=== PATIENT | male | born 1945 | race Caucasian/White ===

== ENCOUNTER 2020-08-02 15:18 | Outpatient (REF) | payer MEDICARE, OTHER, SELFPAY ==
[2020-08-02 17:12] LABS: MANUAL DIFF FLAG NO
[2020-08-02 17:23] LABS: Basophils Absolute Auto 0.1 X10*3/uL (0.0-0.2); Basophils Percent Auto 0.6 % (0-2); Eosinophils Absolute Auto 0.2 X10*3/uL (0.0-0.4); Eosinophils Percent Auto 2.5 % (0-4); Hematocrit 47.5 % (42-52); Hemoglobin 15.2 g/dl (14.0-18.0); Imm Gran Abs Auto 0.03 X10*3/uL (0.00-0.03); Imm Gran Pct Auto 0.4 % (0.0-0.4); Lymphocytes Absolute Auto 1.6 X10*3/uL (1.2-4.9); Lymphocytes Percent Auto 19.2 % (20-40); Mean Corpuscular Hemoglobin 30.3 pg (27.0-33.0); Mean Corpuscular Volume 94.8 fL (80-98); Mean Platelet Volume 12.7 fL (9.4-12.4); Monocytes Absolute Auto 0.7 X10*3/uL (0.1-1.2); Monocytes Percent Auto 8.2 % (2-11); Neutrophils Absolute Auto 5.6 X10*3/uL (2.0-8.3); Neutrophils Percent Auto 69.1 % (45-73); Platelet Count 182 X10*3/uL (160-400); Red Blood Count 5.01 X10*6/uL (4.60-5.80); Red Cell Distribution Width 14.1 % (11.0-16.0); White Blood Count 8.1 X10*3/uL (4.8-10.8)
[2020-08-02 17:38] LABS: Anion Gap 12 (12-20); Blood Urea Nitrogen 30 mg/dL (9-16); Calcium 9.3 mg/dL (8.4-10.2); Carbon Dioxide 29 mmol/L (22-29); Chloride 105 mmol/L (96-108); Estimated Glomerular Filt Rate 51; Glucose Random 106 mg/dL (60-115); Potassium 4.4 mmol/l (3.3-5.1); Sodium 142 mmol/L (135-145)
== END 2020-08-02 15:19 | disposition home or self-care (01) ==
LOC: HO.HMGCLDS 15:18
PROVIDERS: PCP Internal Medicine; Visit Provider Internal Medicine
DX: Z01.818 Encounter for other preprocedural examination (principal); N28.9 Disorder of kidney and ureter, unspecified; F41.1 Generalized anxiety disorder; J44.9 Chronic obstructive pulmonary disease, unspecified
CPT/HCPCS: 36415; 80048; 85025

== ENCOUNTER → 2020-08-09 13:44 | Outpatient (BNVA) | payer MEDICARE, OTHER, SELFPAY | PROVIDERS: PCP Internal Medicine; Visit Provider Internal Medicine | DX: J44.9 Chronic obstructive pulmonary disease, unspecified (principal); Z99.81 Dependence on supplemental oxygen; Z79.51 Long term (current) use of inhaled steroids; Z87.891 Personal history of nicotine dependence | CPT/HCPCS: 99213 ==

== ENCOUNTER → 2020-12-14 13:37 | Outpatient (BNVA) | payer MEDICARE, SELFPAY | PROVIDERS: PCP Internal Medicine; Visit Provider Internal Medicine | DX: Z13.89 Encounter for screening for other disorder (principal) | CPT/HCPCS: Q3014 ==

== ENCOUNTER 2020-12-30 09:22 | Outpatient (REF) | payer MEDICARE, SELFPAY ==
[2020-12-30 11:55] LABS: Hematocrit 46.4 % (42-52); Hemoglobin 14.6 g/dl (14.0-18.0)
== END 2020-12-30 09:23 | disposition home or self-care (01) ==
LOC: HO.HMGCLDS 09:22
PROVIDERS: PCP Internal Medicine; Visit Provider Internal Medicine
DX: I10 Essential (primary) hypertension (principal); J44.9 Chronic obstructive pulmonary disease, unspecified; F41.1 Generalized anxiety disorder; N28.9 Disorder of kidney and ureter, unspecified
CPT/HCPCS: 36415; 85014; 85018

== ENCOUNTER → 2021-06-28 13:04 | Outpatient (BNVA) | payer MEDICARE, SELFPAY | PROVIDERS: PCP Internal Medicine; Visit Provider Internal Medicine | DX: J44.9 Chronic obstructive pulmonary disease, unspecified (principal); R09.02 Hypoxemia | CPT/HCPCS: 99212 ==

== ENCOUNTER → 2022-01-10 13:07 | Outpatient (BNVA) | payer MEDICARE, SELFPAY | PROVIDERS: PCP Internal Medicine; Visit Provider Internal Medicine | DX: R09.02 Hypoxemia (principal); J44.9 Chronic obstructive pulmonary disease, unspecified | CPT/HCPCS: 99212 ==

== ENCOUNTER 2022-05-09 09:31 | Outpatient (REF) | payer MEDICARE, SELFPAY ==
[2022-05-09 11:53] LABS: Alanine Aminotransferase 21 U/L (0-40); Albumin Level 4.1 g/dL (3.5-5.0); Alkaline Phosphatase 69 U/L (39-117); Anion Gap 11 (12-20); Aspartate Amino Transferase 17 U/L (5-37); Bilirubin Total 0.3 mg/dL (0.0-1.0); Blood Urea Nitrogen 18 mg/dL (9-16); Calcium 8.8 mg/dL (8.4-10.2); Carbon Dioxide 30 mmol/L (22-29); Chloride 103 mmol/L (96-108); Estimated Glomerular Filt Rate 53; Glucose Random 106 mg/dL (60-115); Potassium 4.6 mmol/L (3.3-5.1); Sodium 139 mmol/L (135-145)
== END 2022-05-09 09:32 | disposition home or self-care (01) ==
LOC: HO.HMGCLDS 09:31
PROVIDERS: PCP Internal Medicine; Visit Provider Internal Medicine
DX: F41.1 Generalized anxiety disorder (principal); J44.9 Chronic obstructive pulmonary disease, unspecified; I10 Essential (primary) hypertension
CPT/HCPCS: 36415; 80053

== ENCOUNTER 2022-06-21 14:23 | Outpatient (REF) | payer MEDICARE, SELFPAY ==
--- NOTE | ~2022-06-21 | XR_ITS ---
EXAMINATION: XR CHEST CLINICAL INFORMATION: COPD. Acute exacerbation. COMPARISON: Chest radiograph dated 10/19/2008. TECHNIQUE: 2 views of the chest were obtained. FINDINGS: Chronic-appearing increased interstitial markings. Focal, patchy opacities within the right lower lobe concerning for early pneumonia. No pleural effusion or pneumothorax. Stable cardiomediastinal silhouette. Healed right rib fracture. XR/XR chest 2V IMPRESSION: Patchy opacities within the right lower lobe, concerning for pneumonia.
== END 2022-06-21 14:24 | disposition home or self-care (01) ==
LOC: HO.XRAY 14:23
PROVIDERS: PCP Internal Medicine; Visit Provider Internal Medicine
DX: J44.1 Chronic obstructive pulmonary disease with (acute) exacerbation (principal)
CPT/HCPCS: 71046; 99212

== ENCOUNTER → 2022-08-08 13:35 | Outpatient (BNVA) | payer MEDICARE, SELFPAY | PROVIDERS: PCP Internal Medicine; Visit Provider Internal Medicine | DX: J44.9 Chronic obstructive pulmonary disease, unspecified (principal); R09.02 Hypoxemia | CPT/HCPCS: 99212 ==

== ENCOUNTER 2022-12-25 14:00 | Emergency (ER) | payer OTHER, SELFPAY ==
--- NOTE | ~2022-12-25 | XR_ITS ---
EXAMINATION: XR CHEST CLINICAL INFORMATION: Short of breath COMPARISON: 06/21/2022 TECHNIQUE: Frontal view of the chest was obtained. FINDINGS: The lungs are well expanded. Streaky bibasilar markings. No dense consolidation. No pleural effusion or pneumothorax. No edema. No pleural effusion or pneumothorax. The cardiomediastinal silhouette is unchanged. XR/XR chest 1V IMPRESSION: Streaky bibasilar markings favor atelectasis. No dense consolidation. Small airways process possible.
[2022-12-25 14:10] VITALS: BP 130/96; BP 178/100; PULSE 57; PULSE 66; RESP 16; TEMP 36.8; O2SAT 100; O2SAT 97; BMI 25.8
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
--- NOTE | 2022-12-25 17:15 | PC.NURSE ---
WAS GOING TO BE TRANSFERRED TO [facility], PT IS NOW BEING DC HOME, STATES UNDERSTANDING OF RISKS AND UNDERSTANDS TEACH BACK WITH TEACH BACK
[2022-12-25] MEDS: Bacitracin Oint 14 GM TUBE 1 APPL TOPICAL (17:47)
== END 2022-12-25 17:45 | disposition home or self-care (01) ==
PROVIDERS: Emergency Provider Emergency Medicine Emergency Medical Services; PCP Internal Medicine
DX: T20.34XA Burn of third degree of nose (septum), initial encounter (principal); T20.29XA Burn of second degree of multiple sites of head, face, and neck, initial encounter; X08.8XXA Exposure to other specified smoke, fire and flames, initial encounter; J44.9 Chronic obstructive pulmonary disease, unspecified; Z99.81 Dependence on supplemental oxygen; F17.210 Nicotine dependence, cigarettes, uncomplicated; Z79.899 Other long term (current) drug therapy
CPT/HCPCS: 71045; 99282; 99283

== ENCOUNTER 2023-01-03 09:24 | Outpatient (REF) | payer OTHER, SELFPAY ==
[2023-01-03 11:15] LABS: MANUAL DIFF FLAG NO
[2023-01-03 11:25] LABS: Basophils Absolute Auto 0.1 X10*3/uL (0.0-0.2); Basophils Percent Auto 0.6 % (0-2); Eosinophils Absolute Auto 0.2 X10*3/uL (0.0-0.4); Hematocrit 42.9 % (42.0-52.0); Hemoglobin 13.7 g/dl (14.0-18.0); Imm Gran Abs Auto 0.04 X10*3/uL (0.00-0.03); Imm Gran Pct Auto 0.4 % (0.0-0.4); Lymphocytes Absolute Auto 1.5 X10*3/uL (1.2-4.9); Lymphocytes Percent Auto 16.4 % (20-40); Mean Corpuscular HGB Conc 31.9 g/dl (31.0-36.0); Mean Corpuscular Volume 94.1 fL (80.0-98.0); Mean Platelet Volume 12.4 fL (9.4-12.4); Monocytes Absolute Auto 0.8 X10*3/uL (0.1-1.2); Neutrophils Absolute Auto 6.8 x10*3/uL (2.0-8.3); Neutrophils Percent Auto 72.6 % (45-73); Platelet Count 195 X10*3/uL (160-400); Red Blood Count 4.56 X10*6/uL (4.60-5.80); Red Cell Distribution Width 13.8 % (11.0-16.0); White Blood Count 9.4 X10*3/uL (4.8-10.8)
[2023-01-03 12:07] LABS: Alanine Aminotransferase 13 U/L (0-40); Albumin Level 4.1 g/dL (3.5-5.0); Alkaline Phosphatase 69 U/L (39-117); Anion Gap 15 (12-20); Aspartate Amino Transferase 18 U/L (5-37); Bilirubin Total 0.4 mg/dL (0.0-1.0); Blood Urea Nitrogen 40 mg/dL (9-16); Calcium 8.5 mg/dL (8.4-10.2); Carbon Dioxide 25 mmol/L (22-29); Chloride 109 mmol/L (96-108); Estimated Glomerular Filt Rate 20; Glucose Random 123 mg/dL (60-115); Potassium 4.6 mmol/L (3.3-5.1); Sodium 144 mmol/L (135-145); Total Protein 6.8 g/dL (6.5-8.0)
== END 2023-01-03 09:25 | disposition home or self-care (01) ==
LOC: HO.HMGCLDS 09:24
PROVIDERS: PCP Internal Medicine; Visit Provider Internal Medicine
DX: F41.1 Generalized anxiety disorder (principal); I10 Essential (primary) hypertension; J44.9 Chronic obstructive pulmonary disease, unspecified; N28.9 Disorder of kidney and ureter, unspecified; Z99.81 Dependence on supplemental oxygen
CPT/HCPCS: 36415; 80053; 85025

== ENCOUNTER → 2023-01-14 09:12 | Outpatient (BNVA) | payer MEDICARE, SELFPAY | PROVIDERS: PCP Internal Medicine; Visit Provider Internal Medicine | DX: J44.1 Chronic obstructive pulmonary disease with (acute) exacerbation (principal); R09.02 Hypoxemia; Z99.81 Dependence on supplemental oxygen; Z79.899 Other long term (current) drug therapy | CPT/HCPCS: 99212 ==

== ENCOUNTER 2023-07-03 13:48 | Outpatient (AMB) | payer MEDICARE, SELFPAY ==
[2023-07-03 13:53] VITALS: BP 142/82; PULSE 81; O2SAT 94
--- NOTE | 2023-07-03 13:53 | A.OFFPC_ITS ---
Vital Signs 07/03/23 13:53 Weight 158 lb 8 oz BP 142/82 H Blood Pressure Location Rt brachial Position Sitting Pulse 81 Pulse Source Pulse Oximeter Pulse Oximetry (%) 94 Oxygen Delivery Method Nasal Cannula Intake Visit Reasons: 6m follow up labs Allergies No Known Allergies [No Known Allergies*] Allergy (Verified 07/03/23 13:54) Medication List - Last Reconciled 07/03/23 by Tanisha Evangelista MD albuterol sulfate 90 mcg/actuation 2 puffs inhalation Q4-6H PRN 30 days amlodipine 5 mg PO DAILY bacitracin (Bacitraycin Plus) 1 appl topical Q8H inhalational spacing device As directed sertraline 100 mg PO DAILY tiotropium bromide 2.5 mcg/actuation (Spiriva Respimat) 2 puffs inhalation QAM Tobacco use date assessed: 07/03/23 Fall risk assessment: No Falls in past year Last assessed Fall Risk: 07/03/23 Dental Screening Dental Screen Date: 07/03/23 Did you have a dental visit in the last 12 months?: No Did you have a dental problem in the last 6 months where you did not have access to dental care?: No Was dental information given to patient?: Patient declined HPI 6m follow up labs HPI Details Patient is 77-year-old gentleman came in today for his regular follow- up appointment Patient is complaining of having diarrhea 2 or 3 times a day for the past 2 months. Had colonoscopy more than 7 years ago. I am booking him appointment with the gastroenterology for further evaluation He does not have any blood in the stools there is no abdominal pain fever chills or any other symptoms of nausea vomiting. Last time he had labs December of this year his creatinine was 3.1 we will be repeating that again He is here today with his nephew Naresh [phone] Case discussed with Danilo as well, I want Montrell to see a marketing services manager. Meanwhile he is to continue with amlodipine 5 mg And sertraline 100 mg that he is taking for anxiety and major depression. Patient is on oxygen due to severe COPD and is seeing Dr. Jean Follow-up 3 months [facility] Medical History COPD exacerbation Hypoxemia COPD (chronic obstructive pulmonary disease) Supplemental oxygen dependent Nephropathy Anxiety, generalized COPD (chronic obstructive pulmonary disease) Surgical History Bladder tumor History of colonoscopy History of cystoscopy History of surgery Avulsion of finger tip History of neck surgery Arm fracture, left History of knee surgery H/O colonoscopy Family History Father HTN (hypertension) Diabetes mellitus Mother Cancer Brother Melanoma Sister Breast cancer Son No problems noted. Daughter No problems noted. Social History Housing: House Alcohol intake: former Patient Tobacco Use Status: Former Tobacco user e-Cigarette/Vaping Use: Never Used service: No Cognitive needs: No Hearing needs: No Vision needs: Yes Questionnaire PHQ-9 Over the last 2 weeks, how often have you been bothered by any of the following problems? 1. Little interest or pleasure in doing things: not at all 2. Feeling down, depressed, or hopeless: not at all 3. Trouble falling or staying asleep, or sleeping too much: not at all 4. Feeling tired or having little energy: not at all 5. Poor appetite or overeating: not at all 6. Feeling bad about yourself - or that you are a failure or have let yourself or your family down: not at all 7. Trouble concentrating on things, such as reading the newspaper or watching television: not at all 8. Moving or speaking so slowly that other people could have noticed. Or the opposite - being so fidgety or restless that you have been moving around a lot more than usual: not at all 9. Thoughts that you would be better off or of hurting yourself in some way : not at all Total score: 0 Depression Screening Interpretation: Negative 98949 - PHQ-9 Billing: Yes Source: Developed by Drs. Lukas Westfall, Ana Holt, Octavio De Guzman and colleagues, with an educational raleigh from [employer]. Thrive Questionnaire Date Thrive assessed: 07/03/23 I am a: Patient What is your living situation today?: I have a steady place to live Within the past 12 months, did the food you bought not last and you didn't have the money to get more?: Sometimes True Within the past 12 months, did you worry whether your food would run out before you got money to buy more?: Sometimes True Do you have trouble paying for medicines?: No Do you have trouble getting transportation to medical appointments?: No Do you have trouble paying your heating and electricity bill?: Yes Do you have trouble taking care of your child, family member or friend?: No Do you have trouble with day-to-day activities such as bathing, preparing meals, shopping, managing finances, etc.?: No Are you currently unemployed and looking for a job?: No Are you interested in more education?: No AUDIT C Alcohol Use Questionnaire (AUDIT-C) 1. How often do you have a drink containing alcohol?: Never 3. How often do you have six or more drinks on one occasion?: Never Total Score: 0 Score Reviewed/Action Taken: Yes ILDA-7 AMB Questionnaire ILDA-7 Date ILDA - 7 assessed: 07/03/23 Feeling nervous, anxious, or on edge: 0 = Not at all Not being able to stop or control worryin = Not at all Worrying too much about different things: 0 = Not at all Trouble relaxin = Not at all Being so restless that it is hard to sit still: 0 = Not at all Becoming easily annoyed or irritable: 0 = Not at all Feeling afraid as if something awful might happen: 0 = Not at all Total ILDA-7 score (0-4 normal; 5-9 mild; 10-14 moderate; 15-21 severe): 0 Source: Developed by Drs. Lukas Westfall, Ana Holt, Octavio De Guzman and colleagues, with an educational raleigh from [employer]. ILDA-7 Assessment Billing ILDA-7 Assessment Tool: ILDA-7 Assessment 35778 Review of Systems Const Denies chills and Denies fever(s) ENT Denies epistaxis and Denies nasal discharge Card Denies chest pain Resp Denies chest congestion and Denies hemoptysis GI Denies nausea Skin/Breast Denies rash Neuro Reports no additional complaints Psych Reports no additional complaints Endo Reports no additional complaints Physical exam (Primary Care) Vital Signs: Last Vital Signs Pulse 81 07/03/23 13:53 BP 142/82 H 07/03/23 13:53 Pulse Ox 94 07/03/23 13:53 Oxygen Delivery Method Nasal Cannula 07/03/23 13:53 Tobacco/Smoking Status: Tobacco use Status Tobacco use date assessed 07/03/23 07/03/23 13:59 Patient Tobacco Use Status Former Tobacco user 07/03/23 13:59 e-Cigarette/Vaping Use Never Used 07/03/23 13:59 PHQ-9: PHQ-9 Score PHQ-9: Total score 0 07/03/23 14:33 Depression Screening Interpretation: Negative Thrive Assessment: Date of Thrive Assessment Date Thrive assessed 07/03/23 07/03/23 14:33 Const General: cooperative, comfortable and no acute distress Orientation/consciousness: patient oriented x3 HENMT Other: Oxygen cannula in the nose Head: Yes normocephalic Eyes General: appearance normal, both eyes and all related structures Neck Neck: Yes supple Resp Effort & Inspection: normal respiratory effort, no cough and no stridor Cardio Rhythm: regular rhythm Heart sounds: S1 normal heart sound present and S2 normal heart sound present GI Other: Abdomen soft nontender, bowel sounds positive Skin General skin exam: turgor normal Neuro General: patient oriented x3, tone normal and moves all extremities Extrem Right lower extremity: no edema Left lower extremity: no edema Assessment and Plan Assessment & Plan (1) Anxiety, generalized: Code(s): F41.1 - Generalized anxiety disorder (2) COPD (chronic obstructive pulmonary disease): Code(s): J44.9 - Chronic obstructive pulmonary disease, unspecified Qualifiers: COPD type: emphysema Emphysema type: panlobular Qualified Code(s): J43.1 - Panlobular emphysema (3) Nephropathy: Code(s): N28.9 - Disorder of kidney and ureter, unspecified (4) Hypertension, essential: Code(s): I10 - Essential (primary) hypertension (5) Chronic diarrhea: Code(s): K52.9 - Noninfective gastroenteritis and colitis, unspecified Plan Patient is 77-year-old gentleman came in today for his regular follow-up appointment Patient is complaining of having diarrhea 2 or 3 times a day for the past 2 months. Had colonoscopy more than 7 years ago. I am booking him appointment with the gastroenterology for further evaluation He does not have any blood in the stools there is no abdominal pain fever chills or any other symptoms of nausea vomiting. Last time he had labs December of this year his creatinine was 3.1 we will be repeating that again He is here today with his nephew Naresh [phone] Case discussed with Danilo as well, I want Montrell to see a marketing services manager. Meanwhile he is to continue with amlodipine 5 mg And sertraline 100 mg that he is taking for anxiety and major depression. Patient is on oxygen due to severe COPD and is seeing Dr. Jean Follow-up 3 months Orders: Orders Complete Blood Count Auto Diff Today F41.1 - Generalized anxiety disorder, I10 - Essential (primary) hypertension, J44.9 - Chronic obstructive pulmonary disease, unspecified, N28.9 - Disorder of kidney and ureter, unspecified Comprehensive Met. Panel Today F41.1 - Generalized anxiety disorder, I10 - Essential (primary) hypertension, J44.9 - Chronic obstructive pulmonary disease, unspecified, N28.9 - Disorder of kidney and ureter, unspecified Referrals Nephrology Referral N28.9 - Disorder of kidney and ureter, unspecified Gastroenterology Referral K52.9 - Noninfective gastroenteritis and colitis, unspecified Coding Level of Care Code Est Pt Level 4 (44268) Diagnoses Anxiety, generalized F41.1 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 Emphysema type: panlobular Nephropathy N28.9 Hypertension, essential I10 Chronic diarrhea K52.9 Additional Codes ILDA-7 Assessment Billing - ILDA-7 Assessment Tool: ILDA-7 Assessment 26477 ([id number])
== END 2023-07-03 14:20 | disposition home or self-care (01) ==
PROVIDERS: Visit Provider Internal Medicine
DX: F41.1 Generalized anxiety disorder (principal); J43.1 Panlobular emphysema; I10 Essential (primary) hypertension; N28.9 Disorder of kidney and ureter, unspecified; K52.9 Noninfective gastroenteritis and colitis, unspecified
CPT/HCPCS: 99214

== ENCOUNTER 2023-07-03 14:20 | Outpatient (REF) | payer MEDICARE, SELFPAY ==
[2023-07-03 16:06] LABS: MANUAL DIFF FLAG NO
[2023-07-03 16:32] LABS: Basophils Absolute Auto 0.1 X10*3/uL (0.0-0.2); Basophils Percent Auto 0.7 % (0-2); Eosinophils Absolute Auto 0.1 X10*3/uL (0.0-0.4); Eosinophils Percent Auto 1.8 % (0-4); Hematocrit 42.7 % (42.0-52.0); Hemoglobin 13.2 g/dl (14.0-18.0); Imm Gran Abs Auto 0.04 X10*3/uL (0.00-0.03); Imm Gran Pct Auto 0.6 % (0.0-0.4); Lymphocytes Percent Auto 15.3 % (20-40); Mean Corpuscular HGB Conc 30.9 g/dl (31.0-36.0); Mean Corpuscular Hemoglobin 29.7 pg (27.0-33.0); Mean Corpuscular Volume 96.2 fL (80.0-98.0); Mean Platelet Volume 12.4 fL (9.4-12.4); Monocytes Absolute Auto 0.5 X10*3/uL (0.1-1.2); Monocytes Percent Auto 6.9 % (2-11); Neutrophils Absolute Auto 5.1 x10*3/uL (2.0-8.3); Neutrophils Percent Auto 74.7 % (45-73); Platelet Count 153 X10*3/uL (160-400); Red Blood Count 4.44 X10*6/uL (4.60-5.80); Red Cell Distribution Width 13.4 % (11.0-16.0); White Blood Count 6.8 X10*3/uL (4.8-10.8)
[2023-07-03 16:34] LABS: Alanine Aminotransferase 16 U/L (0-40); Albumin Level 4.3 g/dL (3.5-5.0); Alkaline Phosphatase 76 U/L (39-117); Anion Gap 15 (12-20); Aspartate Amino Transferase 17 U/L (5-37); Bilirubin Total 0.4 mg/dL (0.0-1.0); Blood Urea Nitrogen 26 mg/dL (9-16); Calcium 9.3 mg/dL (8.4-10.2); Carbon Dioxide 27 mmol/L (22-29); Chloride 104 mmol/L (96-108); Estimated Glomerular Filt Rate 49; Glucose Random 108 mg/dL (60-115); Potassium 4.8 mmol/L (3.3-5.1); Sodium 141 mmol/L (135-145); Total Protein 7.7 g/dL (6.5-8.0)
== END 2023-07-03 14:21 | disposition home or self-care (01) ==
LOC: HO.HMGCLDS 14:20
PROVIDERS: PCP Internal Medicine; Visit Provider Internal Medicine
DX: F41.1 Generalized anxiety disorder (principal); J44.9 Chronic obstructive pulmonary disease, unspecified; N28.9 Disorder of kidney and ureter, unspecified; I10 Essential (primary) hypertension
CPT/HCPCS: 36415; 80053; 85025

== ENCOUNTER 2023-08-14 15:18 | Outpatient (AMB) | payer MEDICARE, SELFPAY ==
--- NOTE | 2023-08-14 15:19 | A.OFFVIS_ITS ---
Intake Vital Signs 08/14/23 15:23 Height 5 ft 8 in Weight 154 lb 5.177 oz BMI 23.5 Blood Pressure Location Lt brachial Position Sitting Intake Visit Reasons: Noninfective gastroenteritis and colitis Intake Note: Montrell presents in the office as a new patient for colitis. CC: Meter Reader Required: No Allergies No Known Allergies [No Known Allergies*] Allergy (Verified 08/15/23 13:56) HPI HPI Comments History of Present Illness Details This is a 77 y.o M with PMH of advanced COPD, hx of bladder ca s/p TURBT who presents to our office for worsening diarrhea. History was obtained from the pt as well as the niece accompanying him. Reports that for the past 3 months has been having watery diarrhea without any obv abd pain. Reports having at least 3-4 loose BMs every day, sometimes assoc with incontinence due to urgency. With this no abd pain or subjective loss of appetite but from chart review appears to have lost 10lbs in the past 6 months unintentionally. No blood in stool. No fam hx of CRC. Last colo 2011 (Dr Ríos): x2 tubular adenoma. Diverticulosis. In terms of COPD - has chronic hypoxic resp failure due to this. On supplemental O2. Sees Dr Jean and per last note appears has not been progressing. Former smoker. Does not recall having LDCT for lung cancer screening. [facility] Medical History COPD exacerbation Hypoxemia COPD (chronic obstructive pulmonary disease) Supplemental oxygen dependent Nephropathy Anxiety, generalized COPD (chronic obstructive pulmonary disease) Surgical History Bladder tumor History of colonoscopy History of cystoscopy History of surgery Avulsion of finger tip History of neck surgery Arm fracture, left History of knee surgery H/O colonoscopy Family History Father HTN (hypertension) Diabetes mellitus Mother Cancer Brother Melanoma Sister Breast cancer Son No problems noted. Daughter No problems noted. Social History Housing: House Alcohol intake: former Patient Tobacco Use Status: Former Tobacco user e-Cigarette/Vaping Use: Never Used service: No Cognitive needs: No Hearing needs: No Vision needs: Yes Review of Systems Const All systems reviewed & are unremarkable except as noted in HPI and below Physical Exam Vital Signs: BMI result Body Mass Index 23.5 Gen appear: Frail, hard of hearing HEENT: nonicteric, no cervical lymphadenopathy Chest: Audible exp wheezing CVS: Regular S1/S2 Abd: soft, nontender, nondistended, bowel sounds + Ext: no peripheral edema Neuro: A/Ox3, noted to move all extremities spontaneously Assessment & Plan Assessment & Plan (1) Unintentional weight loss: Code(s): R63.4 - Abnormal weight loss (2) Chronic diarrhea: Code(s): K52.9 - Noninfective gastroenteritis and colitis, unspecified (3) Personal history of colonic polyps: Code(s): Z86.010 - Personal history of colonic polyps Plan Reviewed with the pt that change in bowel habits at this age with unintentional weight loss certainly warrants expedited work up tigre to r/o underlying malignancy, other ddx include chronic infection, malabsorption, microscopic colitis, paraneoplastic etc. Plan: - Labs and imaging ordered - EGD/colo to be set up urgently AFTER clearance from pulm. - Split PEG prep instructions reviewed with the pt and his niece - He was also advised to discuss lung ca screening with his PCP Follow up after scopes Orders: Orders Complete Blood Count no Diff 08/15/23 K52.9 - Noninfective gastroenteritis and colitis, unspecified, R63.4 - Abnormal weight loss IRON PROFILE 08/15/23 K52.9 - Noninfective gastroenteritis and colitis, unspecified, R63.4 - Abnormal weight loss Hepatitis B Surface Antibody 08/15/23 K52.9 - Noninfective gastroenteritis and colitis, unspecified, R63.4 - Abnormal weight loss Hepatitis B Surface Antigen 08/15/23 K52.9 - Noninfective gastroenteritis and colitis, unspecified, R63.4 - Abnormal weight loss Hepatitis C Antibody 08/15/23 K52.9 - Noninfective gastroenteritis and colitis, unspecified, R63.4 - Abnormal weight loss Immunoglobulin A 08/15/23 K52.9 - Noninfective gastroenteritis and colitis, unspecified, R63.4 - Abnormal weight loss Calprotectin, Fecal 08/15/23 K52.9 - Noninfective gastroenteritis and colitis, unspecified, R63.4 - Abnormal weight loss Comprehensive Met. Panel 08/15/23 K52.9 - Noninfective gastroenteritis and colitis, unspecified, R63.4 - Abnormal weight loss Ferritin 08/15/23 K52.9 - Noninfective gastroenteritis and colitis, unspecified, R63.4 - Abnormal weight loss HIV Ab/Ag 08/15/23 K52.9 - Noninfective gastroenteritis and colitis, unspecified, R63.4 - Abnormal weight loss Hepatitis B Core Antibody 08/15/23 K52.9 - Noninfective gastroenteritis and colitis, unspecified, R63.4 - Abnormal weight loss Hemoglobin A1c 08/15/23 K52.9 - Noninfective gastroenteritis and colitis, unspecified, R63.4 - Abnormal weight loss TSH reflex Free T4 08/15/23 K52.9 - Noninfective gastroenteritis and colitis, unspecified, R63.4 - Abnormal weight loss Transglutaminase IgA 08/15/23 K52.9 - Noninfective gastroenteritis and colitis, unspecified, R63.4 - Abnormal weight loss CDiff Gene PCR 08/15/23 K52.9 - Noninfective gastroenteritis and colitis, unspecified, R63.4 - Abnormal weight loss CT abdomen pelvis w IV con 08/14/23 K52.9 - Noninfective gastroenteritis and colitis, unspecified, R63.4 - Abnormal weight loss Medications: New peg 3350-electrolytes 236-22.74-6.74 -5.86 gram (Golytely) as per split prep instructions, until fecal effluent is clear 240 mL PO Q10M 4,000 mL 0RF colonoscopy Coding Level of Care Code New Pt Level 4 (91826) Diagnoses Unintentional weight loss R63.4 Chronic diarrhea K52.9 Personal history of colonic polyps Z86.010
[2023-08-14 15:23] VITALS: BMI 23.5
== END 2023-08-14 16:08 | disposition home or self-care (01) ==
PROVIDERS: PCP Internal Medicine; Visit Provider Internal Medicine
DX: R63.4 Abnormal weight loss (principal); K52.9 Noninfective gastroenteritis and colitis, unspecified; Z86.010 Personal history of colon polyps
CPT/HCPCS: 99204

== ENCOUNTER → 2023-08-14 15:18 | Outpatient (BNVA) | payer MEDICARE, SELFPAY | PROVIDERS: PCP Internal Medicine; Visit Provider Internal Medicine | DX: K52.9 Noninfective gastroenteritis and colitis, unspecified (principal); R63.4 Abnormal weight loss; Z86.010 Personal history of colon polyps | CPT/HCPCS: 99202 ==

== ENCOUNTER 2023-08-15 13:11 | Outpatient (REF) | payer MEDICARE, SELFPAY ==
[2023-08-15 13:50] LABS: Hematocrit 40.4 % (42.0-52.0); Hemoglobin 12.7 g/dl (14.0-18.0); Mean Corpuscular HGB Conc 31.4 g/dl (31.0-36.0); Mean Corpuscular Hemoglobin 29.2 pg (27.0-33.0); Mean Corpuscular Volume 92.9 fL (80.0-98.0); Mean Platelet Volume 11.6 fL (9.4-12.4); Platelet Count 180 X10*3/uL (160-400); Red Blood Count 4.35 X10*6/uL (4.60-5.80); Red Cell Distribution Width 13.2 % (11.0-16.0); White Blood Count 7.6 X10*3/uL (4.8-10.8)
[2023-08-15 14:30] LABS: Estimated Average Glucose 108 mg/dL; Hemoglobin A1c % 5.4 % (<6.0)
[2023-08-15 14:36] LABS: Alanine Aminotransferase 18 U/L (0-40); Albumin Level 4.4 g/dL (3.5-5.0); Alkaline Phosphatase 76 U/L (39-117); Anion Gap 13 (12-20); Aspartate Amino Transferase 26 U/L (5-37); Bilirubin Total 0.3 mg/dL (0.0-1.0); Blood Urea Nitrogen 24 mg/dL (9-16); Calcium 9.4 mg/dL (8.4-10.2); Carbon Dioxide 30 mmol/L (22-29); Chloride 101 mmol/L (96-108); Estimated Glomerular Filt Rate 41; Glucose Random 100 mg/dL (60-115); Iron 52 mcg/dL (45-160); Percent Iron Saturation 19 % (15-50); Potassium 4.2 mmol/L (3.3-5.1); Sodium 140 mmol/L (135-145); Total Iron Binding Capacity 278 mcg/dL (228-428); Total Protein 7.9 g/dL (6.5-8.0); Unsaturated Iron Binding 226 ug/dL
[2023-08-15 14:54] LABS: Ferritin 162 ng/mL (20-250); TSH reflex Free T4 0.64 uIU/mL (0.32-4.0)
[2023-08-15 15:42] LABS: CDiff Gene PCR NEGATIVE (Negative)
[2023-08-16 17:34] LABS: Immunoglobulin A 279 mg/dL (70-320)
[2023-08-19 04:55] LABS: HBS Num1 0.02 mIU/mL (0-7.99); HBc Num1 0.05 S/CO (0.00-0.79); HBsAGNum1 0.37 S/CO (0.00-0.99); HIV AB/AG Nonreactive (Nonreactive); HIV Num 1 0.12 S/CO (0.00-0.99); Hepatitis B Core Antibody Nonreactive (Nonreactive); Hepatitis B Surface Antigen Negative (Negative); ~HepC Num1 0.11 S/CO (0.00-0.79); ~Hepatitis B Surface Antibody NONREACTIVE (Nonreactive); ~Hepatitis C Antibody Nonreactive (Nonreactive)
[2023-08-21 12:08] LABS: Transglutaminase IgA <1.0 U/mL
[2023-08-21 19:08] LABS: Calprotectin, Fecal 325 mcg/g
== END 2023-08-15 13:12 | disposition home or self-care (01) ==
LOC: HO.LAB 13:11
PROVIDERS: PCP Internal Medicine; Visit Provider Internal Medicine
DX: J44.9 Chronic obstructive pulmonary disease, unspecified (principal); R09.02 Hypoxemia; K52.9 Noninfective gastroenteritis and colitis, unspecified; R63.4 Abnormal weight loss; Z79.899 Other long term (current) drug therapy
CPT/HCPCS: 36415; 80053; 82728; 82784; 83036; 83540; 83993; 84443; 85027; 86364; 86704; 86706; 86803; 87340; 87389; 87493; 99212

== ENCOUNTER 2023-08-15 13:27 | Outpatient (AMB) | payer MEDICARE, SELFPAY ==
--- NOTE | 2023-08-15 13:30 | MHC.OFFVIS ---
Intake Vital Signs 08/15/23 13:33 Height 5 ft 8 in Weight 157 lb BMI 23.9 BP 140/62 H Blood Pressure Location Lt brachial Position Sitting Pulse 62 Pulse Source Pulse Oximeter Pulse Oximetry (%) 94 Oxygen Delivery Method Nasal Cannula Oxygen Flow Rate 2 Intake Visit Reasons: Colonoscopy Intake Note: pt is here for pre-op clearance for upper and lower GI series, to be scheduled within the next 3-4 weeks. 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 Allergies No Known Allergies [No Known Allergies*] Allergy (Verified 08/15/23 13:56) Medication List - Last Reconciled 08/15/23 by Chao Jean MD albuterol sulfate 90 mcg/actuation (Ventolin HFA) 2 puffs PO Q4-6H PRN amlodipine 5 mg PO DAILY bacitracin (Bacitraycin Plus) 1 appl topical Q8H cholecalciferol (vitamin D3) 125 mcg PO DAILY inhalational spacing device As directed peg 3350-electrolytes 236-22.74-6.74 -5.86 gram (Golytely) 240 mL PO Q10M sertraline 100 mg PO DAILY tiotropium bromide 2.5 mcg/actuation (Spiriva Respimat) 2 puffs inhalation QAM Do you need a note to return to daycare/school/sports/work: No HPI Colonoscopy HPI Details MR PALMER IS 77 YEA RS OLD GENTLEMAN, WITH PAST HISTORY OF SMOKING , BUT Q UIT A FEW YEARS AG O. HE [place] ADVANCED CHRONIC OBSTRUCTIVE PULMO NARY DISEASE, WHIC H IS NOW STAYING R ELATIVELY STABLE. HE HAS HAD NO ACUT E RESPIRATORY INFE CTIONS IN THE LAST 6 MONTHS OR SO. C ONTINUES TO USE SP IRIVA RESPIMAT 2.5 MCG 2 PUFFS DAILY , AND HAS TO USE T HE ALBUTEROL ONLY ONCE IN A WHILE. Melanie Hernandez MISSED HIS REGUL AR APPOINTMENT A F EW WEEKS AGO. TODA Y HE COMES IN FOR AN URGENT VISIT FO R PULMONARY CLEARA NCE HE WILL BE UNDERGOING COLONOS COPY AND UPPER END OSCOPY. HE HAS HIS USUAL SHORTNESS O F BREATH WHEN HE W ALKS AROUND, AND A LSO HAS MILD INTER MITTENT COUGH. BUT OVERALL HE HAS BE EN VERY STABLE. FRANCISCO CKILY HE HAS HAD N O CHEST INFECTION LATELY. HE STAYS O N OXYGEN 3 L/MINUT E 24 HOURS A DAY. HE HAS STATIONARY CONCENTRATOR AT H [facility], AND USES POC FOR OUTDOORS. [facility] Medical History COPD exacerbation Hypoxemia COPD (chronic obstructive pulmonary disease) Supplemental oxygen dependent Nephropathy Anxiety, generalized COPD (chronic obstructive pulmonary disease) Surgical History Bladder tumor History of colonoscopy History of cystoscopy History of surgery Avulsion of finger tip History of neck surgery Arm fracture, left History of knee surgery H/O colonoscopy Family History Father HTN (hypertension) Diabetes mellitus Mother Cancer Brother Melanoma Sister Breast cancer Son No problems noted. Daughter No problems noted. Social History Housing: House Alcohol intake: former Patient Tobacco Use Status: Former Tobacco user e-Cigarette/Vaping Use: Never Used service: No Cognitive needs: No Hearing needs: No Vision needs: Yes Review of Systems Const All systems reviewed & are unremarkable except as noted in HPI and below Denies chills and Denies fever(s) Eyes Reports no additional complaints ENT Denies epistaxis and Denies nasal discharge Card Denies chest pain Resp Denies chest congestion and Denies hemoptysis GI Denies nausea Musc Reports no additional complaints Skin/Breast Denies rash Neuro Reports no additional complaints Psych Reports no additional complaints Endo Reports no additional complaints Physical Exam Vital Signs: Last Vital Signs Pulse 62 08/15/23 13:33 BP 140/62 H 08/15/23 13:33 Pulse Ox 94 08/15/23 13:33 Oxygen Delivery Method Nasal Cannula 08/15/23 13:33 Oxygen Flow Rate 2 08/15/23 13:33 BMI result Body Mass Index 23.9 Const General: comfortable, no acute distress, alert and awake Orientation/consciousness: patient oriented x3 HEENT Head: Yes normal to inspection General nose exam: No nasal polyps present and No nasal discharge present Face and sinus: Yes sinuses nontender Mouth: oropharynx normal Throat: Yes posterior oropharynx normal Eyes General: appearance normal, both eyes and all related structures Neck Neck: Yes normal visual inspection, Yes no lymphadenopathy, Yes trachea midline and Yes no JVD Thyroid: Thyroid normal Chest Chest palpation & inspection: normal inspection of the chest, normal palpation of entire chest wall and no tenderness Resp Other: Percussion note hyper-resonant, breath sounds are VERY distant with prolonged expiratory phase. THERE ARE NO WHEEZES RHONCHI OR CREPITATIONS TODAY, Cardio Palpation: normal PMI Rate: regular rate Rhythm: regular rhythm Heart sounds: no gallops and no murmurs GI Palpation (GI): Soft to palpation, Tenderness to palpation present (GI), No hepatosplenomegaly present and Palpable mass present Auscultation: normal bowel sounds Back/Spine/Pelvis Thoracic/Lumbar Spine: thoracic and lumbar spine normal to inspection Skin General skin exam: no rashes or lesions noted Neuro General: patient oriented x3 and no focal motor deficits Cranial nerves: Yes CN's II-XII intact bilaterally Extrem General: Yes normal to inspection, Yes no clubbing, cyanosis or edema and Yes no calf tenderness Psych Appearance: grossly normal and well kempt Speech and movement: Normal speech and movement present Results Reviewed Results Reviewed: SPIROMETRY FVC FEV1 FEV1/ FVC FEF 25-75 07/03/2018 73% 30 % 41 16 % 08/15/2023 62 5 25 % 40 13 C/W VERY SEVERE OBSTRUCTIVE AIRWAY DISORDER, NUMBERS SOMEWHAT DECLINED SINCE 2018. Assessment & Plan Assessment & Plan (1) COPD (chronic obstructive pulmonary disease): Comment: HE HAS RATHER SEVERE CHRONIC OBSTRUCTIVE PULMONARY DISEASE, BUT IT SEEMS TO BE WELL CONTROLLED AND STABLE WITH HIS CURRENT REGIMEN. TX : SPIRIVA RESPIMAT 2 INHALATIONS DAILY VENTOLIN 2 PUFFS Q 4-6 HRS PRN * HE HAS DIFFICULTY IN USING VENTOLIN INHALER, HE DOES HAVE A SPACER DEVICE FOR USE OF ALBUTEROL INHALER. HIS NIECE HELPS HIM TO TAKE HIS MEDS PROPERLY. HE DOES NOT NEED A NEBULIZER, Code(s): J44.9 - Chronic obstructive pulmonary disease, unspecified (2) Hypoxemia: Comment: PATIENT HAS STATIONARY CONCENTRATOR AT HOME ,AND USES O2 2 L/MT FOR OUTDOORS, HE HE HAS POC. AND USES O2 3 L/MINUTE. Code(s): R09.02 - Hypoxemia Plan: PULMONARY CLEARANCE NOTE. THIS GENTLEMAN WITH ADVANCED CHRONIC OBSTRUCTIVE PULMONARY DISEASE/HYPOXEMIC RESPIRATORY FAILURE, IS A VERY HIGH RISK FOR ANY MAJOR SURGERY. HOWEVER CLINICALLY HIS CHRONIC OBSTRUCTIVE PULMONARY DISEASE IS QUITE STABLE AND CONTROLLED AT THIS TIME. I THINK HE WILL BE OKAY FOR ENDOSCOPIC PROCEDURE , , PLANNED , UNDER CONSCIOUS SEDATION . IF HE HAS ANY RESPIRATORY ISSUE OR CHEST CONGESTION HE CAN BE TREATED WITH DUONEB UPDRAFT Q 4-6 HOURS P.R.N.. HE SHOULD CONTINUE ON O2 SUPPLEMENTATION AND MAINTAIN O2 SAT ABOVE 90%. Coding Level of Care Code Est Pt Level 4 (20595) Diagnoses COPD (chronic obstructive pulmonary disease) J44.9 Hypoxemia R09.02
[2023-08-15 13:33] VITALS: BP 140/62; PULSE 62; O2SAT 94; BMI 23.9
== END 2023-08-15 14:06 | disposition home or self-care (01) ==
PROVIDERS: PCP Internal Medicine; Visit Provider Internal Medicine
DX: J44.9 Chronic obstructive pulmonary disease, unspecified (principal); R09.02 Hypoxemia
CPT/HCPCS: 99214

== ENCOUNTER 2023-12-10 10:57 | Day surgery (SDC) | payer MEDICARE, SELFPAY ==
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
[2023-12-10] VITALS (8 sets, daily range): BP systolic 140–174; BP diastolic 79–124; PULSE 61–82; RESP 12–18; TEMP 36.8–37.3; O2SAT 95–99; BMI 23.9
[2023-12-10] MEDS: Lactated Ringers 1,000 ML 100 ML IVCONT (11:51)
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
--- NOTE | 2023-12-10 14:03 | P.OP_ITS ---
Operative Note Operative Note Date of Service: 12/10/23 Narrative: Procedure: Upper endoscopy and colonoscopy Indication: Diarrhea, unintenional weight loss Endoscopist: Tahira Diallo MD Anesthesia Provider: Dr Glory Sanchez Anesthesia type: MAC Instrument: Olympus GIF-H190 [id number]-[id number] ?? EGD Procedure:?? The procedure, indications, preparation and potential complications were reviewed with the patient, who indicated understanding and gave written informed consent to proceed. A physical exam was performed. The endoscope was introduced through the mouth, and advanced to the antrum. The mucosa was carefully examined on slow withdrawal of the endoscope. The patient tolerated the procedure well. There were no immediate complications.? ? EGD Findings:? * Esophagus:? Normal mucosa noted in the entire esophagus. The Z line was at 40 cm and irregular up to 38 cm. Cold forceps biopsies were taken to rule out Melendez's esophagus. Depending on the results, this will also be sent for Tissue Cypher if Melendez's confirmed. There was a small hiatal hernia with the diaphragmatic pinch at 42 cm. * Stomach:? Mild erythema and scant heme was noted in the cardia and body of the stomach. Random cold forceps biopsies were taken to rule out H pylori. Retro flexion in the cardia showed Hill grade 4 hiatal hernia. * Erythema and ulcers were noted in the duodenal bulb. There were all clean based. Largest ulcer was 8 mm. The duodenal sweep and 2nd portion of the duodenal were normal in appearance to the extent examined. Cold forceps biopsies were taken for histology. Colonoscopy Procedure: The patient was then turned for the colonoscopy. A digital rectal exam was performed which was abnormal for enlarged and nodular prostate on palpation as well as external hemorrhoids. A distal attachment cap was affixed to the tip of the scope and the colonoscope was then inserted through the anus and advanced through the colon to the cecum at 85 cm and terminal ileum Appendiceal orifice and ileocecal valve were identified. Mucosa was carefully examined under high definition white light as the instrument was slowly withdrawn in a retrograde panoramic fashion. Retroflexion was performed in rectum. The procedure was not difficult. There were no immediate obvious complications. The quality of the prep was BBPS: 2+3+3 = adequate Withdrawal time 45 minutes. Limitations: No limitations. Colonoscopy Findings: Mucosa: Normal to cecum and terminal ileum. Cold forceps biopsies were taken from the right and left side of the colon to rule out microscopic colitis. Protruding lesions: * A large laterally spreading 3 cm polyp was seen in the transverse colon extending from 72 to 75 cm with a small central depression (Kasia Class II a+c). An EMR was performed by 1st lifting the polyp with eleview. The central depression did not lift as well as the rest of the polyp. 3 cc of epi was injected in and around the polyp. Piecemeal polypectomy was then performed using 13 mm stiff hot snare. At the end of the procedure the polyp appeared to be completely removed with endoscopically normal appearing margins. The polyp were retrieved in rescue net and submitted for histology. The polypectomy defect was approximated with a Resolution 360 Ultra clip and closed. There was no immediate bleeding. The polyp site was marked with Endomark placed 5 cm PROXIMAL to the polyp. * A sessile polyp of size 6 mm was noted in the ascending colon. Cold snare polypectomy was performed. The polyp was completely removed and retrieved. * A sessile polyp of size 4 mm was noted in transverse colon. Cold snare po lypectomy was performed. The polyp was completely removed and retrieved. * Medium internal hemorrhoids without stigmata of recent bleeding. Excavated lesions: * Moderate diverticulosis of the whole colon L>R. Additional intervention: The patient was also given 2g IV Cefazolin in post-op. Impressions:? * Irregular Z line suspicious for BE (biopsy, tissue cypher) * Hiatal hernia * Gastritis (biopsy) * Duodenitis (biopsy) * Duodenal ulcers * Normal colon and terminal ileum mucosa (biopsy) * 3 cm large polyp with central depression (piecemeal EMR, Endoclip, Endomark) * 2 other small polyps removed * Diverticulosis * Hemorrhoids Recommendations: - Await path results - Depending on the results, will need surveillance colo in 3-6 months vs surgical referral - Start PPI therapy - Strong counseling for smoking cessation
[2023-12-10] MEDS: ceFAZolin Sodium/Dextrose,Iso 2 GM/50 ML PIGGYBACK IV (15:01)
--- NOTE | 2023-12-10 15:27 | HO.POSTANES ---
Post Anesthesia Evaluation Post Anesthesia Evaluation Date of Service: 12/10/23 Vital Signs: Vital Signs Temp Pulse Resp BP Pulse Ox O2 Del Method O2 Flow Rate 12/10/23 15:00 99.2 F 61 16 165/85 H 95 Nasal Cannula 2 12/10/23 14:45 64 16 174/82 H 96 Nasal Cannula 2 12/10/23 14:30 68 16 154/124 H 96 Nasal Cannula 2 12/10/23 14:15 98.2 F 80 12 148/95 H 99 Simple Mask 6 12/10/23 11:41 98.8 F 82 18 140/79 H 96 Nasal Cannula 2 Anesthesia: Monitored Mental Status: Awake Pain Control: Satisfactory Nausea/Vomiting: None Hydration: Adequate Anesthesia-Related Issues: No Anes. Related Issues
== END 2023-12-10 16:04 | disposition home or self-care (01) ==
PROVIDERS: PCP Internal Medicine; Visit Provider Internal Medicine
PROC: (CPT 45385; principal; 2023-12-10 12:00)
DX: K52.9 Noninfective gastroenteritis and colitis, unspecified (principal); Z86.010 Personal history of colon polyps; R15.2 Fecal urgency; R63.4 Abnormal weight loss; Z68.23 Body mass index [BMI] 23.0-23.9, adult; D12.4 Benign neoplasm of descending colon; K63.5 Polyp of colon; K57.30 Diverticulosis of large intestine without perforation or abscess without bleeding; K64.8 Other hemorrhoids; K64.4 Residual hemorrhoidal skin tags; K29.50 Unspecified chronic gastritis without bleeding; B96.81 Helicobacter pylori [H. pylori] as the cause of diseases classified elsewhere; K26.9 Duodenal ulcer, unspecified as acute or chronic, without hemorrhage or perforation; K29.80 Duodenitis without bleeding; K44.9 Diaphragmatic hernia without obstruction or gangrene; N28.9 Disorder of kidney and ureter, unspecified; N40.0 Benign prostatic hyperplasia without lower urinary tract symptoms; J44.1 Chronic obstructive pulmonary disease with (acute) exacerbation; Z99.81 Dependence on supplemental oxygen; R09.02 Hypoxemia; F41.0 Panic disorder [episodic paroxysmal anxiety]; Z85.51 Personal history of malignant neoplasm of bladder; Z87.891 Personal history of nicotine dependence
CPT/HCPCS: 45385; 45380; 45381; 43239; 88305; 88313; 88342; J0171; J0690; J1596; J2704

== ENCOUNTER → 2023-12-10 10:57 | Outpatient (BNV) | payer MEDICARE, SELFPAY | PROVIDERS: PCP Internal Medicine; Visit Provider Internal Medicine | DX: R19.7 Diarrhea, unspecified (principal); R63.4 Abnormal weight loss; K26.9 Duodenal ulcer, unspecified as acute or chronic, without hemorrhage or perforation; K29.70 Gastritis, unspecified, without bleeding; K29.80 Duodenitis without bleeding; K63.5 Polyp of colon; K64.8 Other hemorrhoids; K57.90 Diverticulosis of intestine, part unspecified, without perforation or abscess without bleeding | CPT/HCPCS: 43239; 45380; 45381; 45385 ==

== ENCOUNTER 2023-12-25 09:05 | Outpatient (AMB) | payer MEDICARE, SELFPAY ==
--- NOTE | 2023-12-25 09:20 | A.OFFVIS_ITS ---
Intake Vital Signs 12/25/23 09:24 Height 5 ft 8 in Weight 154 lb 5.177 oz BMI 23.5 BP 189/84 H Blood Pressure Location Lt brachial Position Sitting Pulse 60 Pulse Oximetry (%) 92 Intake Visit Reasons: f/u double Intake Note: Montrell presents in the office as a follow up ED and [place]. CC: [facility] - he has some dribbling and it takes a while for him to actually go. Allergies No Known Allergies [No Known Allergies*] Allergy (Verified 12/25/23 09:20) HPI HPI Comments History of Present Illness Details This is a 77 y.o M with PMH of advanced COPD, hx of bladder ca s/p TURBT who presents to our office for worsening diarrhea. 08/14/23: History was obtained from the pt as well as the niece accompanying him. Reports that for the past 3 months has been having watery diarrhea without any obv abd pain. Reports having at least 3-4 loose BMs every day, sometimes assoc with incontinence due to urgency. With this no abd pain or subjective loss of appetite but from chart review appears to have lost 10lbs in the past 6 months unintentionally. No blood in stool. No fam hx of CRC. Last colo 2011 (Dr Ríos): x2 tubular adenoma. Diverticulosis. In terms of COPD - has chronic hypoxic resp failure due to this. On supplemental O2. Sees Dr Jean and per last note appears has not been progressing. Former smoker. Does not recall having LDCT for lung cancer screening. 12/10/23: EGD/colo Impressions:? * Irregular Z line suspicious for BE (biopsy, tissue cypher) * Hiatal hernia * Gastritis (biopsy) * Duodenitis (biopsy) * Duodenal ulcers * Normal colon and terminal ileum mucosa (biopsy) * 3 cm large polyp with central depression (piecemeal EMR, Endoclip, Endomark) * 2 other small polyps removed * Diverticulosis * Hemorrhoids Path: Addendum #1 Report addended to add diagnoses for parts G and H; no other changes. G. Colon, left, biopsy: Colonic mucosa with small lymphoid aggregate and no specific change. H. Colon, transverse, polyp: Tubular adenoma; negative for high-grade dysplasia and carcinoma. Electronically Signed By: Joann Mckeon 12/16/23 [id number] Diagnosis A. Duodenum, biopsy: Duodenum, biopsy: Duodenal mucosa with focal mild villous blunting and features of peptic/non-specific duodenitis. B. Stomach, random, biopsy: Chronic Helicobacter gastritis with mild activity; negative for intestinal metaplasia and dysplasia. C. Gastroesophageal junction, biopsy: Squamous mucosa with hyperplasia, and columnar mucosa with mild chronic inflammation and focal intestinal metaplasia; negative for dysplasia (see comment). D. Colon, right, biopsy: Colonic mucosa with no specific change. E. Colon, ascending, polyp: Polypoid colonic mucosa with focal serrated glands, can not exclude a sessile serrated lesion in any residual polyp; no adenomatous dysplasia seen. F. Colon, at 72 cm, polyp: Tubular adenoma; negative for high-grade dysplasia and carcinoma. 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 Clinical and endoscopic correlation is advised. 12/25/23: Here with sister Daniella and daughter Lima available over the phone. Reviewed EGD and colo report. 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 Will need repeat colo in 6 months i.e May. Pt reports improvement in diarrhea as of 2-3 weeks ago. Rpeorts 1-2 formed BM per day, no furhter incontinence. Also reports LUTS but sister mentions has canceled his urology appointments. Due to duodenal ulcers, reviewed indication for H pylori treatment. FOR[facility]LY [facility], [facility] Medical History (Updated 12/25/23 @ 12:45 by Tahira Diallo MD) HTN (hypertension) COPD exacerbation Hypoxemia COPD (chronic obstructive pulmonary disease) Supplemental oxygen dependent Nephropathy Anxiety, generalized COPD (chronic obstructive pulmonary disease) Surgical History (Updated 12/25/23 @ 09:25 by TRAMAINE Rollins) History of esophagogastroduodenoscopy (EGD) Bladder tumor History of colonoscopy History of cystoscopy History of surgery Avulsion of finger tip History of neck surgery Arm fracture, left History of knee surgery H/O colonoscopy Family History Father HTN (hypertension) Diabetes mellitus Mother Cancer Brother Melanoma Sister Breast cancer Son No problems noted. Daughter No problems noted. Social History Housing: House Alcohol intake: former Patient Tobacco Use Status: Former Tobacco user Quit Date: 6 yrs ago e-Cigarette/Vaping Use: Never Used service: No Cognitive needs: No Hearing needs: No Vision needs: Yes Review of Systems Const All systems reviewed & are unremarkable except as noted in HPI and below Physical Exam Vital Signs: Last Vital Signs Pulse 60 12/25/23 09:24 BP 189/84 H 12/25/23 09:24 Pulse Ox 92 12/25/23 09:24 BMI result Body Mass Index 23.5 Gen appear: Frail, unkempt, hard of hearing HEENT: nonicteric, no cervical lymphadenopathy Chest: Audible exp wheezing CVS: Regular S1/S2 Abd: soft, nontender, nondistended, bowel sounds + Ext: no peripheral edema Assessment & Plan Assessment & Plan (1) Duodenal ulcer: Code(s): K26.9 - Duodenal ulcer, unspecified as acute or chronic, without hemorrhage or perforation (2) H. pylori infection: Code(s): A04.8 - Other specified bacterial intestinal infections (3) Personal history of colonic polyps: Code(s): Z86.010 - Personal history of colonic polyps Plan 1. PUD, H PYlori + Treatment reviewed. Strongly counseled for compliance to avoid resistance to treatment. Plan: - Pylera x 2 weeks followed by VICTORINO 2-3 weeks AFTER completion of tx. (generic Rxed) - Counseled on potential side effects - Follow up in office in 6 weeks to review results 2. Large 3 cm TA: Removed piecemeal. Fortunately no HGD or carcinoma noted. - Follow up colo due in May 2024 3. Cognitive impairment Pt with difficulty perceiving and assimilating instructions - noted at last visit as well. Sister also brings up concerns re his resistance to maintain basic hygiene. - Encouraged fam to meet with PCP for cognitive assessment Follow up in 6 weeks Medications: New metronidazole 250 mg PO QID 14 days 56 tabs 0RF bismuth subsalicylate 2 tabs PO QID 14 days 112 tabs 0RF tetracycline 500 mg PO QID 14 days 56 caps 0RF Patient Instructions: Please take the following medications for H pylori for 14 days: 1. Flagyl 1 tab 4 times a day (may cause stomach upset, do not take alcohol while on this) 2. Bismuth 2 tabs 4 times a day (may turn stools black) 3. Tetracycline 500 4 times a day (may cause stomach upset and sun sensitivity) 4. Omeprazole 40mg 2 times a day After 2 weeks STOP all these meds and then do the breath test as scheduled. Coding Level of Care Code Est Pt Level 4 (92312) Diagnoses Duodenal ulcer K26.9 H. pylori infection A04.8 Personal history of colonic polyps Z86.010
[2023-12-25 09:24] VITALS: BP 189/84; PULSE 60; O2SAT 92; BMI 23.5
== END 2023-12-25 10:10 | disposition home or self-care (01) ==
PROVIDERS: PCP Internal Medicine; Visit Provider Internal Medicine
DX: K26.9 Duodenal ulcer, unspecified as acute or chronic, without hemorrhage or perforation (principal); A04.8 Other specified bacterial intestinal infections; Z86.010 Personal history of colon polyps
CPT/HCPCS: 99214

== ENCOUNTER → 2023-12-25 09:05 | Outpatient (BNVA) | payer MEDICARE, MEDICAID, SELFPAY | PROVIDERS: PCP Internal Medicine; Visit Provider Internal Medicine | DX: K26.9 Duodenal ulcer, unspecified as acute or chronic, without hemorrhage or perforation (principal); A04.8 Other specified bacterial intestinal infections; Z86.010 Personal history of colon polyps | CPT/HCPCS: 99212 ==

== ENCOUNTER 2024-01-15 13:56 | Outpatient (AMB) | payer MEDICARE, SELFPAY ==
[2024-01-15 13:59] VITALS: BP 136/88; PULSE 71; O2SAT 94; BMI 23.1
--- NOTE | 2024-01-15 13:59 | A.OFFPC_ITS ---
Vital Signs 01/15/24 13:59 Height 5 ft 8 in Weight 152 lb 4 oz BMI 23.1 BP 136/88 Blood Pressure Location Lt brachial Position Sitting Pulse 71 Pulse Source Pulse Oximeter Pulse Oximetry (%) 94 Oxygen Delivery Method Nasal Cannula Intake Visit Reasons: 6 month fu Allergies No Known Allergies [No Known Allergies*] Allergy (Verified 01/15/24 14:00) Medication List - Last Reconciled 01/15/24 by Tanisha Evangelista MD albuterol sulfate 90 mcg/actuation (Ventolin HFA) 2 puffs PO Q4-6H PRN amlodipine 5 mg PO DAILY bacitracin (Bacitraycin Plus) 1 appl topical Q8H bismuth subsalicylate 2 tabs PO QID 14 days cholecalciferol (vitamin D3) 125 mcg PO DAILY ergocalciferol (vitamin D2) 1,250 mcg PO QWEEK inhalational spacing device As directed metronidazole 250 mg PO QID 14 days omeprazole 40 mg PO BID 8 weeks peg 3350-electrolytes 236-22.74-6.74 -5.86 gram (Golytely) 240 mL PO Q10M sertraline 100 mg PO DAILY tetracycline 500 mg PO QID 14 days tiotropium bromide 2.5 mcg/actuation (Spiriva Respimat) 2 puffs PO QAM Tobacco use date assessed: 01/15/24 Fall risk assessment: No Falls in past year Last assessed Fall Risk: 01/15/24 Dental Screening Dental Screen Date: 01/15/24 Did you have a dental visit in the last 12 months?: No Did you have a dental problem in the last 6 months where you did not have access to dental care?: No Was dental information given to patient?: No HPI 6 month fu HPI Details Patient is 78-year-old gentleman came in today for his regular follow- up appointment Last time seen was June of last year, patient missed his regular appointment after that Currently he is being taken care by his nephew, previously it was his sister He has not seen project management specialist or Nephrology in a while He has appointment coming up with gastroenterology I have sent message to Pulmonary office to reach out to patient to book follow- up appointment Patient has severe COPD and he is oxygen dependent Patient is also hard of hearing Patient is complaining of urinary incontinence and difficulty urinating I have sent Flomax for the patient PSA ordered with labs which are due. His blood pressure is stable he is to continue with amlodipine 5 mg sertraline 100 mg that he is taking for anxiety and major depression. We will book telemedicine visit in 3 week to go over labs and to see if he has benefitted from Flomax [facility] Medical History HTN (hypertension) COPD exacerbation Hypoxemia COPD (chronic obstructive pulmonary disease) Supplemental oxygen dependent Nephropathy Anxiety, generalized COPD (chronic obstructive pulmonary disease) Surgical History History of esophagogastroduodenoscopy (EGD) Bladder tumor History of colonoscopy History of cystoscopy History of surgery Avulsion of finger tip History of neck surgery Arm fracture, left History of knee surgery H/O colonoscopy Family History Father HTN (hypertension) Diabetes mellitus Mother Cancer Brother Melanoma Sister Breast cancer Son No problems noted. Daughter No problems noted. Social History Housing: House Alcohol intake: former Patient Tobacco Use Status: Former Tobacco user Quit Date: 6 yrs ago e-Cigarette/Vaping Use: Never Used service: No Cognitive needs: No Hearing needs: No Vision needs: Yes Questionnaire PHQ-9 Over the last 2 weeks, how often have you been bothered by any of the following problems? 1. Little interest or pleasure in doing things: not at all 2. Feeling down, depressed, or hopeless: not at all 3. Trouble falling or staying asleep, or sleeping too much: not at all 4. Feeling tired or having little energy: not at all 5. Poor appetite or overeating: not at all 6. Feeling bad about yourself - or that you are a failure or have let yourself or your family down: not at all 7. Trouble concentrating on things, such as reading the newspaper or watching television: not at all 8. Moving or speaking so slowly that other people could have noticed. Or the opposite - being so fidgety or restless that you have been moving around a lot more than usual: not at all 9. Thoughts that you would be better off or of hurting yourself in some way: not at all Total score: 0 Depression Screening Interpretation: Negative Depression Screening Done: Yes 01215 - PHQ-9 Billing: Yes Source: Developed by Drs. Lukas Westfall, Ana Holt, Octavio De Guzman and colleagues, with an educational raleigh from [employer]. Thrive Questionnaire Date Thrive assessed: 01/15/24 I am a: Patient What is your living situation today?: I have a steady place to live Within the past 12 months, did the food you bought not last and you didn't have the money to get more?: Sometimes True Within the past 12 months, did you worry whether your food would run out before you got money to buy more?: Sometimes True Do you have trouble paying for medicines?: No Do you have trouble getting transportation to medical appointments?: No Do you have trouble paying your heating and electricity bill?: Yes Do you have trouble taking care of your child, family member or friend?: No Do you have trouble with day-to-day activities such as bathing, preparing meals, shopping, managing finances, etc.?: No Are you currently unemployed and looking for a job?: No Are you interested in more education?: No Please select the resources that you would like help with: None Currently or been in a relationship where the following occur: no concerns reported THRIVE Score: 3 AUDIT C Alcohol Use Questionnaire (AUDIT-C) 1. How often do you have a drink containing alcohol?: Never 3. How often do you have six or more drinks on one occasion?: Never Total Score: 0 Score Reviewed/Action Taken: Yes ILDA-7 AMB Questionnaire ILDA-7 Date ILDA - 7 assessed: 01/15/24 Feeling nervous, anxious, or on edge: 0 = Not at all Not being able to stop or control worryin = Not at all Worrying too much about different things: 0 = Not at all Trouble relaxin = Not at all Being so restless that it is hard to sit still: 0 = Not at all Becoming easily annoyed or irritable: 0 = Not at all Feeling afraid as if something awful might happen: 0 = Not at all Total ILDA-7 score (0-4 normal; 5-9 mild; 10-14 moderate; 15-21 severe): 0 Source: Developed by Drs. Lukas Westfall, Ana Holt, Octavio De Guzman and colleagues, with an educational raleigh from [employer]. ILDA-7 Assessment Billing ILDA-7 Assessment Tool: ILDA-7 Assessment 47154 Review of Systems Const Denies chills and Denies fever(s) ENT Denies epistaxis and Denies nasal discharge Card Denies chest pain Resp Denies chest congestion and Denies hemoptysis GI Denies diarrhea and Denies nausea Skin/Breast Denies rash Neuro Reports no additional complaints Psych Reports no additional complaints Endo Reports no additional complaints Physical exam (Primary Care) Vital Signs: Last Vital Signs Pulse 71 01/15/24 13:59 BP 136/88 01/15/24 13:59 Pulse Ox 94 01/15/24 13:59 Oxygen Delivery Method Nasal Cannula 01/15/24 13:59 BMI result Body Mass Index 23.1 Tobacco/Smoking Status: Tobacco use Status Tobacco use date assessed 01/15/24 01/15/24 14:03 Patient Tobacco Use Status Former Tobacco user 01/15/24 14:03 e-Cigarette/Vaping Use Never Used 01/15/24 14:03 PHQ-9: PHQ-9 Score PHQ-9: Total score 0 01/15/24 15:58 Depression Screening Interpretation: Negative Thrive Assessment: Date of Thrive Assessment Date Thrive assessed 01/15/24 01/15/24 15:58 Currently or been in a relationship where the following occur: no concerns reported Const General: cooperative, comfortable and no acute distress Orientation/consciousness: patient oriented x3 HENMT Head: Yes normocephalic Eyes General: appearance normal, both eyes and all related structures Neck Neck: Yes supple Resp Effort & Inspection: normal respiratory effort, no cough and no stridor Cardio Rhythm: regular rhythm Heart sounds: S1 normal heart sound present and S2 normal heart sound present Skin General skin exam: turgor normal Neuro General: patient oriented x3, tone normal and moves all extremities Extrem Right lower extremity: no edema Left lower extremity: no edema Assessment and Plan Assessment & Plan (1) Hypertension, essential: Code(s): I10 - Essential (primary) hypertension (2) Anxiety, generalized: Code(s): F41.1 - Generalized anxiety disorder (3) COPD (chronic obstructive pulmonary disease): Code(s): J44.9 - Chronic obstructive pulmonary disease, unspecified Qualifiers: COPD type: emphysema Emphysema type: panlobular Qualified Code(s): J43.1 - Panlobular emphysema (4) Nephropathy: Code(s): N28.9 - Disorder of kidney and ureter, unspecified (5) Supplemental oxygen dependent: Code(s): Z99.81 - Dependence on supplemental oxygen Plan Patient is 78-year-old gentleman came in today for his regular follow-up appointment Last time seen was June of last year, patient missed his regular appointment after that Currently he is being taken care by his nephew, previously it was his sister He has not seen project management specialist or Nephrology in a while He has appointment coming up with gastroenterology I have sent message to Pulmonary office to reach out to patient to book follow- up appointment Patient has severe COPD and he is oxygen dependent Patient is also hard of hearing Patient is complaining of urinary incontinence and difficulty urinating I have sent Flomax for the patient PSA ordered with labs which are due. His blood pressure is stable he is to continue with amlodipine 5 mg sertraline 100 mg that he is taking for anxiety and major depression. We will book telemedicine visit in 3 week to go over labs and to see if he has benefitted from Flomax Orders: Orders Complete Blood Count Auto Diff Today F41.1 - Generalized anxiety disorder, I10 - Essential (primary) hypertension, J44.9 - Chronic obstructive pulmonary disease, unspecified, N28.9 - Disorder of kidney and ureter, unspecified Comprehensive Met. Panel Today F41.1 - Generalized anxiety disorder, I10 - Essential (primary) hypertension, J44.9 - Chronic obstructive pulmonary disease, unspecified, N28.9 - Disorder of kidney and ureter, unspecified Prostate Specific Antigen Today F41.1 - Generalized anxiety disorder, I10 - Essential (primary) hypertension, J44.9 - Chronic obstructive pulmonary disease, unspecified, N28.9 - Disorder of kidney and ureter, unspecified UA CC w/rflx Micro + Cult Today F41.1 - Generalized anxiety disorder, I10 - Essential (primary) hypertension, J44.9 - Chronic obstructive pulmonary disease, unspecified, N28.9 - Disorder of kidney and ureter, unspecified Medications: New tamsulosin (Flomax) 0.4 mg PO BEDTIME 30 caps 0RF Coding Level of Care Code Est Pt Level 4 (40786) Diagnoses Hypertension, essential I10 Anxiety, generalized F41.1 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 Emphysema type: panlobular Nephropathy N28.9 Supplemental oxygen dependent Z99.81 Additional Codes ILDA-7 Assessment Billing - ILDA-7 Assessment Tool: ILDA-7 Assessment 14294 ([id number])
== END 2024-01-15 17:12 | disposition home or self-care (01) ==
LOC: HO.HMGC 13:56
PROVIDERS: PCP Internal Medicine; Visit Provider Internal Medicine
DX: I10 Essential (primary) hypertension (principal); J43.1 Panlobular emphysema; F41.1 Generalized anxiety disorder; N28.9 Disorder of kidney and ureter, unspecified; Z99.81 Dependence on supplemental oxygen
CPT/HCPCS: 99214

== ENCOUNTER 2024-01-15 14:23 | Outpatient (REF) | payer MEDICARE, SELFPAY ==
[2024-01-15 16:18] LABS: Basophils Absolute Auto 0.1 X10*3/uL (0.0-0.2); Basophils Percent Auto 0.7 % (0-2); Eosinophils Absolute Auto 0.2 X10*3/uL (0.0-0.4); Eosinophils Percent Auto 2.2 % (0-4); Hematocrit 43.6 % (42.0-52.0); Hemoglobin 13.9 g/dl (14.0-18.0); Imm Gran Abs Auto 0.01 X10*3/uL (0.00-0.03); Imm Gran Pct Auto 0.1 % (0.0-0.4); Lymphocytes Absolute Auto 1.3 X10*3/uL (1.2-4.9); Lymphocytes Percent Auto 19.4 % (20-40); MANUAL DIFF FLAG SCAN; Mean Corpuscular HGB Conc 31.9 g/dl (31.0-36.0); Mean Corpuscular Hemoglobin 29.8 pg (27.0-33.0); Mean Corpuscular Volume 93.4 fL (80.0-98.0); Mean Platelet Volume 13.1 fL (9.4-12.4); Monocytes Absolute Auto 0.5 X10*3/uL (0.1-1.2); Monocytes Percent Auto 6.9 % (2-11); Neutrophils Absolute Auto 4.7 x10*3/uL (2.0-8.3); Neutrophils Percent Auto 70.7 % (45-73); PLT CLUMP 1; Red Blood Count 4.67 X10*6/uL (4.60-5.80); Red Cell Distribution Width 14.4 % (11.0-16.0); SCAN SMEAR FLAG 1
[2024-01-15 16:28] LABS: Appearance Urine Clear; Color Urine Yellow; Glucose Urine UA Negative (Negative); Leukocyte Esterase Urine Small (1+) (Negative); Nitrite Urine Negative (Negative); PH 6.5 (5.0-9.0); Specific Gravity - Urine 1.025 (1.005-1.025); UMIC TRIGGER UACC YES; Urine Blood Negative (Negative); Urine Ketones Negative (Negative); Urine Protein 100 (2+) mg/dL (Neg-Trace)
[2024-01-15 16:43] LABS: Bacteria Urine None Seen (None Seen); Hyaline Casts Urine 0-2 /LPF (0-2); RBC Urine 0-2 /HPF (0-2); Squamous Epithelial Cell Urine 0-2 /HPF (0-2); UACC Culture Trigger YES; WBC Urine 21-50 /HPF (0-5)
[2024-01-15 16:46] LABS: Alanine Aminotransferase 27 U/L (0-40); Albumin Level 3.7 g/dL (3.5-5.0); Alkaline Phosphatase 80 U/L (39-117); Anion Gap 12 (12-20); Aspartate Amino Transferase 32 U/L (5-37); Bilirubin Total 0.5 mg/dL (0.0-1.0); Blood Urea Nitrogen 35 mg/dL (9-16); Calcium 9.1 mg/dL (8.4-10.2); Carbon Dioxide 32 mmol/L (22-29); Chloride 101 mmol/L (96-108); Estimated Glomerular Filt Rate 39; Glucose Random 100 mg/dL (60-115); Potassium 4.9 mmol/L (3.3-5.1); Sodium 140 mmol/L (135-145); Total Protein 7.2 g/dL (6.5-8.0)
[2024-01-15 17:00] LABS: Platelet Count 100 X10*3/uL (160-400); SLIDE REVIEW VERIFIED; White Blood Count 6.7 X10*3/uL (4.8-10.8)
[2024-01-15 17:04] LABS: Prostate Specific Antigen 0.75 ng/mL (<0.05-4.0)
== END 2024-01-15 14:24 | disposition home or self-care (01) ==
LOC: HO.HMGCLDS 14:23
PROVIDERS: PCP Internal Medicine; Visit Provider Internal Medicine
DX: Z12.5 Encounter for screening for malignant neoplasm of prostate (principal); I10 Essential (primary) hypertension; F41.1 Generalized anxiety disorder; J44.9 Chronic obstructive pulmonary disease, unspecified; N28.9 Disorder of kidney and ureter, unspecified
CPT/HCPCS: 36415; 80053; 81001; 84153; 85025; 87086; 87088; 87186

== ENCOUNTER 2024-01-20 15:48 | Outpatient (AMB) | payer MEDICARE, SELFPAY ==
[2024-01-20 16:07] VITALS: BP 142/64; PULSE 79; O2SAT 91; BMI 23.1
--- NOTE | 2024-01-20 16:07 | MHC.OFFVIS ---
Intake Vital Signs 01/20/24 16:07 Height 5 ft 8 in Weight 152 lb 1.903 oz BMI 23.1 BP 142/64 H Blood Pressure Location Lt brachial Position Sitting Pulse 79 Pulse Source Pulse Oximeter Pulse Oximetry (%) 91 L Oxygen Delivery Method Nasal Cannula Oxygen Flow Rate 3 Intake Visit Reasons: copd Intake Note: pt is here for follow up and states he is feeling good, no issues. Doll Repairer Required: No Allergies No Known Allergies [No Known Allergies*] Allergy (Verified 01/20/24 16:29) Medication List - Last Reconciled 01/20/24 by Chao Jean MD albuterol sulfate 90 mcg/actuation (Ventolin HFA) 2 puffs PO Q4-6H PRN amlodipine 5 mg PO DAILY bacitracin (Bacitraycin Plus) 1 appl topical Q8H bismuth subsalicylate 2 tabs PO QID 14 days cholecalciferol (vitamin D3) 125 mcg PO DAILY ciprofloxacin HCl 250 mg PO Q12H 5 days ergocalciferol (vitamin D2) 1,250 mcg PO QWEEK inhalational spacing device As directed omeprazole 40 mg PO BID 8 weeks peg 3350-electrolytes 236-22.74-6.74 -5.86 gram (Golytely) 240 mL PO Q10M sertraline 100 mg PO DAILY tamsulosin (Flomax) 0.4 mg PO BEDTIME tiotropium bromide 2.5 mcg/actuation (Spiriva Respimat) 2 puffs PO QAM Do you need a note to return to daycare/school/sports/work: No HPI copd HPI Details JOO COMES AFTER 4 MONTHS FOR FOLLOW-UP. HE CLAIMS THAT HE HAS BEEN DOING VERY WELL WITHOUT ANY ACUTE EXACERBATIONS. HE USES THE SPIRIVA RESPIMAT 2 INHALATIONS EVERY MORNING DOES NOT NEED TO USE ALBUTEROL HFA, MORE THAN ONCE OR TWICE A DAY. HE IS ON MINI POC UNIT AND MAINTAINS HIS OXYGENATION WELL. HE IS ALSO EATING WELL, FOOD BEING COOKED BY HIS IMMIGRATION CONSULTANT ON A DAILY BASIS. FOR[facility]LY [facility], [facility]ER [facility] Medical History HTN (hypertension) COPD exacerbation Hypoxemia COPD (chronic obstructive pulmonary disease) Supplemental oxygen dependent Nephropathy Anxiety, generalized COPD (chronic obstructive pulmonary disease) Surgical History History of esophagogastroduodenoscopy (EGD) Bladder tumor History of colonoscopy History of cystoscopy History of surgery Avulsion of finger tip History of neck surgery Arm fracture, left History of knee surgery H/O colonoscopy Family History Father HTN (hypertension) Diabetes mellitus Mother Cancer Brother Melanoma Sister Breast cancer Son No problems noted. Daughter No problems noted. Social History Housing: House Alcohol intake: former Patient Tobacco Use Status: Former Tobacco user Quit Date: 6 yrs ago e-Cigarette/Vaping Use: Never Used service: No Cognitive needs: No Hearing needs: No Vision needs: Yes Review of Systems Const All systems reviewed & are unremarkable except as noted in HPI and below Denies chills and Denies fever(s) Eyes Reports no additional complaints ENT Denies epistaxis and Denies nasal discharge Card Denies chest pain Resp Denies chest congestion and Denies hemoptysis GI Denies nausea Musc Reports no additional complaints Skin/Breast Denies rash Neuro Reports no additional complaints Psych Reports no additional complaints Endo Reports no additional complaints Physical Exam Vital Signs: Last Vital Signs Pulse 79 01/20/24 16:07 BP 142/64 H 01/20/24 16:07 Pulse Ox 91 L 01/20/24 16:07 Oxygen Delivery Method Nasal Cannula 01/20/24 16:07 Oxygen Flow Rate 3 01/20/24 16:07 BMI result Body Mass Index 23.1 Const General: comfortable, no acute distress, alert and awake Orientation/consciousness: patient oriented x3 HEENT Head: Yes normal to inspection General nose exam: No nasal polyps present and No nasal discharge present Face and sinus: Yes sinuses nontender Mouth: oropharynx normal Throat: Yes posterior oropharynx normal Eyes General: appearance normal, both eyes and all related structures Neck Neck: Yes normal visual inspection, Yes no lymphadenopathy, Yes trachea midline and Yes no JVD Thyroid: Thyroid normal Chest Chest palpation & inspection: normal inspection of the chest, normal palpation of entire chest wall and no tenderness Resp Other: Percussion note hyper-resonant, breath sounds are VERY distant with prolonged expiratory phase. THERE ARE NO WHEEZES RHONCHI OR CREPITATIONS TODAY, Cardio Palpation: normal PMI Rate: regular rate Rhythm: regular rhythm Heart sounds: no gallops and no murmurs GI Palpation (GI): Soft to palpation, Tenderness to palpation present (GI), No hepatosplenomegaly present and Palpable mass present Auscultation: normal bowel sounds Back/Spine/Pelvis Thoracic/Lumbar Spine: thoracic and lumbar spine normal to inspection Skin General skin exam: no rashes or lesions noted Neuro General: patient oriented x3 and no focal motor deficits Cranial nerves: Yes CN's II-XII intact bilaterally Extrem General: Yes normal to inspection, Yes no clubbing, cyanosis or edema and Yes no calf tenderness Psych Appearance: grossly normal and well kempt Speech and movement: Normal speech and movement present Assessment & Plan Assessment & Plan (1) COPD (chronic obstructive pulmonary disease): Comment: HE HAS RATHER SEVERE CHRONIC OBSTRUCTIVE PULMONARY DISEASE, BUT IT SEEMS TO BE WELL CONTROLLED AND STABLE WITH HIS CURRENT REGIMEN. * HE HAS DIFFICULTY IN USING VENTOLIN INHALER, HE DOES HAVE A SPACER DEVICE FOR USE OF ALBUTEROL INHALER. HIS NIECE HELPS HIM TO TAKE HIS MEDS PROPERLY. HE DOES NOT NEED A NEBULIZER, Code(s): J44.9 - Chronic obstructive pulmonary disease, unspecified Plan: TX : SPIRIVA RESPIMAT 2 INHALATIONS DAILY VENTOLIN 2 PUFFS Q 4-6 HRS PRN USE VENTOLIN WITH THE HELP OF SPACER UNIT (2) Hypoxemia: Comment: PATIENT HAS STATIONARY CONCENTRATOR AT HOME ,AND USES O2 2 L/MT FOR OUTDOORS, HE HE HAS POC. AND USES O2 3 L/MINUTE. Code(s): R09.02 - Hypoxemia Plan: CONTINUE TO USE OXYGEN NOTED ABOVE Coding Level of Care Code Est Pt Level 3 (83818) Diagnoses COPD (chronic obstructive pulmonary disease) J44.9 Hypoxemia R09.02
== END 2024-01-20 16:28 | disposition home or self-care (01) ==
PROVIDERS: PCP Internal Medicine; Visit Provider Internal Medicine
DX: J44.9 Chronic obstructive pulmonary disease, unspecified (principal); R09.02 Hypoxemia
CPT/HCPCS: 99213

== ENCOUNTER → 2024-01-20 15:48 | Outpatient (BNVA) | payer MEDICARE, SELFPAY | PROVIDERS: PCP Internal Medicine; Visit Provider Internal Medicine | DX: J44.9 Chronic obstructive pulmonary disease, unspecified (principal); R09.02 Hypoxemia | CPT/HCPCS: 99212 ==

== ENCOUNTER 2024-02-11 13:32 | Outpatient (AMB) | payer MEDICARE, SELFPAY ==
--- NOTE | 2024-02-11 13:49 | AM.OFFVISNUR ---
Intake Intake Visit Reasons: H.pylori Breath Test Allergies No Known Allergies [No Known Allergies*] Allergy (Verified 01/20/24 16:29) Nursing Note Patient presents for collection of H Pylori breath test. Patient has been fasting for 1 hour (nothing to eat, drink, no chewing gum or smoking) has not taken any antacid medication for at least 2 weeks and has no allergies to artificial sweeteners.?? Coding Level of Care Code Established Pt Est Pt Level 1 (70670) Patient Type Established Medical Decision Making Straight Forward Diagnoses H. pylori infection A04.8 Assessment & Plan Assessment & Plan (1) H. pylori infection: Code(s): A04.8 - Other specified bacterial intestinal infections Category: Medical Plan Patient presents for collection of H Pylori breath test. Patient has been fasting for 1 hour (nothing to eat, drink, no chewing gum or smoking) has not taken any antacid medication for at least 2 weeks and has no allergies to artificial sweeteners.???This test checks for an overgrowth of bacteria in your stomach. We all have bacteria but some may have more than others. It is treatable. if the test comes back negative there is nothing else to do. If the test result is positive we will treat you with 2 antibiotics and a medication to decrease the acid in your stomach (PPI) for 2 weeks. Two weeks after you have completed the treatment we will retest you to make sure the overgrowth has resolved. Orders: Orders H Pylori Breath Test Today Patient Instructions: Process for specimen collection and reason for testing was explained to the patient. Specimen collection. Patient instructed to take a deep breath and then exhale into the blue bag, filling it up as much as possible. Patient instructed to drink a mixture of water and the artificial sweetener with a straw. A 15 minute wait period was observed. Patient instructed to take a deep breath and then exhale into the pink bag, filling it up as much as possible
== END 2024-02-11 13:50 | disposition home or self-care (01) ==
PROVIDERS: PCP Internal Medicine; Visit Provider Internal Medicine
DX: A04.8 Other specified bacterial intestinal infections (principal)

== ENCOUNTER 2024-02-11 13:32 | Outpatient (REF) | payer MEDICARE, SELFPAY ==
[2024-02-14 14:47] LABS: H Pylori Breath Test Negative (Negative)
== END 2024-02-11 13:33 | disposition home or self-care (01) ==
LOC: HO.LNP 13:32
PROVIDERS: PCP Internal Medicine; Visit Provider Internal Medicine
DX: A04.8 Other specified bacterial intestinal infections (principal)
CPT/HCPCS: 83013; 99211

== ENCOUNTER 2024-02-14 13:45 | Outpatient (AMB) | payer MEDICARE, MEDICAID, SELFPAY ==
--- NOTE | 2024-02-14 13:54 | A.OFFVIS_ITS ---
Vital Signs 02/14/24 13:56 Height 5 ft 8 in Weight 154 lb 5.177 oz BMI 23.5 BP 147/78 H Blood Pressure Location Lt brachial Position Sitting Pulse 72 Pulse Oximetry (%) 91 L Oxygen Delivery Method Nasal Cannula Intake Visit Reasons: 6 week follow up PT N/S last appt Intake Note: Montrell presents in the office as a 6 week follow up. CC: States there are all the same symptoms - nothing has changed since before. Allergies No Known Allergies [No Known Allergies*] Allergy (Verified 02/14/24 13:57) HPI Comments Details: This is a 77 y.o M with PMH of advanced COPD, hx of bladder ca s/p TURBT who presents to our office for worsening diarrhea. 08/14/23: History was obtained from the pt as well as the niece accompanying him. Reports that for the past 3 months has been having watery diarrhea without any obv abd pain. Reports having at least 3-4 loose BMs every day, sometimes assoc with incontinence due to urgency. With this no abd pain or subjective loss of appetite but from chart review appears to have lost 10lbs in the past 6 months unintentionally. No blood in stool. No fam hx of CRC. Last colo 2011 (Dr Ríos): x2 tubular adenoma. Diverticulosis. In terms of COPD - has chronic hypoxic resp failure due to this. On supplemental O2. Sees Dr Jean and per last note appears has not been progressing. Former smoker. Does not recall having LDCT for lung cancer screening. 12/10/23: EGD/colo Impressions:? * Irregular Z line suspicious for BE (biopsy, tissue cypher) * Hiatal hernia * Gastritis (biopsy) * Duodenitis (biopsy) * Duodenal ulcers * Normal colon and terminal ileum mucosa (biopsy) * 3 cm large polyp with central depression (piecemeal EMR, Endoclip, Endomark) * 2 other small polyps removed * Diverticulosis * Hemorrhoids Path: Addendum #1 Report addended to add diagnoses for parts G and H; no other changes. G. Colon, left, biopsy: Colonic mucosa with small lymphoid aggregate and no specific change. H. Colon, transverse, polyp: Tubular adenoma; negative for high-grade dysplasia and carcinoma. Electronically Signed By: Joann Mckeon 12/16/23 [id number] Diagnosis A. Duodenum, biopsy: Duodenum, biopsy: Duodenal mucosa with focal mild villous blunting and features of peptic/non-specific duodenitis. B. Stomach, random, biopsy: Chronic Helicobacter gastritis with mild activity; negative for intestinal metaplasia and dysplasia. C. Gastroesophageal junction, biopsy: Squamous mucosa with hyperplasia, and columnar mucosa with mild chronic inflammation and focal intestinal metaplasia; negative for dysplasia (see comment). D. Colon, right, biopsy: Colonic mucosa with no specific change. E. Colon, ascending, polyp: Polypoid colonic mucosa with focal serrated glands, can not exclude a sessile serrated lesion in any residual polyp; no adenomatous dysplasia seen. F. Colon, at 72 cm, polyp: Tubular adenoma; negative for high-grade dysplasia and carcinoma. 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 Clinical and endoscopic correlation is advised. 12/25/23: Here with sister Daniella and daughter Lima available over the phone. Reviewed EGD and colo report. 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 Will need repeat colo in 6 months i.e May. Pt reports improvement in diarrhea as of 2-3 weeks ago. Rpeorts 1-2 formed BM per day, no furhter incontinence. Also reports LUTS but sister mentions has canceled his urology appointments. Due to duodenal ulcers, reviewed indication for H pylori treatment. 02/14/24: Pt accompanied by sister Daniella. COmpleted quad therapy as prescribed. Breath test completed 02/10 - results pending. Otherwise feeling well. [facility] booked for 06/09 for surveillance of peacemeal polypectomy. [facility] Medical History HTN (hypertension) COPD exacerbation Hypoxemia COPD (chronic obstructive pulmonary disease) Supplemental oxygen dependent Nephropathy Anxiety, generalized COPD (chronic obstructive pulmonary disease) Surgical History History of esophagogastroduodenoscopy (EGD) Bladder tumor History of colonoscopy History of cystoscopy History of surgery Avulsion of finger tip History of neck surgery Arm fracture, left History of knee surgery H/O colonoscopy Family History Father HTN (hypertension) Diabetes mellitus Mother Cancer Brother Melanoma Sister Breast cancer Son No problems noted. Daughter No problems noted. Social History Housing: House Alcohol intake: former Patient Tobacco Use Status: Former Tobacco user Quit Date: 6 yrs ago e-Cigarette/Vaping Use: Never Used service: No Cognitive needs: No Hearing needs: No Vision needs: Yes Review of Systems Const All systems reviewed & are unremarkable except as noted in HPI and below Physical Exam Vital Signs: Last Vital Signs Pulse 72 02/14/24 13:56 BP 147/78 H 02/14/24 13:56 Pulse Ox 91 L 02/14/24 13:56 Oxygen Delivery Method Nasal Cannula 02/14/24 13:56 BMI result Body Mass Index 23.5 Gen appear: Frail, unkempt, hard of hearing HEENT: nonicteric, no cervical lymphadenopathy Chest: Audible exp wheezing CVS: Regular S1/S2 Abd: soft, nontender, nondistended, bowel sounds + Ext: no peripheral edema Assessment & Plan Assessment & Plan (1) Duodenal ulcer: Code(s): K26.9 - Duodenal ulcer, unspecified as acute or chronic, without hemorrhage or perforation Category: Medical (2) H. pylori infection: Code(s): A04.8 - Other specified bacterial intestinal infections Category: Medical (3) Personal history of colonic polyps: Code(s): Z86.010 - Personal history of colonic polyps Category: Medical Plan 1. PUD, H PYlori + Treatment completed. Plan: - VICTORINO results pending - If still positive will review second line tx 2. Large 3 cm TA: Removed piecemeal. Fortunately no HGD or carcinoma noted. - Follow up colo candelario in May 2024 UPDATE - H Pylori NEGATIVE. Follow up after colo Coding Level of Care Code Est Pt Level 3 (78335) Diagnoses Duodenal ulcer K26.9 H. pylori infection A04.8 Personal history of colonic polyps Z86.010
[2024-02-14 13:56] VITALS: BP 147/78; PULSE 72; O2SAT 91; BMI 23.5
== END 2024-02-14 14:21 | disposition home or self-care (01) ==
PROVIDERS: PCP Internal Medicine; Visit Provider Internal Medicine
DX: K26.9 Duodenal ulcer, unspecified as acute or chronic, without hemorrhage or perforation (principal); A04.8 Other specified bacterial intestinal infections; Z86.010 Personal history of colon polyps
CPT/HCPCS: 99213

== ENCOUNTER → 2024-02-14 13:45 | Outpatient (BNVA) | payer MEDICARE, SELFPAY | PROVIDERS: PCP Internal Medicine; Visit Provider Internal Medicine | DX: K26.9 Duodenal ulcer, unspecified as acute or chronic, without hemorrhage or perforation (principal); A04.8 Other specified bacterial intestinal infections; Z86.010 Personal history of colon polyps | CPT/HCPCS: 99212 ==

== ENCOUNTER 2024-02-20 07:04 | Outpatient (AMB) | payer MEDICARE, MEDICAID, SELFPAY ==
--- NOTE | 2024-02-20 08:34 | A.OFFPC_ITS ---
Intake Visit Reasons: Follow up [phone] Allergies No Known Allergies [No Known Allergies*] Allergy (Verified 02/20/24 08:35) Medication List - Last Reconciled 02/20/24 by Tanisha Evangelista MD albuterol sulfate 90 mcg/actuation (Ventolin HFA) 2 puffs PO Q4-6H PRN amlodipine 5 mg PO DAILY bacitracin (Bacitraycin Plus) 1 appl topical Q8H bismuth subsalicylate 2 tabs PO QID 14 days cholecalciferol (vitamin D3) 125 mcg PO DAILY ergocalciferol (vitamin D2) 1,250 mcg PO QWEEK inhalational spacing device As directed omeprazole 40 mg PO BID 8 weeks peg 3350-electrolytes 236-22.74-6.74 -5.86 gram (Golytely) 240 mL PO Q10M sertraline 100 mg PO DAILY tamsulosin (Flomax) 0.4 mg PO BEDTIME tiotropium bromide 2.5 mcg/actuation (Spiriva Respimat) 2 puffs PO QAM Tobacco use date assessed: 02/20/24 Fall risk assessment: No Falls in past year Last assessed Fall Risk: 02/20/24 Dental Screening Dental Screen Date: 02/20/24 Did you have a dental visit in the last 12 months?: No Did you have a dental problem in the last 6 months where you did not have access to dental care?: No Was dental information given to patient?: Patient has dentist HPI Follow up [phone] HPI Details This 78-year-old gentleman this is telemedicine visit to [facility] to follow-up on prostatic hypertrophy I started him on Flomax 3 weeks ago, patient is doing much better, able to empty his bladder Notify patient that he is to continue medication, I have sent a refill Labs done reviewed, his creatinine is 1.7, he still has not booked appointment with director of strategic sales Once again patient was advised to call and book follow-up appointment, his creatinine does fluctuate up and down it was as high as 3 in the past. Patient have a follow-up appointment in April. [facility], [facility] Medical History HTN (hypertension) COPD exacerbation Hypoxemia COPD (chronic obstructive pulmonary disease) Supplemental oxygen dependent Nephropathy Anxiety, generalized COPD (chronic obstructive pulmonary disease) Surgical History History of esophagogastroduodenoscopy (EGD) Bladder tumor History of colonoscopy History of cystoscopy History of surgery Avulsion of finger tip History of neck surgery Arm fracture, left History of knee surgery H/O colonoscopy Family History Father HTN (hypertension) Diabetes mellitus Mother Cancer Brother Melanoma Sister Breast cancer Son No problems noted. Daughter No problems noted. Social History Housing: House Alcohol intake: former Patient Tobacco Use Status: Former Tobacco user Quit Date: 6 yrs ago e-Cigarette/Vaping Use: Never Used service: No Cognitive needs: No Hearing needs: No Vision needs: Yes Questionnaire Thrive Questionnaire Date Thrive assessed: 01/15/24 AUDIT C Alcohol Use Questionnaire (AUDIT-C) 1. How often do you have a drink containing alcohol?: Never 3. How often do you have six or more drinks on one occasion?: Never Total Score: 0 Score Reviewed/Action Taken: Yes ILDA-7 AMB Questionnaire ILDA-7 Date ILDA - 7 assessed: 01/15/24 Source: Developed by Drs. Lukas Westfall, Ana Holt, Octavio De Guzman and colleagues, with an educational r[place] from [employer]. Review of Systems Const Denies chills and Denies fever(s) ENT Denies epistaxis and Denies nasal discharge Card Denies chest pain Resp Denies chest congestion, Denies cough and Denies hemoptysis GI Denies diarrhea and Denies nausea Skin/Breast Denies rash Neuro Reports no additional complaints Psych Reports no additional complaints Endo Reports no additional complaints Physical exam (Primary Care) Tobacco/Smoking Status: Tobacco use Status Tobacco use date assessed 02/20/24 02/20/24 08:36 Patient Tobacco Use Status Former Tobacco user 02/20/24 08:36 e-Cigarette/Vaping Use Never Used 02/20/24 08:36 Thrive Assessment: Date of Thrive Assessment Date Thrive assessed 01/15/24 02/20/24 08:36 Telehealth Telehealth Telehealth Platform: [facility] Location of provider rendering services: practice address Location of patient: address on file Patient Identification confirmed using: Name, : Yes Telehealth method: voice only Patient verbally consented to treatment: Yes Patient verbally consented to billing insurance company: Yes Patient informed of any privacy concerns related to visit: Yes Minutes spent on Phone/Video with Pt.: 14 Assessment and Plan Assessment & Plan (1) BPH associated with nocturia: Code(s): N40.1 - Benign prostatic hyperplasia with lower urinary tract symptoms; R35.1 - Nocturia (2) Nephropathy: Code(s): N28.9 - Disorder of kidney and ureter, unspecified Plan This 78-year-old gentleman this is telemedicine visit to [facility] to follow-up on prostatic hypertrophy I started him on Flomax 3 weeks ago, patient is doing much better, able to empty his bladder Notify patient that he is to continue medication, I have sent a refill Labs done reviewed, his creatinine is 1.7, he still has not booked appointment with director of strategic sales Once again patient was advised to call and book follow-up appointment, his creatinine does fluctuate up and down it was as high as 3 in the past. Patient have a follow-up appointment in April. Medications: Refilled tamsulosin (Flomax) 0.4 mg PO BEDTIME 90 caps 0RF Coding Level of Care Code Tele Est Pt Level 3 (07890) Diagnoses BPH associated with nocturia N40.1; R35.1 Nephropathy N28.9
== END 2024-02-20 11:49 | disposition home or self-care (01) ==
LOC: HO.HMGC 07:04
PROVIDERS: PCP Internal Medicine; Visit Provider Internal Medicine
DX: N40.1 Benign prostatic hyperplasia with lower urinary tract symptoms (principal); R35.1 Nocturia; N28.9 Disorder of kidney and ureter, unspecified
CPT/HCPCS: 99442

== ENCOUNTER 2024-05-13 13:56 | Outpatient (AMB) | payer MEDICARE, MEDICAID, SELFPAY ==
[2024-05-13 13:58] VITALS: BP 132/84; PULSE 74; O2SAT 96; BMI 23.0
--- NOTE | 2024-05-13 13:58 | A.OFFPC_ITS ---
Vital Signs 05/13/24 13:58 Height 5 ft 8 in Weight 151 lb 6 oz BMI 23.0 BP 132/84 Blood Pressure Location Rt brachial Position Sitting Pulse 74 Pulse Source Pulse Oximeter Pulse Oximetry (%) 96 Oxygen Delivery Method Room Air Intake Visit Reasons: HDF/fall Allergies No Known Allergies [No Known Allergies*] Allergy (Verified 05/13/24 14:09) Medication List - Last Reconciled 05/13/24 by Tanisha Evangelista MD albuterol sulfate 90 mcg/actuation (Ventolin HFA) 2 puffs PO Q4-6H PRN amlodipine 5 mg PO DAILY bacitracin (Bacitraycin Plus) 1 appl topical Q8H bismuth subsalicylate 2 tabs PO QID 14 days cholecalciferol (vitamin D3) 125 mcg PO DAILY ergocalciferol (vitamin D2) 1,250 mcg PO QWEEK gabapentin (Neurontin) 100 mg PO BID inhalational spacing device As directed omeprazole 40 mg PO BID 8 weeks oxycodone 5 mg PO Q8H PRN peg 3350-electrolytes 236-22.74-6.74 -5.86 gram (Golytely) 240 mL PO Q10M sertraline 100 mg PO DAILY tamsulosin (Flomax) 0.4 mg PO BEDTIME tiotropium bromide 2.5 mcg/actuation (Spiriva Respimat) 2 puffs PO QAM Tobacco use date assessed: 05/13/24 Fall risk assessment: 2 + Falls in past year Last assessed Fall Risk: 05/13/24 Dental Screening Dental Screen Date: 05/13/24 Did you have a dental visit in the last 12 months?: No Did you have a dental problem in the last 6 months where you did not have access to dental care?: No Was dental information given to patient?: No HPI HDF/fall HPI Details Patient is 78-year-old male with a history of COPD on home oxygen presented to emergency room on 08 of May and was discharged on 09 of May. Prior to arrival patient was recently in hospital after trauma. And was undergoing therapy at home. His speech therapist and physical therapist noted increasing shortness a breath so patient was brought in. They also noted that patient is coughing up purulent sputum. Speech therapist also noted that patient is having increasing dysphagia to a point where he is not able to swallow putting even. Patient had CTA of his chest which was negative His oxygen was 92% on 3 L of oxygen which is his baseline After evaluation patient was discharged home with a diagnosis of COPD exacerbation With treatment see felt better in emergency room Labs did not show any acute findings Patient is to follow up with Dr. Dunne his child life specialist He has appointment with Neurosurgery on May 15 Director Of Video Analytics that patient was in hospital after fall and encountering head and neck trauma at home on April 17 during that fall patient had 6 cm laceration posterior left occipital He was also provided with neck collar, he was transferred to Trauma team, I do not have notes from them. Patient was discharged on 22 of April after this fall. Patient is on amlodipine 5 mg vitamin-D gabapentin 100 b.i.d. omeprazole 40 b.i.d. laxatives Sertraline 100 mg, Flomax 0.4 mg, Spiriva He is back to his baseline having speech and physical therapy at home He has appointment with Dr. Jean on May 17 He is scheduled for colonoscopy on 09 of June, I have instructed his significant other to get clearance for that through pulmonary, because of his severe COPD Oxygen saturation is 96% As far as his swallowing is concerned he was able to eat scrambled leg in dose this morning without any issues [facility] Medical History HTN (hypertension) COPD exacerbation Hypoxemia COPD (chronic obstructive pulmonary disease) Supplemental oxygen dependent Nephropathy Anxiety, generalized COPD (chronic obstructive pulmonary disease) Surgical History History of esophagogastroduodenoscopy (EGD) Bladder tumor History of colonoscopy History of cystoscopy History of surgery Avulsion of finger tip History of neck surgery Arm fracture, left History of knee surgery H/O colonoscopy Family History Father HTN (hypertension) Diabetes mellitus Mother Cancer Brother Melanoma Sister Breast cancer Son No problems noted. Daughter No problems noted. Social History Housing: House Alcohol intake: former Patient Tobacco Use Status: Former Tobacco user e-Cigarette/Vaping Use: Never Used service: No Cognitive needs: No Hearing needs: No Vision needs: Yes Questionnaire Thrive Questionnaire Date Thrive assessed: 05/13/24 I am a: Patient What is your living situation today?: I have a steady place to live Within the past 12 months, did the food you bought not last and you didn't have the money to get more?: Never true Within the past 12 months, did you worry whether your food would run out before you got money to buy more?: Never true Do you have trouble paying for medicines?: No Do you have trouble getting transportation to medical appointments?: No Do you have trouble paying your heating and electricity bill?: No Do you have trouble taking care of your child, family member or friend?: No Do you have trouble with day-to-day activities such as bathing, preparing meals, shopping, managing finances, etc.?: Yes Are you currently unemployed and looking for a job?: No Are you interested in more education?: No Please select the resources that you would like help with: Housing/Snf Currently or been in a relationship where the following occur: No concerns reported THRIVE Score: 0 AUDIT C Alcohol Use Questionnaire (AUDIT-C) 1. How often do you have a drink containing alcohol?: Monthly or less 2. How many drinks containing alcohol do you have on a typical day when you are drinking?: 1 or 2 3. How often do you have six or more drinks on one occasion?: Never Total Score: 1 Score Reviewed/Action Taken: Yes ILDA-7 AMB Questionnaire IDLA-7 Date ILDA - 7 assessed: 05/13/24 Feeling nervous, anxious, or on edge: 1 = Several days Not being able to stop or control worryin = Not at all Worrying too much about different things: 0 = Not at all Trouble relaxin = Not at all Being so restless that it is hard to sit still: 0 = Not at all Becoming easily annoyed or irritable: 0 = Not at all Feeling afraid as if something awful might happen: 0 = Not at all Total ILDA-7 score (0-4 normal; 5-9 mild; 10-14 moderate; 15-21 severe): 1 Source: Developed by Drs. Lukas Westfall, Ana Holt, Octavio De Guzman and colleagues, with an educational [place] from [employer]. ILDA-7 Assessment Billing ILDA-7 Assessment Tool: ILDA-7 Assessment 02017 Review of Systems Const Denies chills and Denies fever(s) ENT Denies epistaxis and Denies nasal discharge Card Denies chest pain Resp Denies hemoptysis GI Denies diarrhea and Denies nausea Skin/Breast Denies rash Neuro Reports no additional complaints Psych Reports no additional complaints Endo Reports no additional complaints Physical exam (Primary Care) Vital Signs: Last Vital Signs Pulse 74 05/13/24 13:58 BP 132/84 05/13/24 13:58 Pulse Ox 96 05/13/24 13:58 Oxygen Delivery Method Room Air 05/13/24 13:58 BMI result Body Mass Index 23.0 Tobacco/Smoking Status: Tobacco use Status Tobacco use date assessed 05/13/24 05/13/24 14:09 Patient Tobacco Use Status Former Tobacco user 05/13/24 14:00 e-Cigarette/Vaping Use Never Used 05/13/24 14:00 Thrive Assessment: Date of Thrive Assessment Date Thrive assessed 05/13/24 05/13/24 14:09 Currently or been in a relationship where the following occur: No concerns reported Const Other: Elderly gentleman sitting in wheelchair with hard neck collar on and oxygen can in his nose, in no acute distress General: cooperative, comfortable and no acute distress Orientation/consciousness: patient oriented x3 HENMT Head: Yes normocephalic Eyes General: appearance normal, both eyes and all related structures Neck Neck: Yes supple Resp Effort & Inspection: normal respiratory effort, no cough and no stridor Cardio Rhythm: regular rhythm Heart sounds: S1 normal heart sound present and S2 normal heart sound present Skin General skin exam: turgor normal Neuro General: patient oriented x3, tone normal and moves all extremities Extrem Right lower extremity: no edema Left lower extremity: no edema Assessment and Plan Assessment & Plan (1) Hospital discharge follow-up: Code(s): Z09 - Encounter for follow-up examination after completed treatment for conditions other than malignant neoplasm (2) Neck injury: Code(s): S19.9XXA - Unspecified injury of neck, initial encounter Qualifiers: Encounter type: initial encounter Qualified Code(s): S19.9XXA - Unspecified injury of neck, initial encounter (3) Status post fall: Code(s): Z91.81 - History of falling (4) Overflow incontinence of urine: Code(s): N39.490 - Overflow incontinence (5) Difficulty swallowing: Code(s): R13.10 - Dysphagia, unspecified Qualifiers: Dysphagia type: unspecified Qualified Code(s): R13.10 - Dysphagia, unspecified (6) Hypertension, essential: Code(s): I10 - Essential (primary) hypertension (7) COPD (chronic obstructive pulmonary disease): Code(s): J44.9 - Chronic obstructive pulmonary disease, unspecified Qualifiers: COPD type: emphysema Emphysema type: panlobular Qualified Code(s): J43.1 - Panlobular emphysema (8) Nephropathy: Code(s): N28.9 - Disorder of kidney and ureter, unspecified (9) Supplemental oxygen dependent: Code(s): Z99.81 - Dependence on supplemental oxygen (10) BPH associated with nocturia: Code(s): N40.1 - Benign prostatic hyperplasia with lower urinary tract symptoms; R35.1 - Nocturia Plan Patient is 78-year-old male with a history of COPD on home oxygen presented to emergency room on 08 of May and was discharged on 09 of May. Prior to arrival patient was recently in hospital after trauma. And was undergoing therapy at home. His speech therapist and physical therapist noted increasing shortness a breath so patient was brought in. They also noted that patient is coughing up purulent sputum. Speech therapist also noted that patient is having increasing dysphagia to a point where he is not able to swallow putting even. Patient had CTA of his chest which was negative His oxygen was 92% on 3 L of oxygen which is his baseline After evaluation patient was discharged home with a diagnosis of COPD exacerbation With treatment see felt better in emergency room Labs did not show any acute findings Patient is to follow up with Dr. Dunne his child life specialist He has appointment with Neurosurgery on May 15 Director Of [employer] that patient was in hospital after fall and encountering head and neck trauma at home on April 17 during that fall patient had 6 cm laceration posterior left occipital He was also provided with neck collar, he was transferred to Trauma team, I do not have notes from them. Patient was discharged on 22 of April after this fall. Patient is on amlodipine 5 mg vitamin-D gabapentin 100 b.i.d. omeprazole 40 b.i.d. laxatives Sertraline 100 mg, Flomax 0.4 mg, Spiriva He is back to his baseline having speech and physical therapy at home He has appointment with Dr. Jean on May 17 He is scheduled for colonoscopy on 09 of June, I have instructed his significant other to get clearance for that through pulmonary, because of his severe COPD Oxygen saturation is 96% As far as his swallowing is concerned he was able to eat scrambled leg in dose this morning without any issues Patient has BPH and is having overflow urine incontinence at night wetting himself We will start process to get him diapers at night 45 minutes spent in care of this patient Coding Level of Care Code Est Pt Level 5 (91702) Diagnoses Hospital discharge follow-up Z09 Injury of neck, initial encounter S19.9XXA Encounter type: initial encounter Status post fall Z91.81 Overflow incontinence of urine N39.490 Dysphagia, unspecified type R13.10 Dysphagia type: unspecified Hypertension, essential I10 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
== END 2024-05-13 14:34 | disposition home or self-care (01) ==
PROVIDERS: PCP Internal Medicine; Visit Provider Internal Medicine
DX: Z09 Encounter for follow-up examination after completed treatment for conditions other than malignant neoplasm (principal); J43.1 Panlobular emphysema; S19.9XXA Unspecified injury of neck, initial encounter; Z91.81 History of falling; N39.490 Overflow incontinence; R13.10 Dysphagia, unspecified; I10 Essential (primary) hypertension; N28.9 Disorder of kidney and ureter, unspecified; Z99.81 Dependence on supplemental oxygen; N40.1 Benign prostatic hyperplasia with lower urinary tract symptoms; R35.1 Nocturia
CPT/HCPCS: 99215

== ENCOUNTER 2024-05-18 15:52 | Outpatient (AMB) | payer MEDICARE, SELFPAY ==
--- NOTE | 2024-05-18 15:55 | A.OFFVIS_ITS ---
Vital Signs 05/18/24 15:56 Height 5 ft 8 in Weight 149 lb 0.9 oz BMI 22.7 BP 120/74 Blood Pressure Location Lt brachial Position Sitting Pulse 60 Pulse Source Pulse Oximeter Pulse Oximetry (%) 95 Oxygen Delivery Method Nasal Cannula Oxygen Flow Rate 3 Intake Visit Reasons: COPD Intake Note: pt is here for follow up and states he was in ER for breathing issues, and had a nebulizer that helped. He states Chlorinator Operator Required: No Allergies No Known Allergies [No Known Allergies*] Allergy (Verified 05/18/24 16:07) Medication List - Last Reconciled 05/18/24 by Chao Jean MD albuterol sulfate 90 mcg/actuation (Ventolin HFA) 2 puffs PO Q4-6H PRN amlodipine 5 mg PO DAILY bacitracin (Bacitraycin Plus) 1 appl topical Q8H bismuth subsalicylate 2 tabs PO QID 14 days cholecalciferol (vitamin D3) 125 mcg PO DAILY ergocalciferol (vitamin D2) 1,250 mcg PO QWEEK gabapentin (Neurontin) 100 mg PO BID inhalational spacing device As directed omeprazole 40 mg PO BID 8 weeks oxycodone 5 mg PO Q8H PRN peg 3350-electrolytes 236-22.74-6.74 -5.86 gram (Golytely) 240 mL PO Q10M sertraline 100 mg PO DAILY tamsulosin (Flomax) 0.4 mg PO BEDTIME tiotropium bromide 2.5 mcg/actuation (Spiriva Respimat) 2 puffs PO QAM Do you need a note to return to daycare/school/sports/work: No HPI HPI COPD: Details: JOO IS 78 YEARS OLD GENTLEMAN, WITH CHRONIC OBSTRUCTIVE PULMONARY DISEASE, M ODERATELY SEVERE. HE IS BEING FOLLOWED UP BY GASTROENTEROLOGY FOR COLON POLYPS. AND WAS BEING SCHEDULED FOR COLONOSCOPY . HOWEVER ON APRIL 22 , HE HAD FALLEN DOWN AT HOME AND SUFFERED FROM MULTIPLE T RAUMATIC INJURIES, INCLUDING FRACTURE OF C5, CHRONIC T2-T12 L1 AND FOR FRACTURES, AND LEFT 10TH RIB FRACTURE. HE WAS INITIALLY ADMITTED AT [facility] AND THEN REFERRED TO REHAB FACILITY, WHERE HE SPENT ABOUT 1 WEEK DISCHARGE HOME AND WAS HAVING HOME PHYSICAL THERAPY WELL SPEECH THERAPY. WHEN HE WAS BEING FOLLOWED AT HOME BY SPEECH THERAPY HE HAD SOME DIFFICULTY IN SWALLOWING, WHICH LATER ON RESOLVED . ON MAY 09 HE WAS SENT TO THE EMERGENCY ROOM BECAUSE HE HAD SHORTNESS OF BREATH AND SOME CHEST DISCOMFORT. AGAIN SEEN AT [facility] EMERGENCY ROOM, CTA OF THE CHEST WAS NEGATIVE FOR PULMONARY EMBOLISM, BUT SHOWED THE FOLLOWING: PULMONARY EMPHYSEMA LEFT 10TH RIB FRACTURE. 1.2 CM NODULAR FOCUS WITHIN THE RIGHT MIDDLE LOBE. PATIENT IS COMPLAINING OF INCREASED SHORTNESS OF BREATH. HE HAS DIFFICULTY IN USING THE ALBUTEROL INHALER. HE FEELS BETTER AFTER USING A NEBULIZER ( HE USED IN THE EMERGENCY ROOM) HE IS ABLE TO USE SPIRIVA RESPIMAT, BEFORE. HIS LOCOMOTION IS MARKEDLY IMPAIRED AT THIS TIME. HE IS USING OXYGEN 2 L/MINUTE CONTINUOUSLY. HIS POC, WHICH HE WAS USING FOR OUTDOORS IS NOT WORKING WELL AT THIS TIME. [facility] Medical History (Updated 05/18/24 @ 17:08 by Chao Jean MD) Pulmonary nodule 1 cm or greater in diameter HTN (hypertension) COPD exacerbation Hypoxemia COPD (chronic obstructive pulmonary disease) Supplemental oxygen dependent Nephropathy Anxiety, generalized COPD (chronic obstructive pulmonary disease) Surgical History History of esophagogastroduodenoscopy (EGD) Bladder tumor History of colonoscopy History of cystoscopy History of surgery Avulsion of finger tip History of neck surgery Arm fracture, left History of knee surgery H/O colonoscopy Family History Father HTN (hypertension) Diabetes mellitus Mother Cancer Brother Melanoma Sister Breast cancer Son No problems noted. Daughter No problems noted. Social History Housing: House Alcohol intake: former Patient Tobacco Use Status: Former Tobacco user e-Cigarette/Vaping Use: Never Used service: No Cognitive needs: No Hearing needs: No Vision needs: Yes Review of Systems Const All systems reviewed & are unremarkable except as noted in HPI and below Denies chills and Denies fever(s) Eyes Reports no additional complaints ENT Denies epistaxis and Denies nasal discharge Card Denies chest pain Resp Denies chest congestion and Denies hemoptysis GI Denies nausea Musc Reports no additional complaints Skin/Breast Denies rash Neuro Reports no additional complaints Psych Reports no additional complaints Endo Reports no additional complaints Physical Exam Vital Signs: Last Vital Signs Pulse 60 05/18/24 15:56 BP 120/74 05/18/24 15:56 Pulse Ox 95 05/18/24 15:56 Oxygen Delivery Method Nasal Cannula 05/18/24 15:56 Oxygen Flow Rate 3 05/18/24 15:56 BMI result Body Mass Index 22.7 Const General: comfortable, no acute distress, alert and awake Orientation/consciousness: patient oriented x3 HEENT Head: Yes normal to inspection General nose exam: No nasal polyps present and No nasal discharge present Face and sinus: Yes sinuses nontender Mouth: oropharynx normal Throat: Yes posterior oropharynx normal Eyes General: appearance normal, both eyes and all related structures Neck Neck: Yes normal visual inspection, Yes no lymphadenopathy, Yes trachea midline and Yes no JVD Thyroid: Thyroid normal Chest Chest palpation & inspection: normal inspection of the chest, normal palpation of entire chest wall and no tenderness Resp Other: Percussion note hyper-resonant, breath sounds are VERY distant with prolonged expiratory phase. THERE ARE NO WHEEZES RHONCHI OR CREPITATIONS TODAY, Cardio Palpation: normal PMI Rate: regular rate Rhythm: regular rhythm Heart sounds: no gallops and no murmurs GI Palpation (GI): Soft to palpation, Tenderness to palpation present (GI), No hepatosplenomegaly present and Palpable mass present Auscultation: normal bowel sounds Back/Spine/Pelvis Thoracic/Lumbar Spine: thoracic and lumbar spine normal to inspection Skin General skin exam: no rashes or lesions noted Neuro General: patient oriented x3 and no focal motor deficits Cranial nerves: Yes CN's II-XII intact bilaterally Extrem General: Yes normal to inspection, Yes no clubbing, cyanosis or edema and Yes no calf tenderness Psych Appearance: grossly normal and well kempt Speech and movement: Normal speech and movement present Results Reviewed Results Reviewed: NOTES FROM THE EMERGENCY ROOM OF [facility], WELL RESULTS OF CTA OF THE CHEST ON 05/09 ARE REVIEWED, AND DISCUSSED WITH FAMILY . Assessment & Plan Assessment & Plan (1) COPD (chronic obstructive pulmonary disease): Comment: HE HAS RATHER SEVERE CHRONIC OBSTRUCTIVE PULMONARY DISEASE, IT SEEMS TO BE FAIRLY STABLE AT THIS TIME. ACCORDING TO FAMILY HAS DIFFICULTY IN USING THE INHALER, HE MAY BENEFIT FROM USING ALBUTEROL VIA NEBULIZER. Code(s): J44.9 - Chronic obstructive pulmonary disease, unspecified Category: Medical Plan: CONTINUE SPIRIVA RESPIMAT 2.5 2 INHALATIONS DAILY NEBULIZER. FOR HOME USE IS PRESCRIBED ALBUTEROL SOLUTION , TO USE IN THE NEBULIZER Q. 6 HOURS P.R.N. (2) Hypoxemia: Comment: PATIENT HAS STATIONARY CONCENTRATOR AT HOME ,AND USES O2 2 L/MT FOR OUTDOORS, HE HE HAS POC. AND USES O2 3 L/MINUTE. ACCORDING TO HIS SON, THE POC IS NOT WORKING WELL, BATTERY IS NOT HOLDING CHARGE FOR MORE THAN 1 HOUR AT A TIME. Code(s): R09.02 - Hypoxemia Category: Medical Plan: I HAVE ASKED THE SON TO HAVE 0 2 COMPANY CHECK HIS POC. IF IT IS NOT FUNCTIONING PROPERLY THEN WE WILL NEED TO ORDER ANOTHER POC UNIT (3) Pulmonary nodule 1 cm or greater in diameter: Comment: PER CTA OF THE CHEST AT [facility], HE WAS FOUND TO HAVE A PULMONARY NODULE, 1.2 CM IN SIZE IN THE RIGHT MIDDLE LOBE. THIS IS WORRISOME. Code(s): R91.1 - Solitary pulmonary nodule Category: Medical Plan: I HAVE DISCUSSED THIS WITH THE FAMILY. WE SHOULD DO FURTHER WORKUP TO DETERMINE THE ETIOLOGY OF THIS NODULE. THUS AT THIS TIME HOLD COLONOSCOPY. PET SCAN IS ORDERED. IF THE PULMONARY NODULE IS PROVEN BENIGN, AND HE GAINS MORE STRENGTH, THEN WE CAN CLEAR HIM FOR COLONOSCOPY I WILL RECHECK HIM IN 4 WEEKS. Orders: Orders PET CT fusion skull to thigh Today R91.1 - Solitary pulmonary nodule Medications: New albuterol sulfate 1.25 mg (3 mL) inhalation Q4-6H PRN 90 mL 3RF shortness of breath or wheezing 4 weeks Coding Level of Care Code Est Pt Level 4 (02584) Diagnoses COPD (chronic obstructive pulmonary disease) J44.9 Hypoxemia R09.02 Pulmonary nodule 1 cm or greater in diameter R91.1
[2024-05-18 15:56] VITALS: BP 120/74; PULSE 60; O2SAT 95; BMI 22.7
== END 2024-05-18 16:32 | disposition home or self-care (01) ==
PROVIDERS: PCP Internal Medicine; Visit Provider Internal Medicine
DX: J44.9 Chronic obstructive pulmonary disease, unspecified (principal); R09.02 Hypoxemia; R91.1 Solitary pulmonary nodule
CPT/HCPCS: 99214

== ENCOUNTER → 2024-05-18 15:52 | Outpatient (BNVA) | payer MEDICARE, SELFPAY | PROVIDERS: PCP Internal Medicine; Visit Provider Internal Medicine | DX: J44.9 Chronic obstructive pulmonary disease, unspecified (principal); R91.1 Solitary pulmonary nodule; R09.02 Hypoxemia; Z87.891 Personal history of nicotine dependence | CPT/HCPCS: 99212 ==

== ENCOUNTER 2024-06-16 10:59 | Outpatient (AMB) | payer MEDICARE, SELFPAY ==
[2024-06-16 11:09] VITALS: BP 112/74; PULSE 62; O2SAT 94; BMI 23.0
--- NOTE | 2024-06-16 11:09 | A.OFFVIS_ITS ---
Vital Signs 06/16/24 11:09 Height 5 ft 8 in Weight 151 lb 0.266 oz BMI 23.0 BP 112/74 Blood Pressure Location Lt brachial Position Sitting Pulse 62 Pulse Source Pulse Oximeter Pulse Oximetry (%) 94 Oxygen Delivery Method Nasal Cannula Oxygen Flow Rate 3 Intake Visit Reasons: COPD Intake Note: pt is here for follow up and is not feeling well, here for pet scan results. 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: No Allergies No Known Allergies [No Known Allergies*] Allergy (Verified 06/16/24 11:30) Medication List - Last Reconciled 06/16/24 by Chao Jean MD albuterol sulfate 90 mcg/actuation (Ventolin HFA) 2 puffs PO Q4-6H PRN albuterol sulfate 1.25 mg (3 mL) inhalation Q4-6H PRN 4 weeks amlodipine 5 mg PO DAILY bacitracin (Bacitraycin Plus) 1 appl topical Q8H bismuth subsalicylate 2 tabs PO QID 14 days cholecalciferol (vitamin D3) 125 mcg PO DAILY ergocalciferol (vitamin D2) 1,250 mcg PO QWEEK gabapentin (Neurontin) 100 mg PO BID inhalational spacing device As directed omeprazole 40 mg PO BID 8 weeks oxycodone 5 mg PO Q8H PRN peg 3350-electrolytes 236-22.74-6.74 -5.86 gram (Golytely) 240 mL PO Q10M sertraline 100 mg PO DAILY tamsulosin (Flomax) 0.4 mg PO BEDTIME tiotropium bromide 2.5 mcg/actuation (Spiriva Respimat) 2 puffs PO QAM Do you need a note to return to daycare/school/sports/work: No HPI HPI COPD: Details: THIS 78 YEARS OLD GENTLEMAN WITH ADVANCED CHRONIC OBSTRUCTIVE PULMONARY DISEASE, OXYGEN-DEPENDENT, WITH IMPAIRED LOCOMOTION AND MOSTLY IN WHEELCHAIR. IS HERE FOR FOLLOW-UP AFTER 4 WEEKS, AFTER HAVING A PET-CT SCAN AT [facility]. HE CLAIMS THAT HIS BREATHING HAS REMAINED VERY STABLE. HE USES SPIRIVA RESPIMAT 2 INHALATIONS ONCE A DAY IN THE MORNING, AND HAS BEEN USING ALBUTEROL IN THE NEBULIZER ONCE OR TWICE A DAY NEEDED. HE STAYS ON OXYGEN 2 L/MINUTE AT REST AND 3 L/MINUTE WHEN HE GOES OUTDOORS. IS POC IS WORKING OKAY. HE DENIES ANY ACUTE INFECTION. CONSIDERS HIMSELF AT HIS USUAL BASELINE. PET -CT FINDINGS ARE EQUIVOCAL . SHOWING ONLY MILD METABOLIC ACTIVITY IN THE RIGHT MIDDLE LOBE SUGGESTIVE OF ROUNDED ATELECTASIS AND PLATE LIKE ATELECTASIS WITHIN THE LINGULA WITH A MILD DEGREE OF METABOLIC ACTIVITY . A REPEAT CT SCAN IN 3 MONTHS INTERVAL IS RECOMMENDED [facility] Medical History Pulmonary nodule 1 cm or greater in diameter HTN (hypertension) COPD exacerbation Hypoxemia COPD (chronic obstructive pulmonary disease) Supplemental oxygen dependent Nephropathy Anxiety, generalized COPD (chronic obstructive pulmonary disease) Surgical History History of esophagogastroduodenoscopy (EGD) Bladder tumor History of colonoscopy History of cystoscopy History of surgery Avulsion of finger tip History of neck surgery Arm fracture, left History of knee surgery H/O colonoscopy Family History Father HTN (hypertension) Diabetes mellitus Mother Cancer Brother Melanoma Sister Breast cancer Son No problems noted. Daughter No problems noted. Social History Housing: House Alcohol intake: former Patient Tobacco Use Status: Former Tobacco user e-Cigarette/Vaping Use: Never Used service: No Cognitive needs: No Hearing needs: No Vision needs: Yes Review of Systems Const All systems reviewed & are unremarkable except as noted in HPI and below Denies chills and Denies fever(s) Eyes Reports no additional complaints ENT Denies epistaxis and Denies nasal discharge Card Denies chest pain Resp Denies chest congestion and Denies hemoptysis GI Denies nausea Musc Reports no additional complaints Skin/Breast Denies rash Neuro Reports no additional complaints Psych Reports no additional complaints Endo Reports no additional complaints Physical Exam Vital Signs: Last Vital Signs Pulse 62 06/16/24 11:09 BP 112/74 06/16/24 11:09 Pulse Ox 94 06/16/24 11:09 Oxygen Delivery Method Nasal Cannula 06/16/24 11:09 Oxygen Flow Rate 3 06/16/24 11:09 BMI result Body Mass Index 23.0 Const General: comfortable, no acute distress, alert and awake Orientation/consciousness: patient oriented x3 HEENT Head: Yes normal to inspection General nose exam: No nasal polyps present and No nasal discharge present Face and sinus: Yes sinuses nontender Mouth: oropharynx normal Throat: Yes posterior oropharynx normal Eyes General: appearance normal, both eyes and all related structures Neck Neck: Yes normal visual inspection, Yes no lymphadenopathy, Yes trachea midline and Yes no JVD Thyroid: Thyroid normal Chest Chest palpation & inspection: normal inspection of the chest, normal palpation of entire chest wall and no tenderness Resp Other: Percussion note hyper-resonant, breath sounds are VERY distant with prolonged expiratory phase. THERE ARE NO WHEEZES RHONCHI OR CREPITATIONS TODAY, Cardio Palpation: normal PMI Rate: regular rate Rhythm: regular rhythm Heart sounds: no gallops and no murmurs GI Palpation (GI): Soft to palpation, Tenderness to palpation present (GI), No hepatosplenomegaly present and Palpable mass present Auscultation: normal bowel sounds Back/Spine/Pelvis Thoracic/Lumbar Spine: thoracic and lumbar spine normal to inspection Skin General skin exam: no rashes or lesions noted Neuro General: patient oriented x3 and no focal motor deficits Cranial nerves: Yes CN's II-XII intact bilaterally Extrem General: Yes normal to inspection, Yes no clubbing, cyanosis or edema and Yes no calf tenderness Psych Appearance: grossly normal and well kempt Speech and movement: Normal speech and movement present Results Reviewed Results Reviewed: PET CT SCAN FINDINGS DESCRIBED ABOVE IN HPI. MILD METABOLIC ACTIVITY IN THE RIGHT MIDDLE LOBE AND LINGULA, PROBABLY SUGGESTING ROUNDED ATELECTASIS. Assessment & Plan Assessment & Plan (1) COPD (chronic obstructive pulmonary disease): Comment: HE HAS RATHER SEVERE CHRONIC OBSTRUCTIVE PULMONARY DISEASE, IT SEEMS TO BE FAIRLY STABLE AT THIS TIME. HE IS HAPPY WITH USING THE ALBUTEROL IN THE NEBULIZER FOR P.R.N. USE Code(s): J44.9 - Chronic obstructive pulmonary disease, unspecified Category: Medical Plan: SPIRIVA RESPIMAT 2.5 2 INHALATIONS DAILY ALBUTEROL SOLUTION IN THE NEBULIZER Q 6 HOURS P.R.N. ( MAY USE UP TO TWICE A DAY ) (2) Hypoxemia: Comment: THIS GENTLEMAN HAS HYPOXEMIA FOR MANY YEARS DUE TO HIS ADVANCED COPD. HE IS DOING WELL WITH OXYGEN SUPPLEMENTATION. Code(s): R09.02 - Hypoxemia Category: Medical Plan: O2 2 L/MINUTE AT HOME. AND O2 3 L/MINUTE WHEN OUTDOORS WITH POC. (3) Pulmonary nodule 1 cm or greater in diameter: Comment: PER CTA OF THE CHEST AT [facility], HE WAS FOUND TO HAVE A PULMONARY NODULE, 1.2 CM IN SIZE IN THE RIGHT MIDDLE LOBE. THIS IS WORRISOME. THUS A PET SCAN HAS BEEN DONE. RESULTS NOTED ABOVE. ONLY MILD METABOLIC ACTIVITY NOTED, THIS POSSIBILITY OF ROUNDED ATELECTASIS. Code(s): R91.1 - Solitary pulmonary nodule Category: Medical Plan: PER RECOMMENDATION BY RADIOLOGY, WILL DO A CT SCAN OF THE CHEST AT 3 MONTHS INTERVAL ( IN NOV. ) Plan *PULMONARY CLEARANCE : THIS GENTLEMAN NEEDS TO UNDERGO COLONOSCOPY A COLONIC POLYP. HE IS A POOR SURGICAL RISK BUT THE PROCEDURE BEING UNDER CONSCIOUS SEDATION, AND HE HIS CURRENT RESPIRATORY STATUS BEING FAIRLY STABLE, I SEE NO CONTRAI NDICATION. Coding Level of Care Code Est Pt Level 3 (41171) Diagnoses COPD (chronic obstructive pulmonary disease) J44.9 Hypoxemia R09.02 Pulmonary nodule 1 cm or greater in diameter R91.1
== END 2024-06-16 11:30 | disposition home or self-care (01) ==
PROVIDERS: PCP Internal Medicine; Visit Provider Internal Medicine
DX: J44.9 Chronic obstructive pulmonary disease, unspecified (principal); R09.02 Hypoxemia; R91.1 Solitary pulmonary nodule
CPT/HCPCS: 99213

== ENCOUNTER → 2024-06-16 10:59 | Outpatient (BNVA) | payer MEDICARE, SELFPAY | PROVIDERS: PCP Internal Medicine; Visit Provider Internal Medicine | DX: J44.9 Chronic obstructive pulmonary disease, unspecified (principal); R09.02 Hypoxemia; R91.1 Solitary pulmonary nodule | CPT/HCPCS: 99212 ==

== ENCOUNTER 2024-08-11 09:33 | Outpatient (REF) | payer MEDICARE, SELFPAY ==
[2024-08-11 13:23] LABS: MANUAL DIFF FLAG NO
[2024-08-11 13:43] LABS: Basophils Percent Auto 0.5 % (0-2); Eosinophils Absolute Auto 0.4 X10*3/uL (0.0-0.4); Eosinophils Percent Auto 4.7 % (0-4); Hemoglobin 11.6 g/dl (14.0-18.0); Imm Gran Abs Auto 0.03 X10*3/uL (0.00-0.03); Imm Gran Pct Auto 0.4 % (0.0-0.4); Lymphocytes Absolute Auto 0.9 X10*3/uL (1.2-4.9); Lymphocytes Percent Auto 12.1 % (20-40); Mean Corpuscular HGB Conc 30.5 g/dl (31.0-36.0); Mean Corpuscular Hemoglobin 30.3 pg (27.0-33.0); Mean Corpuscular Volume 99.2 fL (80.0-98.0); Mean Platelet Volume 12.5 fL (9.4-12.4); Monocytes Absolute Auto 0.6 X10*3/uL (0.1-1.2); Monocytes Percent Auto 7.4 % (2-11); Neutrophils Absolute Auto 5.8 x10*3/uL (2.0-8.3); Neutrophils Percent Auto 74.9 % (45-73); Platelet Count 138 X10*3/uL (160-400); Red Blood Count 3.83 X10*6/uL (4.60-5.80); Red Cell Distribution Width 13.6 % (11.0-16.0); White Blood Count 7.7 X10*3/uL (4.8-10.8)
[2024-08-11 14:05] LABS: Alanine Aminotransferase 16 U/L (0-40); Alkaline Phosphatase 72 U/L (39-117); Anion Gap 12 (12-20); Aspartate Amino Transferase 24 U/L (5-37); Bilirubin Total 0.4 mg/dL (0.0-1.0); Blood Urea Nitrogen 17 mg/dL (9-16); Calcium 9.1 mg/dL (8.4-10.2); Carbon Dioxide 30 mmol/L (22-29); Chloride 105 mmol/L (96-108); Cholesterol 198 mg/dL (<200); Estimated Glomerular Filt Rate 55; Glucose Fasting 98 mg/dL (60-99); HDL Cholesterol 67 mg/dL (>40); LDL Cholesterol Calculated 118 mg/dL (<100); Potassium 4.3 mmol/L (3.3-5.1); Sodium 143 mmol/L (135-145); Total Protein 7.1 g/dL (6.5-8.0); Triglycerides 68 mg/dL (<150)
[2024-08-11 14:22] LABS: Vitamin B12 307 pg/mL (200-900)
[2024-08-16 14:59] LABS: Vitamin D 25-OH, D2 23 ng/mL; Vitamin D 25-OH, D3 14 ng/mL; Vitamin D 25-OH, Total 37 ng/mL (30-100)
== END 2024-08-11 09:34 | disposition home or self-care (01) ==
LOC: HO.HMGCLDS 09:33
PROVIDERS: PCP Internal Medicine; Visit Provider Internal Medicine
DX: N28.9 Disorder of kidney and ureter, unspecified (principal); F41.1 Generalized anxiety disorder; J43.1 Panlobular emphysema; I10 Essential (primary) hypertension; N40.1 Benign prostatic hyperplasia with lower urinary tract symptoms; R35.1 Nocturia; R41.3 Other amnesia
CPT/HCPCS: 36415; 80053; 80061; 82306; 82607; 84443; 85025; 99212

== ENCOUNTER 2024-08-11 09:33 | Outpatient (AMB) | payer MEDICARE, SELFPAY ==
[2024-08-11 09:35] VITALS: BP 118/64; PULSE 57; O2SAT 96; BMI 24.3
--- NOTE | 2024-08-11 09:35 | A.OFFPC_ITS ---
Vital Signs 08/11/24 09:35 Height 5 ft 8 in Weight 160 lb BMI 24.3 BP 118/64 Blood Pressure Location Rt brachial Position Sitting Pulse 57 Pulse Source Pulse Oximeter Pulse Oximetry (%) 96 Oxygen Delivery Method Room Air Intake Visit Reasons: Followup Allergies No Known Allergies [No Known Allergies*] Allergy (Verified 08/11/24 09:35) Medication List - Last Reconciled 08/11/24 by Tanisha Evangelista MD albuterol sulfate 1.25 mg (3 mL) inhalation Q4-6H PRN 4 weeks albuterol sulfate 90 mcg/actuation (Ventolin HFA) 2 puffs PO Q4-6H PRN amlodipine 5 mg PO DAILY bacitracin (Bacitraycin Plus) 1 appl topical Q8H bisacodyl (Dulcolax (bisacodyl)) 20 mg (4 x 5 mg) PO ONCE 1 day bismuth subsalicylate 2 tabs PO QID 14 days cholecalciferol (vitamin D3) 125 mcg PO DAILY ergocalciferol (vitamin D2) 1,250 mcg PO QWEEK inhalational spacing device As directed omeprazole 40 mg PO BID 8 weeks oxycodone 5 mg PO Q8H PRN peg 3350-electrolytes 236-22.74-6.74 -5.86 gram (Golytely) 240 mL PO Q10M peg 3350-electrolytes 236-22.74-6.74 -5.86 gram 240 mL PO Q10M sertraline 100 mg PO DAILY tamsulosin (Flomax) 0.4 mg PO BEDTIME tiotropium bromide 2.5 mcg/actuation (Spiriva Respimat) 2 puffs PO QAM Tobacco use date assessed: 08/11/24 Fall risk assessment: 2 + Falls in past year Last assessed Fall Risk: 08/11/24 Dental Screening Dental Screen Date: 08/11/24 Did you have a dental visit in the last 12 months?: No Did you have a dental problem in the last 6 months where you did not have access to dental care?: No Was dental information given to patient?: No HPI Followup HPI Details Patient is 78-year-old gentleman, oxygen dependent COPD seeing Dr. Jean taking inhalers through him With a history of hypertension on amlodipine 5 mg, vitamin-D supplement, gabapentin 100 b.i.d. for chronic pain, omeprazole 40 b.i.d. and laxatives through Gastroenterology. History of anxiety disorder taking Sertraline 100 mg, BPH treated with Flomax 0.4 mg Last set of lab was January Patient have nephropathy last creatinine was 1.72 , I do not see any notes through Nephrology, it seems as if patient had visit done in June His creatinine seems to have improved to 1.4 then, patient was told that his kidney functions are 45% Blood pressure is stable Oxygen saturation 96% on 2 L of oxygen Patient is at risk for fall, using ambulatory aid Anxiety stable Medication list reviewed New set of lab order placed to be done today Patient is here with her daughter in-law Alicia And a niece who is a nurse They have noticed some changes in patient's memory and would like evaluation done [facility] Medical History Pulmonary nodule 1 cm or greater in diameter HTN (hypertension) COPD exacerbation Hypoxemia COPD (chronic obstructive pulmonary disease) Supplemental oxygen dependent Nephropathy Anxiety, generalized COPD (chronic obstructive pulmonary disease) Surgical History History of esophagogastroduodenoscopy (EGD) Bladder tumor History of colonoscopy History of cystoscopy History of surgery Avulsion of finger tip History of neck surgery Arm fracture, left History of knee surgery H/O colonoscopy Family History Father HTN (hypertension) Diabetes mellitus Mother Cancer Brother Melanoma Sister Breast cancer Son No problems noted. Daughter No problems noted. Social History Housing: House Alcohol intake: former Patient Tobacco Use Status: Former Tobacco user e-Cigarette/Vaping Use: Never Used service: No Cognitive needs: No Hearing needs: No Vision needs: Yes Questionnaire Thrive Questionnaire Date Thrive assessed: 05/13/24 I am a: Patient What is your living situation today?: I have a steady place to live Within the past 12 months, did the food you bought not last and you didn't have the money to get more?: Never true Within the past 12 months, did you worry whether your food would run out before you got money to buy more?: Never true Do you have trouble paying for medicines?: No Do you have trouble getting transportation to medical appointments?: No Do you have trouble paying your heating and electricity bill?: No Do you have trouble taking care of your child, family member or friend?: No Do you have trouble with day-to-day activities such as bathing, preparing meals, shopping, managing finances, etc.?: Yes Are you currently unemployed and looking for a job?: No Are you interested in more education?: No Please select the resources that you would like help with: None Currently or been in a relationship where the following occur: No concerns reported THRIVE Score: 0 AUDIT C Alcohol Use Questionnaire (AUDIT-C) 1. How often do you have a drink containing alcohol?: Monthly or less 2. How many drinks containing alcohol do you have on a typical day when you are drinking?: 1 or 2 3. How often do you have six or more drinks on one occasion?: Never Total Score: 1 Score Reviewed/Action Taken: Yes ILDA-7 AMB Questionnaire ILDA-7 Date ILDA - 7 assessed: 05/13/24 Source: Developed by Drs. Lukas Westfall, Ana Holt, Octavio De Guzman and colleagues, with an educational [place] from [employer]. Review of Systems Const Denies chills and Denies fever(s) ENT Denies epistaxis and Denies nasal discharge Card Denies chest pain Resp Denies chest congestion, Denies cough and Denies hemoptysis GI Denies diarrhea and Denies nausea Skin/Breast Denies rash Neuro Reports no additional complaints Psych Reports no additional complaints Endo Reports no additional complaints Physical exam (Primary Care) Vital Signs: Last Vital Signs Pulse 57 08/11/24 09:35 BP 118/64 08/11/24 09:35 Pulse Ox 96 08/11/24 09:35 Oxygen Delivery Method Room Air 08/11/24 09:35 BMI result Body Mass Index 24.3 Tobacco/Smoking Status: Tobacco use Status Tobacco use date assessed 08/11/24 08/11/24 09:43 Patient Tobacco Use Status Former Tobacco user 08/11/24 09:43 e-Cigarette/Vaping Use Never Used 08/11/24 09:43 Thrive Assessment: Date of Thrive Assessment Date Thrive assessed 05/13/24 08/11/24 09:43 Currently or been in a relationship where the following occur: No concerns reported Const General: cooperative, comfortable and no acute distress HENMT Head: Yes normocephalic Eyes General: appearance normal, both eyes and all related structures Neck Neck: Yes supple Resp Effort & Inspection: normal respiratory effort, no cough and no stridor Cardio Rhythm: regular rhythm Heart sounds: S1 normal heart sound present and S2 normal heart sound present Skin General skin exam: turgor normal Neuro General: tone normal and moves all extremities Extrem Right lower extremity: no edema Left lower extremity: no edema Coding Level of Care Code Est Pt Level 4 (18521) Complex EM visit Add On G2211 Diagnoses Hypertension, essential I10 Nephropathy N28.9 Anxiety, generalized F41.1 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 Emphysema type: panlobular BPH associated with nocturia N40.1; R35.1 Memory changes R41.3 Assessment & Plan Assessment & Plan (1) Hypertension, essential: Code(s): I10 - Essential (primary) hypertension Category: Medical (2) Nephropathy: Code(s): N28.9 - Disorder of kidney and ureter, unspecified Category: Medical (3) Anxiety, generalized: Code(s): F41.1 - Generalized anxiety disorder Category: Medical (4) COPD (chronic obstructive pulmonary disease): Code(s): J44.9 - Chronic obstructive pulmonary disease, unspecified Category: Medical Qualifiers: COPD type: emphysema Emphysema type: panlobular Qualified Code(s): J43.1 - Panlobular emphysema (5) BPH associated with nocturia: Code(s): N40.1 - Benign prostatic hyperplasia with lower urinary tract symptoms; R35.1 - Nocturia Category: Medical (6) Memory changes: Code(s): R41.3 - Other amnesia Category: Medical Plan Patient is 78-year-old gentleman, oxygen dependent COPD seeing Dr. Jean taking inhalers through him With a history of hypertension on amlodipine 5 mg, vitamin-D supplement, gabapentin 100 b.i.d. for chronic pain, omeprazole 40 b.i.d. and laxatives through Gastroenterology. History of anxiety disorder taking Sertraline 100 mg, BPH treated with Flomax 0.4 mg through Urology Tongue And Quarter Stitcher tells me that patient has drinking alcohol again in moderation We talked about it, I would recommend that he should not drink at all Patient has a history of excessive alcohol intake for many years previously He has started smoking weed as well Last set of lab was January Patient have nephropathy last creatinine was 1.72 , I do not see any notes through Nephrology, it seems as if patient had visit done in June His creatinine seems to have improved to 1.4 then, patient was told that his kidney functions are 45% Blood pressure is stable Oxygen saturation 96% on 2 L of oxygen Patient is at risk for fall, using ambulatory aid Anxiety stable Medication list reviewed New set of lab order placed to be done today Patient is here with her daughter in-law Alicia And a niece who is a nurse They have noticed some changes in patient's memory and would like evaluation done Orders: Orders Complete Blood Count Auto Diff Today F41.1 - Generalized anxiety disorder, I10 - Essential (primary) hypertension, J43.1 - Panlobular emphysema, N28.9 - Disorder of kidney and ureter, unspecified Comprehensive [place]. Panel Fast Today F41.1 - Generalized anxiety disorder, I10 - Essential (primary) hypertension, J43.1 - Panlobular emphysema, N28.9 - Disorder of kidney and ureter, unspecified, N40.1 - Benign prostatic hyperplasia with lower urinary tract symptoms, R35.1 - Nocturia TSH reflex Free T4 Today F41.1 - Generalized anxiety disorder, I10 - Essential (primary) hypertension, J43.1 - Panlobular emphysema, N28.9 - Disorder of kidney and ureter, unspecified, N40.1 - Benign prostatic hyperplasia with lower urinary tract symptoms, R35.1 - Nocturia Lipid Panel Today F41.1 - Generalized anxiety disorder, I10 - Essential (primary) hypertension, J43.1 - Panlobular emphysema, N28.9 - Disorder of kidney and ureter, unspecified, N40.1 - Benign prostatic hyperplasia with lower urinary tract symptoms, R35.1 - Nocturia Vitamin D 25-OH (D2 and D3) Today F41.1 - Generalized anxiety disorder, I10 - Essential (primary) hypertension, J43.1 - Panlobular emphysema, N28.9 - Disorder of kidney and ureter, unspecified, N40.1 - Benign prostatic hyperplasia with lower urinary tract symptoms, R35.1 - Nocturia Vitamin B12 Today F41.1 - Generalized anxiety disorder, I10 - Essential (primary) hypertension, J43.1 - Panlobular emphysema, N28.9 - Disorder of kidney and ureter, unspecified, N40.1 - Benign prostatic hyperplasia with lower urinary tract symptoms, R35.1 - Nocturia Referrals Neurology Referral R41.3 - Other amnesia Medications: Discontinued peg 3350-electrolytes 236-22.74-6.74 -5.86 gram (Golytely) as per split prep instructions, until fecal effluent is clear Discontinued Reason: Duplicate 240 mL PO Q10M 4,000 mL 0RF colonoscopy
== END 2024-08-11 10:10 | disposition home or self-care (01) ==
LOC: HO.HMCC 09:33
PROVIDERS: PCP Internal Medicine; Visit Provider Internal Medicine
DX: I10 Essential (primary) hypertension (principal); N28.9 Disorder of kidney and ureter, unspecified; F41.1 Generalized anxiety disorder; J43.1 Panlobular emphysema; N40.1 Benign prostatic hyperplasia with lower urinary tract symptoms; R35.1 Nocturia; R41.3 Other amnesia

== ENCOUNTER 2024-08-17 10:54 | Outpatient (AMB) | payer MEDICARE, SELFPAY ==
[2024-08-17 11:19] VITALS: BP 128/74; PULSE 57; O2SAT 97; BMI 24.0
--- NOTE | 2024-08-17 11:19 | MHC.OFFVIS ---
Vital Signs 08/17/24 11:19 Height 5 ft 8 in Weight 157 lb 10.088 oz BMI 24.0 BP 128/74 Blood Pressure Location Lt brachial Position Sitting Pulse 57 Pulse Source Pulse Oximeter Pulse Oximetry (%) 97 Oxygen Delivery Method Nasal Cannula Oxygen Flow Rate 2 Intake Visit Reasons: COPD Intake Note: pt is here for follow up and staes he is feeling pretty good, needs script for poc sent to [facility]. 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: No Allergies No Known Allergies [No Known Allergies*] Allergy (Verified 08/17/24 11:34) Medication List - Last Reconciled 08/17/24 by Chao Jean MD albuterol sulfate 1.25 mg (3 mL) inhalation Q4-6H PRN 4 weeks albuterol sulfate 90 mcg/actuation (Ventolin HFA) 2 puffs PO Q4-6H PRN amlodipine 5 mg PO DAILY bacitracin (Bacitraycin Plus) 1 appl topical Q8H bisacodyl (Dulcolax (bisacodyl)) 20 mg (4 x 5 mg) PO ONCE 1 day bismuth subsalicylate 2 tabs PO QID 14 days cholecalciferol (vitamin D3) 125 mcg PO DAILY ergocalciferol (vitamin D2) 1,250 mcg PO QWEEK inhalational spacing device As directed omeprazole 40 mg PO BID 8 weeks peg 3350-electrolytes 236-22.74-6.74 -5.86 gram 240 mL PO Q10M sertraline 100 mg PO DAILY tamsulosin (Flomax) 0.4 mg PO BEDTIME tiotropium bromide 2.5 mcg/actuation (Spiriva Respimat) 2 puffs PO QAM Do you need a note to return to daycare/school/sports/work: No HPI HPI COPD: Details: THIS 78 YEARS OLD GENTLEMAN IS HERE FOR HIS ROUTINE FOLLOW-UP FOR COPD. HE STAYING FAIRLY STABLE LONG HE USES HIS SPIRIVA RESPIMAT 2 INHALATIONS DAILY IN THE MORNING, AND ALBUTEROL IN THE NEBULIZER A FEW TIMES DURING THE DAY. LUCKILY HE HAS HAD NO RECENT RESPIRATORY INFECTION . HIS PRIVATELY BOUGHT POC IS NOT WORKING , AND HE NEEDS TO HAVE A PRESCRIPTION FOR POC. CONTINUES TO HAVE INTERMITTENT COUGH. HAS SOME SHORTNESS OF BREATH AND WHEEZING OFF AND ON. HE IS NOT WALKING MUCH, PER OUTDOORS HE IS USING WHEELCHAIR. SO HE IS NOT GETTING INCREASED SHORTNESS OF BREATH. [facility] Medical History Pulmonary nodule 1 cm or greater in diameter HTN (hypertension) COPD exacerbation Hypoxemia COPD (chronic obstructive pulmonary disease) Supplemental oxygen dependent Nephropathy Anxiety, generalized COPD (chronic obstructive pulmonary disease) Surgical History History of esophagogastroduodenoscopy (EGD) Bladder tumor History of colonoscopy History of cystoscopy History of surgery Avulsion of finger tip History of neck surgery Arm fracture, left History of knee surgery H/O colonoscopy Family History Father HTN (hypertension) Diabetes mellitus Mother Cancer Brother Melanoma Sister Breast cancer Son No problems noted. Daughter No problems noted. Social History Housing: House Alcohol intake: former Patient Tobacco Use Status: Former Tobacco user e-Cigarette/Vaping Use: Never Used service: No Cognitive needs: No Hearing needs: No Vision needs: Yes Review of Systems Const All systems reviewed & are unremarkable except as noted in HPI and below Denies chills and Denies fever(s) Eyes Reports no additional complaints ENT Denies epistaxis and Denies nasal discharge Card Denies chest pain Resp Denies chest congestion and Denies hemoptysis GI Denies nausea Musc Reports no additional complaints Skin/Breast Denies rash Neuro Reports no additional complaints Psych Reports no additional complaints Endo Reports no additional complaints Physical Exam Vital Signs: Last Vital Signs Pulse 57 08/17/24 11:19 BP 128/74 08/17/24 11:19 Pulse Ox 97 08/17/24 11:19 Oxygen Delivery Method Nasal Cannula 08/17/24 11:19 Oxygen Flow Rate 2 08/17/24 11:19 BMI result Body Mass Index 24.0 Const General: comfortable, no acute distress, alert and awake Orientation/consciousness: patient oriented x3 HEENT Head: Yes normal to inspection General nose exam: No nasal polyps present and No nasal discharge present Face and sinus: Yes sinuses nontender Mouth: oropharynx normal Throat: Yes posterior oropharynx normal Eyes General: appearance normal, both eyes and all related structures Neck Neck: Yes normal visual inspection, Yes no lymphadenopathy, Yes trachea midline and Yes no JVD Thyroid: Thyroid normal Chest Chest palpation & inspection: normal inspection of the chest, normal palpation of entire chest wall and no tenderness Resp Other: Percussion note hyper-resonant, breath sounds are VERY distant with prolonged expiratory phase. THERE ARE NO WHEEZES RHONCHI OR CREPITATIONS TODAY, Cardio Palpation: normal PMI Rate: regular rate Rhythm: regular rhythm Heart sounds: no gallops and no murmurs GI Palpation (GI): Soft to palpation, Tenderness to palpation present (GI), No hepatosplenomegaly present and Palpable mass present Auscultation: normal bowel sounds Back/Spine/Pelvis Thoracic/Lumbar Spine: thoracic and lumbar spine normal to inspection Skin General skin exam: no rashes or lesions noted Neuro General: patient oriented x3 and no focal motor deficits Cranial nerves: Yes CN's II-XII intact bilaterally Extrem General: Yes normal to inspection, Yes no clubbing, cyanosis or edema and Yes no calf tenderness Psych Appearance: grossly normal and well kempt Speech and movement: Normal speech and movement present Results Reviewed Results Reviewed: 6 MINUTES WALK TEST. HE DOES DESATURATE QUICKLY ON WALKING. HE NEEDS O2 SUPPLEMENTATION KEEP O2 SAT IN NORMAL RANGE. HE USED POC AND WAS ABLE TO KEEP O2 SAT ABOVE 90% WITH 2 L/MINUTE. Assessment & Plan Assessment & Plan (1) COPD (chronic obstructive pulmonary disease): Comment: HE HAS RATHER SEVERE CHRONIC OBSTRUCTIVE PULMONARY DISEASE, IT SEEMS TO BE FAIRLY STABLE AT THIS TIME. HE IS HAPPY WITH USING THE ALBUTEROL IN THE NEBULIZER FOR P.R.N. USE Code(s): J44.9 - Chronic obstructive pulmonary disease, unspecified Category: Medical Plan: SPIRIVA RESPIMAT 2.5 MCG 2 INHALATIONS DAILY ALBUTEROL INHALATION SOLUTION 1.25 MG PER 3 MALE Q 6 HOURS P.R.N. ( USES ABOUT TWICE A DAY ) VENTOLIN HFA 2 PUFFS Q 6 HOURS P.R.N. WHEN OUTDOORS (2) Hypoxemia: Comment: THIS GENTLEMAN HAS HYPOXEMIA FOR MANY YEARS DUE TO HIS ADVANCED COPD. HE IS DOING WELL WITH OXYGEN SUPPLEMENTATION. HAD A 6 MINUTES WALK TEST, HE DID OKAY WITH 2 L/MINUTE, USING O2 CONSERVING MODE. Code(s): R09.02 - Hypoxemia Category: Medical Plan: O2 2 L/MINUTE , USE STATIONARY CONCENTRATOR WHEN AT HOME. USE POC AT 2 L/MINUTE WHEN OUTDOORS (3) Pulmonary nodule 1 cm or greater in diameter: Comment: PER CTA OF THE CHEST AT [facility], HE WAS FOUND TO HAVE A PULMONARY NODULE, 1.2 CM IN SIZE IN THE RIGHT MIDDLE LOBE. THIS IS WORRISOME. Code(s): R91.1 - Solitary pulmonary nodule Category: Medical Plan: REPEAT CT SCAN OF THE CHEST NOW Orders: Orders CT chest wo IV con Today J44.9 - Chronic obstructive pulmonary disease, unspecified, R91.1 - Solitary pulmonary nodule Coding Level of Care Code Est Pt Level 3 (12630) Diagnoses COPD (chronic obstructive pulmonary disease) J44.9 Hypoxemia R09.02 Pulmonary nodule 1 cm or greater in diameter R91.1
[2024-08-17 13:53] VITALS: PULSE 62; O2SAT 97
== END 2024-08-17 11:59 | disposition home or self-care (01) ==
LOC: HO.HPS 10:55
PROVIDERS: PCP Internal Medicine; Visit Provider Internal Medicine
DX: J44.9 Chronic obstructive pulmonary disease, unspecified (principal); R09.02 Hypoxemia; R91.1 Solitary pulmonary nodule
CPT/HCPCS: 94618; 99213

== ENCOUNTER → 2024-08-17 10:54 | Outpatient (BNVA) | payer MEDICARE, SELFPAY | PROVIDERS: PCP Internal Medicine; Visit Provider Internal Medicine | DX: J44.9 Chronic obstructive pulmonary disease, unspecified (principal); R09.02 Hypoxemia; R91.1 Solitary pulmonary nodule | CPT/HCPCS: 94618; 99212 ==

== ENCOUNTER 2024-09-30 15:00 | Outpatient (REF) | payer MEDICARE, SELFPAY | END 2024-09-30 15:01 | disposition home or self-care (01) | LOC: HO.CT 15:00 | PROVIDERS: PCP Internal Medicine; Visit Provider Internal Medicine | DX: R91.1 Solitary pulmonary nodule (principal); J44.9 Chronic obstructive pulmonary disease, unspecified | CPT/HCPCS: 71250 ==

== ENCOUNTER → 2024-09-30 15:05 | Outpatient (BNV) | payer MEDICARE, SELFPAY | PROVIDERS: PCP Internal Medicine; Visit Provider Radiology Diagnostic Radiology | DX: R91.1 Solitary pulmonary nodule (principal); N28.1 Cyst of kidney, acquired | CPT/HCPCS: 71250 ==

== ENCOUNTER 2024-10-06 07:04 | Day surgery (SDC) | payer MEDICARE, SELFPAY ==
[2024-10-02 11:49] VITALS: BMI 23.4
[2024-10-06 07:20] VITALS: BMI 23.9
[2024-10-06 07:34] VITALS: BP 134/88; PULSE 78; RESP 18; TEMP 36.7; O2SAT 98
[2024-10-06] MEDS: Lactated Ringers 1,000 ML 100 ML IVCONT (07:41)
--- NOTE | 2024-10-06 07:55 | MHC.SHP ---
Pre-Procedural Eval Section A - 24 Hr Update-Section A only Date of Service: 10/06/24 Section B - Complete if H&P > 30 days Chief Complaint: Personal history of colonic polyps Details of Present Illness: History of esophagogastroduodenoscopy (EGD) Bladder tumor History of colonoscopy History of cystoscopy History of surgery Avulsion of finger tip History of neck surgery Arm fracture, left History of knee surgery H/O colonoscopy Allergies: Allergies Allergy/AdvReac Type Severity Reaction Status Date / Time No Known Allergies Allergy Verified 08/17/24 11:34 [No Known Allergies*] Review of Systems Review of Systems Comment: Ten point ROS negative Exam Exam Comment: Gen appear: No acute distress HEENT: no icterus Chest: No overt resp distress Abd: soft, nontender, nondistended Psych: Stable affect, answering questions appropriately Neuro: A/Ox3 noted to move all extremities spontaneously Ext: no peripheral edema Plan Diagnosis/Plan: Unchanged I have reviewed the history and physical and performed a pertinent physical examination on my patient. No changes have occurred unless specified. Time Spent With Patient Time: Total time managing care of this patient today ____ minutes.
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
--- NOTE | 2024-10-06 09:19 | P.OPN-COLO_ITS ---
Colonoscopy Operative Note Operative Note Date of Service: 10/06/24 Narrative: Procedure: Colonoscopy Indication: Personal hx of polyps Endoscopist: Tahira Diallo MD Anesthesia Provider: Alex Almanzar MD Anesthesia type: MAC Instrument: Olympus [id number]-H190L Consent: Indication, risks vs benefits, and alternatives were discussed with the patient who gave written informed consent to proceed. EKG, pulse, pulse oximetry and blood pressure were monitored throughout the procedure. Please see anesthesia flowsheet. Colonoscopy Procedure: The patient was then turned for the colonoscopy. A digital rectal exam was performed which was abnormal for enlarged and nodular prostate on palpation as well as external hemorrhoids. A distal attachment cap was affixed to the tip of the scope and the colonoscope was then inserted through the anus and advanced through the colon to the cecum at 85 cm and terminal ileum Appendiceal orifice and ileocecal valve were identified. Mucosa was carefully examined under high definition white light as the instrument was slowly withdrawn in a retrograde panoramic fashion. Retroflexion was performed in rectum. The procedure was not difficult. There were no immediate obvious complications. The quality of the prep was BBPS: 3+2+2 = adequate Withdrawal time 21 minutes. Limitations: No limitations. Colonoscopy Findings: Mucosa: Normal to cecum and terminal ileum. Previous tattooed site was noted at 70 cm, no residual polyp noted around this tattoo. Protruding lesions: * 1 semi pedunculated polyp of size 2 cm was noted in cecum. Hot snare polypectomy was performed. The polyp was completely removed and retrieved. * 1 sessile polyp of size 2 mm was noted in ascending colon. Cold snare polypectomy was performed. The polyp was completely removed and retrieved. * 3 sessile polyps of size 2-4 mm were noted in the transverse colon. Cold snare polypectomy was performed. The polyp was completely removed and retrieved. * Medium internal hemorrhoids without stigmata of recent bleeding. Excavated lesions: * Moderate diverticulosis of the whole colon L>R. Impressions:? * Normal colon and terminal ileum mucosa * Total of 5 polyps removed * Diverticulosis * Hemorrhoids Recommendations: - Await path results - Repeat colonoscopy in 3 years if patient in good health
[2024-10-06 09:26] VITALS: BP 125/68; PULSE 71; RESP 16; TEMP 37.2; O2SAT 98
[2024-10-06 09:40] VITALS: BP 142/77; PULSE 72; RESP 16; O2SAT 98
== END 2024-10-06 10:32 | disposition home or self-care (01) ==
PROVIDERS: PCP Internal Medicine; Visit Provider Internal Medicine
PROC: 0DJD8ZZ Inspection of Lower Intestinal Tract, Via Natural or Artificial Opening Endoscopic (ICD-10-PCS; CPT 45378; principal; 2024-10-06 09:20)
DX: Z12.11 Encounter for screening for malignant neoplasm of colon (principal); D12.0 Benign neoplasm of cecum; D12.2 Benign neoplasm of ascending colon; D12.3 Benign neoplasm of transverse colon; K57.30 Diverticulosis of large intestine without perforation or abscess without bleeding; K64.8 Other hemorrhoids; K64.4 Residual hemorrhoidal skin tags; Z86.0101 Personal history of adenomatous and serrated colon polyps; I10 Essential (primary) hypertension; J44.9 Chronic obstructive pulmonary disease, unspecified; Z99.81 Dependence on supplemental oxygen; F41.1 Generalized anxiety disorder; Z87.891 Personal history of nicotine dependence; Z79.899 Other long term (current) drug therapy
CPT/HCPCS: 45385; 88305; J2003; J2704

== ENCOUNTER → 2024-10-06 07:04 | Outpatient (BNV) | payer MEDICARE, SELFPAY | PROVIDERS: PCP Internal Medicine; Visit Provider Internal Medicine | DX: Z12.11 Encounter for screening for malignant neoplasm of colon (principal); Z86.0100 Personal history of colon polyps, unspecified; D12.3 Benign neoplasm of transverse colon; D12.0 Benign neoplasm of cecum | CPT/HCPCS: 45385 ==

== ENCOUNTER 2024-10-21 15:38 | Outpatient (AMB) | payer MEDICARE, SELFPAY ==
--- NOTE | 2024-10-21 15:38 | A.OFFVIS_ITS ---
Intake Visit Reasons: [place] results Intake Note: Montrell presents as a telehealth today to go over results to his Colonoscopy. CC: states that he is not having any concerns at this time. Lead Operator Required: No Allergies No Known Allergies [No Known Allergies*] Allergy (Verified 10/21/24 15:38) HPI Comments Details: This is a 77 y.o M with PMH of advanced COPD, hx of bladder ca s/p TURBT who presents to our office for worsening diarrhea. 08/14/23: History was obtained from the pt as well as the niece accompanying him. Reports that for the past 3 months has been having watery diarrhea without any obv abd pain. Reports having at least 3-4 loose BMs every day, sometimes assoc with incontinence due to urgency. With this no abd pain or subjective loss of appetite but from chart review appears to have lost 10lbs in the past 6 months unintentionally. No blood in stool. No fam hx of CRC. Last colo 2011 (Dr Ríos): x2 tubular adenoma. Diverticulosis. In terms of COPD - has chronic hypoxic resp failure due to this. On supplemental O2. Sees Dr Jean and per last note appears has not been progressing. Former smoker. Does not recall having LDCT for lung cancer screening. 12/10/23: EGD/colo Impressions:? * Irregular Z line suspicious for BE (biopsy, tissue cypher) * Hiatal hernia * Gastritis (biopsy) * Duodenitis (biopsy) * Duodenal ulcers * Normal colon and terminal ileum mucosa (biopsy) * 3 cm large polyp with central depression (piecemeal EMR, Endoclip, Endomark) * 2 other small polyps removed * Diverticulosis * Hemorrhoids Path: Addendum #1 Report addended to add diagnoses for parts G and H; no other changes. G. Colon, left, biopsy: Colonic mucosa with small lymphoid aggregate and no specific change. H. Colon, transverse, polyp: Tubular adenoma; negative for high-grade dysplasia and carcinoma. Electronically Signed By: Joann Mckeon 12/16/23 [id number] Diagnosis A. Duodenum, biopsy: Duodenum, biopsy: Duodenal mucosa with focal mild villous blunting and features of peptic/non-specific duodenitis. B. Stomach, random, biopsy: Chronic Helicobacter gastritis with mild activity; negative for intestinal metaplasia and dysplasia. C. Gastroesophageal junction, biopsy: Squamous mucosa with hyperplasia, and columnar mucosa with mild chronic inflammation and focal intestinal metaplasia; negative for dysplasia (see comment). D. Colon, right, biopsy: Colonic mucosa with no specific change. E. Colon, ascending, polyp: Polypoid colonic mucosa with focal serrated glands, can not exclude a sessile serrated lesion in any residual polyp; no adenomatous dysplasia seen. F. Colon, at 72 cm, polyp: Tubular adenoma; negative for high-grade dysplasia and carcinoma. 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 Clinical and endoscopic correlation is advised. 12/25/23: Here with sister Daniella and daughter Lima available over the phone. Reviewed EGD and colo report. 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 Will need repeat colo in 6 months i.e May. Pt reports improvement in diarrhea as of 2-3 weeks ago. Reports 1-2 formed BM per day, no further incontinence. Also reports LUTS but sister mentions has canceled his urology appointments. Due to duodenal ulcers, reviewed indication for H pylori treatment. 02/14/24: Pt accompanied by sister Daniella. COmpleted quad therapy as prescribed. Breath test completed 02/10 - results pending. Otherwise feeling well. [place] booked for 06/09 for surveillance of peacemeal polypectomy. 10/06/24: * Normal colon and terminal ileum mucosa * Total of 5 polyps removed * Diverticulosis * Hemorrhoids A. Colon, transverse, polyps: Tubular adenomas, 3 pieces; negative for high- grade dysplasia and carcinoma. B. Colon, cecal polyp: Tubular adenoma, likely excised; negative for high-grade dysplasia and carcinoma. C. Colon, ascending, polyp: Tubular adenoma; negative for high-grade dysplasia and carcinoma Results reviewed with the patient. Has 5 more adenomas. Technically, the recommendation will be for repeat colonoscopy in 3 years, however given his age and advanced COPD, this is high-risk with very little benefit He was also reminded to reach out to his first-degree relatives and advised him to start colon cancer screening early at 40 years old, given hx of advanced adenoma on colo 2023. [facility] Medical History Pulmonary nodule 1 cm or greater in diameter HTN (hypertension) COPD exacerbation Hypoxemia COPD (chronic obstructive pulmonary disease) Supplemental oxygen dependent Nephropathy Anxiety, generalized COPD (chronic obstructive pulmonary disease) Surgical History History of esophagogastroduodenoscopy (EGD) Bladder tumor History of colonoscopy History of cystoscopy History of surgery Avulsion of finger tip History of neck surgery Arm fracture, left History of knee surgery H/O colonoscopy Family History Father HTN (hypertension) Diabetes mellitus Mother Cancer Brother Melanoma Sister Breast cancer Son No problems noted. Daughter No problems noted. Social History Housing: House Alcohol intake: former Patient Tobacco Use Status: Former Tobacco user e-Cigarette/Vaping Use: Never Used service: No Cognitive needs: No Hearing needs: No Vision needs: Yes Review of Systems Const All systems reviewed & are unremarkable except as noted in HPI and below Physical Exam Vital Signs: Phone visit Telehealth Telehealth Telehealth Platform: Telephone Location of provider rendering services: practice address Location of patient: address on file Patient Identification confirmed using: Name, : Yes Telehealth method: voice only Patient verbally consented to treatment: Yes Patient verbally consented to billing insurance company: Yes Patient informed of any privacy concerns related to visit: Yes Minutes spent on Phone/Video with Pt.: 13 Assessment & Plan Assessment & Plan (1) Personal history of colonic polyps: Code(s): Z86.010 - Personal history of colon polyps Category: Medical (2) COPD (chronic obstructive pulmonary disease): Comment: Code(s): J44.9 - Chronic obstructive pulmonary disease, unspecified Category: Medical (3) Supplemental oxygen dependent: Code(s): Z99.81 - Dependence on supplemental oxygen Category: Medical (4) H. pylori infection: Code(s): A04.8 - Other specified bacterial intestinal infections Category: Medical (5) Duodenal ulcer: Code(s): K26.9 - Duodenal ulcer, unspecified as acute or chronic, without hemorrhage or perforation Category: Medical Plan 1. History of polyps Results reviewed with the patient. Has 5 more adenomas. Technically, the recommendation will be for repeat colonoscopy in 3 years. However given his age and advanced COPD, this is being deferred at this time. He was also reminded to reach out to his first-degree relatives and advised them to start colon cancer screening early at 40 years old, given his personal hx of advanced adenoma on colo 2023. 2. History of duodenal ulcer, H pylori infection Adequately treated, test of cure negative 02/11/2024. P.r.n. follow-up Coding Level of Care Code Tele Est Pt Level 4 (60675) Diagnoses Personal history of colonic polyps Z86.010 COPD (chronic obstructive pulmonary disease) J44.9 Supplemental oxygen dependent Z99.81 H. pylori infection A04.8 Duodenal ulcer K26.9
== END 2024-10-21 16:38 | disposition home or self-care (01) ==
LOC: HO.HGI 15:38
PROVIDERS: PCP Internal Medicine; Visit Provider Internal Medicine
DX: Z86.0100 Personal history of colon polyps, unspecified (principal); J44.9 Chronic obstructive pulmonary disease, unspecified; Z99.81 Dependence on supplemental oxygen; A04.8 Other specified bacterial intestinal infections; K26.9 Duodenal ulcer, unspecified as acute or chronic, without hemorrhage or perforation
CPT/HCPCS: 98016

== ENCOUNTER 2024-11-16 11:09 | Outpatient (AMB) | payer MEDICARE, SELFPAY ==
--- NOTE | 2024-11-16 11:32 | MHC.OFFVIS ---
Vital Signs 11/16/24 11:33 Height 5 ft 8 in Weight 162 lb 0.636 oz BMI 24.6 BP 110/80 Blood Pressure Location Lt brachial Position Sitting Pulse 68 Pulse Source Pulse Oximeter Pulse Oximetry (%) 95 Oxygen Delivery Method Nasal Cannula Oxygen Flow Rate 3 Intake Visit Reasons: COPD Enterprise Resource Planning Consultant Required: No Allergies No Known Allergies [No Known Allergies*] Allergy (Verified 11/16/24 11:54) Medication List - Last Reconciled 11/16/24 by Chao Jean MD albuterol sulfate 1.25 mg (3 mL) inhalation Q4-6H PRN albuterol sulfate 90 mcg/actuation (Ventolin HFA) 2 puffs PO Q4-6H PRN amlodipine 5 mg PO DAILY bismuth subsalicylate 2 tabs PO QID 14 days cholecalciferol (vitamin D3) 125 mcg PO DAILY ergocalciferol (vitamin D2) 1,250 mcg PO QWEEK inhalational spacing device As directed omeprazole 40 mg PO BID 8 weeks sertraline 100 mg PO DAILY tamsulosin (Flomax) 0.4 mg PO BEDTIME tiotropium bromide 2.5 mcg/actuation (Spiriva Respimat) 2 puffs PO QAM Do you need a note to return to daycare/school/sports/work: No HPI HPI COPD: Details: JOO IS 79 YEARS OLD GENTLEMAN, BROUGHT IN IN THE WHEELCHAIR BECAUSE OF IMPAIRED LOCOMOTION. HE IS A CASE OF SEVERE OBSTRUCTIVE AIRWAY DISORDER AND HYPOXEMIC RESPIRATORY FAILURE. HE IS ON O2 3 L/MINUTE CONTINUOUSLY. HE IS USING SPIRIVA RESPIMAT 2 INHALATIONS DAILY AND USES ALBUTEROL SOLUTION 1.25 MG IN THE NEBULIZER Q 6 HOURS P.R.N.. RESPIRATORY [place] HAS REMAINED VERY STABLE. HE DOES NOT DO MUCH WALKING HE HAS NO SHORTNESS OF BREATH ON EXERTION. COUGH IS MINIMAL AND NONPRODUCTIVE. HE IS EATING WELL AND HAS ACTUALLY PUT ON ABOUT 5 LB OF WEIGHT SINCE LAST VISIT. [facility] Medical History Pulmonary nodule 1 cm or greater in diameter HTN (hypertension) COPD exacerbation Hypoxemia Supplemental oxygen dependent Nephropathy Anxiety, generalized COPD (chronic obstructive pulmonary disease) Surgical History History of esophagogastroduodenoscopy (EGD) Bladder tumor History of colonoscopy History of cystoscopy History of surgery Avulsion of finger tip History of neck surgery Arm fracture, left History of knee surgery H/O colonoscopy Family History Father HTN (hypertension) Diabetes mellitus Mother Cancer Brother Melanoma Sister Breast cancer Son No problems noted. Daughter No problems noted. Social History Housing: House Alcohol intake: former Patient Tobacco Use Status: Former Tobacco user e-Cigarette/Vaping Use: Never Used service: No Cognitive needs: No Hearing needs: No Vision needs: Yes Review of Systems Const All systems reviewed & are unremarkable except as noted in HPI and below Denies chills and Denies fever(s) Eyes Reports no additional complaints ENT Denies epistaxis and Denies nasal discharge Card Denies chest pain Resp Denies chest congestion and Denies hemoptysis GI Denies nausea Musc Reports no additional complaints Skin/Breast Denies rash Neuro Reports no additional complaints Psych Reports no additional complaints Endo Reports no additional complaints Physical Exam Vital Signs: Last Vital Signs Pulse 68 11/16/24 11:33 BP 110/80 11/16/24 11:33 Pulse Ox 95 11/16/24 11:33 Oxygen Delivery Method Nasal Cannula 11/16/24 11:33 Oxygen Flow Rate 3 11/16/24 11:33 BMI result Body Mass Index 24.6 Const General: comfortable, no acute distress, alert and awake Orientation/consciousness: patient oriented x3 HEENT Head: Yes normal to inspection General nose exam: No nasal polyps present and No nasal discharge present Face and sinus: Yes sinuses nontender Mouth: oropharynx normal Throat: Yes posterior oropharynx normal Eyes General: appearance normal, both eyes and all related structures Neck Neck: Yes normal visual inspection, Yes no lymphadenopathy, Yes trachea midline and Yes no JVD Thyroid: Thyroid normal Chest Chest palpation & inspection: normal inspection of the chest, normal palpation of entire chest wall and no tenderness Resp Other: Percussion note hyper-resonant, breath sounds are VERY distant with prolonged expiratory phase. THERE ARE NO WHEEZES RHONCHI OR CREPITATIONS TODAY, Cardio Palpation: normal PMI Rate: regular rate Rhythm: regular rhythm Heart sounds: no gallops and no murmurs GI Palpation (GI): Soft to palpation, Tenderness to palpation present (GI), No hepatosplenomegaly present and Palpable mass present Auscultation: normal bowel sounds Back/Spine/Pelvis Thoracic/Lumbar Spine: thoracic and lumbar spine normal to inspection Skin General skin exam: no rashes or lesions noted Neuro General: patient oriented x3 and no focal motor deficits Cranial nerves: Yes CN's II-XII intact bilaterally Extrem General: Yes normal to inspection, Yes no clubbing, cyanosis or edema and Yes no calf tenderness Psych Appearance: grossly normal and well kempt Speech and movement: Normal speech and movement present Results Reviewed Results Reviewed: CTA of the chest IMPRESSION: Multiple pulmonary nodules, the most conspicuous 1.4 cm in the right middle lung lobe. Differential considerations include inflammatory versus infectious versus neoplasm.. Subacute to old compression fracture deformities in the axial skeleton. Concerning calcified parasitic lesions, spleen. Exophytic cystic lesion upper pole right kidney. Fleischner guidelines were followed. Assessment & Plan Assessment & Plan (1) Hypoxemia: Comment: THIS GENTLEMAN HAS HYPOXEMIA FOR MANY YEARS DUE TO HIS ADVANCED COPD. HE IS DOING WELL WITH OXYGEN SUPPLEMENTATION. HE HAS STATIONARY CONCENTRATOR AT HOME AND ALSO HAS LIGHTWEIGHT POC. Code(s): R09.02 - Hypoxemia Category: Medical Plan: ADVISED TO KEEP ON USING O2 2 L/MINUTE WHEN SLEEPING OR AT REST AND AT 3 L/MINUTE WITH THE PORTABLE UNIT (2) COPD (chronic obstructive pulmonary disease): Comment: PATIENT DOES HAVE MODERATELY ADVANCED COPD, WHICH REMAINS CONTROLLED AND STABLE. Code(s): J44.9 - Chronic obstructive pulmonary disease, unspecified Category: Medical Plan: SPIRIVA RESPIMAT 2.5 MCG 2 INHALATIONS DAILY ALBUTEROL SOLUTION 1.25 MG (3ML ) IN THE NEBULIZER Q 6 HOURS P.R.N., HE IS USING UP TO 3 TIMES A DAY. VENTOLIN HFA 2 PUFFS Q 6 HOURS P.R.N. WHEN OUTDOORS (3) Pulmonary nodule 1 cm or greater in diameter: Comment: PER CTA [facility] THE CHEST AT [facility], HE WAS FOUND TO HAVE A PULMONARY NODULE, 1.2 CM IN SIZE IN THE RIGHT MIDDLE LOBE. REPEAT CTA OF THE CHEST IN SEPTEMBER 2024, AND 1 NODULE 1.4 CM IN SIZE IN RIGHT MIDDLE LOBE, WAS AGAIN PRESENT. Code(s): R91.1 - Solitary pulmonary nodule Category: Medical Plan: PATIENT WOULD NEED CONTINUED FOLLOW-UP, FOR THIS PULMONARY NODULE. I WILL SCHEDULED CT SCAN TOWARDS THE END OF THIS YEAR AGAIN. Coding Level of Care Code Est Pt Level 3 (41386) Diagnoses Hypoxemia R09.02 COPD (chronic obstructive pulmonary disease) J44.9 Pulmonary nodule 1 cm or greater in diameter R91.1
[2024-11-16 11:33] VITALS: BP 110/80; PULSE 68; O2SAT 95; BMI 24.6
--- OUTSIDE RECORDS SUMMARY | 2024-11-16 12:22 | XMS_ITS | Clinical Summary ---
Author Organization [facility] Address [address] [address] Phone Care Team Providers Care Rim Fire Priming Tool Setter Name Role Phone Tanisha Evangelista MD Primary Care Provider [phone] Allergies No known active allergies Medications albuterol HFA (ProAir HFA) 108 (90 Base) MCG/ACT inhaler 2 puffs by Other route 4 (four) times a day Active sertraline (Zoloft) 100 MG tablet Take 1 tablet by mouth 1 (one) time each day Active amLODIPine (NORVASC) 5 MG tablet Take 5 mg by mouth 1 (one) time each day 1 Active Spiriva Respimat 2.5 MCG/ACT aerosol solution USE TWO INHALATIONS EVERY MORNING. 1 Active Vitamin D, Ergocalciferol, 28488 units capsuleIndicati ons:Iron deficiency anemia, not otherwise specified,Hyper tension,Anemia in chronic kidney disease Take 1 capsule by mouth 1 (one) time per week 4 capsule 2 4 Active gabapentin (NEURONTIN) 100 MG capsule TAKE ONE CAPSULE BY MOUTH EVERY MORNING AND TAKE TWO CAPSULE EVERY NIGHT 4 Active omeprazole (PriLOSEC) [address] capsule TAKE ONE CAPSULE BY MOUTH EVERY DAY BEFORE BREAKFAST 4 Active thiamine (VITAMIN B-1) 100 MG tablet Take 100 mg by mouth 1 (one) time each day 4 Active Active Problems Problem Noted Date Diagnosed Date Chronic kidney disease stage 2 04/06/2021 Hypertensive renal disease 04/06/2021 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 Family History Medical History Relation Comments Cancer Mother Cancer Sibling Relation Status Comments Father Mother Sibling Social History Tobacco Use Types Packs/Day Years Used Date Smoking Tobacco: Every Day Smokeless Tobacco: Never Tobacco Cessation:Ready to Q uit: Not Asked; Counseling Given: Not Answered Alcohol Use Standard Drinks/Week Comments Yes 0 (1 standard drink = 0.6 oz pure alcohol) Alcoholic Drinks/day: Occasional social drink Sex and Gender Information Value Date Recorded Sex Assigned at Not on file Legal Sex Male 5:07 PM EST Gender Identity Not on file Sexual Orientation Not on file Last Filed Vital Signs Vital Sign Reading Time Taken Comments Blood Pressure 110/62 07/13/2024 3:22 PM EDT Pulse 56 07/13/2024 3:22 PM EDT Temperature - - Respiratory Rate - - Oxygen Saturation 92% 04/07/2021 12:33 PM EDT 2.5 L Inhaled Oxygen Concentration - - Weight 79.2 kg (174 lb 9.6 oz) 04/07/2021 12:33 PM EDT Height 172.7 cm (5' 8 ) 09/26/2020 12:00 PM EST Body Mass Index 26.55 09/26/2020 12:00 PM EST Plan of Treatment Upcoming Encounters Date Type Department Care Team (Late st Contact Info) Description 01/11/2025 1:45 PM EDT Office Visit [facility] [address] [address] Carter [place] MD [address] [phone] Health Maintenance Due Date Last Done Comments Pneumococcal Vaccine: 65+ Ye ars (1 of 2 - PCV) 1951 Influenza Vaccine (#1) 2024 Hepatitis B Vaccine Aged Out No longe r eligible based on patient's age to complete this topic Insurance AETNA MEDICARE AETNA MEDICARE MEDICAID [place] Care Teams Rim Fire Priming Tool Setter Relationship Specialty Start Date End Date Tanisha Evangelista MD [address] [place] [address] PCP - General 10/24/20
--- OUTSIDE RECORDS SUMMARY | 2024-11-16 12:22 | XMS_ITS | Encounter Summary ---
Author Organization [facility] Address [address] [facility] [address] [place] [address] Phone Care Team Providers Care Buckler And Lacer Name Role Phone Tanisha Evangelista MD Primary Care Provider [phone] Reason for Visit * Reason Comments Med Refill Encounter Details Date Type Department Care Team (Late st Contact Info) Description 04/21/2022 [facility] [address] [place] [address] Carter [place] MD [address] [phone] Social History Tobacco Use Types Packs/Day Years Used Date Smoking Tobacco: Every Day Smokeless Tobacco: Never Alcohol Use Standard Drinks/Week Comments Yes 0 (1 standard drink = 0.6 oz pure alcohol) Alcoholic Drinks/day: Occasional social drink Sex and Gender Information Value Date Recorded Sex Assigned at Not on file Legal Sex Male 5:07 PM EST Gender Identity Not on file Sexual Orientation Not on file documented as of this encounter Plan of Treatment Upcoming Encounters Date Type Department Care Team (Late st Contact Info) Description 01/11/2025 1:45 PM EDT Office Visit [facility] [address] [phone] Carter [place] MD [facility] [address] documented as of this encounter Visit Diagnoses Not on filedocumented in this encounter Care Teams Buckler And Lacer Relationship Specialty Start Date End Date Tanisha Evangelista MD [address] [place] [address] PCP - General 10/24/20 documented as of this encounter
--- OUTSIDE RECORDS SUMMARY | 2024-11-16 12:22 | XMS_ITS | Encounter Summary ---
Author Organization [facility] Address [address] [facility] [address] [place] [address] Phone Care Team Providers Care Media Theorist And Author Of Name Role Phone Tanisha Evangelista MD Primary Care Provider [phone] Reason for Visit * Reason Comments Med Refill Encounter Details Date Type Department Care Team (Late st Contact Info) Description 11/14/2022 Refill [facility] [address] [place] [phone] Eliu Estrella MD [address] [phone] Social History Tobacco Use Types [...] Visit [facility] [address] [phone] Carter [place] MD [address] [phone] documented as of this encounter Visit Diagnoses Not on filedocumented in this encounter Care Teams Media Theorist And Author Of Relationship Specialty Start Date End Date Tanisha Evangelista MD [address] [place] [address] PCP - General 10/24/20 documented as of this encounter
== END 2024-11-16 11:58 | disposition home or self-care (01) ==
PROVIDERS: PCP Internal Medicine; Visit Provider Internal Medicine
DX: R09.02 Hypoxemia (principal); J44.9 Chronic obstructive pulmonary disease, unspecified; R91.1 Solitary pulmonary nodule
CPT/HCPCS: 99213

== ENCOUNTER → 2024-11-16 11:09 | Outpatient (BNVA) | payer MEDICARE, SELFPAY | PROVIDERS: PCP Internal Medicine; Visit Provider Internal Medicine | DX: R09.02 Hypoxemia (principal); R91.1 Solitary pulmonary nodule; J44.9 Chronic obstructive pulmonary disease, unspecified | CPT/HCPCS: 99212 ==

== ENCOUNTER 2024-12-09 08:39 | Outpatient (REF) | payer MEDICARE, SELFPAY ==
--- OUTSIDE RECORDS SUMMARY | 2024-12-09 09:48 | XMS_ITS | Clinical Summary ---
Author Organization [facility] Address [address] [address] Phone Care Team Providers Care Human Resources Supervisor Name Role Phone Tanisha Evangelista MD Primary Care Provider [phone] Allergies No known active allergies Medications albuterol [...] EVERY MORNING. 1 Active Vitamin D, Ergocalciferol, 81399 units capsuleIndicati ons:Iron deficiency anemia, not otherwise [...] Visit [facility].. [address] [address] Carter Colorado MD [address] [phone] Health Maintenance Due Date Last Done Comments Pneumococcal Vaccine: 65+ Ye ars (1 of 2 - PCV) 1951 Influenza Vaccine (#1) 2024 Hepatitis B Vaccine Aged Out No longe r eligible based on patient's age to complete this topic Insurance AETNA MEDICARE AETNA MEDICARE MEDICAID [place] Care Teams Human Resources Supervisor Relationship Specialty Start Date End Date Tanisha Evangelista MD [address] [place] [address] PCP - General 10/24/20
--- OUTSIDE RECORDS SUMMARY | 2024-12-09 09:48 | XMS_ITS | Encounter Summary ---
Author Organization [facility] [place] Address [address] [facility] [address] [place] [address] Phone Care Team Providers Care Quill Fixer Name Role Phone Tanisha Evangelista MD Primary Care Provider [phone] Reason for Visit * Reason Comments Med Refill Encounter Details Date Type Department Care Team (Late st Contact Info) Description 11/14/2022 Refill [facility] [address] [place] [phone] Eliu Estrella MD [address] [address] Social History Tobacco Use Types [...] Visit [facility] [address] [address] Carter Colorado MD [address] [address] documented as of this encounter Visit Diagnoses Not on filedocumented in this encounter Care Teams Quill Fixer Relationship Specialty Start Date End Date Tanisha Evangelista MD [address] [place] [address] PCP - General 10/24/20 documented as of this encounter
--- OUTSIDE RECORDS SUMMARY | 2024-12-09 09:48 | XMS_ITS | Encounter Summary ---
Author Organization [facility] [place] Address [address] [facility] [address] [place] [address] Phone Care Team Providers Care Diesel Maintenance Electrician Name Role Phone Tanisha Evangelista MD Primary Care Provider [phone] Reason for Visit * Reason Comments Med Refill Encounter Details Date Type Department Care Team (Late st Contact Info) Description 04/21/2022 Refill [facility] [address] [place] [address] Carter Colorado MD [address] [address] Social History Tobacco Use Types [...] Visit [facility] [address] [address] Carter Colorado MD [facility] [address] documented as of this encounter Visit Diagnoses Not on filedocumented in this encounter Care Teams Diesel Maintenance Electrician Relationship Specialty Start Date End Date Tanisha Evangelista MD [address] [place] [address] PCP - General 10/24/20 documented as of this encounter
[2024-12-09 09:51] LABS: MANUAL DIFF FLAG NO
[2024-12-09 09:54] LABS: Basophils Absolute Auto 0.1 X10*3/uL (0.0-0.2); Basophils Percent Auto 1.2 % (0-2); Eosinophils Absolute Auto 0.5 X10*3/uL (0.0-0.4); Hematocrit 41.9 % (42.0-52.0); Hemoglobin 13.3 g/dl (14.0-18.0); Imm Gran Abs Auto 0.02 X10*3/uL (0.00-0.03); Imm Gran Pct Auto 0.3 % (0.0-0.4); Lymphocytes Absolute Auto 1.3 X10*3/uL (1.2-4.9); Lymphocytes Percent Auto 18.8 % (20-40); Mean Corpuscular HGB Conc 31.7 g/dl (31.0-36.0); Mean Corpuscular Volume 94.6 fL (80.0-98.0); Mean Platelet Volume 11.8 fL (9.4-12.4); Monocytes Absolute Auto 0.5 X10*3/uL (0.1-1.2); Monocytes Percent Auto 7.1 % (2-11); Neutrophils Absolute Auto 4.5 x10*3/uL (2.0-8.3); Neutrophils Percent Auto 65.6 % (45-73); Platelet Count 174 X10*3/uL (160-400); Red Blood Count 4.43 X10*6/uL (4.60-5.80); Red Cell Distribution Width 13.3 % (11.0-16.0); White Blood Count 6.9 X10*3/uL (4.8-10.8)
[2024-12-09 10:30] LABS: Anion Gap 11 (12-20); Blood Urea Nitrogen 22 mg/dL (9-16); Calcium 9.1 mg/dL (8.4-10.2); Carbon Dioxide 28 mmol/L (22-29); Chloride 106 mmol/L (96-108); Estimated Glomerular Filt Rate 49; Glucose Random 104 mg/dL (60-115); Potassium 4.5 mmol/L (3.3-5.1); Sodium 140 mmol/L (135-145)
== END 2024-12-09 08:40 | disposition home or self-care (01) ==
LOC: HO.HMGCLDS 08:39
PROVIDERS: PCP Internal Medicine; Visit Provider Internal Medicine
DX: J43.1 Panlobular emphysema (principal); L28.2 Other prurigo; I10 Essential (primary) hypertension; R09.02 Hypoxemia; F41.1 Generalized anxiety disorder; R91.1 Solitary pulmonary nodule; N40.1 Benign prostatic hyperplasia with lower urinary tract symptoms; R35.1 Nocturia; R41.3 Other amnesia; N28.9 Disorder of kidney and ureter, unspecified; Z79.899 Other long term (current) drug therapy
CPT/HCPCS: 36415; 80048; 83735; 85025; 96127; 99212

== ENCOUNTER 2024-12-09 08:39 | Outpatient (AMB) | payer MEDICARE, SELFPAY ==
[2024-12-09 08:43] VITALS: BP 112/78; PULSE 64; RESP 16; O2SAT 96; BMI 24.4
--- NOTE | 2024-12-09 08:43 | A.OFFPC_ITS ---
Vital Signs 12/09/24 08:43 Height 5 ft 8 in Weight 160 lb 4 oz BMI 24.4 BP 112/78 Blood Pressure Location Rt brachial Position Sitting Respiration 16 Pulse 64 Pulse Source Pulse Oximeter Pulse Oximetry (%) 96 Oxygen Delivery Method Nasal Cannula Intake Visit Reasons: 4m followup Allergies No Known Allergies [No Known Allergies*] Allergy (Verified 12/09/24 08:48) Medication List - Last Reconciled 12/09/24 by Tanisha Evangelista MD albuterol sulfate 1.25 mg (3 mL) inhalation Q4-6H PRN albuterol sulfate 90 mcg/actuation (Ventolin HFA) 2 puffs PO Q4-6H PRN amlodipine 5 mg PO DAILY bismuth subsalicylate 2 tabs PO QID 14 days cholecalciferol (vitamin D3) 125 mcg PO DAILY inhalational spacing device As directed omeprazole 40 mg PO BID 8 weeks sertraline 100 mg PO DAILY tamsulosin (Flomax) 0.4 mg PO BEDTIME tiotropium bromide 2.5 mcg/actuation (Spiriva Respimat) 2 puffs PO QAM Tobacco use date assessed: 12/09/24 Fall risk assessment: No Falls in past year Last assessed Fall Risk: 12/09/24 Dental Screening Dental Screen Date: 12/09/24 Did you have a dental visit in the last 12 months?: Yes Did you have a dental problem in the last 6 months where you did not have access to dental care?: No Was dental information given to patient?: Patient has dentist HPI 4m followup HPI Details History - The patient is a 79-year-old male pres enting with ongoing itchiness and leg cramps. - Persistent generalized itching, affect ing mostly the back, legs, and arms, has been ongoing for one month. The patient consistently scratches these areas but hasn't identified a triggering factor. - Observed rash raises the possibility o f scabies. But rash is not typical, I will be booking him appointment with the Dermatology - Leg cramps have been a recurring issue for the patient, especially during nighttime. These are possibly related to dehydration, attributed to excessive coffee consumption and insufficient water intake. - patient has a history of osteoarthrit is and degenerative disc disease. Arthritis is especially prominent in small joints of hands - anxiety stable patient is taking sertr emmanuelle - blood pressure is stable continue amlo dipine 5 mg no dizziness or lightheadedness - GERD stable with omeprazole - no urinary complaints patient is takin g medication for BPH - history of oxygen-dependent COPD manag ed by loan documentation specialist [facility] Problem List - Osteoarthritis - Degenerative Disc Disease - pruritic rash - anxiety - GERD - oxygen-dependent COPD - hypertension - risk for fall Patient Instructions - Increase water intake significantly to alleviate potential dehydration. - Undergo the electrolytes blood test as ordered. - Attend the dermatology appointment whe n scheduled for evaluation of itchiness and rashes. - Monitor blood pressure at home regular ly with the assistance of a blood pressure cuff. Review of Systems - General: No fever no chills - Neurological: No headaches no dizziness - Ear nose throat: No sore throat no hearing difficulty no ear pain - Cardiovascular: No syncope, no chest pain, no palpitations - Gastrointestinal: No nausea vomiting or diarrhea - Endocrine: No polyuria polydipsia no heat intolerance - Genitourinary: No dysuria , no blood in urine Physical Exam General: No acute distress HEENT: No acute findings Neck: Supple Respiratory system: Able to talk in full sentences, no audible wheeze cardiovascular: S1-S2 regular in rate and rhythm Gastrointestinal: No pain Extremities: No new findings, but patient reports cramps in legs some disfigurement of fingers noted due to longstanding osteoarthritis KINDERGARTNER: Alert awake oriented x3 motor sensory intact Skin: Itchy all over, with possible scabies on legs, referred to research instrumentation technician for further evaluation [facility] Medical History Pulmonary nodule 1 cm or greater in diameter HTN (hypertension) COPD exacerbation Hypoxemia Supplemental oxygen dependent Nephropathy Anxiety, generalized COPD (chronic obstructive pulmonary disease) Surgical History History of esophagogastroduodenoscopy (EGD) Bladder tumor History of colonoscopy History of cystoscopy History of surgery Avulsion of finger tip History of neck surgery Arm fracture, left History of knee surgery H/O colonoscopy Family History Father HTN (hypertension) Diabetes mellitus Mother Cancer Brother Melanoma Sister Breast cancer Son No problems noted. Daughter No problems noted. Social History Housing: House Alcohol intake: former Patient Tobacco Use Status: Former Tobacco user e-Cigarette/Vaping Use: Never Used service: No Cognitive needs: No Hearing needs: No Vision needs: Yes Questionnaire PHQ-9 Over the last 2 weeks, how often have you been bothered by any of the following problems? 1. Little interest or pleasure in doing things: not at all 2. Feeling down, depressed, or hopeless: not at all 3. Trouble falling or staying asleep, or sleeping too much: not at all 4. Feeling tired or having little energy: not at all 5. Poor appetite or overeating: not at all 6. Feeling bad about yourself - or that you are a failure or have let yourself or your family down: not at all 7. Trouble concentrating on things, such as reading the newspaper or watching television: not at all 8. Moving or speaking so slowly that other people could have noticed. Or the opposite - being so fidgety or restless that you have been moving around a lot more than usual: not at all 9. Thoughts that you would be better off or of hurting yourself in some way: not at all Total score: 0 Depression Screening Interpretation: Negative Depression Screening Done: Yes 14729 - PHQ-9 Billing: Yes Source: Developed by Drs. Lukas Westfall, Ana Holt, Octavio De Guzman and colleagues, with an educational raleigh from [employer]. Thrive Questionnaire Date Thrive assessed: 05/13/24 I am a: Patient What is your living situation today?: I have a steady place to live Within the past 12 months, did the food you bought not last and you didn't have the money to get more?: Never true Within the past 12 months, did you worry whether your food would run out before you got money to buy more?: Never true Do you have trouble paying for medicines?: No Do you have trouble getting transportation to medical appointments?: No Do you have trouble paying your heating and electricity bill?: No Do you have trouble taking care of your child, family member or friend?: No Do you have trouble with day-to-day activities such as bathing, preparing meals, shopping, managing finances, etc.?: Yes Are you currently unemployed and looking for a job?: I choose not to answer this question Are you interested in more education?: No Please select the resources that you would like help with: None Currently or been in a relationship where the following occur: No concerns reported THRIVE Score: 0 AUDIT C Alcohol Use Questionnaire (AUDIT-C) 1. How often do you have a drink containing alcohol?: Never Total Score: 0 ILDA-7 AMB Questionnaire ILDA-7 Date ILDA - 7 assessed: 05/13/24 Feeling nervous, anxious, or on edge: 0 = Not at all Not being able to stop or control worryin = Not at all Worrying too much about different things: 0 = Not at all Trouble relaxin = Not at all Being so restless that it is hard to sit still: 0 = Not at all Becoming easily annoyed or irritable: 0 = Not at all Feeling afraid as if something awful might happen: 0 = Not at all Total ILDA-7 score (0-4 normal; 5-9 mild; 10-14 moderate; 15-21 severe): 0 Source: Developed by Drs. Lukas Westfall, Ana Holt, Octavio De Guzman and colleagues, with an educational raleigh from [employer]. Physical exam (Primary Care) Vital Signs: Last Vital Signs Pulse 64 12/09/24 08:43 Resp 16 12/09/24 08:43 BP 112/78 12/09/24 08:43 Pulse Ox 96 12/09/24 08:43 Oxygen Delivery Method Nasal Cannula 12/09/24 08:43 BMI result Body Mass Index 24.4 Tobacco/Smoking Status: Tobacco use Status Tobacco use date assessed 12/09/24 12/09/24 08:49 Patient Tobacco Use Status Former Tobacco user 12/09/24 08:49 e-Cigarette/Vaping Use Never Used 12/09/24 08:49 PHQ-9: PHQ-9 Score PHQ-9: Total score 0 12/09/24 08:55 Depression Screening Interpretation: Negative Thrive Assessment: Date of Thrive Assessment Date Thrive assessed 05/13/24 12/09/24 08:49 Currently or been in a relationship where the following occur: No concerns reported Coding Level of Care Code Est Pt Level 4 (99593) Complex EM visit Add On G2211 Diagnoses Pruritic rash L28.2 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 Emphysema type: panlobular Hypertension, essential I10 Hypoxemia R09.02 Anxiety, generalized F41.1 Pulmonary nodule 1 cm or greater in diameter R91.1 BPH associated with nocturia N40.1; R35.1 Memory changes R41.3 Additional Codes PHQ-9 - 55125 - PHQ-9 Billing: Yes ([id number]) Assessment & Plan Assessment & Plan (1) Pruritic rash: Code(s): L28.2 - Other prurigo Category: Medical (2) COPD (chronic obstructive pulmonary disease): Code(s): J44.9 - Chronic obstructive pulmonary disease, unspecified Category: Medical Qualifiers: COPD type: emphysema Emphysema type: panlobular Qualified Code(s): J43 .1 - Panlobular emphysema (3) Hypertension, essential: Code(s): I10 - Essential (primary) hypertension Category: Medical (4) Hypoxemia: Comment: THIS GENTLEMAN HAS HYPOXEMIA FOR MANY YEARS DUE TO HIS ADVANCED COPD. HE IS DOING WELL WITH OXYGEN SUPPLEMENTATION. HE HAS STATIONARY CONCENTRATOR AT HOME AND ALSO HAS LIGHTWEIGHT POC. Code(s): R09.02 - Hypoxemia Category: Medical Plan: ADVISED TO KEEP ON USING O2 2 L/MINUTE WHEN SLEEPING OR AT REST AND AT 3 L/MINUTE WITH THE PORTABLE UNIT (5) Anxiety, generalized: Code(s): F41.1 - Generalized anxiety disorder Category: Medical (6) Pulmonary nodule 1 cm or greater in diameter: Comment: PER CTA [facility] THE CHEST AT [facility], HE WAS FOUND TO HAVE A PULMONARY NODULE, 1.2 CM IN SIZE IN THE RIGHT MIDDLE LOBE. REPEAT CTA OF THE CHEST IN SEPTEMBER 2024, AND 1 NODULE 1.4 CM IN SIZE IN RIGHT MIDDLE LOBE, WAS AGAIN PRESENT. Code(s): R91.1 - Solitary pulmonary nodule Category: Medical Plan: PATIENT WOULD NEED CONTINUED FOLLOW-UP, FOR THIS PULMONARY NODULE. I WILL SCHEDULED CT SCAN TOWARDS THE END OF THIS YEAR AGAIN. (7) BPH associated with nocturia: Code(s): N40.1 - Benign prostatic hyperplasia with lower urinary tract symptoms; R35.1 - Nocturia Category: Medical (8) Memory changes: Code(s): R41.3 - Other amnesia Category: Medical Plan History - The patient is a 79-year-old male presenting with ongoing itchiness and leg cramps. - Persistent generalized itching, affecting mostly the back, legs, and arms, has been ongoing for one month. The patient consistently scratches these areas but hasn't identified a triggering factor. - Observed rash raises the possibility of scabies. But rash is not typical, I will be booking him appointment with the Dermatology - Leg cramps have been a recurring issue for the patient, especially during nighttime. These are possibly related to dehydration, attributed to excessive coffee consumption and insufficient water intake. - patient has a history of osteoarthritis and degenerative disc disease. Arthritis is especially prominent in small joints of hands - anxiety stable patient is taking sertraline - blood pressure is stable continue amlodipine 5 mg no dizziness or lighthea dedness - GERD stable with omeprazole - no urinary complaints patient is taking medication for BPH - history of oxygen-dependent COPD managed by loan documentation specialist [facility] Problem List - Osteoarthritis - Degenerative Disc Disease - pruritic rash - anxiety - GERD - oxygen-dependent COPD - hypertension - risk for fall Patient Instructions - Increase water intake significantly to alleviate potential dehydration. - Undergo the electrolytes blood test as ordered. - Attend the dermatology appointment when scheduled for evaluation of itchiness and rashes. - Monitor blood pressure at home regularly with the assistance of a blood pressure cuff. Orders: Orders Magnesium Today F41.1 - Generalized anxiety disorder, J43.1 - Panlobular emphysema, N28.9 - Disorder of kidney and ureter, unspecified Basic Metabolic Panel Today F41.1 - Generalized anxiety disorder, J43.1 - Panlobular emphysema, N28.9 - Disorder of kidney and ureter, unspecified Complete Blood Count Auto Diff Today F41.1 - Generalized anxiety disorder, J43.1 - Panlobular emphysema, N28.9 - Disorder of kidney and ureter, unspecified Referrals Dermatology Referral L28.2 - Other prurigo
--- OUTSIDE RECORDS SUMMARY | 2024-12-09 09:17 | XMS_ITS | Clinical Summary ---
Author Organization [facility] Address [address] [address] Phone Care Team Providers Care Help Desk Representative Name Role Phone Tanisha Evangelista MD Primary Care Provider [phone] Allergies No known active allergies Medications albuterol [...] EVERY MORNING. 1 Active Vitamin D, Ergocalciferol, 13119 units capsuleIndicati ons:Iron deficiency anemia, not otherwise [...] Visit [facility] [address] [address] Carter Colorado MD [address] [phone] Health Maintenance Due Date Last Done Comments Pneumococcal Vaccine: 65+ Ye ars (1 of 2 - PCV) 1951 Influenza Vaccine (#1) 2024 Hepatitis B Vaccine Aged Out No longe r eligible based on patient's age to complete this topic Insurance AETNA MEDICARE AETNA MEDICARE MEDICAID [place] Care Teams Help Desk Representative Relationship Specialty Start Date End Date Tanisha Evangelista MD [address] [place] [address] PCP - General 10/24/20
--- OUTSIDE RECORDS SUMMARY | 2024-12-09 09:17 | XMS_ITS | Encounter Summary ---
Author Organization [facility] Address [address] [facility] [address] [place] [address] Phone Care Team Providers Care New Grad Rn Name Role Phone Tanisha Evangelista MD Primary Care Provider [phone] Reason for Visit * Reason Comments Med Refill Encounter Details Date Type Department Care Team (Late st Contact Info) Description 11/14/2022 Refill [facility] [address] [place] [phone] Eliu Estrella MD [address] [address] Social History Tobacco Use Types [...] Visit [facility] [address] [address] Carter Colorado MD [address] [address] documented as of this encounter Visit Diagnoses Not on filedocumented in this encounter Care Teams New Grad Rn Relationship Specialty Start Date End Date Tanisha Evangelista MD [address] [place] [address] PCP - General 10/24/20 documented as of this encounter
--- OUTSIDE RECORDS SUMMARY | 2024-12-09 09:17 | XMS_ITS | Encounter Summary ---
Author Organization [facility] Address [address] [facility] [address] [place] [address] Phone Care Team Providers Care Golf Club Repairer Name Role Phone Tanisha Evangelista MD Primary Care Provider [phone] Reason for Visit * Reason Comments Med Refill Encounter Details Date Type Department Care Team (Late st Contact Info) Description 04/21/2022 Refill [facility] [address] [place] [address] Carter Colorado MD [address] [address] Social History Tobacco Use Types [...] Visit [facility] [address] [address] Carter Colorado MD [facility] [address] documented as of this encounter Visit Diagnoses Not on filedocumented in this encounter Care Teams Golf Club Repairer Relationship Specialty Start Date End Date Tanisha Evangelista MD [address] [place] [address] PCP - General 10/24/20 documented as of this encounter
== END 2024-12-09 08:57 | disposition home or self-care (01) ==
PROVIDERS: PCP Internal Medicine; Visit Provider Internal Medicine
DX: L28.2 Other prurigo (principal); J43.1 Panlobular emphysema; I10 Essential (primary) hypertension; R09.02 Hypoxemia; F41.1 Generalized anxiety disorder; R91.1 Solitary pulmonary nodule; N40.1 Benign prostatic hyperplasia with lower urinary tract symptoms; R35.1 Nocturia; R41.3 Other amnesia

== ENCOUNTER 2025-03-18 15:28 | Outpatient (AMB) | payer MEDICARE, SELFPAY ==
--- NOTE | 2025-03-18 15:34 | A.OFFVIS_ITS ---
Vital Signs 03/18/25 15:35 Height 5 ft 8 in BP 120/78 Blood Pressure Location Lt brachial Position Sitting Pulse 71 Pulse Source Pulse Oximeter Pulse Oximetry (%) 93 Oxygen Delivery Method Room Air Intake Visit Reasons: COPD Intake Note: pt is here for follow up and states he does have some coughing with some phelgm, what can help, he does use the nebulizer to help with this. Hotel Service Manager Required: No Allergies No Known Allergies [No Known Allergies*] Allergy (Verified 03/18/25 15:41) Medication List - Last Reconciled 03/18/25 by Chao Jean MD albuterol sulfate 90 mcg/actuation (Ventolin HFA) 2 puffs PO Q4-6H PRN albuterol sulfate 1.25 mg (3 mL) continuous nebulization Q4-6H PRN amlodipine 5 mg PO DAILY bismuth subsalicylate 2 tabs PO QID 14 days cholecalciferol (vitamin D3) 125 mcg PO QWEEK inhalational spacing device As directed omeprazole 40 mg PO BID 8 weeks sertraline 100 mg PO DAILY tamsulosin (Flomax) 0.4 mg PO BEDTIME tiotropium bromide 2.5 mcg/actuation (Spiriva Respimat) 2 puffs PO QAM Do you need a note to return to daycare/school/sports/work: No HPI HPI COPD: Details: This 79 years old gentleman with advanced chronic obstructive pulmonary disease and hypoxemic respiratory failure, comes today for his routine follow-up. Overall he is doing well except that he does thick mucus that he can not expectorates sometimes . He does use albuterol sleep patient in the nebulizer which does not help much for bringing up the mucus. Has no wheezes but remained short of breath most of the time. He remains mostly in the wheelchair His O2 sat falls below 90 quite frequently but if he concentrates on breathing through his nose then it is easy to maintain above 90%. [facility] Medical History Pulmonary nodule 1 cm or greater in diameter HTN (hypertension) COPD exacerbation Hypoxemia Supplemental oxygen dependent Nephropathy Anxiety, generalized COPD (chronic obstructive pulmonary disease) Surgical History History of esophagogastroduodenoscopy (EGD) Bladder tumor History of colonoscopy History of cystoscopy History of surgery Avulsion of finger tip History of neck surgery Arm fracture, left History of knee surgery H/O colonoscopy Family History Father HTN (hypertension) Diabetes mellitus Mother Cancer Brother Melanoma Sister Breast cancer Son No problems noted. Daughter No problems noted. Social History Housing: House Alcohol intake: former Patient Tobacco Use Status: Former Tobacco user e-Cigarette/Vaping Use: Never Used service: No Cognitive needs: No Hearing needs: No Vision needs: Yes Review of Systems Const All systems reviewed & are unremarkable except as noted in HPI and below Denies chills and Denies fever(s) Eyes Reports no additional complaints ENT Denies epistaxis and Denies nasal discharge Card Denies chest pain Resp Denies chest congestion and Denies hemoptysis GI Denies nausea Musc Reports no additional complaints Skin/Breast Denies rash Neuro Reports no additional complaints Psych Reports no additional complaints Endo Reports no additional complaints Physical Exam Vital Signs: Last Vital Signs Pulse 71 03/18/25 15:35 BP 120/78 03/18/25 15:35 Pulse Ox 93 03/18/25 15:35 Oxygen Delivery Method Room Air 03/18/25 15:35 Const General: comfortable, no acute distress, alert and awake Orientation/consciousness: patient oriented x3 HEENT Head: Yes normal to inspection General nose exam: No nasal polyps present and No nasal discharge present Face and sinus: Yes sinuses nontender Mouth: oropharynx normal Throat: Yes posterior oropharynx normal Eyes General: appearance normal, both eyes and all related structures Neck Neck: Yes normal visual inspection, Yes no lymphadenopathy, Yes trachea midline and Yes no JVD Thyroid: Thyroid normal Chest Chest palpation & inspection: normal inspection of the chest, normal palpation of entire chest wall and no tenderness Resp Other: Percussion note hyper-resonant, breath sounds are VERY distant with prolonged expiratory phase. THERE ARE NO WHEEZES RHONCHI OR CREPITATIONS TODAY, Cardio Palpation: normal PMI Rate: regular rate Rhythm: regular rhythm Heart sounds: no gallops and no murmurs GI Palpation (GI): Soft to palpation, Tenderness to palpation present (GI), No hepatosplenomegaly present and Palpable mass present Auscultation: normal bowel sounds Back/Spine/Pelvis Thoracic/Lumbar Spine: thoracic and lumbar spine normal to inspection Skin General skin exam: no rashes or lesions noted Neuro General: patient oriented x3 and no focal motor deficits Cranial nerves: Yes CN's II-XII intact bilaterally Extrem General: Yes normal to inspection, Yes no clubbing, cyanosis or edema and Yes no calf tenderness Psych Appearance: grossly normal and well kempt Speech and movement: Normal speech and movement present Assessment & Plan Assessment & Plan (1) COPD (chronic obstructive pulmonary disease): Comment: PATIENT DOES HAVE MODERATELY ADVANCED COPD, WHICH REMAINS CONTROLLED AND STABLE. Code(s): J44.9 - Chronic obstructive pulmonary disease, unspecified Category: Medical Plan: Continue to use Spiriva Respimat 2.5 mg 2 puffs daily Albuterol solution 1.25 in the nebulizer Q 4-6 hours p.r.n.. Ventolin HFA 2 puffs Q 4-6 hours p.r.n. use with spacer. For thick tenacious phlegm, may use Mucinex 600 mg b.i.d. Also drink plenty of fluids. Do not drink too much cough he . Maximum should be 2 cups a day (2) Hypoxemia: Comment: THIS GENTLEMAN HAS HYPOXEMIA FOR MANY YEARS DUE TO HIS ADVANCED COPD. HE IS DOING WELL WITH OXYGEN SUPPLEMENTATION. HE HAS STATIONARY CONCENTRATOR AT HOME AND ALSO HAS LIGHTWEIGHT POC. Code(s): R09.02 - Hypoxemia Category: Medical Plan: Use O2 2 L/minute when using the stationary concentrator at home When going outdoors use the POC and may increase the rate to 3 or 4 L/minute. Instructed that he should concentrate on breathing through his nose, because when he keeps his mouth open then he does not get adequate amount of O2 (3) Pulmonary nodule 1 cm or greater in diameter: Comment: PER CTA OF THE CHEST AT [facility], HE WAS FOUND TO HAVE A PULMONARY NODULE, 1.2 CM IN SIZE IN THE RIGHT MIDDLE LOBE. REPEAT CTA OF THE CHEST IN SEPTEMBER 2024, AND 1 NODULE 1.4 CM IN SIZE IN RIGHT MIDDLE LOBE, WAS AGAIN PRESENT. Code(s): R91.1 - Solitary pulmonary nodule Category: Medical Plan: Patient would need to have lung screening once a year Coding Level of Care Code Est Pt Level 3 (30766) Diagnoses COPD (chronic obstructive pulmonary disease) J44.9 Hypoxemia R09.02 Pulmonary nodule 1 cm or greater in diameter R91.1
[2025-03-18 15:35] VITALS: BP 120/78; PULSE 71; O2SAT 93
--- OUTSIDE RECORDS SUMMARY | 2025-03-18 17:58 | XMS_ITS | Clinical Summary ---
Author Organization [facility] Address [address] [phone] Phone Care Team Providers Care Public Housing Interviewer Name Role Phone Tanisha Evangelista MD Primary Care Provider [phone] Allergies No known active allergies Medications albuterol [...] EVERY MORNING. 1 Active Vitamin D, Ergocalciferol, 66012 units capsuleIndicati ons:Iron deficiency anemia, not otherwise [...] 04/06/2021 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 Encounters Date Type Department Care Team Description 01/11/2025 3:15 PM EDT Office Visit [facility] [address] [place] [phone] Carter Colorado MD Stage 3 chronic kidney disease, not otherwise specified (HCC) (Primary Dx); Hypertension; Other proteinuria from Last 3 Months Family History Medical History Relation Comments Cancer [...] Sign Reading Time Taken Comments Blood Pressure 128/70 01/11/2025 3:02 PM EDT Pulse 73 01/11/2025 3:02 PM EDT Temperature - - Respiratory Rate - - Oxygen Saturation 92% 04/07/2021 12:33 PM EDT 2.5 L Inhaled Oxygen Concentration - - Weight 73 kg (161 lb) 01/11/2025 3:02 PM EDT Height 172.7 cm (5' 8 ) 09/26/2020 12:00 PM EST Body Mass Index 24.48 09/26/2020 12:00 PM EST Plan of Treatment Upcoming Encounters Date Type Department Care Team (Late st Contact Info) Description 07/05/2025 9:30 AM EDT Office Visit [facility] [address] [phone] Carter Colorado MD [address] [phone] Health Maintenance Due Date Last Done Comments Pneumococcal Vaccine: 50+ Ye ars (1 of 2 - PCV) 1964 Influenza Vaccine (Season Ended) 2025 Hepatitis B Vaccine Aged Out No longe r eligible based on patient's age to complete this topic Insurance [facility] Medicare [facility] Medicare Medicaid [place] Care Teams Public Housing Interviewer Relationship Specialty Start Date End Date Tanisha Evangelista MD [address] [place] [address] PCP - General 10/24/20
== END 2025-03-18 15:53 | disposition home or self-care (01) ==
LOC: HO.HPS 15:29
PROVIDERS: PCP Internal Medicine; Visit Provider Internal Medicine
DX: J44.9 Chronic obstructive pulmonary disease, unspecified (principal); R09.02 Hypoxemia; R91.1 Solitary pulmonary nodule
CPT/HCPCS: 99213

== ENCOUNTER → 2025-03-18 15:28 | Outpatient (BNVA) | payer MEDICARE, SELFPAY | PROVIDERS: PCP Internal Medicine; Visit Provider Internal Medicine | DX: J44.9 Chronic obstructive pulmonary disease, unspecified (principal); R09.02 Hypoxemia; R91.1 Solitary pulmonary nodule | CPT/HCPCS: 99212 ==

== ENCOUNTER 2025-04-09 14:30 | Outpatient (AMB) | payer MEDICARE, SELFPAY ==
[2025-04-09 14:32] VITALS: BP 128/76; PULSE 64; TEMP 36.6; O2SAT 96; BMI 24.8
--- NOTE | 2025-04-09 14:32 | A.OFFPC_ITS ---
Vital Signs 04/09/25 14:32 Height 5 ft 8 in Weight 163 lb BMI 24.8 BP 128/76 Blood Pressure Location Rt brachial Position Sitting Pulse 64 Pulse Source Pulse Oximeter Temp 97.8 F Temp Source Temporal Artery Scan Pulse Oximetry (%) 96 Oxygen Delivery Method Nasal Cannula Oxygen Flow Rate 4 Intake Visit Reasons: 4m f/u Accompanied by: Son Allergies No Known Allergies (No Known Allergies*) Allergy (Verified 04/09/25 14:32) Medication List - Last Reconciled 04/09/25 by Tanisha Evangelista MD albuterol sulfate 90 mcg/actuation (Ventolin HFA) 2 puffs PO Q4-6H PRN albuterol sulfate 1.25 mg (3 mL) inhalation Q4-6H PRN amlodipine 5 mg PO DAILY bismuth subsalicylate 2 tabs PO QID 14 days cholecalciferol (vitamin D3) 125 mcg PO QWEEK inhalational spacing device As directed omeprazole 40 mg PO BID 8 weeks sertraline 100 mg PO DAILY tamsulosin (Flomax) 0.4 mg PO BEDTIME tiotropium bromide 2.5 mcg/actuation (Spiriva Respimat) 2 puffs PO QAM Tobacco use date assessed: 04/09/25 Fall risk assessment: 1 Fall in past year Last assessed Fall Risk: 04/09/25 Dental Screening Dental Screen Date: 04/09/25 Did you have a dental visit in the last 12 months?: No Did you have a dental problem in the last 6 months where you did not have access to dental care?: No Was dental information given to patient?: Patient declined HPI 4m f/u HPI Details History - The patient is a 79-year-old male pres enting with a follow-up for chronic conditions. This is ongoing care, came in with his son - Chronic Kidney Disease: The patient's GFR has fluctuated between 39 to 55, with the most recent value being 49. Electrolytes remain within normal limits. - Benign Prostatic Hyperplasia: The lani ent experiences nocturia due to incomplete bladder emptying. He is on medication for this condition. - Hypertension: The patient is currently taking amlodipine 5 mg for blood pres sure management. - Chronic Obstructive Pulmonary Disease: The patient is oxygen-dependent due to severe COPD, attributed to a history of smoking. He is under the care of a financial reporting specialist. - Generalized Anxiety Disorder: The lani ent is on sertraline for anxiety management. - Pruritic Rash: The patient has a chron ic rash, which has improved with increased showering and the use of a specific soap and moisturizer. He was referred to dermatology but has not yet attended the appointment. Problem List - Chronic Kidney Disease - Benign Prostatic Hyperplasia - Hypertension - Chronic Obstructive Pulmonary Disease - Generalized Anxiety Disorder - Pruritic Rash Patient Instructions - Continue taking all prescribed medicat ions as directed. - Return for a follow-up visit in [facility]. - Undergo a blood test in three months. Review of Systems - General: No fever no chills - Neurological: No headaches no dizziness - Ear nose throat: No sore throat no hearing difficulty no ear pain - Cardiovascular: No syncope, no chest pain, no palpitations - Gastrointestinal: No nausea vomiting or diarrhea Physical Exam General: No acute distress on oxygen HEENT: No acute findings Neck: Supple Respiratory system: Able to talk in full sentences, no audible wheez Cardiovascular: S1-S2 regular in rate and rhythm Gastrointestinal: No pain Extremities: No new findings HOTEL ASSISTANT MANAGER: Alert awake oriented x3 motor sensory intact Skin: Chronic pruritic rash [facility] Medical History Pulmonary nodule 1 cm or greater in diameter HTN (hypertension) COPD exacerbation Hypoxemia Supplemental oxygen dependent Nephropathy Anxiety, generalized COPD (chronic obstructive pulmonary disease) Surgical History History of esophagogastroduodenoscopy (EGD) Bladder tumor History of colonoscopy History of cystoscopy History of surgery Avulsion of finger tip History of neck surgery Arm fracture, left History of knee surgery H/O colonoscopy Family History Father HTN (hypertension) Diabetes mellitus Mother Cancer Brother Melanoma Sister Breast cancer Son No problems noted. Daughter No problems noted. Social History Housing: House Alcohol intake: former Patient Tobacco Use Status: Former Tobacco user e-Cigarette/Vaping Use: Never Used service: No Cognitive needs: No Hearing needs: No Vision needs: Yes Questionnaire PHQ-9 Over the last 2 weeks, how often have you been bothered by any of the following problems? 1. Little interest or pleasure in doing things: not at all 2. Feeling down, depressed, or hopeless: not at all 3. Trouble falling or staying asleep, or sleeping too much: not at all 4. Feeling tired or having little energy: not at all 5. Poor appetite or overeating: not at all 6. Feeling bad about yourself - or that you are a failure or have let yourself or your family down: not at all 7. Trouble concentrating on things, such as reading the newspaper or watching television: not at all 8. Moving or speaking so slowly that other people could have noticed. Or the opposite - being so fidgety or restless that you have been moving around a lot more than usual: not at all 9. Thoughts that you would be better off or of hurting yourself in some way: not at all Total score: 0 Depression Screening Interpretation: Negative Depression Screening Done: Yes 03408 - PHQ-9 Billing: Yes Source: Developed by Drs. Lukas Westfall, Ana Holt, Octavio De Guzman and colleagues, with an educational [place] from [employer]. Thrive Questionnaire Date Thrive assessed: 12/09/24 I am a: Patient What is your living situation today?: I have a steady place to live Within the past 12 months, did the food you bought not last and you didn't have the money to get more?: Never true Within the past 12 months, did you worry whether your food would run out before you got money to buy more?: Never true Do you have trouble paying for medicines?: No Do you have trouble getting transportation to medical appointments?: No Do you have trouble paying your heating and electricity bill?: No Do you have trouble taking care of your child, family member or friend?: No Do you have trouble with day-to-day activities such as bathing, preparing meals, shopping, managing finances, etc.?: Yes Are you currently unemployed and looking for a job?: I choose not to answer this question Are you interested in more education?: No Please select the resources that you would like help with: None Currently or been in a relationship where the following occur: No concerns reported THRIVE Score: 0 AUDIT C Alcohol Use Questionnaire (AUDIT-C) 1. How often do you have a drink containing alcohol?: Never 3. How often do you have six or more drinks on one occasion?: Never Total Score: 0 ILDA-7 AMB Questionnaire ILDA-7 Date ILDA - 7 assessed: 12/09/24 Feeling nervous, anxious, or on edge: 0 = Not at all Not being able to stop or control worryin = Not at all Worrying too much about different things: 0 = Not at all Trouble relaxin = Not at all Being so restless that it is hard to sit still: 0 = Not at all Becoming easily annoyed or irritable: 0 = Not at all Feeling afraid as if something awful might happen: 0 = Not at all Total ILDA-7 score (0-4 normal; 5-9 mild; 10-14 moderate; 15-21 severe): 0 Source: Developed by Drs. Lukas Westfall, Ana Holt, Octavio De Guzman and colleagues, with an educational r[place] from [employer]. Physical exam (Primary Care) Vital Signs: Last Vital Signs Temp 97.8 F 04/09/25 14:32 Pulse 64 04/09/25 14:32 BP 128/76 04/09/25 14:32 Pulse Ox 96 04/09/25 14:32 Oxygen Delivery Method Nasal Cannula 04/09/25 14:32 Oxygen Flow Rate 4 04/09/25 14:32 BMI result Body Mass Index 24.8 Tobacco/Smoking Status: Tobacco use Status Tobacco use date assessed 04/09/25 04/09/25 14:34 Patient Tobacco Use Status Former Tobacco user 04/09/25 14:34 e-Cigarette/Vaping Use Never Used 04/09/25 14:34 PHQ-9: PHQ-9 Score PHQ-9: Total score 0 04/09/25 14:34 Depression Screening Interpretation: Negative Thrive Assessment: Date of Thrive Assessment Date Thrive assessed 12/09/24 04/09/25 14:34 Currently or been in a relationship where the following occur: No concerns reported Coding Level of Care Code Est Pt Level 4 (28570) Complex EM visit Add On G2211 Diagnoses Hypertension, essential I10 Anxiety, generalized F41.1 Nephropathy N28.9 BPH associated with nocturia N40.1; R35.1 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 Emphysema type: panlobular Supplemental oxygen dependent Z99.81 Additional Codes PHQ-9 - 25949 - PHQ-9 Billing: Yes ([id number]) Assessment & Plan Assessment & Plan (1) Hypertension, essential: Code(s): I10 - Essential (primary) hypertension Category: Medical (2) Anxiety, generalized: Code(s): F41.1 - Generalized anxiety disorder Category: Medical (3) Nephropathy: Code(s): N28.9 - Disorder of kidney and ureter, unspecified Category: Medical (4) BPH associated with nocturia: Code(s): N40.1 - Benign prostatic hyperplasia with lower urinary tract symptoms; R35.1 - Nocturia Category: Medical (5) COPD (chronic obstructive pulmonary disease): Code(s): J44.9 - Chronic obstructive pulmonary disease, unspecified Category: Medical Qualifiers: COPD type: emphysema Emphysema type: panlobular Qualified Code(s): J43.1 - Panlobular emphysema (6) Supplemental oxygen dependent: Code(s): Z99.81 - Dependence on supplemental oxygen Category: Medical Plan History - The patient is a 79-year-old male presenting with a follow-up for chronic conditions. This is ongoing care, came in with his son - Chronic Kidney Disease: The patient's GFR has fluctuated between 39 to 55, with the most recent value being 49. Electrolytes remain within normal limits. - Benign Prostatic Hyperplasia: The patient experiences nocturia due to incomplete bladder emptying. He is on medication for this condition. - Hypertension: The patient is currently taking amlodipine 5 mg for blood pressure management. - Chronic Obstructive Pulmonary Disease: The patient is oxygen-dependent due to severe COPD, attributed to a history of smoking. He is under the care of a financial reporting specialist. - Generalized Anxiety Disorder: The patient is on sertraline for anxiety management. - Pruritic Rash: The patient has a chronic rash, which has improved with increased showering and the use of a specific soap and moisturizer. He was referred to dermatology but has not yet attended the appointment. Problem List - Chronic Kidney Disease - Benign Prostatic Hyperplasia - Hypertension - Chronic Obstructive Pulmonary Disease - Generalized Anxiety Disorder - Pruritic Rash Patient Instructions - Continue taking all prescribed medications as directed. - Return for a follow-up visit in four months. - Undergo a blood test in three months. Orders: Orders Complete Blood Count Auto Diff 3 Months F41.1 - Generalized anxiety disorder, I10 - Essential (primary) hypertension, J43.1 - Panlobular emphysema, N28.9 - Disorder of kidney and ureter, unspecified, N40.1 - Benign prostatic hyperplasia with lower urinary tract symptoms, R35.1 - Nocturia, Z99.81 - Dependence on supplemental oxygen Comprehensive Met. Panel 3 Months F41.1 - Generalized anxiety disorder, I10 - Essential (primary) hypertension, J43.1 - Panlobular emphysema, N28.9 - Disorder of kidney and ureter, unspecified, N40.1 - Benign prostatic hyperplasia with lower urinary tract symptoms, R35.1 - Nocturia, Z99.81 - Dependence on supplemental oxygen
--- OUTSIDE RECORDS SUMMARY | 2025-04-09 14:52 | XMS_ITS | Clinical Summary ---
Author Organization [facility] Address [address] [phone] Phone Care Team Providers Care Environmental Maintenance Worker Name Role Phone Tanisha Evangelista MD Primary Care Provider [phone] Allergies No known active allergies Medications albuterol [...] EVERY MORNING. 1 Active Vitamin D, Ergocalciferol, 27370 units capsuleIndicati ons:Iron deficiency anemia, not otherwise [...] Office Visit [facility] [address] [place] [phone] Carter Colorado MD Stage 3 chronic kidney [...] Office Visit [facility] [address] [phone] Carter Colorado MD [address] [phone] Health Maintenance Due Date Last Done Comments Pneumococcal Vaccine: 50+ Ye ars (1 of 2 - PCV) 1964 Influenza Vaccine (Season Ended) 2025 Hepatitis B Vaccine Aged Out No longe r eligible based on patient's age to complete this topic Insurance [facility] Medicare [facility] Medicare Medicaid [place] Care Teams Environmental Maintenance Worker Relationship Specialty Start Date End Date Tanisha Evangelista MD [address] [place] [address] PCP - General 10/24/20
== END 2025-04-09 14:58 | disposition home or self-care (01) ==
LOC: HO.HMCC 14:31
PROVIDERS: PCP Internal Medicine; Visit Provider Internal Medicine
DX: I10 Essential (primary) hypertension (principal); J43.1 Panlobular emphysema; F41.1 Generalized anxiety disorder; N28.9 Disorder of kidney and ureter, unspecified; N40.1 Benign prostatic hyperplasia with lower urinary tract symptoms; R35.1 Nocturia; Z99.81 Dependence on supplemental oxygen

== ENCOUNTER → 2025-04-09 14:30 | Outpatient (BNVA) | payer MEDICARE, SELFPAY | PROVIDERS: PCP Internal Medicine; Visit Provider Internal Medicine | DX: J43.1 Panlobular emphysema (principal); F41.1 Generalized anxiety disorder; N28.9 Disorder of kidney and ureter, unspecified; N40.0 Benign prostatic hyperplasia without lower urinary tract symptoms; I10 Essential (primary) hypertension; N40.1 Benign prostatic hyperplasia with lower urinary tract symptoms; R35.1 Nocturia; Z99.81 Dependence on supplemental oxygen | CPT/HCPCS: 96127; 99212 ==

== ENCOUNTER 2025-07-25 19:01 | Inpatient (IN) | payer MEDICARE, SELFPAY ==
[2025-07-25] VITALS (7 sets, daily range): BP systolic 117–173; BP diastolic 58–116; PULSE 84–108; RESP 16–22; TEMP 36.7–37.1; O2SAT 88–97; BMI 29.8
--- NOTE | 2025-07-25 | ECG_ITS ---
Test Reason : ELEVATED TROP Blood Pressure : */* mmHG Vent. Rate : 80 BPM Atrial Rate : 80 BPM P-R Int : 182 ms QRS Dur : 86 ms QT Int : 384 ms P-R-T Axes : 66 18 29 degrees QTcB Int : 442 ms Sinus rhythm with marked sinus arrhythmia Anteroseptal infarct (cited on or before 03-Oct-2011) Abnormal ECG When compared with ECG of 25-Jul-2025 19:15, Premature atrial complexes are no longer Present Referred By: Kathe Ngo Electronically Signed By: Erwin Salgado
--- NOTE | ~2025-07-25 | NM_ITS ---
CLINICAL HISTORY: rule out PE, pt cannot have CTA Nuclear medicine perfusion examination Comparison: CR - XR CHEST 1V - 07/25/25 19:[address]/SR - CT CHEST WITHOUT IV CONTRAST - 09/30/24 15:11 EST CR/SR - XR CHEST 2 VIEWS - 12/25/22 15:07 EDT Findings: 4.0 mCi of technetium 99m labeled MAA was administered intravenously with images obtained in anterior, posterior, right lateral, left lateral, MISHRA, ARABIC, RPO and LPO views. AP radiographs of the chest were provided from 07/25/25. Two or more large mismatched segmental perfusion defects were not identified. There are nonsegmental perfusion defects present. Impression: Pulmonary embolism absent (normal or very low probability) per the profusion only modified PIOPED II criteria. This document has been electronically signed by: Sienna Sotomayor MD on 07/26/2025 14:13:26
--- NOTE | ~2025-07-25 | XR_ITS ---
CLINICAL HISTORY: SOB 1 view chest x-ray Comparison: CT/SR - CT CHEST WITHOUT IV CONTRAST - 09/30/24 15:11 EST CR/SR - XR CHEST 2 VIEWS - 12/25/22 15:07 EDT Findings: Re-identified mild bibasilar reticular opacities. Heart size is normal. No acute fracture. IMPRESSION: 1. Mild bibasilar pulmonary scarring. 2. No acute cardiopulmonary findings. This document has been electronically signed by: Devin Philippe MD on 07/25/2025 20:10:50
--- NOTE | 2025-07-25 19:03 | ECG_ITS ---
Test Reason : SOB Blood Pressure : */* mmHG Vent. Rate : 92 BPM Atrial Rate : 92 BPM P-R Int : 176 ms QRS Dur : 76 ms QT Int : 356 ms P-R-T Axes : 72 40 35 degrees QTcB Int : 440 ms Sinus rhythm with Premature atrial complexes Anteroseptal infarct , age undetermined Inferior Q waves present Abnormal ECG When compared with ECG of 27-Aug-2012 15:16, Cannot rule out inferior infarct Referred By: Claudia Salgado Electronically Signed By: Erwin Salgado
[2025-07-25 19:34] LABS: Hematocrit 42.1 % (42.0-52.0); Hemoglobin 12.9 g/dl (14.0-18.0); Imm Gran Abs Auto 0.06 X10*3/uL (0.00-0.03); Imm Gran Pct Auto 0.5 % (0.0-0.4); Lymphocytes Absolute Auto 1.7 X10*3/uL (1.2-4.9); MANUAL DIFF FLAG NO; Mean Corpuscular HGB Conc 30.6 g/dl (31.0-36.0); Mean Corpuscular Hemoglobin 29.9 pg (27.0-33.0); Mean Corpuscular Volume 97.5 fL (80.0-98.0); NRBC Abs Auto 0.000 X10*3/uL (0.0-0.012); NRBC Pct Auto 0.0 /100WBC (0.0-0.2); Platelet Count 161 X10*3/uL (160-400); Red Blood Count 4.32 X10*6/uL (4.60-5.80); White Blood Count 12.4 X10*3/uL (4.8-10.8)
[2025-07-25 19:38] LABS: VBG HCO3 29 mmol/L (22-26); VBG O2 % Saturation 82.0 %
--- OUTSIDE RECORDS SUMMARY | 2025-07-25 19:41 | XMS_ITS | Clinical Summary ---
Author Organization [facility] Address [address] [place] [phone] Phone Care Team Providers Care Loss Prevention Officer Name Role Phone Unavailable Primary Care Provider Unavailabl e Social History Tobacco Use Types Packs/Day Years Used Date Smoking Tobacco: Never Assessed Sex and Gender Information Value Date Recorded Sex Assigned at Not on file Legal Sex Male 4:43 PM EDT Gender Identity Not on file Sexual Orientation Not on file Plan of Treatment Not on file Medical Devices Not on file [facility] [employer] P[employer] MEDICARE REPLACEMENT [employer] PPO MEDICARE REPLACEMENT [employer] PPO MEDICARE REPLACEMENT [employer] PPO MEDICARE REPLACEMENT Additional Source Comments The information contained in this document represents components of the legal health record. It is not the complete legal health record.[facility]
--- OUTSIDE RECORDS SUMMARY | 2025-07-25 19:41 | XMS_ITS | Encounter Summary ---
Author Organization [facility] Address [address] [facility] [address] [place] [address] Phone Care Team Providers Care Sorting And Folding Supervisor Name Role Phone Tanisha Evangelista MD Primary Care Provider Reason for Visit * Reason Comments Med Refill Encounter Details Date Type Department Care Team (Late st Contact Info) Description 04/21/2022 Refill [facility] [address] [place] [phone] Carter Colorado MD [address] [address] Social History Tobacco Use Types [...] Care Team (Late st Contact Info) Description 08/23/2025 3:45 PM EST Office Visit [facility] [address] [address] Carter Colorado MD [facility] [address] documented as of this encounter Visit Diagnoses Not on filedocumented in this encounter Care Teams Sorting And Folding Supervisor Relationship Specialty Start Date End Date Tanisha Evangelista MD [address] [place] [address] PCP - General 10/24/20 documented as of this encounter
--- OUTSIDE RECORDS SUMMARY | 2025-07-25 19:41 | XMS_ITS | Clinical Summary ---
Author Organization [facility] Address [address] [address] Phone Care Team Providers Care Principal Solutions Architect Name Role Phone Tanisha Evangelista MD Primary Care Provider [phone] Allergies No known active allergies Medications albuterol [...] EVERY MORNING. 1 Active Vitamin D, Ergocalciferol, 09449 units capsuleIndicati ons:Iron deficiency anemia, not otherwise [...] Visit [facility] [address] [address] Carter Colorado MD [address] [address] Health Maintenance Due Date Last Done Comments Pneumococcal Vaccine: 50+ Ye ars (1 of 2 - PCV) 1964 Influenza Vaccine (#1) 2025 Hepatitis B Vaccine Aged Out No longe r eligible based on patient's age to complete this topic Insurance Aetna Medicare Aetna Medicare Medicaid [place] Care Teams Principal Solutions Architect Relationship Specialty Start Date End Date Tanisha Evangelista MD [address] [place] [address] PCP - General 10/24/20
--- OUTSIDE RECORDS SUMMARY | 2025-07-25 19:41 | XMS_ITS | Encounter Summary ---
Author Organization [facility] Address 100 [facility] [address] [place] [address] Phone Care Team Providers Care Production Solderer Name Role Phone Tanisha Evangelista MD Primary Care Provider [phone] Reason for Visit * Reason Comments Med Refill Encounter Details Date Type Department Care Team (Late st Contact Info) Description 11/14/2022 Refill [facility] 100 [facility] [address] [place] [phone] Eliu Estrella MD [facility] [address] Social History Tobacco Use Types [...] Visit [facility] [address] [address] Carter Colorado MD [facility] [address] [address] documented as of this encounter Visit Diagnoses Not on filedocumented in this encounter Care Teams Production Solderer Relationship Specialty Start Date End Date Tanisha Evangelista MD [address] [place] [address] PCP - General 10/24/20 documented as of this encounter
--- OUTSIDE RECORDS SUMMARY | 2025-07-25 19:41 | XMS_ITS | Patient Health Record ---
[facility] Address [address] [place] [address] Care Team Providers Care Jigger Artisan Name Role Phone Jean Carlos CHAIREZ, Asma Primary Care Provider Jimy Kohli Unavailable [phone] Reason For Referral No Information Problems Problem Type SNOMED Code ICD Code Onset Dates Problem Status W/U Status Risk Notes Problem Hallux valgus (846302841) Hallux Valgus (735.0) Active confirmed Plan Of Treatment Pending Test Test Name Order Date , -08/06/2011 Insurance Providers Payer Name Payer Address Payer Phone Subscriber Number Group Number Insured Name Patient Relationship to Insured Coverage Start Date Coverage End Date Medicare National Govt Sv[employer] [address] [facility] [place] [address] [id number] Montrell Vera Self - patient is the insured 9 Medical (General) History Medical History History ICD Code nerve disease chicken pox measles Surgical History Surgery Date(Month/Year) neck surgery(removed calcium build-up) 2 010
[2025-07-25 19:43] LABS: Venous Blood Gas Refer to POC result
[2025-07-25 19:44] LABS: INTERNATIONAL NORM RATIO 1.0 (0.9-1.1); Prothrombin Time 11.0 SEC (10.9-12.4)
[2025-07-25 19:59] LABS: Alanine Aminotransferase 24 U/L (0-40); Albumin Level 4.4 g/dL (3.5-5.0); Alkaline Phosphatase 74 U/L (39-117); Anion Gap 17 (12-20); Aspartate Amino Transferase 31 U/L (5-37); Blood Urea Nitrogen 31 mg/dL (9-16); Calcium 9.1 mg/dL (8.4-10.2); Carbon Dioxide 26 mmol/L (22-29); Chloride 103 mmol/L (96-108); Creatinine Clr Calc Pharmacy 31.8; Estimated Glomerular Filt Rate 38; Potassium 5.4 mmol/L (3.3-5.1); Sodium 141 mmol/L (135-145); Total Protein 7.4 g/dL (6.5-8.0)
[2025-07-25 20:02] LABS: NT Pro B Type Natriuretic Pept 164.6 pg/mL (<300); Troponin-I High Sensitivity 28.8 ng/L (<3.5-35.0)
[2025-07-25 20:03] LABS: COVID-19 Test Negative (Negative); IDNOW Serial# 16C4AD1C
[2025-07-25 20:04] LABS: IDNOW Serial# 152EDE1D; Influenza B2 Negative (Negative)
[2025-07-25] MEDS: Albuterol Sulfate 5 MG, Albuterol/Iprat 2.5/0.5MG 3 ML 3 ML INHALE ×2 (20:19→21:17)
[2025-07-25] MEDS: Magnesium Sulfate/H2O 2 GM/50 ML PIGGYBACK IV (20:44)
--- NOTE | 2025-07-25 21:22 | ED_ITS ---
HPI - General Adult General Chief complaint: Dyspnea Stated complaint: copd exacerbation Time Seen by Provider: 07/25/25 20:15 Source: patient Limitations: no limitations History of Present Illness ED Provider: Kathe Ngo PA-C HPI narrative: 79-year-old male with a history of COPD on 4 L nasal cannula at baseline, hypertension, GERD, BPH, anxiety who presents with shortness of breath x 1 day. Patient states he has had cough and cold symptoms for 2-3 days, today he became profoundly short of breath. He received a DuoNeb and 125 mg of Solu-Medrol pre arrival via EMS. Patient denies sick contacts with viral symptoms, no documented fevers at home. He denies chest pain. Related Data Home Medications ?Medication ?Instructions ?Recorded ?Confirmed cholecalciferol (vitamin D3) 125 125 mcg PO QWEEK 03/0704/09/25 mcg (5,000 unit) capsule Previous Rx's ?Medication ?Instructions ?Recorded inhalational spacing device #1 ea 01/14/23 omeprazole 40 mg capsule,delayed 40 mg PO BID 8 weeks #112 caps 12/10/23 release bismuth subsalicylate 262 mg 2 tab PO QID 14 days #112 tabs 12/25/23 chewable tablet tamsulosin 0.4 mg capsule (Flomax) 0.4 mg PO BEDTIME # 90 caps 02/20/24 tiotropium bromide 2.5 2 puff PO QAM #4 grams 02/22 mcg/actuation mist for inhalation (Spiriva Respimat) amlodipine 5 mg tablet 5 mg PO DAILY #90 tabs 07/07 sertraline 100 mg tablet 100 mg PO DAILY #90 tabs albuterol sulfate 1.25 mg/3 mL 1.25 mg (3 mL) inhalati on Q4-6H 07/19/25 solution for nebulization PRN for wheezing #75 mL albuterol sulfate 90 mcg/actuation 2 puff PO Q4-6H PRN for wheezing 07/19/25 aerosol inhaler (Ventolin HFA) #18 grams Allergies Allergy/AdvReac Type Severity Reaction Status Date / Time No Known Allergies (No Known Allergy Verified 07/25/25 19:12 Allergies*) Review of Systems 2 Review of Systems: Yes all other systems are reviewed and are negative Constitutional: Constitutional: Denies fatigue and Denies fever(s) Cardiovascular: Cardiovascular: Denies chest pain and Reports dyspnea Respiratory: Respiratory: Denies chest congestion, Reports cough, Reports dyspnea and Reports wheezing Endocrine: Endocrine: Denies fatigue Allergic/Immunologic: Allergic/Immunologic: Reports wheezing PMFSH Past Medical History Attestation statement: The following information was validated with the patient. Medical History (Updated 07/26/25 @ 07:18 by LINSEY Vasquez) Bladder polyps Pulmonary nodule 1 cm or greater in diameter HTN (hypertension) COPD exacerbation Hypoxemia Supplemental oxygen dependent Nephropathy Anxiety, generalized COPD (chronic obstructive pulmonary disease) Surgical History History of esophagogastroduodenoscopy (EGD) Bladder tumor History of colonoscopy History of cystoscopy History of surgery Avulsion of finger tip History of neck surgery Arm fracture, left History of knee surgery H/O colonoscopy Family History Family History Father HTN (hypertension) Diabetes mellitus Mother Cancer Brother Melanoma Sister Breast cancer Son No problems noted. Daughter No problems noted. Social History Social History Household Members: Friend(s) Housing: House Do you presently have visiting nurse or other home services: No Alcohol intake: former Patient Tobacco Use Status: Former Tobacco user Smoked in Last 30 Days: No e-Cigarette/Vaping Use: Former Use Second Hand Smoke Exposure: No Use of substances other than those prescribed or required for medical reasons: No Have you been hit, kicked, punched, or otherwise hurt by someone within the past year? If so, by whom?: No Do you feel safe in your current relationship?: No Current Relationship Is there a partner from a previous relationship who is making you feel unsafe now?: No Are you made to feel afraid or neglected: No Advance Directives: No Advance Directives Information Provided: Yes Do you have a plan to hurt others: No Plan Recently lost weight without trying: No Eating poorly because of decreased appetite: No Nutrition Risks: No Nutritional Risk Poor oral hygiene: No service: No Cognitive needs: No Hearing needs: No Vision needs: Yes Physical Exam ED Vital Signs: Vital Signs - 24 hr 07/25/25 19:08 07/25/25 19:14 07/25/25 20:18 Temperature 98.7 F 98.7 F Pulse Rate 97 97 90 Respiratory Rate 22 H 22 H 16 Blood Pressure 131/97 H 131/97 H Pulse Oximetry 96 96 Oxygen Delivery Method Nasal Cannula Nasal Cannula Oxygen Flow Rate 07/25/25 20:51 07/25/25 21:19 07/25/25 22:52 Temperature 98.8 F Pulse Rate 88 87 Respiratory Rate 20 18 Blood Pressure 117/79 Pulse Oximetry 96 88 L Oxygen Delivery Method Nasal Cannula Oxygen Flow Rate 4 07/25/25 23:21 Temperature 98.1 F Pulse Rate 84 Respiratory Rate 20 Blood Pressure 124/58 L Pulse Oximetry 97 Oxygen Delivery Method Nasal Cannula Oxygen Flow Rate 4 BMI result Body Mass Index 29.8 Const Other: Alert Orientation/consciousness: patient oriented x3 Resp Other: Tachypneic, diminished with inspiration, rhonchorous with the exploration Cardio Other: Normal peripheral perfusion Skin Other: Warm dry no rash Neuro General: patient oriented x3, gait normal, no focal motor deficits and CN's II- XI intact bilaterally Psych Other: Cooperative Course Reevaluation(s) Reevaluation #1: With the ambulation, the patient dropped his oxygen saturation to 88 while on the 4 L nasal cannula, at baseline he is typically 94% on 4 L Reevaluation #2: Reached out to Dr. Cabrera, obtained a 2nd EKG,... He feels a bump in troponin is likely secondary to COPD exacerbation,.... He feels could be secondary NSTEMI versus takotsubo cardiomyopathy, he recommends an echo in the morning, repeat troponins every 6-8 hours until they down trend, we should be giving aspirin and statins ..... we will relayed to the inpatient team Time: 00:03 Consultations Consultation #1: per Dr. Cabrera ... Does not feel this is consistent with a ACS given the circumstances that he has active COPD exacerbation with no pain, however give aspirin, statin, ECHO in AM, trend troponin q6-8 hours...he is thinking maybe NSTEMI vs takotsubo cardiomyopathy Time: 00:01 Medications Administered Generic Name Dose Route Start Last Admin Trade Name Freq PRN Reason Stop Dose Admin Albuterol/Ipratropium 3 ml 07/26/25 00:29 07/26/25 06:02 Albuterol/Iprat 2.5/0.5mg 3 Ml Ampul.Neb INHALE 3 ml Q4H PRN Administration Shortness of Breath/Wheezing Heparin Sodium/Sodium Chloride 25,000 unit in 250 mls @ 0 mls/hr 07/26/25 00:45 07/26/25 02:03 Heparin Sodium,Porcine/1/2ns IVCONT 14 units/kg/hr .Q0M ASHLEY 10.68 mls/hr Protocol Administration Per Protocol Discontinued Medications Generic Name Dose Route Start Last Admin Trade Name Freq PRN Reason Stop Dose Admin Aspirin 324 mg 07/26/25 00:24 07/26/25 00:31 Aspirin 81 Mg Tab.Chew PO 07/26/25 00:25 324 mg ONCE ONE Administration Atorvastatin Calcium 80 mg 07/26/25 00:24 07/26/25 00:30 Atorvastatin Calcium 80 Mg Tablet PO 07/26/25 00:25 80 mg ONCE ONE Administration Ceftriaxone Sodium 2 gm 07/25/25 20:20 07/25/25 20:45 Ceftriaxone Sodium 2 Gm Vial IVPUSH 07/25/25 20:21 2 gm ONCE ONE Administration Albuterol Sulfate 5 mg/ 0 mg 07/25/25 20:10 07/25/25 20:19 Albuterol/Ipratropium 3 ml INHALE 07/25/25 20:11 7.5 each ONCE ONE Administration Albuterol Sulfate 5 mg/ 0 mg 07/25/25 21:14 07/25/25 21:17 Albuterol/Ipratropium 3 ml INHALE 07/25/25 21:15 7.5 each ONCE ONE Administration Heparin Sodium (Porcine) 4,000 unit 07/26/25 00:35 07/26/25 00:59 Heparin Sodium,Porcine 5,000 Unit/Ml Vial IVPUSH 07/26/25 00:36 Not Given ONCE ONE Heparin Sodium (Porcine) 6,100 unit 07/26/25 00:41 07/26/25 01:59 Heparin Sodium,Porcine 5,000 Unit/Ml Vial 80 unit/kg (6100 unit) 07/26/25 00:42 6,100 unit IVPUSH Administration ONCE ONE Magnesium Sulfate 2 gm in 50 mls @ 150 mls/hr 07/25/25 20:20 07/25/25 21:05 Magnesium Sulfate/H2o IV 07/25/25 20:39 Infused ONCE ONE Infusion Azithromycin 500 mg/ Sodium 250 mls @ 125 mls/hr 07/25/25 20:20 07/25/25 23:20 Chloride IV 07/25/25 22:19 Infused ONCE ONE Infusion Sodium Chloride 1,000 mls @ 999 mls/hr 07/25/25 21:45 07/26/25 00:33 Ns IV 07/25/25 22:45 Infused .Q1H1M ASHLEY Infusion Medical Decision Making Medical Decision Making [facility] Narrative: 79-year-old male with a history of COPD on 4 L nasal cannula at baseline, hypertension, GERD, BPH, anxiety who presents with shortness of breath x 1 day. Patient states he has had cough and cold symptoms for 2-3 days, today he became profoundly short of breath. He received a DuoNeb and 125 mg of Solu-Medrol pre arrival via EMS. Patient denies sick contacts with viral symptoms, no documented fevers at home. He denies chest pain. Problem: COPD, age History: Per patient I have considered the following differential diagnoses: Exacerbation of obstructive airway disease, pneumonia, bronchitis, viral syndrome, PE , ACS, new heart failure Plan: Patient here with the an exacerbation of his obstructive airway disease, unclear trigger, still could be viral, in addition to screening labs, a viral panel was obtained and a chest x-ray. The patient is receiving duo nebs, I am adding on magnesium 2 g, he already received Solu-Medrol pre arrival as I stated. Adding on blood cultures, lactic, covering for bronchitis, giving ceftriaxone and azithromycin. Chest x-ray pending. Thought about ACS, the patient does deny chest pain, troponin EKG added. Thought about new heart failure, he is not overtly hypertensive, he does not appear volume overloaded on exam, unclear if he has a history of heart failure, adding on a NT-BNP. I have independently reviewed the following tests: Labs: Leukocytosis with left shift, not anemic, no electrolyte abnormality, creatinine 1.75, initial potassium 5.4 I suspect it we will be normalized since he has received multiple doses of albuterol, we will repeat chemistry, lactic 1.7 viral panel negative, 1st troponin 28.8, BNP 164.6, delta troponin 255.8 EKG #1: Sinus rhythm with PACs, rate of 92, anteroseptal infarct age indeterminate, no active ischemic changes, QTC 440 EKG 2.: Sinus rhythm with sinus arrhythmia, rate of 80, again noted anteroseptal infarct that is age indeterminate, new flattening of ST segment in V2, QTC 442 Chest x-ray:MPRESSION: 1. Mild bibasilar pulmonary scarring. 2. No acute cardiopulmonary findings. Differential Diagnosis Differential Diagnoses: The differential diagnosis associated with the presentation includes See medical decision-making Admission/Observation Consideration of admission/observation: Escalation of care including admission/observation considered Admit Consult Healthcare Provider Management of the patient was discussed with: Hospitalist and Sap Basis Architect Cardiology Lab Data MDM Lab Attestation statement: I reviewed the patient's lab results. 07/25/25 19:26 07/25/25 22:03 Labs: Lab Results 07/25/25 07/25/25 07/25/25 Range/Units 19:26 19:34 20:41 WBC 12.4 H (4.8-10.8) X10*3/uL RBC 4.32 L (4.60-5.80) X10*6/uL Hgb 12.9 L (14.0-18.0) g/dl Hct 42.1 (42.0-52.0) % MCV 97.5 (80.0-98.0) fL MCH 29.9 (27.0-33.0) pg MCHC 30.6 L (31.0-36.0) g/dl RDW 13.2 (11.0-16.0) % Plt Count 161 (160-400) X10*3/uL MPV 11.6 (9.4-12.4) fL Immature Gran % (Auto) 0.5 H (0.0-0.4) % Neut % (Auto) 76.7 H (45-73) % Lymph % (Auto) 13.7 L (20-40) % [place] % (Auto) 5.7 (2-11) % Eos % (Auto) 2.9 (0-4) % Baso % (Auto) 0.5 (0-2) % Lymph # (Auto) 1.7 (1.2-4.9) X10*3/uL [place] # (Auto) 0.7 (0.1-1.2) X10*3/uL Eos # (Auto) 0.4 (0.0-0.4) X10*3/uL Baso # (Auto) 0.1 (0.0-0.2) X10*3/uL Abs Immat Gran (auto) 0.06 H (0.00-0.03) X10*3/uL Absolute Neuts (auto) 9.5 H (2.0-8.3) x10*3/uL Absolute Nucleated RBC 0.000 (0.0-0.012) X10*3/uL Nucleated RBC % (auto) 0.0 (0.0-0.2) /100WBC PT 11.0 (10.9-12.4) SEC INR 1.0 (0.9-1.1) D-Dimer High Sensitivty 2438 NG/ML VBG pH 7.30 L (7.32-7.43) VBG pCO2 58 mmHg VBG pO2 56 mmHg VBG HCO3 29 H (22-26) mmol/L VBG O2 Saturation 82.0 % VBG Base Excess 1.7 mmol/L Sodium 141 (135-145) mmol/L Potassium 5.4 H (3.3-5.1) mmol/L Chloride 103 (96-108) mmol/L Carbon Dioxide 26 (22-29) mmol/L Anion Gap 17 (12-20) BUN 31 H (9-16) mg/dL Creatinine 1.75 H (0.5-1.4) mg/dL Estim Creat Clear Calc 31.8 Estimated GFR 38 Random Glucose 129 H (60-115) mg/dL Lactic Acid 1.7 (0.5-2.0) mmol/L Calcium 9.1 (8.4-10.2) mg/dL Total Bilirubin 0.3 (0.0-1.0) mg/dL AST 31 (5-37) U/L ALT 24 (0-40) U/L Alkaline Phosphatase 74 (39-117) U/L Troponin I High Sens 28.8 (<3.5-35.0) ng/L NT-Pro-B Natriuret Pep 164.6 (<300) pg/mL Total Protein 7.4 (6.5-8.0) g/dL Albumin 4.4 (3.5-5.0) g/dL Urine Color Urine Appearance Urine pH (5.0-9.0) Ur Specific [place] (1.005-1.025) Urine Protein (Neg-Trace) mg/dL Urine Glucose (UA) (Negative) mg/dL Urine Ketones (Negative) mg/dL Urine Blood (Negative) Urine Nitrite (Negative) Ur Leukocyte Esterase (Negative) Urine RBC (0-2) /HPF Urine WBC (0-5) /HPF Ur Squamous Epith Cells (0-2) /HPF Urine Bacteria (None Seen) Hyaline Casts (0-2) /LPF Urine Osmolality (373-1093) mosm/kg Urine Creatinine mg/dL COVID-19 (ALEXIS) Negative (Negative) COVID-19 Clin Com See Note Influenza Type A (LUIS MANUEL) Negative (Negative) Influenza Type B (LUIS MANUEL) Negative (Negative) Influenza A & B Note See Note 07/25/25 07/25/25 Range/Units 22:03 22:55 WBC (4.8-10.8) X10*3/uL RBC (4.60-5.80) X10*6/uL Hgb (14.0-18.0) g/dl Hct (42.0-52.0) % MCV (80.0-98.0) fL MCH (27.0-33.0) pg MCHC (31.0-36.0) g/dl RDW (11.0-16.0) % Plt Count (160-400) X10*3/uL MPV (9.4-12.4) fL Immature Gran % (Auto) (0.0-0.4) % Neut % (Auto) (45-73) % Lymph % (Auto) (20-40) % [place] % (Auto) (2-11) % Eos % (Auto) (0-4) % Baso % (Auto) (0-2) % Lymph # (Auto) (1.2-4.9) X10*3/uL [place] # (Auto) (0.1-1.2) X10*3/uL Eos # (Auto) (0.0-0.4) X10*3/uL Baso # (Auto) (0.0-0.2) X10*3/uL Abs Immat Gran (auto) (0.00-0.03) X10*3/uL Absolute Neuts (auto) (2.0-8.3) x10*3/uL Absolute Nucleated RBC (0.0-0.012) X10*3/uL Nucleated RBC % (auto) (0.0-0.2) /100WBC PT (10.9-12.4) SEC INR (0.9-1.1) D-Dimer High Sensitivty NG/ML VBG pH (7.32-7.43) VBG pCO2 mmHg VBG pO2 mmHg VBG HCO3 (22-26) mmol/L VBG O2 Saturation % VBG Base Excess mmol/L Sodium 140 (135-145) mmol/L Potassium 5.0 (3.3-5.1) mmol/L Chloride 102 (96-108) mmol/L Carbon Dioxide 26 (22-29) mmol/L Anion Gap 17 (12-20) BUN 32 H (9-16) mg/dL Creatinine 1.74 H (0.5-1.4) mg/dL Estim Creat Clear Calc 31.9 Estimated GFR 38 Random Glucose 181 H (60-115) mg/dL Lactic Acid (0.5-2.0) mmol/L Calcium 8.8 (8.4-10.2) mg/dL Total Bilirubin 0.1 (0.0-1.0) mg/dL AST 26 (5-37) U/L ALT 18 (0-40) U/L Alkaline Phosphatase 69 (39-117) U/L Troponin I High Sens 255.8 H* D (<3.5-35.0) ng/L NT-Pro-B Natriuret Pep (<300) pg/mL Total Protein 6.9 (6.5-8.0) g/dL Albumin 4.2 (3.5-5.0) g/dL Urine Color Yellow Urine Appearance Clear Urine pH 5.5 (5.0-9.0) Ur Specific [place] 1.020 (1.005-1.025) Urine Protein >=1000 (4+) H (Neg-Trace) mg/dL Urine Glucose (UA) Negative (Negative) mg/dL Urine Ketones Negative (Negative) mg/dL Urine Blood Small (1+) H (Negative) Urine Nitrite Positive H (Negative) Ur Leukocyte Esterase Negative (Negative) Urine RBC 0-2 (0-2) /HPF Urine WBC 0-5 (0-5) /HPF Ur Squamous Epith Cells 0-2 (0-2) /HPF Urine Bacteria 4+ (None Seen) Hyaline Casts 3-5 (0-2) /LPF Urine Osmolality 608 (373-1093) mosm/kg Urine Creatinine 114.07 mg/dL COVID-19 (ALEXIS) (Negative) COVID-19 Clin Com Influenza Type A (LUIS MANUEL) (Negative) Influenza Type B (LUIS MANUEL) (Negative) Influenza A & B Note Independent Interpretation I performed an independent interpretation of an: EKG Radiology Impression Discussion of test interpretation with radiology: I have reviewed the radiologist's reading. Critical Care Time Critical Care Time Critical Care Time: Yes Total Critical Care Time: 45 Attestation: I Kathe Ngo PA-C have personally performed 45 minutes of critical care time not including lines and procedures; exacerbation of obstructive pulmonary disease, need for IV antibiotics, hypoxia, need for hospital admission, development of potential NSTEMI, cardiology consult, hospital admission Discharge Plan Discharge Clinical Impression: Hypoxia, Bronchitis, Elevated troponin Patient Disposition: Admitted As Inpatient Interventions: Admission Worksheet (ED) Last Done: 07/26/25 02:18 Discharge Date/Time: 07/26/25 04:41
[2025-07-25 22:23] LABS: Alanine Aminotransferase 18 U/L (0-40); Albumin Level 4.2 g/dL (3.5-5.0); Alkaline Phosphatase 69 U/L (39-117); Anion Gap 17 (12-20); Aspartate Amino Transferase 26 U/L (5-37); Blood Urea Nitrogen 32 mg/dL (9-16); Calcium 8.8 mg/dL (8.4-10.2); Carbon Dioxide 26 mmol/L (22-29); Chloride 102 mmol/L (96-108); Creatinine Clr Calc Pharmacy 31.9; Estimated Glomerular Filt Rate 38; Potassium 5.0 mmol/L (3.3-5.1); Sodium 140 mmol/L (135-145); Total Protein 6.9 g/dL (6.5-8.0)
[2025-07-25 22:57] LABS: D Dimer High Sensitivity 2438 NG/ML
--- NOTE | 2025-07-25 22:58 | PC.NURSE ---
late entry: pt biba, COPD exacerbation, L a baseline was brought in on 6L, sp02 97%. 02 brought down to baseline of 4L, pt maintaining at 94%. sp02 drops to 88% while ambulating with 4L baseline 02. EMS IV line patent and intact, asymptomatic. Respiratory therapy at bedside. Pt medicated per DEC
[2025-07-25 23:02] LABS: Appearance Urine Clear; Glucose Urine UA Negative (Negative); PH 5.5 (5.0-9.0); Specific Gravity - Urine 1.020 (1.005-1.025); UMIC TRIGGER UACC YES
[2025-07-25 23:12] LABS: UACC Culture Trigger YES
--- NOTE | 2025-07-25 23:15 | PC.NURSE ---
Micky pt son called asking for a return phone call at [phone]. This RN called Micky and updated him on mediations administered, pt current status, and possible admission. pt sp02 is dropping while ambulating with his baseline 2 of 4L, 94% while sitting and 88-90% while ambulating. Micky states he will c/b in the morning to come visit.
[2025-07-25 23:44] LABS: Troponin-I High Sensitivity 255.8 ng/L (<3.5-35.0)
[2025-07-26] VITALS (7 sets, daily range): BP systolic 132–152; BP diastolic 69–88; PULSE 61–78; RESP 12–20; TEMP 36.7–37.1; O2SAT 94–98; BMI 30.2; BMI 30.3
--- NOTE | 2025-07-26 | ECG_ITS ---
Test Reason : Elevated troponins Blood Pressure : */* mmHG Vent. Rate : 62 BPM Atrial Rate : 62 BPM P-R Int : 190 ms QRS Dur : 80 ms QT Int : 396 ms P-R-T Axes : 74 26 -47 degrees QTcB Int : 401 ms Normal sinus rhythm Low voltage QRS Septal infarct (cited on or before 03-Oct-2011) Abnormal ECG When compared with ECG of 25-Jul-2025 23:51, Nonspecific T wave abnormality, worse in Lateral leads Referred By: Erwin Salgado Electronically Signed By: Erwin Salgado
--- NOTE | 2025-07-26 00:32 | P.HPHOSP_ITS ---
History of Present Illness Date of Service: 07/26/25 Attending physician on admission: Ian Costa Chief Complaint: dyspnea Patient is a 79-year-old male with past medical history COPD on home O2 2474-5 L nasal cannula, pulmonary nodules, hypertension, BPH, polyps of the bladder with removal, alcohol use disorder in remission, previous marijuana use, generalized anxiety was brought in by ambulance for worsening shortness of breath and started approximately 19:00 on 09/2025. Patient was having a sensation of chest pain/chest pressure. Patient denied any sweating, dizziness or lightheadedness. Patient did not have a productive cough. Patient has not been around anybody that is been ill and has not recently traveled. Patient's oxygen needs were increased to 6 L and patient received Solu-Medrol with 1 duo nebs from EMS. Patient denies any previous heart history and patient has stopped smoking 7 years ago. Workup in the ED included chest x-ray which indicated mild bibasilar pulmonary scarring and reticular opacities. No evidence of pulmonary edema or pleural effusion. D-dimer was elevated and patient was not a candidate for CTA due to current renal function. UA positive for nitrites indicating possible UTI. Troponins went from 28.8-255.8. BNP normal at 164. Patient currently chest pain-free. Request for admission to rule out PE, start patient on heparin for possible NSTEMI versus takotsubo per sword swallower contacted by ED provider. Patient is started on heparin infusion in the ED, currently on higher dosing to until PE can be ruled out. Patient denies any history of abnormal blood clots or hypercoagulable state. Review of Systems 2 Review of Systems: Patient comfortable, resting with nasal cannula on. Patient denies any chest pain or shortness of breath at rest patient is not having any abdominal pain, nausea or vomiting. Patient denies any reflux or GERD. Patient is not having any diarrhea or constipation issues. Patient denies any lower extremity edema or recent falls. Yes all other systems are reviewed and are negative [facility] Medical History (Updated 07/26/25 @ 01:12 by Suzi Mcpherson, RIC-) Bladder polyps Pulmonary nodule 1 cm or greater in diameter HTN (hypertension) COPD exacerbation Hypoxemia Supplemental oxygen dependent Nephropathy Anxiety, generalized COPD (chronic obstructive pulmonary disease) Cognitive capacity: Alert and orientated x3 Functional capacity: uses cane/walker (Patient currently lives with roommate and no longer drives) Family History Father HTN (hypertension) Diabetes mellitus Mother Cancer Brother Melanoma Sister Breast cancer Son No problems noted. Daughter No problems noted. Surgical History History of esophagogastroduodenoscopy (EGD) Bladder tumor History of colonoscopy History of cystoscopy History of surgery Avulsion of finger tip History of neck surgery Arm fracture, left History of knee surgery H/O colonoscopy Social History Housing: House Alcohol intake: former Patient Tobacco Use Status: Former Tobacco user Smoked in Last 30 Days: No e-Cigarette/Vaping Use: Never Used Use of substances other than those prescribed or required for medical reasons: No Advance Directives: No Advance Directives Information Provided: Yes service: No Cognitive needs: No Hearing needs: No Vision needs: Yes Ebola Risk: Travel/Contact With Anyone From Affected Area/s: No Has Patient Experienced Ebola Symptoms: No Meds Allergies Allergy/AdvReac Type Severity Reaction Status Date / Time No Known Allergies (No Known Allergy Verified 07/25/25 19:12 Allergies*) Active Medications: Current Medications Acetaminophen (Acetaminophen 325 Mg Tablet) 650 mg PO Q6H PRN PRN Reason: Pain, Mild 1-3,fever,headache Albuterol/Ipratropium (Albuterol/Iprat 2.5/0.5mg 3 Ml Ampul.Neb) 3 ml INHALE Q4H PRN PRN Reason: Shortness of Breath/Wheezing Calcium Carbonate (Calcium Carbonate 750 Mg Tab.Chew) 750 mg PO Q4H PRN PRN Reason: Heartburn Magnesium Hydroxide (Milk Of Magnesia 30 Ml Oral.Susp) 30 ml PO DAILY PRN PRN Reason: Constipation Melatonin (Melatonin 3 Mg Tablet) 6 mg PO BEDTIME PRN PRN Reason: Insomnia Ondansetron HCl (Ondansetron Hcl 4 Mg/2 Ml Vial) 4 mg IVPUSH Q8H PRN PRN Reason: Nausea and Vomiting Polyethylene Glycol (Polyethylene Glycol 3350 17 Gm Powd.Pack) 17 gm PO DAILY PRN PRN Reason: Constipation Senna (Sennosides 8.6 Mg Tablet) 17.2 mg PO BEDTIME ASHLEY Sodium Chloride (0.9 % Sodium Chloride Flush 3 Ml Syringe) 3 ml IVFLUSH QSHIFT ASHLEY Home Medications ?Medication ?Instructions ?Recorded ?Confirmed ?Last Taken ?Type cholecalciferol (vitamin D3) 125 125 mcg PO QWEEK 03/0704/09/25 Unknown History mcg (5,000 unit) capsule Physical Exam 2 Vital Signs and Narrative: Vital Signs: Last Vital Signs Temp 98.1 F 07/25/25 23:21 Pulse 84 07/25/25 23:21 Resp 20 07/25/25 23:21 BP 124/58 L 07/25/25 23:21 Pulse Ox 97 07/25/25 23:21 O2 Del Method Nasal Cannula 07/25/25 23:21 O2 Flow Rate 4 07/25/25 23:21 Oxygen Flow Rate 4 07/25/25 19:08 BMI result Body Mass Index 29.8 Alert and orientated X3, able to give good history. Neuro: CN II-X11 intact, no deficits, visual acuity intact EYES: PERRLA, EOM intact, sclerae nonicteric ENT: Hard of hearing, no issues with swallowing, uvula midline, lips moist, nares patent no epistaxis Cardiac: S1 S2 RRR, no murmur, no JVD, no edema in Lower ext Pulmonary: lungs diminished bilaterally Abdominal: BS active in all 4 quadrants, no guarding, tenderness, rebounding, noted distention but no tympany or firmness MSK: strength 4/5 upper and lower extremities : no CVA tenderness no bladder distension Extremities: no edema in lower extremities, PT and DP pulses palpable +2 Psych: mood stable, judgement and insight good Skin: No new rashes or lesions Results Labs 07/25/25 19:26 07/25/25 22:03 Labs: Laboratory Results - last 24 hr 07/25/25 07/25/25 07/25/25 19:26 19:34 20:41 MCV 97.5 MCH 29.9 MCHC 30.6 L RDW 13.2 Plt Count 161 MPV 11.6 Immature Gran % (Auto) 0.5 H Neut % (Auto) 76.7 H Lymph % (Auto) 13.[address] [place] % (Auto) 5.7 Eos % (Auto) 2.9 Baso % (Auto) 0.5 Lymph # (Auto) 1.7 [place] # (Auto) 0.7 Eos # (Auto) 0.4 Baso # (Auto) 0.1 Abs Immat Gran (auto) 0.06 H Absolute Neuts (auto) 9.5 H Absolute Nucleated RBC 0.000 Nucleated RBC % (auto) 0.0 PT 11.0 INR 1.0 D-Dimer High Sensitivty 2438 VBG pH 7.30 L VBG pCO2 58 VBG pO2 56 VBG HCO3 29 H VBG O2 Saturation 82.0 VBG Base Excess 1.7 Anion Gap 17 Estim Creat Clear Calc 31.8 Estimated GFR 38 Random Glucose 129 H Lactic Acid 1.7 Calcium 9.1 Total Bilirubin 0.3 AST 31 ALT 24 Alkaline Phosphatase 74 Troponin I High Sens 28.8 NT-Pro-B Natriuret Pep 164.6 Total Protein 7.4 Albumin 4.4 Urine Color Urine Appearance Urine pH Ur Specific [place] Urine Protein Urine Glucose (UA) Urine Ketones Urine Blood Urine Nitrite Ur Leukocyte Esterase Urine RBC Urine WBC Ur Squamous Epith Cells Urine Bacteria Hyaline Casts COVID-19 (ALEXIS) Negative COVID-19 Clin Com See Note Influenza Type A (LUIS MANUEL) Negative Influenza Type B (LUIS MANUEL) Negative Influenza A & B Note See Note 07/25/25 07/25/25 22:03 22:55 MCV MCH MCHC RDW Plt Count MPV Immature Gran % (Auto) Neut % (Auto) Lymph % (Auto) [place] % (Auto) Eos % (Auto) Baso % (Auto) Lymph # (Auto) [place] # (Auto) Eos # (Auto) Baso # (Auto) Abs Immat Gran (auto) Absolute Neuts (auto) Absolute Nucleated RBC Nucleated RBC % (auto) PT INR D-Dimer High Sensitivty VBG pH VBG pCO2 VBG pO2 VBG HCO3 VBG O2 Saturation VBG Base Excess Anion Gap 17 Estim Creat Clear Calc 31.9 Estimated GFR 38 Random Glucose 181 H Lactic Acid Calcium 8.8 Total Bilirubin 0.1 AST 26 ALT 18 Alkaline Phosphatase 69 Troponin I High Sens 255.8 H* D NT-Pro-B Natriuret Pep Total Protein 6.9 Albumin 4.2 Urine Color Yellow Urine Appearance Clear Urine pH 5.5 Ur Specific [place] 1.020 Urine Protein >=1000 (4+) H Urine Glucose (UA) Negative Urine Ketones Negative Urine Blood Small (1+) H Urine Nitrite Positive H Ur Leukocyte Esterase Negative Urine RBC 0-2 Urine WBC 0-5 Ur Squamous Epith Cells 0-2 Urine Bacteria 4+ Hyaline Casts 3-5 COVID-19 (ALEXIS) COVID-19 Clin Com Influenza Type A (LUIS MANUEL) Influenza Type B (LUIS MANUEL) Influenza A & B Note ABG Attestation: I personally reviewed and interpreted this ABG as follows: (VBG pH 7.3 58, 56, 29, 82) ECG Attestation: I personally reviewed and interpreted this ECG as follows: (Sinus rhythm with some PACs, no ischemic changes) Prior ECG tracings: available for review Imaging Radiologist's Impressions: Chest x-ray IMPRESSION: 1. Mild bibasilar pulmonary scarring. 2. No acute cardiopulmonary findings. Assessment and Plan (1) Elevated troponin: Status: Acute (2) COPD exacerbation: Status: Acute (3) Elevated d-dimer: Status: Acute Plan Patient is a 79-year-old male with past medical history COPD on home O2 2474-5 L nasal cannula, pulmonary nodules, hypertension, BPH, polyps of the bladder with removal, alcohol use disorder in remission, previous marijuana use, generalized anxiety was brought in by ambulance for worsening shortness of breath and started approximately 19:00 on 09/2025. Patient was having a sensation of chest pain/chest pressure which has resolved. D-dimer elevated, patient not eligible for CTA due to renal function. Request for admission for elevated troponins and D-dimer. Goal is to rule out PE and assess for NSTEMI versus takotsubo cardiomyopathy. Patient was not tachycardic, tachypneic or hypotensive on admission. Lactic acid. 1.7 WBCs 12.4, no bandemia. Acute hypoxic respiratory failure with COPD exacerbation, elevated D-dimer - rule out PE Continue oxygen via nasal cannula, wean to normal range 4-5 L when possible Duo nebs p.r.n. Budesonide scheduled V/Q scan scheduled for the a.m. - patient on eligible for CTA due to renal function Heparin infusion standard initiated Supportive care with antitussives, incentive spirometer Ceftriaxone azithromycin initiated in the ED empirically, we will continue noting leukocytosis Elevated Troponins Rule out NSTEMI versus takotsubo? Cardiology consulted Heparin infusion started at standard rate noting possibility of PE Echo ordered for the a.m. BNP WNL Trend troponin Telemetry UTI UA positive for nitrites, small amount of heme Ceftriaxone started in the ED Follow urine culture if indicated ALTHEA/CKD (undx) Creatinine clearance 31.9 with a GFR of 38, this is off patient's baseline Nephrology consulted Urine studies requested Avoid hypotension Avoid nephrotoxic medications BPH Continue tamsulosin GERD Continue omeprazole HTN Continue amlodipine once med rec completed and blood pressure has remained stable overnight DVT prophylaxis: Heparin infusion Med rec completed Full code status Quality Stroke Does the patient have a stroke diagnosis?: No Reason for No Anti-thrombotic by Day Two: N/A - Med Ordered VTE Prior VTE?: No VTE Risk Level:: Medical - moderate - high VTE Device Contraindication: N/A - Device Ordered VTE Drug Contraindication: N/A - Med Ordered
--- NOTE | 2025-07-26 00:32 | PC.NURSE ---
pt medicated per MAR, tolerated well.
--- NOTE | 2025-07-26 00:59 | PC.NURSE ---
Provider Suzi MCDANIEL d/c heparin 4,000, confirm dose to be given is 6100.
[2025-07-26 01:03] LABS: PTT Heparin Drip 27.6 SEC (53-77.9)
[2025-07-26] MEDS: Heparin Sodium,Porcine/1/2NS 25,000 UNIT/250 ML IV.SOLN 10.68 UNIT IVCONT (02:03)
[2025-07-26] MEDS: Albuterol/Iprat 2.5/0.5MG 3 ML AMPUL.NEB INHALE ×2 (06:02→15:57)
--- NOTE | 2025-07-26 07:00 | CA_ITS ---
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 There is mildly increased left ventricular wall thickness. The visually estimated ejection fraction is between 55-60%. - E/E prime ratio is between 8 and 15 consistent with indeterminate filling pressures. - The basal inferior, apical septum, and mid anteroseptal segments are akinetic. - Normal right ventricular cavity size and systolic function. - Normal right atrial pressure. - There is no evidence of pericardial effusion. Findings Procedure Information Contrast agent, definity, is being given per protocol without apparent complications. Left Ventricle Normal left ventricular size and systolic function. There is mildly increased left ventricular wall thickness. The visually estimated ejection fraction is between 55-60%. There is evidence of regional wall motion abnormalities. Abnormal diastolic function is noted. Spectral Doppler is indicative of an impaired relaxation filling pattern. E/E prime ratio is between 8 and 15 consistent with indeterminate filling pressures. Wall Motion Rest Echo Findings The basal inferior, apical septum, and mid anteroseptal segments are akinetic. Right Ventricle Normal right ventricular cavity size and systolic function. Atria The left atrium is normal in size. The right atrium is normal in size. Aortic Valve There is a normal trileaflet aortic valve. There is mild calcification of the aortic valve. There is no aortic valve stenosis. There is no aortic valve regurgitation. Mitral Valve The mitral valve appears normal. There is no mitral valve regurgitation. There is no mitral valve stenosis. Pulmonic Valve The pulmonic valve is likely normal. Tricuspid Valve Normal tricuspid valve structure and function. Tricuspid regurgitation envelope is inadequate for calculation of right ventricular systolic pressure. Normal right atrial pressure. Great Vessels All visible segments of the aorta are normal in size. Venous The inferior vena cava is normal in size and collapses greater than 50% with inspiration. Pericardium/Pleural There is no evidence of pericardial effusion. Prior Study Comparison No prior study available for comparison. Measurements 2D Linear Measurements IVSd: 1.16 0.6-0.9/0.6-1.0 cm LVIDd: 4.48 3.9-5.3/4.2-5.9 cm LVIDd Index: 2.48 2.4-3.2/2.2-3.1 cm/m2 LVIDs: 2.88 2.0-3.6 cm LVPWd: 1.15 0.7-1.1 cm LA Diam: 3.20 2.7-3.8/3.0-4.0 cm LAIDs Index: 1.77 1.5-2.3 cm/m2 LV Mass: 232.06 67-162/88-224 g LV Mass Index: 128.21 43-95/49-115 g/m2 LVOT Diam: 2.10 3.0+(-)1.3 cm 2D Systolic Function EF 4C: 67.30 >55% EF 2C: 69.40 >55% EF BiP: 69.00 >55% Mitral Valve MV Pk E: 0.59 MV PK A: 1.08 MV Decel Time: 325.00 E/A: 0.50 E'Lateral: 5.62 E'Medial: 5.08 E/E' Med: 11.70 E/E' Lat: 10.50 PHT: 95.00 MVA PHT: 2.32 Decel Craven: 1.82 Aortic Valve AoV Pk Jam: 1.27 AoV Mn Jam: 0.88 AoV VTI: 0.27 AoV Pk Grad: 6.00 Aov Mn Grad: 4.00 ELIZABETH Cont.VTI: 2.63 LVOT LVOT Pk Jam: 1.02 LVOT Mn Jam: 0.65 LVOT VTI: 0.21 LVOT Pk Grad: 4.00 LVOT Mn Grad: 2.00 LVOT Diam: 2.10 LVOT Area: 3.46 Diastolic Function MV Pk E: 0.59 MV Pk A: 1.08 E/A: 0.50 E'Medial: 5.08 E/E' Med: 11.70 E' Laterial: 5.62 E/E' Lat: 10.50 Right Ventricle TAPSE (mm): 20.20 TVS' Jam: 15.00 Tricuspid Valve RA Press: 3.00 Great Vessels Aorta Sinus of Valsalva: 3.70 2.0-3.5 cm Ao Asc: 3.70 2.1-3.4 cm Pulmonary Valve PV Pk Jam: 0.87 Peak PV Grad: 3.00 Updated in Other Vendor System with Status of Final Erwin Salgado MD electronically signed on 07/26/2025 1:10:00 PM with status of Final
--- NOTE | 2025-07-26 07:17 | HO.PM.IMPN ---
Subjective Subjective Date of Service: 07/26/25 Interval History: Patient chest pain-free , his only concern is ?I want coffee? Please see the code status note-patient does not wish to be on artificial ventilation or have CPR hence code status changed to DNR DNI Patient is on heparin drip for NSTEMI - supratherapeutic PT - will follow ptotocol TTE done, awatiing result No procedure likely per staff - hence will advance diet and if Cath is planned, will place him on NPO Review of Systems Review of Systems: Yes all other systems are reviewed and are negative Physical Exam Exam: Exam: General: AOx3, somnolent, morbidly obese, currently on 3 L O2 nasal cannula saturating 92% Resp: Wheezing noted bilaterally, mild accessory muscle use noted CVS: S1, S2, RRR GI: +BS, NT, no distention Skin: Warm, dry Neuro: Cranial nerves II-XII grossly intact bilaterally. Motor grossly intact bilaterally Extremities: No edema Psych: Poor insight Vital Signs: Vital Signs: Last Vital Signs Temp 98.1 F 07/26/25 03:05 Pulse 78 07/26/25 06:03 Resp 12 07/26/25 06:03 BP 132/69 07/26/25 03:05 Pulse Ox 94 07/26/25 03:05 O2 Del Method Nasal Cannula 07/26/25 03:05 O2 Flow Rate 4 07/26/25 03:05 Oxygen Flow Rate 4 07/25/25 19:08 BMI result Body Mass Index 30.3 Objective Data Active Medications Acetaminophen (Acetaminophen 325 Mg Tablet) 650 mg PO Q6H PRN PRN Reason: Pain, Mild 1-3,fever,headache Albuterol/Ipratropium (Albuterol/Iprat 2.5/0.5mg 3 Ml Ampul.Neb) 3 ml INHALE Q4H PRN PRN Reason: Shortness of Breath/Wheezing Last Admin: 07/26/25 06:02 Dose: 3 ml Documented By: KENNY Budesonide (Budesonide 0.5 Mg/2 Ml Ampul.Neb) 0.5 mg INHALE RBID ASHLEY Calcium Carbonate (Calcium Carbonate 750 Mg Tab.Chew) 750 mg PO Q4H PRN PRN Reason: Heartburn Ceftriaxone Sodium (Ceftriaxone Sodium 1 Gm Vial) 1 gm IVPUSH Q24H ASHLEY Guaifenesin (Guaifenesin 200 Mg/10 Ml 10 Ml Liquid) 10 ml PO Q4H PRN PRN Reason: Cough Heparin Sodium (Porcine) (Heparin Sodium,Porcine 5,000 Unit/Ml Vial) 3,100 unit 40 unit/kg (3100 unit) IVPUSH PROTOCOL BOLUS PRN; Protocol PRN Reason: 40 unit/kg - Heparin Protocol Heparin Sodium (Porcine) (Heparin Sodium,Porcine 5,000 Unit/Ml Vial) 6,100 unit 80 unit/kg (6100 unit) IVPUSH PROTOCOL BOLUS PRN; Protocol PRN Reason: 80 unit/kg - Heparin Protocol Heparin Sodium/Sodium Chloride (Heparin Sodium,Porcine/1/2ns) 25,000 unit in 250 mls @ 0 mls/hr IVCONT .Q0M [facility]; Protocol Last Admin: 07/26/25 02:03 Dose: 14 units/kg/hr, 10.68 mls/hr Documented By: JAMES Co-signed By: CINTHYA Azithromycin 500 mg/ Sodium (Chloride) 250 mls @ 125 mls/hr IV Q24H [facility] Magnesium Hydroxide (Milk Of Magnesia 30 Ml Oral.Susp) 30 ml PO DAILY PRN PRN Reason: Constipation Melatonin (Melatonin 3 Mg Tablet) 6 mg PO BEDTIME PRN PRN Reason: Insomnia Ondansetron HCl (Ondansetron Hcl 4 Mg/2 Ml Vial) 4 mg IVPUSH Q8H PRN PRN Reason: Nausea and Vomiting Polyethylene Glycol (Polyethylene Glycol 3350 17 Gm Powd.Pack) 17 gm PO DAILY PRN PRN Reason: Constipation Senna (Sennosides 8.6 Mg Tablet) 17.2 mg PO BEDTIME [facility] Sodium Chloride (0.9 % Sodium Chloride Flush 3 Ml Syringe) 3 ml IVFLUSH QSHIFT [facility] Labs 07/26/25 07:35 07/26/25 07:35 Labs: Laboratory Results - last 24 hr 07/25/25 07/25/25 07/25/25 19:26 19:34 20:41 MCV 97.5 MCH 29.9 MCHC 30.6 L RDW 13.2 Plt Count 161 MPV 11.6 Immature Gran % (Auto) 0.5 H Neut % (Auto) 76.7 H Lymph % (Auto) 13.7 L [place] % (Auto) 5.7 Eos % (Auto) 2.9 Baso % (Auto) 0.5 Lymph # (Auto) 1.7 [place] # (Auto) 0.7 Eos # (Auto) 0.4 Baso # (Auto) 0.1 Abs Immat Gran (auto) 0.06 H Absolute Neuts (auto) 9.5 H Absolute Nucleated RBC 0.000 Nucleated RBC % (auto) 0.0 PT 11.0 INR 1.0 aPTT Heparin Protocol D-Dimer High Sensitivty 2438 VBG pH 7.30 L VBG pCO2 58 VBG pO2 56 VBG HCO3 29 H VBG O2 Saturation 82.0 VBG Base Excess 1.7 Anion Gap 17 Estim Creat Clear Calc 31.8 Estimated GFR 38 Random Glucose 129 H Lactic Acid 1.7 Calcium 9.1 Total Bilirubin 0.3 AST 31 ALT 24 Alkaline Phosphatase 74 Troponin I High Sens 28.8 NT-Pro-B Natriuret Pep 164.6 Total Protein 7.4 Albumin 4.4 Urine Color Urine Appearance Urine pH Ur Specific [place] Urine Protein Urine Glucose (UA) Urine Ketones Urine Blood Urine Nitrite Ur Leukocyte Esterase Urine RBC Urine WBC Ur Squamous Epith Cells Urine Bacteria Hyaline Casts Urine Osmolality Urine Creatinine COVID-19 (ALEXIS) Negative COVID-19 Clin Com See Note Influenza Type A (LUIS MANUEL) Negative Influenza Type B (LUIS MANUEL) Negative Influenza A & B Note See Note 07/25/25 07/25/25 07/26/25 22:03 22:55 00:49 MCV MCH MCHC RDW Plt Count MPV Immature Gran % (Auto) Neut % (Auto) Lymph % (Auto) [place] % (Auto) Eos % (Auto) Baso % (Auto) Lymph # (Auto) [place] # (Auto) Eos # (Auto) Baso # (Auto) Abs Immat Gran (auto) Absolute Neuts (auto) Absolute Nucleated RBC Nucleated RBC % (auto) PT INR aPTT Heparin Protocol 27.6 L D-Dimer High Sensitivty VBG pH VBG pCO2 VBG pO2 VBG HCO3 VBG O2 Saturation VBG Base Excess Anion Gap 17 Estim Creat Clear Calc 31.9 Estimated GFR 38 Random Glucose 181 H Lactic Acid Calcium 8.8 Total Bilirubin 0.1 AST 26 ALT 18 Alkaline Phosphatase 69 Troponin I High Sens 255.8 H* D NT-Pro-B Natriuret Pep Total Protein 6.9 Albumin 4.2 Urine Color Yellow Urine Appearance Clear Urine pH 5.5 Ur Specific [place] 1.020 Urine Protein >=1000 (4+) H Urine Glucose (UA) Negative Urine Ketones Negative Urine Blood Small (1+) H Urine Nitrite Positive H Ur Leukocyte Esterase Negative Urine RBC 0-2 Urine WBC 0-5 Ur Squamous Epith Cells 0-2 Urine Bacteria 4+ Hyaline Casts 3-5 Urine Osmolality 608 Urine Creatinine 114.07 COVID-19 (ALEXIS) COVID-19 Clin Com Influenza Type A (LUIS MANUEL) Influenza Type B (LUIS MANUEL) Influenza A & B Note Assessment and Plan (1) NSTEMI (non-ST elevated myocardial infarction): Status: Acute Plan 79-year-old male with past medical history COPD on home O2 2474-5 L nasal cannula, pulmonary nodules, hypertension, BPH, polyps of the bladder with removal, alcohol use disorder in remission, previous marijuana use, generalized anxiety was BIBA FOR SOB/RACHEL and was found to have COPD exacerbation, NSTEMI, high likelihood of PE and was started on heparin drip. NSTEMI-patient currently CP free Type 2 troponinemia we will only trend if having any ongoing chest pain TTE done awaiting read We will advance diet as per staff no procedure plan today NPO if catheterization being planned by Cardiology No need to trend troponin given that the patient is on therapeutic heparin drip -continued heparin drip Tele monitoring Electrolytes repleted to goal daily Acute on chronic hypoxic hypercapnic AE COPD on home O2-2 L at rest, 3-4 with minimal ambulation as of March 2025 Baseline moderate to advanced COPD-a patient of Dr. Jean Possible PE Baseline solitary pulmonary nodule-outpatient management-repeat imaging in September outpatient Continue IV steroids ABX-less likely infectious this is likely an advancement of his COPD baseline, however given how sick the patient is IV antibiotics are currently warranted COPD management with p.r.n. and scheduled nebs Mucinex Pulmonary hygiene CTA contraindicated given his CKD, we will continue heparin drip for now CKD appears baseline Code status DNR DNI per patient's wishes We will need PTOT Rehab placement Pulmonary rehab would be ideal for him Patient continues to need ongoing hospitalization given life-threatening NSTEMI, COPD exacerbation requiring multiple ongoing therapies This note is constructed using voice recognition software. While every effort has been made to ensure accuracy, political reporter errors may have been included. Quality Stroke Does the patient have a stroke diagnosis?: No Reason for No Anti-thrombotic by Day Two: N/A - Med Ordered VTE Prior VTE?: No VTE Risk Level:: Medical - moderate - high VTE Device Contraindication: N/A - Device Ordered VTE Drug Contraindication: N/A - Med Ordered
[2025-07-26 07:56] LABS: Hematocrit 40.2 % (42.0-52.0); Hemoglobin 12.4 g/dl (14.0-18.0); Imm Gran Abs Auto 0.07 X10*3/uL (0.00-0.03); Imm Gran Pct Auto 0.7 % (0.0-0.4); Lymphocytes Absolute Auto 0.6 X10*3/uL (1.2-4.9); MANUAL DIFF FLAG SCAN; Mean Corpuscular HGB Conc 30.8 g/dl (31.0-36.0); Mean Corpuscular Hemoglobin 29.7 pg (27.0-33.0); Mean Corpuscular Volume 96.4 fL (80.0-98.0); NRBC Abs Auto 0.000 X10*3/uL (0.0-0.012); NRBC Pct Auto 0.0 /100WBC (0.0-0.2); Platelet Count 153 X10*3/uL (160-400); Red Blood Count 4.17 X10*6/uL (4.60-5.80); SCAN SMEAR FLAG 1; White Blood Count 9.9 X10*3/uL (4.8-10.8)
[2025-07-26 08:04] LABS: Osmolality, Serum 305 mosm/kg (281-305)
[2025-07-26 08:12] LABS: Alanine Aminotransferase 25 U/L (0-40); Albumin Level 4.4 g/dL (3.5-5.0); Alkaline Phosphatase 73 U/L (39-117); Anion Gap 12 (12-20); Aspartate Amino Transferase 35 U/L (5-37); Blood Urea Nitrogen 32 mg/dL (9-16); Calcium 8.7 mg/dL (8.4-10.2); Carbon Dioxide 26 mmol/L (22-29); Chloride 106 mmol/L (96-108); Creatinine Clr Calc Pharmacy 34.8; Estimated Glomerular Filt Rate 42; Potassium 5.3 mmol/L (3.3-5.1); Sodium 139 mmol/L (135-145); Total Protein 7.3 g/dL (6.5-8.0)
[2025-07-26 08:17] LABS: EOS Counted 0 CELLS; EOS QC POS YES; EOS Stain Quality OK YES; WBC, Counted 100 CELLS
[2025-07-26 08:27] LABS: Troponin-I High Sensitivity 452.6 ng/L (<3.5-35.0)
--- NOTE | 2025-07-26 08:27 | PHA.MEDREC ---
Pharmacy Consult ? Medication Reconciliation Pharmacy has completed the medication reconciliation. Patient did not know his medications. Told to call [facility], facility is closed today however claims were utilized.
[2025-07-26 09:01] LABS: PTT Heparin Drip 192.4 SEC (53-77.9)
--- NOTE | 2025-07-26 10:02 | P.F2F_ITS ---
Service Date Service Date: 07/26/25 Reasons for Services Homebound: Leaving the home is medically contraindicated at this time without the asist of a device and/or another person due th the listed conditions above and below. Certification: Based on the above findings, I certify that this patient is confined to the home and needs intermittent senior care care, physical therapy and/or speech therapy, or continues to need occupational therapy. The patient is under my care, and I have initiated the establishment of the plan of care. The patient will be followed by a physician who will periodically review the plan of care. Time Spent With Patient Time: Total time managing care of this patient today ____ minutes.
[2025-07-26 10:13] LABS: PTT Heparin Drip 92.6 SEC (53-77.9)
--- NOTE | 2025-07-26 12:18 | P.ACPN_ITS ---
Advanced Care Planning Note Advanced Care Planning Note Discussed with: patient Time spent (in minutes): 35 Narrative: 79-year-old male with past medical history COPD on home O2 2474-5 L nasal cannula, pulmonary nodules, hypertension, BPH, polyps of the bladder with removal, alcohol use disorder in remission, previous marijuana use, generalized anxiety was BIBA FOR SOB/RACHEL and was found to have COPD exacerbation, NSTEMI, high likelihood of PE and was started on heparin drip. I met the patient for the 1st time on 07/26/2025-patient expressed that given his comorbidities, as I usually ask every single patient, he had multiple questions regarding CPR and intubation. When explained about chest compressions and intubation and artificial ventilation, he stated he would like to be DNR DNI and does not want any artificial tubes. I encouraged the patient to speak with his daughter as well who is the healthcare proxy. Per his wishes I have changed the code status to DNR DNI. Patient was A&O x3 at the time of this examination. This note is constructed using voice recognition software. While every effort has been made to ensure accuracy, account development associate errors may have been included. Problems Discussed (1) Elevated troponin: (2) COPD exacerbation: (3) Elevated d-dimer:
--- NOTE | 2025-07-26 12:58 | P.CONCA_ITS ---
History of Present Illness History of Present Illness Date of Service: 07/26/25 Chief complaint: Elevated Troponins Narrative: [age] year gentleman with advanced COPD presenting with shortness of breath and elevated troponin levels. He has background history of chronic kidney disease. He has COPD and is oxygen dependent at baseline. He is presenting with worsening shortness of breath and some fluttering feeling in the chest. His high sensitivity troponin levels were normal initially but increased to 452. NT proBNP 164. At rest he has no symptoms currently. Echocardiography is showing mid to distal septal wall motion abnormality along with basal inferior wall motion abnormality. EKGs showing anteroseptal infarct which appears to be old and some inferior Q-waves which are new. Denying any chest discomfort. Did not have any history of [place] reportedly. [facility] Past Medical History Medical History (Updated 07/26/25 @ 14:25 by Erwin Salgado MD) Bladder polyps Pulmonary nodule 1 cm or greater in diameter HTN (hypertension) COPD exacerbation Hypoxemia Supplemental oxygen dependent Nephropathy Anxiety, generalized COPD (chronic obstructive pulmonary disease) Family History Family History Father HTN (hypertension) Diabetes mellitus Mother Cancer Brother Melanoma Sister Breast cancer Son No problems noted. Daughter No problems noted. Surgical History Surgical History History of esophagogastroduodenoscopy (EGD) Bladder tumor History of colonoscopy History of cystoscopy History of surgery Avulsion of finger tip History of neck surgery Arm fracture, left History of knee surgery H/O colonoscopy Social History Social History Household Members: Friend(s) Housing: House Do you presently have visiting nurse or other home services: No Alcohol intake: former Patient Tobacco Use Status: Former Tobacco user Smoked in Last 30 Days: No e-Cigarette/Vaping Use: Former Use Second Hand Smoke Exposure: No Use of substances other than those prescribed or required for medical reasons: No Currently Displaying Signs/Symptoms of Drug Intoxication Withdrawal: No Have you been hit, kicked, punched, or otherwise hurt by someone within the past year? If so, by whom?: No Do you feel safe in your current relationship?: No Current Relationship Is there a partner from a previous relationship who is making you feel unsafe now?: No Are you made to feel afraid or neglected: No Advance Directives: No Advance Directives Information Provided: Yes Do you have a plan to hurt others: No Plan Recently lost weight without trying: No Eating poorly because of decreased appetite: No Nutrition Risks: No Nutritional Risk Poor oral hygiene: No service: No Cognitive needs: No Hearing needs: No Vision needs: Yes Travel History Ebola Risk: Travel/Contact With Anyone From Affected Area/s: No Has Patient Experienced Ebola Symptoms: No Meds Allergies Allergy/AdvReac Type Severity Reaction Status Date / Time No Known Allergies (No Known Allergy Verified 07/25/25 19:12 Allergies*) Active Medications: Current Medications Acetaminophen (Acetaminophen 325 Mg Tablet) 650 mg PO Q6H PRN PRN Reason: Pain, Mild 1-3,fever,headache Albuterol/Ipratropium (Albuterol/Iprat 2.5/0.5mg 3 Ml Ampul.Neb) 3 ml INHALE Q4H PRN PRN Reason: Shortness of Breath/Wheezing Last Admin: 07/26/25 06:02 Dose: 3 ml Budesonide (Budesonide 0.5 Mg/2 Ml Ampul.Neb) 0.5 mg INHALE RBID ASHLEY Last Admin: 07/26/25 07:36 Dose: 0.5 mg Calcium Carbonate (Calcium Carbonate 750 Mg Tab.Chew) 750 mg PO Q4H PRN PRN Reason: Heartburn Ceftriaxone Sodium (Ceftriaxone Sodium 1 Gm Vial) 1 gm IVPUSH Q24H ASHLEY Guaifenesin (Guaifenesin 200 Mg/10 Ml 10 Ml Liquid) 10 ml PO Q4H PRN PRN Reason: Cough Heparin Sodium (Porcine) (Heparin Sodium,Porcine 5,000 Unit/Ml Vial) 3,100 unit 40 unit/kg (3100 unit) IVPUSH PROTOCOL BOLUS PRN; Protocol PRN Reason: 40 unit/kg - Heparin Protocol Heparin Sodium (Porcine) (Heparin Sodium,Porcine 5,000 Unit/Ml Vial) 6,100 unit 80 unit/kg (6100 unit) IVPUSH PROTOCOL BOLUS PRN; Protocol PRN Reason: 80 unit/kg - Heparin Protocol Heparin Sodium/Sodium Chloride (Heparin Sodium,Porcine/1/2ns) 25,000 unit in 250 mls @ 0 mls/hr IVCONT .Q0M ASHLEY; Protocol Last Titration: 07/26/25 10:20 Dose: 10 units/kg/hr, 7.63 mls/hr Azithromycin 500 mg/ Sodium (Chloride) 250 mls @ 125 mls/hr IV Q24H [facility] Magnesium Hydroxide (Milk Of Magnesia 30 Ml Oral.Susp) 30 ml PO DAILY PRN PRN Reason: Constipation Melatonin (Melatonin 3 Mg Tablet) 6 mg PO BEDTIME PRN PRN Reason: Insomnia Ondansetron HCl (Ondansetron Hcl 4 Mg/2 Ml Vial) 4 mg IVPUSH Q8H PRN PRN Reason: Nausea and Vomiting Polyethylene Glycol (Polyethylene Glycol 3350 17 Gm Powd.Pack) 17 gm PO DAILY PRN PRN Reason: Constipation Senna (Sennosides 8.6 Mg Tablet) 17.2 mg PO BEDTIME ASHLEY Sodium Chloride (0.9 % Sodium Chloride Flush 3 Ml Syringe) 3 ml IVFLUSH QSHIFT ASHLEY Last Admin: 07/26/25 07:42 Dose: Not Given Physical Exam 2 Vital Signs: Vital Signs: Last Vital Signs Temp 98.7 F 07/26/25 11:37 Pulse 61 07/26/25 11:37 Resp 20 07/26/25 11:37 BP 152/82 H 07/26/25 11:37 Pulse Ox 98 07/26/25 11:37 O2 Del Method Nasal Cannula 07/26/25 11:37 O2 Flow Rate 4 07/26/25 11:37 Oxygen Flow Rate 4 07/25/25 19:08 BMI result Body Mass Index 30.3 GENERAL APPEARANCE: in no acute distress, pleasant. NECK: no carotid bruit, no jugular venous distention. SKIN: no suspicious lesions, warm and dry. HEART: no murmurs, regular rate and rhythm. LUNGS: Mild expiratory wheezes. ABDOMEN: soft, nontender. EXTREMITIES: no edema. PERIPHERAL PULSES: equal. NEUROLOGIC: No gross deficits, AAO X 3 Objective Labs and Meds 07/26/25 07:35 07/26/25 07:35 Lab results: Laboratory Results - last 24 hr 07/25/25 07/25/25 07/25/25 19:26 19:34 20:41 WBC 12.4 H RBC 4.32 L Hgb 12.9 L Hct 42.1 MCV 97.5 MCH 29.9 MCHC 30.6 L RDW 13.2 Plt Count 161 MPV 11.6 Immature Gran % (Auto) 0.5 H Neut % (Auto) 76.7 H Lymph % (Auto) 13.7 L [place] % (Auto) 5.7 Eos % (Auto) 2.9 Baso % (Auto) 0.5 Lymph # (Auto) 1.7 [place]s # (Auto) 0.7 Eos # (Auto) 0.4 Baso # (Auto) 0.1 Abs Immat Gran (auto) 0.06 H Absolute Neuts (auto) 9.5 H Absolute Nucleated RBC 0.000 Nucleated RBC % (auto) 0.0 Smear Tech's Comments PT 11.0 INR 1.0 aPTT Heparin Protocol D-Dimer High Sensitivty 2438 VBG pH 7.30 L VBG pCO2 58 VBG pO2 56 VBG HCO3 29 H VBG O2 Saturation 82.0 VBG Base Excess 1.7 Sodium 141 Potassium 5.4 H Chloride 103 Carbon Dioxide 26 Anion Gap 17 BUN 31 H Creatinine 1.75 H Estim Creat Clear Calc 31.8 Estimated GFR 38 Random Glucose 129 H Osmolality Lactic Acid 1.7 Calcium 9.1 Total Bilirubin 0.3 AST 31 ALT 24 Alkaline Phosphatase 74 Troponin I High Sens 28.8 NT-Pro-B Natriuret Pep 164.6 Total Protein 7.4 Albumin 4.4 Urine Color Urine Appearance Urine pH Ur Specific [place] Urine Protein Urine Glucose (UA) Urine Ketones Urine Blood Urine Nitrite Ur Leukocyte Esterase Urine RBC Urine WBC Ur Squamous Epith Cells Urine Bacteria Hyaline Casts Urine Eosinophils % Urine Osmolality Urine Creatinine COVID-19 (ALEXIS) Negative COVID-19 Clin Com See Note Influenza Type A (LUIS MANUEL) Negative Influenza Type B (LUIS MANUEL) Negative Influenza A & B Note See Note 07/25/25 07/25/25 07/26/25 22:03 22:55 00:49 WBC RBC Hgb Hct MCV MCH MCHC RDW Plt Count MPV Immature Gran % (Auto) Neut % (Auto) Lymph % (Auto) [place] % (Auto) Eos % (Auto) Baso % (Auto) Lymph # (Auto) [place] # (Auto) Eos # (Auto) Baso # (Auto) Abs Immat Gran (auto) Absolute Neuts (auto) Absolute Nucleated RBC Nucleated RBC % (auto) Smear Tech's Comments PT INR aPTT Heparin Protocol 27.6 L D-Dimer High Sensitivty VBG pH VBG pCO2 VBG pO2 VBG HCO3 VBG O2 Saturation VBG Base Excess Sodium 140 Potassium 5.0 Chloride 102 Carbon Dioxide 26 Anion Gap 17 BUN 32 H Creatinine 1.74 H Estim Creat Clear Calc 31.9 Estimated GFR 38 Random Glucose 181 H Osmolality Lactic Acid Calcium 8.8 Total Bilirubin 0.1 AST 26 ALT 18 Alkaline Phosphatase 69 Troponin I High Sens 255.8 H* D NT-Pro-B Natriuret Pep Total Protein 6.9 Albumin 4.2 Urine Color Yellow Urine Appearance Clear Urine pH 5.5 Ur Specific [place] 1.020 Urine Protein >=1000 (4+) H Urine Glucose (UA) Negative Urine Ketones Negative Urine Blood Small (1+) H Urine Nitrite Positive H Ur Leukocyte Esterase Negative Urine RBC 0-2 Urine WBC 0-5 Ur Squamous Epith Cells 0-2 Urine Bacteria 4+ Hyaline Casts 3-5 Urine Eosinophils % 0.0 Urine Osmolality 608 Urine Creatinine 114.07 COVID-19 (ALEXIS) COVID-19 Clin Com Influenza Type A (LUIS MANUEL) Influenza Type B (LUIS MANUEL) Influenza A & B Note 07/26/25 07/26/25 07/26/25 07:35 08:18 09:54 WBC 9.9 RBC 4.17 L Hgb 12.4 L Hct 40.2 L MCV 96.4 MCH 29.7 MCHC 30.8 L RDW 13.4 Plt Count 153 L MPV 12.1 Immature Gran % (Auto) 0.7 H Neut % (Auto) 91.7 H Lymph % (Auto) 5.8 L [place] % (Auto) 1.7 L Eos % (Auto) 0.0 Baso % (Auto) 0.1 Lymph # (Auto) 0.6 L [place] # (Auto) 0.2 Eos # (Auto) 0.0 Baso # (Auto) 0.0 Abs Immat Gran (auto) 0.07 H Absolute Neuts (auto) 9.1 H Absolute Nucleated RBC 0.000 Nucleated RBC % (auto) 0.0 Smear Tech's Comments VERIFIED PT INR aPTT Heparin Protocol 192.4 H* D 92.6 H D D-Dimer High Sensitivty VBG pH VBG pCO2 VBG pO2 VBG HCO3 VBG O2 Saturation VBG Base Excess Sodium 139 Potassium 5.3 H Chloride 106 Carbon Dioxide 26 Anion Gap 12 BUN 32 H Creatinine 1.61 H Estim Creat Clear Calc 34.8 Estimated GFR 42 Random Glucose 158 H Osmolality 305 Lactic Acid Calcium 8.7 Total Bilirubin 0.3 AST 35 ALT 25 Alkaline Phosphatase 73 Troponin I High Sens 452.6 H* D NT-Pro-B Natriuret Pep Total Protein 7.3 Albumin 4.4 Urine Color Urine Appearance Urine pH Ur Specific [place] Urine Protein Urine Glucose (UA) Urine Ketones Urine Blood Urine Nitrite Ur Leukocyte Esterase Urine RBC Urine WBC Ur Squamous Epith Cells Urine Bacteria Hyaline Casts Urine Eosinophils % Urine Osmolality Urine Creatinine COVID-19 (ALEXIS) COVID-19 Clin Com Influenza Type A (LUIS MANUEL) Influenza Type B (LUIS MANUEL) Influenza A & B Note Assessment and Plan (1) Hypertension, essential: Status: Acute (2) NSTEMI (non-ST elevated myocardial infarction): Status: Acute Plan Pleasant 79-year-old gentleman presenting with acute on chronic dyspnea on background of COPD on supplemental oxygen. He has history of chronic kidney disease. He ruled in for NSTEMI. EKGs showing septal infarct with inferior Q-waves. He has wall motion abnormalities on echocardiography including septal akinesis and basal inferior wall motion abnormality. He was a heavy smoker and likelihood of finding underlying coronary disease is high. I have discussed with him in detail and we will arrange transfer for him to go to [facility] [place] for diagnostic angiography. In the meantime he should continue heparin drip. Continue baby aspirin. Continue amlodipine 5 mg and add atorvastatin 40 mg daily. Thank you for allowing me to participate in the care of your patient. Please feel free to contact me if you have any questions. Procedures Date of Service Date of Service: 07/26/25
[2025-07-26 17:04] LABS: PTT Heparin Drip 51.9 SEC (53-77.9)
--- NOTE | 2025-07-26 17:21 | PC.NURSE ---
pt had a bed in [facility]. Nurse to nurse report completed and updated regarding heparin gtt, including recent PTT 51.9 and heparin bolus 3100 units given, rate increased to 12units/kg/hr, and next ptt drawn should be at 2315. Message left for ADRIANNA Corbett at [facility]. Warm handover completed w EMS. pt is discharged
--- NOTE | 2025-07-26 17:47 | PM.DS ---
DS: Providers Provider Date of Service: 07/26/25 Date of admission: 07/26/25 00:29 Date of discharge: 07/26/25 Primary care physician: Tanisha Evangelista MD Consults: 07/26/25 00:39 Consult to Cardiology Routine Consulting Provider: [facility] Reason for consultation: elevated troponins Has provider been notified: Yes 07/26/25 01:20 Consult to Nephrology Routine Consulting Provider: [facility] Reason for consultation: ALTHEA, suspect undiagnosed CKD Has provider been notified: No DS: Diagnosis Discharge Diagnosis (1) Hypertension, essential: Status: Acute (2) NSTEMI (non-ST elevated myocardial infarction): Status: Acute DS: Summary Hospital Course Hospital Course: NSTEMI 79-year-old male with past medical history COPD on home O2 2474-5 L nasal cannula, pulmonary nodules, hypertension, BPH, polyps of the bladder with removal, alcohol use disorder in remission, previous marijuana use, generalized anxiety was BIBA for SOB/RACHEL and was found to have COPD exacerbation, NSTEMI, high likelihood of PE and was started on heparin drip. Cardiology was consulted. Per Cardiology note : He ruled in for NSTEMI. EKGs showing septal infarct with inferior Q-waves. He has wall motion abnormalities on echocardiography including septal akinesis and basal inferior wall motion abnormality. He was a heavy smoker and likelihood of finding underlying coronary disease is high. I have discussed with him in detail and we will arrange transfer for him to go to [facility] for diagnostic angiography. In the meantime he should continue heparin drip. Continue baby aspirin. Continue amlodipine 5 mg and add atorvastatin 40 mg daily. Patient is being transferred to [facility] for further cardiological management given limited resources at the hospital. Acute on chronic hypoxic hypercapnic AE COPD on home O2-2 L at rest, 3-4 with minimal ambulation as of March 2025 Baseline moderate to advanced COPD-a patient of Dr. Jean Possible PE Baseline solitary pulmonary nodule-outpatient management-repeat imaging in September outpatient Continue IV steroids ABX-less likely infectious this is likely an advancement of his COPD baseline, however given how sick the patient is IV broad-spectrum antibiotics are currently warranted COPD management with p.r.n. and scheduled nebs Mucinex Pulmonary hygiene CTA contraindicated given his CKD, we will continue heparin drip for now CKD appears baseline Code status DNR DNI per patient's wishes Patient is being transferred to [facility] for further medical management This note is constructed using voice recognition software. While every effort has been made to ensure accuracy, patient registration clerk errors may have been included. Time spent discussing smoking cessation with patient: more than 10 minutes Status at Discharge Functional status at discharge: uses cane/walker Overall status at discharge: patient is not back to baseline Time Attestation Discharge Coordination Time (in mins): 55 mins Quality: Safe Use of Opioids Does Pt have an Active Cancer Diagnosis on the Problem List?: No Quality: Stroke Does the patient have a stroke diagnosis?: No Physical Exam Vital Signs: Vital Signs: Last Vital Signs Temp 98.5 F 07/26/25 16:00 Pulse 78 07/26/25 16:00 Resp 20 07/26/25 16:00 BP 139/71 07/26/25 16:00 Pulse Ox 95 07/26/25 16:00 O2 Del Method Nasal Cannula 07/26/25 16:00 O2 Flow Rate 4 07/26/25 16:00 Oxygen Flow Rate 4 07/25/25 19:08 BMI result Body Mass Index 30.3 DS: Data Data Completed and Pending Labs on day of discharge: Laboratory Results - last 24 hr 07/25/25 07/25/25 07/25/25 19:26 19:34 20:41 WBC 12.4 H RBC 4.32 L Hgb 12.9 L Hct 42.1 MCV 97.5 MCH 29.9 MCHC 30.6 L RDW 13.2 Plt Count 161 MPV 11.6 Immature Gran % (Auto) 0.5 H Neut % (Auto) 76.7 H Lymph % (Auto) 13.7 L [place] % (Auto) 5.7 Eos % (Auto) 2.9 Baso % (Auto) 0.5 Lymph # (Auto) 1.7 [place] # (Auto) 0.7 Eos # (Auto) 0.4 Baso # (Auto) 0.1 Abs Immat Gran (auto) 0.06 H Absolute Neuts (auto) 9.5 H Absolute Nucleated RBC 0.000 Nucleated RBC % (auto) 0.0 Smear Tech's Comments PT 11.0 INR 1.0 aPTT Heparin Protocol D-Dimer High Sensitivty 2438 VBG pH 7.30 L VBG pCO2 58 VBG pO2 56 VBG HCO3 29 H VBG O2 Saturation 82.0 VBG Base Excess 1.7 Sodium 141 Potassium 5.4 H Chloride 103 Carbon Dioxide 26 Anion Gap 17 BUN 31 H Creatinine 1.75 H Estim Creat Clear Calc 31.8 Estimated GFR 38 Random Glucose 129 H Osmolality Lactic Acid 1.7 Calcium 9.1 Total Bilirubin 0.3 AST 31 ALT 24 Alkaline Phosphatase 74 Troponin I High Sens 28.8 NT-Pro-B Natriuret Pep 164.6 Total Protein 7.4 Albumin 4.4 Urine Color Urine Appearance Urine pH Ur Specific [place] Urine Protein Urine Glucose (UA) Urine Ketones Urine Blood Urine Nitrite Ur Leukocyte Esterase Urine RBC Urine WBC Ur Squamous Epith Cells Urine Bacteria Hyaline Casts Urine Eosinophils % Urine Osmolality Urine Creatinine COVID-19 (ALEXIS) Negative COVID-19 Clin Com See Note Influenza Type A (LUIS MANUEL) Negative Influenza Type B (LUIS MANUEL) Negative Influenza A & B Note See Note 07/25/25 07/25/25 07/26/25 22:03 22:55 00:49 WBC RBC Hgb Hct MCV MCH MCHC RDW Plt Count MPV Immature Gran % (Auto) Neut % (Auto) Lymph % (Auto) [place] % (Auto) Eos % (Auto) Baso % (Auto) Lymph # (Auto) [place] # (Auto) Eos # (Auto) Baso # (Auto) Abs Immat Gran (auto) Absolute Neuts (auto) Absolute Nucleated RBC Nucleated RBC % (auto) Smear Tech's Comments PT INR aPTT Heparin Protocol 27.6 L D-Dimer High Sensitivty VBG pH VBG pCO2 VBG pO2 VBG HCO3 VBG O2 Saturation VBG Base Excess Sodium 140 Potassium 5.0 Chloride 102 Carbon Dioxide 26 Anion Gap 17 BUN 32 H Creatinine 1.74 H Estim Creat Clear Calc 31.9 Estimated GFR 38 Random Glucose 181 H Osmolality Lactic Acid Calcium 8.8 Total Bilirubin 0.1 AST 26 ALT 18 Alkaline Phosphatase 69 Troponin I High Sens 255.8 H* D NT-Pro-B Natriuret Pep Total Protein 6.9 Albumin 4.2 Urine Color Yellow Urine Appearance Clear Urine pH 5.5 Ur Specific [place] 1.020 Urine Protein >=1000 (4+) H Urine Glucose (UA) Negative Urine Ketones Negative Urine Blood Small (1+) H Urine Nitrite Positive H Ur Leukocyte Esterase Negative Urine RBC 0-2 Urine WBC 0-5 Ur Squamous Epith Cells 0-2 Urine Bacteria 4+ Hyaline Casts 3-5 Urine Eosinophils % 0.0 Urine Osmolality 608 Urine Creatinine 114.07 COVID-19 (ALEXIS) COVID-19 Clin Com Influenza Type A (LUIS MANUEL) Influenza Type B (LUIS MANUEL) Influenza A & B Note 07/26/25 07/26/25 07/26/25 07:35 08:18 09:54 WBC 9.9 RBC 4.17 L Hgb 12.4 L Hct 40.2 L MCV 96.4 MCH 29.7 MCHC 30.8 L RDW 13.4 Plt Count 153 L MPV 12.1 Immature Gran % (Auto) 0.7 H Neut % (Auto) 91.7 H Lymph % (Auto) 5.8 L [place] % (Auto) 1.7 L Eos % (Auto) 0.0 Baso % (Auto) 0.1 Lymph # (Auto) 0.6 L [place] # (Auto) 0.2 Eos # (Auto) 0.0 Baso # (Auto) 0.0 Abs Immat Gran (auto) 0.07 H Absolute Neuts (auto) 9.1 H Absolute Nucleated RBC 0.000 Nucleated RBC % (auto) 0.0 Smear Tech's Comments VERIFIED PT INR aPTT Heparin Protocol 192.4 H* D 92.6 H D D-Dimer High Sensitivty VBG pH VBG pCO2 VBG pO2 VBG HCO3 VBG O2 Saturation VBG Base Excess Sodium 139 Potassium 5.3 H Chloride 106 Carbon Dioxide 26 Anion Gap 12 BUN 32 H Creatinine 1.61 H Estim Creat Clear Calc 34.8 Estimated GFR 42 Random Glucose 158 H Osmolality 305 Lactic Acid Calcium 8.7 Total Bilirubin 0.3 AST 35 ALT 25 Alkaline Phosphatase 73 Troponin I High Sens 452.6 H* D NT-Pro-B Natriuret Pep Total Protein 7.3 Albumin 4.4 Urine Color Urine Appearance Urine pH Ur Specific [place] Urine Protein Urine Glucose (UA) Urine Ketones Urine Blood Urine Nitrite Ur Leukocyte Esterase Urine RBC Urine WBC Ur Squamous Epith Cells Urine Bacteria Hyaline Casts Urine Eosinophils % Urine Osmolality Urine Creatinine COVID-19 (ALEXIS) COVID-19 Clin Com Influenza Type A (LUIS MANUEL) Influenza Type B (LUIS MANUEL) Influenza A & B Note 07/26/25 16:35 WBC RBC Hgb Hct MCV MCH MCHC RDW Plt Count MPV Immature Gran % (Auto) Neut % (Auto) Lymph % (Auto) [place] % (Auto) Eos % (Auto) Baso % (Auto) Lymph # (Auto) [place] # (Auto) Eos # (Auto) Baso # (Auto) Abs Immat Gran (auto) Absolute Neuts (auto) Absolute Nucleated RBC Nucleated RBC % (auto) Smear Tech's Comments PT INR aPTT Heparin Protocol 51.9 L D D-Dimer High Sensitivty VBG pH VBG pCO2 VBG pO2 VBG HCO3 VBG O2 Saturation VBG Base Excess Sodium Potassium Chloride Carbon Dioxide Anion Gap BUN Creatinine Estim Creat Clear Calc Estimated GFR Random Glucose Osmolality Lactic Acid Calcium Total Bilirubin AST ALT Alkaline Phosphatase Troponin I High Sens NT-Pro-B Natriuret Pep Total Protein Albumin Urine Color Urine Appearance Urine pH Ur Specific [place] Urine Protein Urine Glucose (UA) Urine Ketones Urine Blood Urine Nitrite Ur Leukocyte Esterase Urine RBC Urine WBC Ur Squamous Epith Cells Urine Bacteria Hyaline Casts Urine Eosinophils % Urine Osmolality Urine Creatinine COVID-19 (ALEXIS) COVID-19 Clin Com Influenza Type A (LUIS MANUEL) Influenza Type B (LUIS MANUEL) Influenza A & B Note Discharge Plan Discharge Anticipated Discharge Date/Time: 07/26/25 18:01 Patient Disposition: Xfer Acute Care Hospital Discharge Diagnosis: NSTEMI requiring further medical management hence transferred to [facility], COPD exacerbation Referrals: Tanisha Evangelista MD [Primary Care Provider, Internal Medicine] - 1 Week Discharge Medications: New ceftriaxone 1 gram Recon Soln 1 g IV Q24H Qty: 1 0RF Rx Instructions: Patient is being transferred to [facility] azithromycin 500 mg Recon Soln 500 mg IV Q24H Qty: 10 3RF heparin(porcine) in 0.45% NaCl 25,000 unit/250 mL Parenteral Solution 25,000 unit continuous IV infusion .Q0M 1 Days Qty: 30 0RF budesonide [Pulmicort] 0.5 mg/2 mL Suspension For Nebulization 0.5 mg inhalation RBID 30 Days Qty: 60 0RF heparin (porcine) 5,000 unit/mL Solution 6,100 unit IVPUSH PROTOCOL BOLUS PRN (Reason: 80 Unit/Kg - Heparin Protocol) 1 Days Qty: 30 0RF heparin (porcine) 5,000 unit/mL Solution 3,100 unit IVPUSH PROTOCOL BOLUS PRN (Reason: 40 Unit/Kg - Heparin Protocol) 1 Days Qty: 30 0RF guaifenesin 100 mg/5 mL Liquid 50 mg PO Q4H PRN (Reason: Cough) 30 Days Qty: 1000 0RF Continued Spiriva Respimat 2.5 mcg/actuation mist 2 puff PO QAM Qty: 4 3RF amlodipine 5 mg tablet 5 mg PO DAILY Qty: 90 0RF sertraline 100 mg tablet 100 mg PO DAILY Qty: 90 0RF albuterol sulfate [Ventolin HFA] 90 mcg/actuation HFA aerosol inhaler 2 puff PO Q4-6H PRN (Reason: for wheezing) Qty: 18 3RF albuterol sulfate 1.25 mg/3 mL solution for nebulization 1.25 mg inhalation Q4-6H PRN (Reason: for wheezing) Qty: 75 3RF (DME) inhalational spacing device Spacer See Rx Instructions .Route Qty: 1 2RF Rx Instructions: As directed Discharge Orders: Discharge Order (Routine); Ordered 07/26/25 Ordered By: Keila Mar Diet: Low salt diet Activity on Discharge: As tolerated Stand Alone Forms: Patient Portal Discharge page Print Language: Azeri Care Plan Goals: Cardiac catheterization possible Continue heparin protocol for NSTEMI Continue ceftriaxone and azithromycin for IV antibiotics Continue steroids for COPD exacerbation Patient elected to be DNR DNI during this hospitalization I have tried to reach to the family listed in the chart-1st number was the daughter but it went to the patient's phone Second number went to [facility] Health Concerns: See above Plan of Treatment: See above Assessment: See above
== END 2025-07-26 17:45 | disposition short-term general hospital (02) | DRG 280 ==
LOC: HO.ED 21:05 → HO.EDOVER 07-26 00:43 → HO.IMC 07-26 01:55
PROVIDERS: Physician Assistant Medical; Admitting Provider Nurse Practitioner Family; Emergency Provider Emergency Medicine; PCP Internal Medicine; Visit Provider Student in an Organized Health Care Education/Training Program
DX: I21.4 Non-ST elevation (NSTEMI) myocardial infarction (principal); I26.99 Other pulmonary embolism without acute cor pulmonale; J96.22 Acute and chronic respiratory failure with hypercapnia; J96.21 Acute and chronic respiratory failure with hypoxia; J44.1 Chronic obstructive pulmonary disease with (acute) exacerbation; N39.0 Urinary tract infection, site not specified; I12.9 Hypertensive chronic kidney disease with stage 1 through stage 4 chronic kidney disease, or unspecified chronic kidney disease; Z66 Do not resuscitate; I25.10 Atherosclerotic heart disease of native coronary artery without angina pectoris; N18.9 Chronic kidney disease, unspecified; R91.1 Solitary pulmonary nodule; N40.0 Benign prostatic hyperplasia without lower urinary tract symptoms; K21.9 Gastro-esophageal reflux disease without esophagitis; Z99.81 Dependence on supplemental oxygen; Z20.822 Contact with and (suspected) exposure to COVID-19; Z87.891 Personal history of nicotine dependence; Z79.899 Other long term (current) drug therapy
CPT/HCPCS: 36415; 71045; 78580; 80053; 81001; 81003; 82570; 82803; 83605; 83880; 83930; 83935; 84484; 85025; 85379; 85610; 85730; 85999; 87040; 87086; 87088; 87186; 87502; 87635; 93005; 93306; 94640; 99285; A9540; J0456; J0696; J1644; J3475; Q9957

== ENCOUNTER → 2025-07-25 19:03 | Outpatient (BNV) | payer MEDICARE, SELFPAY | PROVIDERS: PCP Internal Medicine; Visit Provider Radiology Diagnostic Radiology | DX: R06.02 Shortness of breath (principal) | CPT/HCPCS: 71045 ==

== ENCOUNTER → 2025-07-25 19:03 | Outpatient (BNV) | payer MEDICARE, SELFPAY | PROVIDERS: Admitting Provider Nurse Practitioner Family; Emergency Provider Emergency Medicine; PCP Internal Medicine; Visit Provider Internal Medicine Cardiovascular Disease | DX: I49.1 Atrial premature depolarization (principal); I49.9 Cardiac arrhythmia, unspecified; I25.2 Old myocardial infarction | CPT/HCPCS: 93010 ==

== ENCOUNTER 2025-07-26 00:29 | Outpatient (BNV) | payer MEDICARE, SELFPAY | END 2025-07-26 12:53 | PROVIDERS: Admitting Provider Nurse Practitioner Family; Emergency Provider Emergency Medicine; PCP Internal Medicine; Visit Provider Radiology Diagnostic Radiology | DX: R06.00 Dyspnea, unspecified (principal); R09.02 Hypoxemia | CPT/HCPCS: 78580 ==

== ENCOUNTER 2025-07-26 00:29 | Outpatient (BNV) | payer MEDICARE, SELFPAY | END 2025-07-26 07:00 | PROVIDERS: Admitting Provider Nurse Practitioner Family; Emergency Provider Emergency Medicine; PCP Internal Medicine; Visit Provider Internal Medicine Cardiovascular Disease | DX: I25.2 Old myocardial infarction (principal) | CPT/HCPCS: 93010 ==

== ENCOUNTER → 2025-07-26 00:29 | Outpatient (BNV) | payer MEDICARE, SELFPAY | PROVIDERS: Admitting Provider Nurse Practitioner Family; Emergency Provider Emergency Medicine; PCP Internal Medicine; Visit Provider Internal Medicine Cardiovascular Disease | DX: I10 Essential (primary) hypertension (principal); I21.4 Non-ST elevation (NSTEMI) myocardial infarction | CPT/HCPCS: 99223 ==

== ENCOUNTER → 2025-07-26 00:29 | Outpatient (BNV) | payer MEDICARE, SELFPAY | PROVIDERS: Admitting Provider Nurse Practitioner Family; Emergency Provider Emergency Medicine; PCP Internal Medicine; Visit Provider Student in an Organized Health Care Education/Training Program | DX: R79.89 Other specified abnormal findings of blood chemistry (principal); J44.1 Chronic obstructive pulmonary disease with (acute) exacerbation | CPT/HCPCS: 99223 ==

== ENCOUNTER 2025-09-03 15:16 | Outpatient (AMB) | payer MEDICARE, SELFPAY ==
--- NOTE | 2025-09-03 15:20 | A.OFFPC_ITS ---
Vital Signs 09/03/25 15:21 Height 5 ft 3 in Weight 164 lb BMI 29.0 BP 132/84 Blood Pressure Location Lt brachial Position Sitting Pulse 94 Pulse Source Pulse Oximeter Pulse Oximetry (%) 91 L Oxygen Delivery Method Nasal Cannula Intake Visit Reasons: HDF Allergies No Known Allergies (No Known Allergies*) Allergy (Verified 09/03/25 15:23) Medication List - Last Reconciled 09/03/25 by Tanisha Evangelista MD acetaminophen 325 mg PO Q6H PRN albuterol sulfate 90 mcg/actuation (Ventolin HFA) 2 puffs PO Q4-6H PRN albuterol sulfate 1.25 mg (3 mL) inhalation Q4-6H PRN amlodipine 5 mg PO DAILY apixaban (Eliquis) mg PO aspirin 81 mg PO DAILY atorvastatin 40 mg PO BEDTIME budesonide (Pulmicort) 0.5 mg (2 mL) inhalation RBID 30 days calcium carbonate 500 mg PO DAILY inhalational spacing device As directed magnesium hydroxide (Dulcolax (magnesium hydroxide)) 5 mL PO BEDTIME pantoprazole 40 mg PO DAILY sertraline 100 mg PO DAILY tamsulosin 0.4 mg PO DAILY tiotropium bromide 2.5 mcg/actuation (Spiriva Respimat) 2 puffs PO QAM trazodone 25 mg PO BEDTIME PRN Tobacco use date assessed: 09/03/25 Fall risk assessment: 1 Fall in past year Last assessed Fall Risk: 09/03/25 Dental Screening Dental Screen Date: 04/09/25 HPI HDF HPI Details Was seen at [facility] dated 07/26/2025 he was admitted and then was discharged on 07/29/2025 to a rehab facility Patient has a history of COPD and is on oxygen 4 L nasal cannula, chronic kidney disease, hypertension, anxiety he presented to [facility] initially for dyspnea and was found to have elevated troponin levels and wall motion abnormality on echo. He was started on heparin drip and transferred to [facility] for catheterization and management of NSTEMI EKG was normal sinus rhythm with septal infarct and inferior Q-waves Echo showed septal akinesis and basal inferior wall motion abnormality with ejection fraction of 55-60% Cardiac catheterization done on July 27 showed diffuse mild disease of LMCA, moderate diffuse disease of LAD, 60% stenosis in the proximal subsection of D1 which is a small caliber vessel, moderate diffuse disease off left circumflex and mild diffuse disease of RCA Cardiac catheterization revealed most likely type 2 NSTEMI with myocardial injury It was recommended for patient to continue aspirin Continue atorvastatin 40 mg And nitroglycerin sublingual with outpatient cardiology follow-up Patient goes to Dr. Jean for pulmonary needs He was given prednisone 50 mg for 5 days he is on albuterol Spiriva budesonide He was also given doxycycline for 7 days before discharge GERD treated with pantoprazole Chronic kidney disease: Creatinine was 1.75 patient has a 3B chronic kidney disease He is to avoid NSAIDs at discharge his creatinine was 1.6 Anxiety: Continue sertraline 100 mg For hypertension he is taking amlodipine 5 mg His weight was 73.7 kg on 07/29/2025 Hemoglobin A1c 6.3% He was discharged from [facility] after having physical therapy occupational therapy As per note he patient made excellent progress His last set of labs were 30 of August this month Sodium was 138 potassium 4.4 BUN 23 and creatinine 1.38 GFR 52 calcium 8.6 His hemoglobin was 11.0 On 08/17/2025 his hemoglobin A1c was 6.8 - Following the event, the patient was s tarted on a new blood thinner. - The patient requires a cardiology appo intment for follow-up. Iatrogenic Diarrhea: - The patient reports experiencing diarr hea with accidents, one of which occurred recently on a Saturday night. - It was identified that the patient was concurrently taking six different medications for constipation, including a senna tablet, a suppository, and magnesium hydroxide, which were causing the diarrhea. Type 2 Diabetes Mellitus: - Recent lab work revealed a hemoglobin A1c of 6.8, leading to a new diagnosis of diabetes. - The patient was not previously aware o f this condition and is not taking any medications for it. Anxiety: - The patient has a history of anxiety t reated with sertraline. - The dose was recently increased from 1 00 mg to 125 mg, but the decision was ma de to return to the 100 mg dose. - The patient reports feeling fine Chronic Respiratory Disease: - The patient is oxygen dependent and connors s an upcoming appointment with a dairy nutritionist, Dr. Jean, on October 17. - The patient's treatment regimen includ es Pulmicort (budesonide) and updraft treatments. Chronic Kidney Disease: - The patient has been seeing a kidney s pecialist, Dr. Prieto, for years and has an upcoming appointment with a kidney doctor. Urological Condition: - The patient takes tamsulosin and has a n appointment with a urologist at [facility] on September 07. Medical History: - Recent myocardial infarction - Anxiety - Type 2 diabetes mellitus - Oxygen-dependent chronic respiratory d isease - Chronic kidney disease - Arthritis Social History: - Diet: Acknowledges eating sweets, incl uding pudding, ice cream, and cookies. - Support System: Appears to have a healthcare technician who assists with managing appointments and medications. [facility] Medical History COPD (chronic obstructive pulmonary disease) Bladder polyps Pulmonary nodule 1 cm or greater in diameter HTN (hypertension) COPD exacerbation Hypoxemia Supplemental oxygen dependent Nephropathy Anxiety, generalized COPD (chronic obstructive pulmonary disease) Surgical History History of esophagogastroduodenoscopy (EGD) Bladder tumor History of colonoscopy History of cystoscopy History of surgery Avulsion of finger tip History of neck surgery Arm fracture, left History of knee surgery H/O colonoscopy Family History Father HTN (hypertension) Diabetes mellitus Mother Cancer Brother Melanoma Sister Breast cancer Son No problems noted. Daughter No problems noted. Social History Household Members: Friend(s) Housing: House Do you presently have visiting nurse or other home services: No Alcohol intake: former Patient Tobacco Use Status: Former Tobacco user e-Cigarette/Vaping Use: Former Use Second Hand Smoke Exposure: No service: No Cognitive needs: No Hearing needs: No Vision needs: Yes Questionnaire Thrive Questionnaire Date Thrive assessed: 12/09/24 I am a: Patient What is your living situation today?: I have a steady place to live Within the past 12 months, did the food you bought not last and you didn't have the money to get more?: Never true Within the past 12 months, did you worry whether your food would run out before you got money to buy more?: Never true Do you have trouble paying for medicines?: No Do you have trouble getting transportation to medical appointments?: No Do you have trouble paying your heating and electricity bill?: No Do you have trouble taking care of your child, family member or friend?: No Do you have trouble with day-to-day activities such as bathing, preparing meals, shopping, managing finances, etc.?: Yes Are you currently unemployed and looking for a job?: I choose not to answer this question Are you interested in more education?: No Please select the resources that you would like help with: None Currently or been in a relationship where the following occur: No concerns reported THRIVE Score: 0 ILDA-7 AMB Questionnaire ILDA-7 Date ILDA - 7 assessed: 12/09/24 Source: Developed by Drs. Lukas Westfall, Ana Holt, Octavio De Guzman and colleagues, with an educational r[place] from [employer]. Review of Systems Const Denies chills and Denies fever(s) ENT Denies epistaxis and Denies nasal discharge Card Denies chest pain Resp Denies chest congestion, Denies cough and Denies hemoptysis GI Denies nausea Skin/Breast Denies rash Neuro Reports no additional complaints Psych Reports no additional complaints Endo Reports no additional complaints Physical exam (Primary Care) Vital Signs: Last Vital Signs Pulse 94 09/03/25 15:21 BP 132/84 09/03/25 15:21 Pulse Ox 91 L 09/03/25 15:21 Oxygen Delivery Method Nasal Cannula 09/03/25 15:21 BMI result Body Mass Index 29.0 Tobacco/Smoking Status: Tobacco use Status Tobacco use date assessed 09/03/25 09/03/25 15:24 Patient Tobacco Use Status Former Tobacco user 09/03/25 15:24 e-Cigarette/Vaping Use Former Use 09/03/25 15:24 Thrive Assessment: Date of Thrive Assessment Date Thrive assessed 12/09/24 09/03/25 15:24 Currently or been in a relationship where the following occur: No concerns reported Const General: cooperative and no acute distress Orientation/consciousness: patient oriented x3 HENMT Head: Yes normocephalic Eyes General: appearance normal, both eyes and all related structures Neck Neck: Yes supple Resp Other: mild SOB sitting down [ baseline for patient, NC in] Effort & Inspection: no cough and no stridor Cardio Rhythm: regular rhythm Heart sounds: S1 normal heart sound present and S2 normal heart sound present Skin General skin exam: turgor normal Neuro General: patient oriented x3, tone normal and moves all extremities Extrem Right lower extremity: no edema Left lower extremity: no edema Coding Level of Care Code Est Pt Level 5 (73534) Diagnoses Hospital discharge follow-up Z09 NSTEMI (non-ST elevated myocardial infarction) I21.4 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 face to face with patient and family member, coordina Assessment & Plan Assessment & Plan (1) Hospital discharge follow-up: Code(s): Z09 - Encounter for follow-up examination after completed treatment for conditions other than malignant neoplasm Category: Medical (2) NSTEMI (non-ST elevated myocardial infarction): Code(s): I21.4 - Non-ST elevation (NSTEMI) myocardial infarction Category: Medical (3) COPD (chronic obstructive pulmonary disease): Code(s): J44.9 - Chronic obstructive pulmonary disease, unspecified Category: Medical Qualifiers: COPD type: emphysema Emphysema type: panlobular Qualified Code(s): J43.1 - Panlobular emphysema (4) Diabetes mellitus type 2, noninsulin dependent: Code(s): E11.9 - Type 2 diabetes mellitus without complications Category: Medical (5) Supplemental oxygen dependent: Code(s): Z99.81 - Dependence on supplemental oxygen Category: Medical (6) Nephropathy: Code(s): N28.9 - Disorder of kidney and ureter, unspecified Category: Medical (7) BPH associated with nocturia: Code(s): N40.1 - Benign prostatic hyperplasia with lower urinary tract symptoms; R35.1 - Nocturia Category: Medical (8) Overflow incontinence of urine: Code(s): N39.490 - Overflow incontinence Category: Medical (9) Anxiety, generalized: Code(s): F41.1 - Generalized anxiety disorder Category: Medical (10) Hypertension, essential: Code(s): I10 - Essential (primary) hypertension Category: Medical Plan - Prescriptions for a blood thinner, atorvastatin 40 mg, and Pulmicort will be sent. - Trazodone will be reduced to 25 mg to mitigate the risk of respiratory depression in the context of the patient's oxygen dependency. - Sertraline will be continued at 100 mg to avoid confusion with taking multiple tablets for a 125 mg dose. - The patient was advised to discontinue all laxatives, including magnesium hydroxide and Dulcolax, due to iatrogenic diarrhea. - The patient was counseled on dietary modifications, specifically reducing intake of sweets like cookies and ice cream, for the management of the new diabetes diagnosis. - The patient will follow up for a repeat hemoglobin A1c test in four months. - The patient is to continue with scheduled specialist appointments, including cardiology for post-heart attack care, urology on September 07, pulmonology on October 17, and nephrology. - The patient's pharmacy can make contact for any required medications. Orders: Referrals Cardiology Referral I10 - Essential (primary) hypertension, I21.4 - Non-ST elevation (NSTEMI) myocardial infarction Urology Referral N39.490 - Overflow incontinence, N40.1 - Benign prostatic hyperplasia with lower urinary tract symptoms, R35.1 - Nocturia Medications: New apixaban (Eliquis) 5 mg PO BID 60 tabs 0RF 30 days
--- OUTSIDE RECORDS SUMMARY | 2025-09-03 15:20 | XMS_ITS | Encounter Summary ---
Author Organization [facility] Address [address] [facility] [address] [place] [address] Phone Care Team Providers Care Nuclear Unit Operator Name Role Phone Tanisha Evangelista MD Primary Care Provider [phone] Reason for Visit * Reason Comments Med Refill Encounter Details Date Type Department Care Team (Late st Contact Info) Description 04/21/2022 Refill [facility] [address] [place] [phone] Carter Colorado MD [address] [address] Social History Tobacco Use Types [...] Care Team (Late st Contact Info) Description 09/27/2025 3:45 PM EST Office Visit [facility] [address] [address] Carter [place] MD [facility] [address] documented as of this encounter Visit Diagnoses Not on filedocumented in this encounter Care Teams Nuclear Unit Operator Relationship Specialty Start Date End Date Tanisha Evangelista MD [address] [place] [address] PCP - General 10/24/20 documented as of this encounter
--- OUTSIDE RECORDS SUMMARY | 2025-09-03 15:20 | XMS_ITS | Patient Health Record ---
[facility] Address [address] [place] [address] Care Team Providers Care Cutter Brake Lining Name Role Phone Jean Carlos CHAIREZ, Asma Primary Care Provider Jimy Kohli Unavailable [phone] Reason For Referral No Information Problems Problem Type SNOMED Code ICD Code Onset Dates Problem Status W/U Status Risk Notes Problem Hallux valgus (922805463) Hallux Valgus (735.0) Active confirmed Plan Of Treatment Pending Test Test Name Order Date , -08/06/2011 Insurance Providers Payer Name Payer Address Payer Phone Subscriber Number Group Number Insured Name Patient Relationship to Insured Coverage Start Date Coverage End Date Medicare National [employer] [address] [place] [address] [id number] Monterll Vera Self - patient is the insured 9 Medical (General) History Medical History History ICD Code nerve disease chicken pox measles Surgical History Surgery Date(Month/Year) neck surgery(removed calcium build-up) 2 010
--- OUTSIDE RECORDS SUMMARY | 2025-09-03 15:20 | XMS_ITS | Encounter Summary ---
Author Organization [facility] Address [address] [place] [address] Care Team Providers Care Range Rider Name Role Phone Chema Seals MD Primary Care Provider [phone]- [phone] Encounter Details Date Type Department Care Team (Late st Contact Info) Description 08/11/2025 Lab Requisition [facility] - Main Lab [address] [place] [address] Chema Seals MD [address] [place] [address] Anemia, unspecified Social History Tobacco Use Types Packs/Day Years Used Date Smoking Tobacco: Never Assessed Sex and Gender Information Value Date Recorded Sex Assigned at Not on file Legal Sex Male 3:42 PM EDT Gender Identity Not on file Sexual Orientation Not on file documented as of this encounter Plan of Treatment Not on file documented as of this encounter Procedures Procedure Name Priority Date/Time Associated Diagnosis Comments COMPLETE BLOOD COUNT Routine 08/12/2025 8:06 AM EDT Anemia, unspecified BASIC METABOLIC PANEL Routine 08/12/2025 8:06 AM EDT Anemia, unspecified documented in this encounter Results * (ABNORMAL) Basic metabolic panel (08/12/2025 8:06 AM EDT) Sodium 139 133 - 145 mmol/L LAB CHEMISTRY METHOD 08/12/2025 12:50 PM EDT [facility] Potassium 4.5 3.5 - 5.5 mmol/L LAB CHEMISTRY METHOD 08/12/2025 12:50 PM EDT [facility] Chloride 103 96 - 110 mmol/L LAB CHEMISTRY METHOD 08/12/2025 12:50 PM EDT [facility] CO2 32 21 - 32 mmol/L LAB CHEMISTRY METHOD 08/12/2025 12:50 PM [facility] Anion Gap 4 3 - 11 LAB CHEMISTRY METHOD 08/12/2025 12:50 PM [facility] Glucose 102(H) 70 - 100 mg/dL LAB CHEMISTRY METHOD 08/12/2025 12:50 PM [facility] BUN 19 5 - 25 mg/dL LAB CHEMISTRY METHOD 08/12/2025 12:50 PM [facility] Comment:Results verified by repeat testing Creatinine 1.50(H) 0.70 - 1.30 mg/dL LAB CHEMISTRY METHOD 08/12/2025 12:50 PM [facility] eGFR 47(L) >=60 mL/min/1. 73m2 LAB CHEMISTRY METHOD 08/12/2025 12:50 PM [facility] Comment:Calculation based on the Chronic Kidney Disease Epidemiology Collaboration (CKD-EPI) equation refit without adjustment for race. BUN/Creatinine Ratio 12.7 LAB CHEMISTRY METHOD 08/12/2025 12:50 PM [facility] Calcium 8.7 8.5 - 10.5 mg/dL LAB CHEMISTRY METHOD 08/12/2025 12:50 PM [facility] Blood Venous blood specimen / Unknown Venipuncture / Unknown 08/12/2025 8:06 AM EDT 08/12/2025 12:25 PM EDT us Chema Seals MD LAB BLOOD ORDERABLES Final Result [facility] [address] [place] [address], * (ABNORMAL) Complete blood count (08/12/2025 8:06 AM EDT) WBC 8.4 4.8 - 10.8 K/mcL LAB HEMETOLOGY METHOD 08/12/2025 11:08 AM [facility] RBC 3.90(L) 4.50 - 5.50 M/mcL LAB HEMETOLOGY METHOD 08/12/2025 11:08 AM [facility] Hemoglobin 11.8(L) 13.5 - 17.5 g/dL LAB HEMETOLOGY METHOD 08/12/2025 11:08 AM [facility] Hematocrit 38.4(L) 42.0 - 54.0 % LAB HEMETOLOGY METHOD 08/12/2025 11:08 AM [facility] MCV 97.7 79.0 - 98.0 FL LAB HEMETOLOGY METHOD 08/12/2025 11:08 AM [facility] MCH 30.0 27.0 - 32.0 pcg LAB HEMETOLOGY METHOD 08/12/2025 11:08 AM [facility] MCHC 30.7(L) 32.0 - 37.0 g/dL LAB HEMETOLOGY METHOD 08/12/2025 11:08 AM [facility] RDW 13.7 11.0 - 15.0 % LAB HEMETOLOGY METHOD 08/12/2025 11:08 AM [facility] Platelets 173 130 - 400 K/mcL LAB HEMETOLOGY METHOD 08/12/2025 11:08 AM [facility] MPV 11.8(H) 7.0 - 11.0 FL LAB HEMETOLOGY METHOD 08/12/2025 11:08 AM [facility] NRBC 0.0 <1.0 % LAB HEMETOLOGY METHOD 08/12/2025 11:08 AM [facility] NRBC Absolute 0.00 <0.10 K/mcL LAB HEMETOLOGY METHOD 08/12/2025 11:08 AM EDT [facility] Blood Venous blood specimen / Unknown Venipuncture / Unknown 08/12/2025 8:06 AM EDT 08/12/2025 10:11 AM EDT us Chema Seals MD LAB BLOOD ORDERABLES Final Result [facility] [address] [place] [address], documented in this encounter Visit Diagnoses Diagnosis Anemia, unspecified documented in this encounter Care Teams Range Rider Relationship Specialty Start Date End Date Chema Seals MD [address] [place] [address] [facility] [place], [place] PCP - General Internal Medicine 08/05/25 documented as of this encounter
--- OUTSIDE RECORDS SUMMARY | 2025-09-03 15:20 | XMS_ITS | Encounter Summary ---
Author Organization [facility] Address [address] [place] [address] Care Team Providers Care Bowling Ball Engraver Name Role Phone Chema Seals MD Primary Care Provider [phone]- [phone] Encounter Details Date Type Department Care Team (Late st Contact Info) Description 08/05/2025 Lab Requisition [facility] - Main Lab [address] [place] [address] Chema Seals MD [address] [place] [address] Anemia, unspecified Social History Tobacco Use Types [...] Associated Diagnosis Comments COMPLETE BLOOD COUNT Routine 08/05/2025 10:20 AM EDT Anemia, unspecified COMPREHENSIVE METABOLIC PANEL Routine 08/05/2025 10:20 AM EDT Anemia, unspecified documented in this encounter Results * (ABNORMAL) Comprehensive metabolic panel (08/05/2025 10:20 AM EDT) Sodium 135 133 - 145 mmol/L LAB CHEMISTRY METHOD 08/05/2025 1:08 PM EDT [facility] Potassium 4.2 3.5 - 5.5 mmol/L LAB CHEMISTRY METHOD 08/05/2025 1:08 PM EDT [facility] Chloride 97 96 - 110 mmol/L LAB CHEMISTRY METHOD 08/05/2025 1:08 PM [facility] CO2 30 21 - 32 mmol/L LAB CHEMISTRY METHOD 08/05/2025 1:08 PM [facility] Anion Gap 8 3 - 11 LAB CHEMISTRY METHOD 08/05/2025 1:08 PM [facility] Glucose 179(H) 70 - 100 mg/dL LAB CHEMISTRY METHOD 08/05/2025 1:08 PM [facility] BUN 40(H) 5 - 25 mg/dL LAB CHEMISTRY METHOD 08/05/2025 1:08 PM [facility] Creatinine 1.84(H) 0.70 - 1.30 mg/dL LAB CHEMISTRY METHOD 08/05/2025 1:08 PM [facility] eGFR 37(L) >=60 mL/min/1. 73m2 LAB CHEMISTRY METHOD 08/05/2025 1:08 PM [facility] Comment:Calculation based on the Chronic Kidney Disease Epidemiology Collaboration (CKD-EPI) equation refit without adjustment for race. BUN/Creatinine Ratio 21.7 LAB CHEMISTRY METHOD 08/05/2025 1:08 PM [facility] Calcium 8.8 8.5 - 10.5 mg/dL LAB CHEMISTRY METHOD 08/05/2025 1:08 PM [facility] AST (SGOT) 25 10 - 42 unit/L LAB CHEMISTRY METHOD 08/05/2025 1:08 PM [facility] ALT (SGPT) 34 10 - 60 unit/L LAB CHEMISTRY METHOD 08/05/2025 1:08 PM [facility] Alkaline Phosphatase 69 42 - 121 unit/L LAB CHEMISTRY METHOD 08/05/2025 1:08 PM [facility] Total Protein 5.7(L) 6.0 - 8.0 g/dL LAB CHEMISTRY METHOD 08/05/2025 1:08 PM [facility] Albumin 3.1(L) 3.2 - 5.0 g/dL LAB CHEMISTRY METHOD 08/05/2025 1:08 PM EDT [facility] Total Bilirubin 0.7 0.0 - 1.4 mg/dL LAB CHEMISTRY METHOD 08/05/2025 1:08 PM T [facility] Blood Venous blood specimen / Unknown Venipuncture / Unknown 08/05/2025 10:20 AM EDT 08/05/2025 11:03 AM EDT us Chema Seals MD LAB BLOOD ORDERABLES Final Result [facility] [address] [place] [address], * (ABNORMAL) Complete blood count (08/05/2025 10:20 AM EDT) WBC 17.0(H) 4.8 - 10.8 K/mcL LAB HEMETOLOGY METHOD 08/05/2025 11:32 AM [facility] RBC 4.00(L) 4.50 - 5.50 M/mcL LAB HEMETOLOGY METHOD 08/05/2025 11:32 AM [facility] Hemoglobin 12.0(L) 13.5 - 17.5 g/dL LAB HEMETOLOGY METHOD 08/05/2025 11:32 AM [facility] Hematocrit 37.8(L) 42.0 - 54.0 % LAB HEMETOLOGY METHOD 08/05/2025 11:32 AM [facility] MCV 93.8 79.0 - 98.0 FL LAB HEMETOLOGY METHOD 08/05/2025 11:32 AM [facility] MCH 29.8 27.0 - 32.0 pcg LAB HEMETOLOGY METHOD 08/05/2025 11:32 AM [facility] MCHC 31.7(L) 32.0 - 37.0 g/dL LAB HEMETOLOGY METHOD 08/05/2025 11:32 AM EDT [facility] RDW 13.6 11.0 - 15.0 % LAB HEMETOLOGY METHOD 08/05/2025 11:32 AM EDT [facility] Platelets 180 130 - 400 K/mcL LAB HEMETOLOGY METHOD 08/05/2025 11:32 AM EDT [facility] MPV 12.2(H) 7.0 - 11.0 FL LAB HEMETOLOGY METHOD 08/05/2025 11:32 AM EDT [facility] NRBC 0.0 <1.0 % LAB HEMETOLOGY METHOD 08/05/2025 11:32 AM EDT [facility] NRBC Absolute 0.00 <0.10 K/mcL LAB HEMETOLOGY METHOD 08/05/2025 11:32 AM EDT [facility] Blood Venous blood specimen / Unknown Venipuncture / Unknown 08/05/2025 10:20 AM EDT 08/05/2025 11:03 AM EDT Chema Seals MD LAB BLOOD ORDERABLES Final Result [facility] [address] [place] [address], documented in this encounter Visit Diagnoses Diagnosis Anemia, unspecified documented in this encounter Care Teams Bowling Ball Engraver Relationship Specialty Start Date End Date Chema Seals MD [address] [place] [address] [facility] [place], [place] PCP - General Internal Medicine 08/05/25 documented as of this encounter
--- OUTSIDE RECORDS SUMMARY | 2025-09-03 15:20 | XMS_ITS | Encounter Summary ---
Author Organization [facility] Address [address] [place] [address] Care Team Providers Care Lamp Stack Developer Name Role Phone Chema Seals MD Primary Care Provider +1- [phone] Encounter Details Date Type Department Care Team (Late st Contact Info) Description 08/17/[address] [facility] - Main Lab [address] [facility] [place] [address] Chema Seals MD [address] [place] [address] Type 2 diabetes mellitus without complications (CMS/HCC V24, CMS/HCC V28) Social History Tobacco Use Types Packs/Day Years [...] Procedure Name Priority Date/Time Associated Diagnosis Comments HEMOGLOBIN A1C Routine 08/17/2025 9:08 AM EST Type 2 diabetes mellitus without complications (CMS/HCC V24, CMS/HCC V28) documented in this encounter Results * (ABNORMAL) Hemoglobin A1c (08/17/2025 9:08 AM EST) Hemoglobin A1C 6.8(H) <6.5 % LAB CHEMISTRY METHOD 08/17/2025 2:10 PM EST [facility] Mean Bld Glu Estim. 148 mg/dL LAB CHEMISTRY METHOD 08/17/2025 2:10 PM [facility] Blood Venous blood specimen / Unknown Venipuncture / Unknown 08/17/2025 9:08 AM EST 08/17/2025 11:30 AM EST Chema Seals MD LAB BLOOD ORDERABLES Final Result [facility] [address] [place] [address], documented in this encounter Visit Diagnoses Diagnosis Type 2 diabetes mellitus without complications (CMS/HCC V24, CMS/HCC V28) documented in this encounter Care Teams Lamp Stack Developer Relationship Specialty Start Date End Date Chema Seals MD [address] [place] [address] [facility] [place], [place] PCP - General Internal Medicine 08/05/25 documented as of this encounter
--- OUTSIDE RECORDS SUMMARY | 2025-09-03 15:20 | XMS_ITS | Clinical Summary ---
Author Organization 299 [facility] Address [address] [place] [address] Phone Care Team Providers Care Block Cableman Name Role Phone Chema Seals MD Primary Care Provider +1- [phone] Encounters Date Type Department Care Team Description 08/25/2025 Lab Requisition [facility] [address] [place] [phone] Chema Seals MD Anemia, unspecified 08/18/2025 Lab Requisition [facility] [address] [place] [phone] Chema Seals MD Anemia, unspecified 08/17/2025 Lab Requisition [facility] [address] [place] [phone] Chema Seals MD Type 2 diabetes mellitus without complications (CMS/HCC V24, CMS/HCC V28) 08/11/2025 Lab Requisition [facility] [address] [place] [phone] Chema Seals MD Anemia, unspecified 08/05/2025 Lab Requisition [facility] [address] [place] [phone] Chema Seals MD Anemia, unspecified from Last 3 Months Social History Tobacco Use Types Packs/Day Years Used Date Smoking Tobacco: Never Assessed Sex and Gender Information Value Date Recorded Sex Assigned at Not on file Legal Sex Male 3:42 PM EDT Gender Identity Not on file Sexual Orientation Not on file Plan of Treatment Health Maintenance Due Date Last Done Comments Diabetes: Annual Foot Exam 1956 Diabetes: Annual Retina Eye Exam 1955 DTaP,Tdap,and Td Vaccines (1 - Tdap) 1965 Pneumococcal Vaccine: 50+ Years (1 of 2 - PCV) 1965 Zoster Vaccines (1 of 2) 1996 RSV Immunization Adult Patients (1 - 1-dose 75+ series) 2021 Cholesterol Screening (Lipid Panel) 08/05/2024 Falls Risk Assessment 08/05/2024 Hepatitis C Screening 08/05/2024 Medicare Annual Wellness Visit 08/05/2024 Social Influencers of Health Screening 08/05/2024 Depression Screening 10/14/2024 COVID-19 Vaccine ( season) 2025 Influenza Vaccine (#1) 2025 Diabetes: Annual Urine Albumin-Creatinine Ratio (uACR) 08/17/2025 Diabetes: Blood Sugar Control Test (HGBA1C) 02/14/2026 08/17/2025 Diabetes: Annual GFR (Glomerular Filtration Rate) 08/26/2026 08/26/2025, 08/19/2025, 08/12/2025, Additional history exists Hypertension/CHF/CAD Annual BMP Blood Test 08/26/2026 08/26/2025, 08/19/2025, 08/12/2025, Additional history exists HIB Vaccines Aged Out No longer eligi ble based on patient's age to complete this topic HPV Vaccines Aged Out No longer eligi ble based on patient's age to complete this topic Hepatitis A Vaccines Aged Out No long er eligible based on patient's age to complete this topic Hepatitis B Vaccines Aged Out No long er eligible based on patient's age to complete this topic IPV Vaccines Aged Out No longer eligi ble based on patient's age to complete this topic MMR Vaccines Aged Out No longer eligi ble based on patient's age to complete this topic Meningococcal ACWY Vaccine Aged Out N o longer eligible based on patient's age to complete this topic Meningococcal B Vaccine Aged Out No l onger eligible based on patient's age to complete this topic RSV Immunization Patients Under 20 months Aged Out No longer eligible based on patient's age to complete this topic Varicella Vaccines Aged Out No longer eligible based on patient's age to complete this topic Procedures Procedure Name Priority Date/Time Associated Diagnosis Comments BASIC METABOLIC PANEL Routine 08/26/2025 8:55 AM EST Anemia, unspecified COMPLETE BLOOD COUNT Routine 08/26/2025 8:55 AM EST Anemia, unspecified BASIC METABOLIC PANEL Routine 08/19/2025 8:29 AM EST Anemia, unspecified COMPLETE BLOOD COUNT Routine 08/19/2025 8:29 AM EST Anemia, unspecified HEMOGLOBIN A1C Routine 08/17/2025 9:08 AM EST Type 2 diabetes mellitus without complications ([facility] V24, [facility] V28) BASIC METABOLIC PANEL Routine 08/12/2025 8:06 AM EDT Anemia, unspecified COMPLETE BLOOD COUNT Routine 08/12/2025 8:06 AM EDT Anemia, unspecified COMPREHENSIVE METABOLIC PANEL Routine 08/05/2025 10:20 AM EDT Anemia, unspecified COMPLETE BLOOD COUNT Routine 08/05/2025 10:20 AM EDT Anemia, unspecified from Last 3 Months Results * (ABNORMAL) Complete blood count (08/26/2025 8:55 AM EST) Only the most recent of4 resultswithin the time period is included. [facility] Signature WBC 6.5 4.8 - 10.8 K/mcL LAB HEMETOLOGY METHOD 08/26/2025 11:33 AM EST [facility] RBC 3.70(L) 4.50 - 5.50 M/[facility] LAB HEMETOLOGY METHOD 08/26/2025 11:33 AM EST [facility] Hemoglobin 11.0(L) 13.5 - 17.5 g/dL LAB HEMETOLOGY METHOD 08/26/2025 11:33 AM EST [facility] Hematocrit 35.6(L) 42.0 - 54.0 % LAB HEMETOLOGY METHOD 08/26/2025 11:33 AM EST [facility] MCV 97.5 79.0 - 98.0 FL LAB HEMETOLOGY METHOD 08/26/2025 11:33 AM EST [facility] MCH 30.1 27.0 - 32.0 pcg LAB HEMETOLOGY METHOD 08/26/2025 11:33 AM EST [facility] MCHC 30.9(L) 32.0 - 37.0 g/dL LAB HEMETOLOGY METHOD 08/26/2025 11:33 AM EST [facility] RDW 13.6 11.0 - 15.0 % LAB HEMETOLOGY METHOD 08/26/2025 11:33 AM EST [facility] Platelets 187 130 - 400 K/mcL LAB HEMETOLOGY METHOD 08/26/2025 11:33 AM EST [facility] MPV 11.5(H) 7.0 - 11.0 FL LAB HEMETOLOGY METHOD 08/26/2025 11:33 AM EST [facility] NRBC 0.0 <1.0 % LAB HEMETOLOGY METHOD 08/26/2025 11:33 AM EST [facility] NRBC Absolute 0.00 <0.10 K/mcL LAB HEMETOLOGY METHOD 08/26/2025 11:33 AM [facility] Blood Venous blood specimen / Unknown Venipuncture / Unknown 08/26/2025 8:55 AM EST 08/26/2025 11:18 AM EST us Chema Seals MD LAB BLOOD ORDERABLES Final Result [facility] [address] [place] [address], * (ABNORMAL) Basic metabolic panel (08/26/2025 8:55 AM EST) Only the most recent of3 resultswithin the time period is included. [facility] Signature Sodium 138 133 - 145 mmol/L LAB CHEMISTRY METHOD 08/26/2025 12:14 PM [facility] Potassium 4.4 3.5 - 5.5 mmol/L LAB CHEMISTRY METHOD 08/26/2025 12:14 PM [facility] Chloride 102 96 - 110 mmol/L LAB CHEMISTRY METHOD 08/26/2025 12:14 PM [facility] CO2 33(H) 21 - 32 mmol/L LAB CHEMISTRY METHOD 08/26/2025 12:14 PM [facility] Anion Gap 3 3 - 11 LAB CHEMISTRY METHOD 08/26/2025 12:14 PM [facility] Glucose 137(H) 70 - 100 mg/dL LAB CHEMISTRY METHOD 08/26/2025 12:14 PM [facility] BUN 23 5 - 25 mg/dL LAB CHEMISTRY METHOD 08/26/2025 12:14 PM [facility] Creatinine 1.38(H) 0.70 - 1.30 mg/dL LAB CHEMISTRY METHOD 08/26/2025 12:14 PM [facility] eGFR 52(L) >=60 mL/min/1. 73m2 LAB CHEMISTRY METHOD 08/26/2025 12:14 PM [facility] Comment:Calculation based on the Chronic Kidney Disease Epidemiology Collaboration (CKD-EPI) equation refit without adjustment for race. BUN/Creatinine Ratio 16.7 LAB CHEMISTRY METHOD 08/26/2025 12:14 PM [facility] Calcium 8.6 8.5 - 10.5 mg/dL LAB CHEMISTRY METHOD 08/26/2025 12:14 PM [facility] Blood Venous blood specimen / Unknown Venipuncture / Unknown 08/26/2025 8:55 AM EST 08/26/2025 11:20 AM EST Chema Seals MD LAB BLOOD ORDERABLES Final Result [facility] [address] [place] [address], * (ABNORMAL) Hemoglobin A1c (08/17/2025 9:08 AM EST) Pathologist [facility] Hemoglobin A1C 6.8(H) <6.5 % LAB CHEMISTRY METHOD 08/17/2025 2:10 PM EST [facility] Mean Bld Glu Estim. 148 mg/dL LAB CHEMISTRY METHOD 08/17/2025 2:10 PM EST [facility] Blood Venous blood specimen / Unknown Venipuncture / Unknown 08/17/2025 9:08 AM EST 08/17/2025 11:30 AM EST Chema Seals MD LAB BLOOD ORDERABLES Final Result Performing Organization Address [facility]/ZIP Co de Phone Number [facility] [address] [place] [address], * (ABNORMAL) Comprehensive metabolic panel (08/05/2025 10:20 AM EDT) [facility] Sodium 135 133 - 145 mmol/L LAB CHEMISTRY METHOD 08/05/2025 1:08 PM [facility] Potassium 4.2 3.5 - 5.5 mmol/L LAB CHEMISTRY METHOD 08/05/2025 1:08 PM [facility] Chloride 97 96 - 110 mmol/L LAB CHEMISTRY METHOD 08/05/2025 1:08 PM [facility] CO2 30 21 - 32 mmol/L LAB CHEMISTRY METHOD 08/05/2025 1:08 PM [facility] Anion Gap 8 3 - 11 LAB CHEMISTRY METHOD 08/05/2025 1:08 PM [facility] Glucose 179(H) 70 - 100 mg/dL LAB CHEMISTRY METHOD 08/05/2025 1:08 PM [facility] BUN 40(H) 5 - 25 mg/dL LAB CHEMISTRY METHOD 08/05/2025 1:08 PM [facility] Creatinine 1.84(H) 0.70 - 1.30 mg/dL LAB CHEMISTRY METHOD 08/05/2025 1:08 PM [facility] eGFR 37(L) >=60 mL/min/1. 73m2 LAB CHEMISTRY METHOD 08/05/2025 1:08 PM [facility] Comment:Calculation based on the Chronic Kidney Disease Epidemiology Collaboration (CKD-EPI) equation refit without adjustment for race. BUN/Creatinine Ratio 21.7 LAB CHEMISTRY METHOD 08/05/2025 1:08 PM [facility] Calcium 8.8 8.5 - 10.5 mg/dL LAB CHEMISTRY METHOD 08/05/2025 1:08 PM [facility] AST (SGOT) 25 10 - 42 unit/L LAB CHEMISTRY METHOD 08/05/2025 1:08 PM [facility] ALT (SGPT) 34 10 - 60 unit/L LAB CHEMISTRY METHOD 08/05/2025 1:08 PM [facility] Alkaline Phosphatase 69 42 - 121 unit/L LAB CHEMISTRY METHOD 08/05/2025 1:08 PM [facility] Total Protein 5.7(L) 6.0 - 8.0 g/dL LAB CHEMISTRY METHOD 08/05/2025 1:08 PM [facility] Albumin 3.1(L) 3.2 - 5.0 g/dL LAB CHEMISTRY METHOD 08/05/2025 1:08 PM [facility] Total Bilirubin 0.7 0.0 - 1.4 mg/dL LAB CHEMISTRY METHOD 08/05/2025 1:08 PM [facility] Blood Venous blood specimen / Unknown Venipuncture / Unknown 08/05/2025 10:20 AM EDT 08/05/2025 11:03 AM EDT us Chema Seals MD LAB BLOOD ORDERABLES Final Result [facility] [address] [place] [address], [place] [phone] from Last 3 Months Insurance [employer] MED[employer] Care Teams Block Cableman Relationship Specialty Start Date End Date Chema Seals MD [address] [place] [address] [facility] [place], [place] PCP - General Internal Medicine 08/05/25
--- OUTSIDE RECORDS SUMMARY | 2025-09-03 15:20 | XMS_ITS | Encounter Summary ---
Author Organization [facility] Address [address] [place] [address] Care Team Providers Care Blueprint Cutter Name Role Phone Chema Seals MD Primary Care Provider [phone]- [phone] Encounter Details Date Type Department Care Team (Late st Contact Info) Description 08/18/2025 Lab Requisition [facility] - Main Lab [address] [place] [address] Chema Seals MD [address] [place] [address] Anemia, unspecified Social History Tobacco Use Types [...] Associated Diagnosis Comments COMPLETE BLOOD COUNT Routine 08/19/2025 8:29 AM EST Anemia, unspecified BASIC METABOLIC PANEL Routine 08/19/2025 8:29 AM EST Anemia, unspecified documented in this encounter Results * (ABNORMAL) Basic metabolic panel (08/19/2025 8:29 AM EST) Sodium 139 133 - 145 mmol/L LAB CHEMISTRY METHOD 08/19/2025 12:22 PM EST [facility] Potassium 4.3 3.5 - 5.5 mmol/L LAB CHEMISTRY METHOD 08/19/2025 12:22 PM EST [facility] Chloride 103 96 - 110 mmol/L LAB CHEMISTRY METHOD 08/19/2025 12:22 PM [facility] CO2 31 21 - 32 mmol/L LAB CHEMISTRY METHOD 08/19/2025 12:22 PM [facility] Anion Gap 5 3 - 11 LAB CHEMISTRY METHOD 08/19/2025 12:22 PM [facility] Glucose 92 70 - 100 mg/dL LAB CHEMISTRY METHOD 08/19/2025 12:22 PM [facility] BUN 14 5 - 25 mg/dL LAB CHEMISTRY METHOD 08/19/2025 12:22 PM [facility] Creatinine 1.32(H) 0.70 - 1.30 mg/dL LAB CHEMISTRY METHOD 08/19/2025 12:22 PM [facility] eGFR 55(L) >=60 mL/min/1. 73m2 LAB CHEMISTRY METHOD 08/19/2025 12:22 PM [facility] Comment:Calculation based on the Chronic Kidney Disease Epidemiology Collaboration (CKD-EPI) equation refit without adjustment for race. BUN/Creatinine Ratio 10.6 LAB CHEMISTRY METHOD 08/19/2025 12:22 PM [facility] Calcium 8.7 8.5 - 10.5 mg/dL LAB CHEMISTRY METHOD 08/19/2025 12:22 PM [facility] Blood Venous blood specimen / Unknown Venipuncture / Unknown 08/19/2025 8:29 AM EST 08/19/2025 10:12 AM EST us Chema Seals MD LAB BLOOD ORDERABLES Final Result [facility] LAB [address] [place] [address], * (ABNORMAL) Complete blood count (08/19/2025 8:29 AM EST) WBC 7.4 4.8 - 10.8 K/mcL LAB HEMETOLOGY METHOD 08/19/2025 11:21 AM [facility] RBC 3.70(L) 4.50 - 5.50 M/mcL LAB HEMETOLOGY METHOD 08/19/2025 11:21 AM [facility] Hemoglobin 11.2(L) 13.5 - 17.5 g/dL LAB HEMETOLOGY METHOD 08/19/2025 11:21 AM [facility] Hematocrit 36.7(L) 42.0 - 54.0 % LAB HEMETOLOGY METHOD 08/19/2025 11:21 AM [facility] MCV 98.7(H) 79.0 - 98.0 FL LAB HEMETOLOGY METHOD 08/19/2025 11:21 AM [facility] MCH 30.1 27.0 - 32.0 pcg LAB HEMETOLOGY METHOD 08/19/2025 11:21 AM [facility] MCHC 30.5(L) 32.0 - 37.0 g/dL LAB HEMETOLOGY METHOD 08/19/2025 11:21 AM [facility] RDW 13.4 11.0 - 15.0 % LAB HEMETOLOGY METHOD 08/19/2025 11:21 AM [facility] Platelets 160 130 - 400 K/mcL LAB HEMETOLOGY METHOD 08/19/2025 11:21 AM [facility] MPV 11.7(H) 7.0 - 11.0 FL LAB HEMETOLOGY METHOD 08/19/2025 11:21 AM [facility] NRBC 0.0 <1.0 % LAB HEMETOLOGY METHOD 08/19/2025 11:21 AM [facility] NRBC Absolute 0.00 <0.10 K/mcL LAB HEMETOLOGY METHOD 08/19/2025 11:21 AM [facility] Blood Venous blood specimen / Unknown Venipuncture / Unknown 08/19/2025 8:29 AM EST 08/19/2025 10:12 AM EST us Chema Seals MD LAB BLOOD ORDERABLES Final Result [facility] LAB [address] [place] [address], documented in this encounter Visit Diagnoses Diagnosis Anemia, unspecified documented in this encounter Care Teams Blueprint Cutter Relationship Specialty Start Date End Date Chema Seals MD [address] [place] [address] [facility] [place], [place] PCP - General Internal Medicine 08/05/25 documented as of this encounter
--- OUTSIDE RECORDS SUMMARY | 2025-09-03 15:20 | XMS_ITS | Clinical Summary ---
Author Organization [facility] Address [address] [address] Phone Care Team Providers Care Mis Specialist Name Role Phone Tanisha Evangelista MD Primary Care Provider [phone] Allergies No known active allergies Medications albuterol [...] EVERY MORNING. 1 Active Vitamin D, Ergocalciferol, 42298 units capsuleIndicati ons:Iron deficiency anemia, not otherwise [...] [facility] [address] [phone] Carter [place] MD [address] [phone] Health Maintenance Due Date Last Done Comments Pneumococcal Vaccine: 50+ Years (1 of 2 - PCV) 1964 Influenza Vaccine (#1) 2025 Diabetes: Ophthalmology Exam 09/02/2025 Diabetes: Pedal Pulse Checked 09/02/2025 Diabetes: Sensory Foot Exam 09/02/2025 Diabetes: Visual Foot Exam 09/02/2025 Diabetes: Hemoglobin A1C 11/17/2025 025, 08/17/2025 Hepatitis B Vaccine Aged Out No longe r eligible based on patient's age to complete this topic Insurance [facility] Medicare Aet Medicare Medicaid [place] Care Teams Mis Specialist Relationship Specialty Start Date End Date Tanisha Evangelista MD [address] [place], [place] PCP - General 10/24/20
--- OUTSIDE RECORDS SUMMARY | 2025-09-03 15:20 | XMS_ITS | Encounter Summary ---
Author Organization [facility] Address [address] [place] [address] Care Team Providers Care Air Transport Professionals Name Role Phone Chema Seals MD Primary Care Provider [phone]- [phone] Encounter Details Date Type Department Care Team (Late st Contact Info) Description 08/25/2025 Lab Requisition [facility] - Main Lab [address] [place] [address] Chema Seals MD [address] [place] [address] Anemia, unspecified Social History Tobacco Use Types [...] Associated Diagnosis Comments COMPLETE BLOOD COUNT Routine 08/26/2025 8:55 AM EST Anemia, unspecified BASIC METABOLIC PANEL Routine 08/26/2025 8:55 AM EST Anemia, unspecified documented in this encounter Results * (ABNORMAL) Basic metabolic panel (08/26/2025 8:55 AM EST) Sodium 138 133 - 145 mmol/L LAB CHEMISTRY METHOD 08/26/2025 12:14 PM EST [facility] Potassium 4.4 3.5 - 5.5 mmol/L LAB CHEMISTRY METHOD 08/26/2025 12:14 PM EST [facility] Chloride 102 96 - 110 mmol/L LAB CHEMISTRY METHOD 08/26/2025 12:14 PM [facility] CO2 33(H) 21 - 32 mmol/L LAB CHEMISTRY METHOD 08/26/2025 12:14 PM [facility] Anion Gap 3 3 - 11 LAB CHEMISTRY METHOD 08/26/2025 12:14 PM [facility] Glucose 137(H) 70 - 100 mg/dL LAB CHEMISTRY METHOD 08/26/2025 12:14 PM [facility] BUN 23 5 - 25 mg/dL LAB CHEMISTRY METHOD 08/26/2025 12:14 PM [facility] Creatinine 1.38(H) 0.70 - 1.30 mg/dL LAB CHEMISTRY METHOD 08/26/2025 12:14 PM [facility] eGFR 52(L) >=60 mL/min/1. 73m2 LAB CHEMISTRY METHOD 08/26/2025 12:14 PM [facility] Comment:Calculation based on the Chronic Kidney Disease Epidemiology Collaboration (CKD-EPI) equation refit without adjustment for race. BUN/Creatinine Ratio 16.7 LAB CHEMISTRY METHOD 08/26/2025 12:14 PM [facility] Calcium 8.6 8.5 - 10.5 mg/dL LAB CHEMISTRY METHOD 08/26/2025 12:14 PM [facility] Blood Venous blood specimen / Unknown Venipuncture / Unknown 08/26/2025 8:55 AM EST 08/26/2025 11:20 AM EST us Chema Seals MD LAB BLOOD ORDERABLES Final Result [facility] LAB [address] [place] [address], * (ABNORMAL) Complete blood count (08/26/2025 8:55 AM EST) WBC 6.5 4.8 - 10.8 K/mcL LAB HEMETOLOGY METHOD 08/26/2025 11:33 AM [facility] RBC 3.70(L) 4.50 - 5.50 M/mcL LAB HEMETOLOGY METHOD 08/26/2025 11:33 AM [facility] Hemoglobin 11.0(L) 13.5 - 17.5 g/dL LAB HEMETOLOGY METHOD 08/26/2025 11:33 AM [facility] Hematocrit 35.6(L) 42.0 - 54.0 % LAB HEMETOLOGY METHOD 08/26/2025 11:33 AM [facility] MCV 97.5 79.0 - 98.0 FL LAB HEMETOLOGY METHOD 08/26/2025 11:33 AM [facility] MCH 30.1 27.0 - 32.0 pcg LAB HEMETOLOGY METHOD 08/26/2025 11:33 AM [facility] MCHC 30.9(L) 32.0 - 37.0 g/dL LAB HEMETOLOGY METHOD 08/26/2025 11:33 AM [facility] RDW 13.6 11.0 - 15.0 % LAB HEMETOLOGY METHOD 08/26/2025 11:33 AM [facility] Platelets 187 130 - 400 K/mcL LAB HEMETOLOGY METHOD 08/26/2025 11:33 AM [facility] MPV 11.5(H) 7.0 - 11.0 FL LAB HEMETOLOGY METHOD 08/26/2025 11:33 AM [facility] NRBC 0.0 <1.0 % LAB HEMETOLOGY METHOD 08/26/2025 11:33 AM [facility] NRBC Absolute 0.00 <0.10 K/mcL LAB HEMETOLOGY METHOD 08/26/2025 11:33 AM [facility] Blood Venous blood specimen / Unknown Venipuncture / Unknown 08/26/2025 8:55 AM EST 08/26/2025 11:18 AM EST us Chema Seals MD LAB BLOOD ORDERABLES Final Result [facility] ([facility]) [facility] [address] [place] [address], documented in this encounter Visit Diagnoses Diagnosis Anemia, unspecified documented in this encounter Care Teams Air Transport Professionals Relationship Specialty Start Date End Date Chema Seals MD [address] [place] [address] [facility] [place], [place] PCP - General Internal Medicine 08/05/25 documented as of this encounter
--- OUTSIDE RECORDS SUMMARY | 2025-09-03 15:20 | XMS_ITS | Encounter Summary ---
Author Organization [facility] Address [address] [facility] [address] [place] [address] Phone Care Team Providers Care Chemical Compounder Name Role Phone Tanisha Evangelista MD Primary Care Provider [phone] Reason for Visit * Reason Comments Med Refill Encounter Details Date Type Department Care Team (Late st Contact Info) Description 11/14/2022 Refill [facility] [address] [facility] [address] [place] [phone] Eliu Estrella MD [facility] [address] Social History Tobacco Use Types [...] Visit [facility] [address] [phone] Carter [place] MD [facility] [address] documented as of this encounter Visit Diagnoses Not on filedocumented in this encounter Care Teams Chemical Compounder Relationship Specialty Start Date End Date Tanisha Evangelista MD [address] [place] [address] PCP - General 10/24/20 documented as of this encounter
--- OUTSIDE RECORDS SUMMARY | 2025-09-03 15:20 | XMS_ITS | Clinical Summary ---
Author Organization [facility] Address [address] [place] [address] Phone Care Team Providers Care Drinking Water Technician Name Role Phone Unavailable Primary Care Provider Unavailabl e Social History Tobacco Use Types Packs/Day Years Used Date Smoking Tobacco: Never Assessed Sex and Gender Information Value Date Recorded Sex Assigned at Not on file Legal Sex Male 4:43 PM EDT Gender Identity Not on file Sexual Orientation Not on file Plan of Treatment Not on file Medical Devices Not on file [facility] [employer] PPO MEDICARE REPLACEMENT [employer] PPO MEDICARE REPLACEMENT [employer] PPO MEDICARE REPLACEMENT [employer] PPO MEDICARE REPLACEMENT Additional Source Comments The information contained in this document represents components of the legal health record. It is not the complete legal health record.[facility]
[2025-09-03 15:21] VITALS: BP 132/84; PULSE 94; O2SAT 91; BMI 29.0
--- OUTSIDE RECORDS SUMMARY | 2025-10-30 19:00 | XMS_ITS | Clinical Summary ---
Author Organization Unknown Care Team Providers Care Fish Bait Picker Name Role Phone WILLIAM CHAIREZ, ANGE Unavailable Unavailable DINORA RN, AKIKO Unavailable Unavailab felipe SAEED LPN, FREDDIE Unavailable Unavailable LORETO PT, DEJON Unavailable Unavailable SHAZIA SENIOR UI DESIGNER, MIKAELA Unavailable Unavailable Payers Payer Name Policy Type Policy Number Effective Date Expira tion Date [facility] [id number] Problems Condition Name Condition Details Condition Category Status Onset Date Resolution Date Last Treatment Date Treating Clinician Comments 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 Active 2024-10 00:00: 00 Allergies, Adverse Reactions, Alerts Allergy Name Allergy Type Status Severity Reaction(s) Onset Date Inactive Date Treating Clinician Comments NO KNOWN ALLERGIES Propensity to adverse reactions Active 2024-10 11:49: 53 Vital Signs Vital Name Observation Time Observation Value Commen ts Temperature 2025-09-02 11:39:00.000 97.8 [degF] BMI (%) 2025-09-02 10:51:16.000 26 kg/m2 Height 2025-09-02 10:50:24.000 66 [in_us] Pulse 2025-09-02 11:39:00.000 75 /min O2 Saturation (%) 2025-09-02 11:39:00.000 96 % Respirations 2025-09-02 11:39:00.000 18 /min Weight (lbs) 2025-09-02 10:51:16.000 165 [lb_av] Systolic Blood Pressure 2025-09-02 11:39:00.000 120 mm [Hg] Diastolic Blood Pressure 2025-09-02 11:39:00.000 70 mm [Hg] Plan of Treatment Planned Activity Planned Date Details Comments Future Scheduled Test RN TO OBSE RVE, ASSESS, EVALUATE, AND DEVELOP AN INDIVIDUALIZED PLAN OF CARE. AGENCY MAY ACCEPT ORDERS FROM CONSULTING PHYSICIANS . RN TO OBSERVE AND ASSESS, JOINER HELPER/MEDICAL RECORDS ADMINISTRATOR TO OBSERVE FOR RISK FOR FALLS AND INSTRUCT IN FALL PREVENTION, HOME SAFETY, MEDICATION MANAGEMENT, INFECTION PREVENTION, AND NUTRITION MANAGEMENT. RN/JOINER HELPER/MEDICAL RECORDS ADMINISTRATOR NURSE MAY PERFORM O2 SATURATION LEVEL ON ADMISSION AND PRN FOR RN TO ASSESS/JOINER HELPER TO OBSERVE PATIENT, WITH NOTIFICATION TO THE PHYSICIAN IF SATURATION IS 90% IN THE ABSENCE OF MORE SPECIFIC PARAMETERS FROM THE PHYSICIAN. AGENCY MAY PERFORM A RESUMPTION OF CARE VISIT FOLLOWING ANY HOSPITAL ADMISSION. RN/JOINER HELPER/MEDICAL RECORDS ADMINISTRATOR TO MONITOR CO-MORBID CONDITIONS LISTED ON THE PLAN OF CARE AND ANY NEW CONDITIONS THAT PRESENT THEMSELVES DURING THIS EPISODE TO IDENTIFY CHANGES AND INTERVENE TO MINIMIZE COMPLICATIONS. [code = RN TO OBSERVE, ASSESS, EVALUATE, AND DEVELOP AN INDIVIDUALIZED PLAN OF CARE. AGENCY MAY ACCEPT ORDERS FROM CONSULTING PHYSICIANS . RN TO OBSERVE AND ASSESS, JOINER HELPER/MEDICAL RECORDS ADMINISTRATOR TO OBSERVE FOR RISK FOR FALLS AND INSTRUCT IN FALL PREVENTION, HOME SAFETY, MEDICATION MANAGEMENT, INFECTION PREVENTION, AND NUTRITION MANAGEMENT. RN/JOINER HELPER/MEDICAL RECORDS ADMINISTRATOR NURSE MAY PERFORM O2 SATURATION LEVEL ON ADMISSION AND PRN FOR RN TO ASSESS/JOINER HELPER TO OBSERVE PATIENT, WITH NOTIFICATION TO THE PHYSICIAN IF SATURATION IS 90% IN THE ABSENCE OF MORE SPECIFIC PARAMETERS FROM THE PHYSICIAN. AGENCY MAY PERFORM A RESUMPTION OF CARE VISIT FOLLOWING ANY HOSPITAL ADMISSION. RN/JOINER HELPER/MEDICAL RECORDS ADMINISTRATOR TO MONITOR CO-MORBID CONDITIONS LISTED ON THE PLAN OF CARE AND ANY NEW CONDITIONS THAT PRESENT THEMSELVES DURING THIS EPISODE TO IDENTIFY CHANGES AND INTERVENE TO MINIMIZE COMPLICATIONS.] Future Scheduled Test MEDICATION MANAGEMENT; RN/JOINER HELPER/MEDICAL RECORDS ADMINISTRATOR TO REVIEW MEDICATIONS FOR INTERACTIONS, EFFECTIVENESS OF DRUG THERAPY, AND SIGNS/SYMPTOMS OF ADVERSE REACTIONS. MAY INSTRUCT AND REINFORCE MEDICATION TEACHING RELATED TO THE USE OF MEDICATIONS, DOSAGE, FREQUENCY, PURPOSE, SIDE EFFECTS, AND TO REPORT COMPLICATIONS. [code = MEDICATION MANAGEMENT; RN/JOINER HELPER/MEDICAL RECORDS ADMINISTRATOR TO REVIEW MEDICATIONS FOR INTERACTIONS, EFFECTIVENESS OF DRUG THERAPY, AND SIGNS/SYMPTOMS OF ADVERSE REACTIONS. MAY INSTRUCT AND REINFORCE MEDICATION TEACHING RELATED TO THE USE OF MEDICATIONS, DOSAGE, FREQUENCY, PURPOSE, SIDE EFFECTS, AND TO REPORT COMPLICATIONS.] Future Scheduled Test RISK FOR H OSPITALIZATION; RN TO ASSESS/TEACH, MEDICAL RECORDS ADMINISTRATOR/JOINER HELPER TO OBSERVE/TEACH PATIENT/CAREGIVER ON RISK FOR HOSPITALIZATION/EMERGENCY ROOM VISITS, TEACH SIGNS AND SYMPTOMS THAT PUT PATIENT AT RISK, WHEN TO NOTIFY NURSE/PHYSICIAN OF COMPLICATIONS/DECLINE, AND WHEN TO CALL 911. [code = RISK FOR HOSPITALIZATION; RN TO ASSESS/TEACH, MEDICAL RECORDS ADMINISTRATOR/JOINER HELPER TO OBSERVE/TEACH PATIENT/CAREGIVER ON RISK FOR HOSPITALIZATION/EMERGENCY ROOM VISITS, TEACH SIGNS AND SYMPTOMS THAT PUT PATIENT AT RISK, WHEN TO NOTIFY NURSE/PHYSICIAN OF COMPLICATIONS/DECLINE, AND WHEN TO CALL 911.] Future Scheduled Test CARDIOVASC ULAR SYSTEM; RN TO ASSESS/TEACH, JOINER HELPER/MEDICAL RECORDS ADMINISTRATOR TO OBSERVE/TEACH RELATED TO ALTERED CARDIOVASCULAR STATUS TO MINIMIZE COMPLICATIONS AND REDUCE HOSPITALIZATION. [code = CARDIOVASCULAR SYSTEM; RN TO ASSESS/TEACH, JOINER HELPER/MEDICAL RECORDS ADMINISTRATOR TO OBSERVE/TEACH RELATED TO ALTERED CARDIOVASCULAR STATUS TO MINIMIZE COMPLICATIONS AND REDUCE HOSPITALIZATION.] Future Scheduled Test HYPERTENSI ON MANAGEMENT; RN TO ASSESS AND TEACH, JOINER HELPER/MEDICAL RECORDS ADMINISTRATOR TO OBSERVE AND TEACH WARNING SIGNS AND SYMPTOMS TO AVOID HOSPITALIZATION. [code = HYPERTENSION MANAGEMENT; RN TO ASSESS AND TEACH, JOINER HELPER/MEDICAL RECORDS ADMINISTRATOR TO OBSERVE AND TEACH WARNING SIGNS AND SYMPTOMS TO AVOID HOSPITALIZATION.] Future Scheduled Test RESPIRATOR Y SYSTEM MANAGEMENT; RN TO ASSESS AND TEACH, JOINER HELPER/MEDICAL RECORDS ADMINISTRATOR TO OBSERVE AND TEACH RELATED TO ALTERED RESPIRATORY STATUS TO MINIMIZE COMPLICATIONS AND REDUCE HOSPITALIZATION. [code = RESPIRATORY SYSTEM MANAGEMENT; RN TO ASSESS AND TEACH, JOINER HELPER/MEDICAL RECORDS ADMINISTRATOR TO OBSERVE AND TEACH RELATED TO ALTERED RESPIRATORY STATUS TO MINIMIZE COMPLICATIONS AND REDUCE HOSPITALIZATION.] Future Scheduled Test COPD MANAG EMENT; RN TO ASSESS AND TEACH, JOINER HELPER/MEDICAL RECORDS ADMINISTRATOR TO OBSERVE AND TEACH SIGNS/SYMPTOMS OF COPD EXACERBATION AND PROVIDE EARLY INTERVENTIONS TO MINIMIZE RISK OF HOSPITALIZATION. RN/JOINER HELPER/MEDICAL RECORDS ADMINISTRATOR TO INSTRUCT ON SELF-CARE MANAGEMENT INCLUDING BREATHING TECHNIQUES, AIRWAY CLEARANCE, AND PROPER USE OF COPD MEDICATIONS. RN TO ASSESS AND TEACH, JOINER HELPER/MEDICAL RECORDS ADMINISTRATOR TO OBSERVE AND TEACH PATIENT/CAREGIVER ABILITY TO MONITOR AND RECORD VITAL SIGNS INCLUDING PULSE OXIMETRY AND BLOOD PRESSURE [code = COPD MANAGEMENT; RN TO ASSESS AND TEACH, JOINER HELPER/MEDICAL RECORDS ADMINISTRATOR TO OBSERVE AND TEACH SIGNS/SYMPTOMS OF COPD EXACERBATION AND PROVIDE EARLY INTERVENTIONS TO MINIMIZE RISK OF HOSPITALIZATION. RN/JOINER HELPER/MEDICAL RECORDS ADMINISTRATOR TO INSTRUCT ON SELF-CARE MANAGEMENT INCLUDING BREATHING TECHNIQUES, AIRWAY CLEARANCE, AND PROPER USE OF COPD MEDICATIONS. RN TO ASSESS AND TEACH, JOINER HELPER/MEDICAL RECORDS ADMINISTRATOR TO OBSERVE AND TEACH PATIENT/CAREGIVER ABILITY TO MONITOR AND RECORD VITAL SIGNS INCLUDING PULSE OXIMETRY AND BLOOD PRESSURE] Future Scheduled Test OXYGEN THE RAPY; RN/JOINER HELPER/MEDICAL RECORDS ADMINISTRATOR TO INSTRUCT ON OXYGEN MANAGEMENT INCLUDING: ADMINISTRATION AT 4 L/MIN VIA NASAL CANNULA CONTINUOUS FOR COPD, CARE OF EQUIPMENT AND SAFETY. [code = OXYGEN THERAPY; RN/JOINER HELPER/MEDICAL RECORDS ADMINISTRATOR TO INSTRUCT ON OXYGEN MANAGEMENT INCLUDING: ADMINISTRATION AT 4 L/MIN VIA NASAL CANNULA CONTINUOUS FOR COPD, CARE OF EQUIPMENT AND SAFETY.] Future Scheduled Test PAIN MANAG EMENT; RN TO ASSESS AND TEACH, MEDICAL RECORDS ADMINISTRATOR/JOINER HELPER TO OBSERVE AND TEACH AND PROVIDE EDUCATION ON PAIN MANAGEMENT TECHNIQUES. [code = PAIN MANAGEMENT; RN TO ASSESS AND TEACH, MEDICAL RECORDS ADMINISTRATOR/JOINER HELPER TO OBSERVE AND TEACH AND PROVIDE EDUCATION ON PAIN MANAGEMENT TECHNIQUES.] Future Scheduled Test GENITOURIN AAMIR MANAGEMENT; RN TO ASSESS AND TEACH, JOINER HELPER/MEDICAL RECORDS ADMINISTRATOR TO OBSERVE AND TEACH RELATED TO ALTERED GENITOURINARY STATUS TO MINIMIZE COMPLICATIONS AND REDUCE HOSPITALIZATION. [code = GENITOURINARY MANAGEMENT; RN TO ASSESS AND TEACH, JOINER HELPER/MEDICAL RECORDS ADMINISTRATOR TO OBSERVE AND TEACH RELATED TO ALTERED GENITOURINARY STATUS TO MINIMIZE COMPLICATIONS AND REDUCE HOSPITALIZATION.] Future Scheduled Test INDWELLING URINARY CATHETER MANAGEMENT; RN/JOINER HELPER/MEDICAL RECORDS ADMINISTRATOR TO INSTRUCT PATIENT / CAREGIVER ON INDWELLING URINARY CATHETER MANAGEMENT INCLUDING CARE OF CATHETER, SIGN AND SYMPTOMS OF COMPLICATIONS, PERINEAL CARE, TUBE AND BAG PLACEMENT, PREVENTION OF INFECTION AND SKIN BREAKDOWN. [code = INDWELLING URINARY CATHETER MANAGEMENT; RN/JOINER HELPER/MEDICAL RECORDS ADMINISTRATOR TO INSTRUCT PATIENT / CAREGIVER ON INDWELLING URINARY CATHETER MANAGEMENT INCLUDING CARE OF CATHETER, SIGN AND SYMPTOMS OF COMPLICATIONS, PERINEAL CARE, TUBE AND BAG PLACEMENT, PREVENTION OF INFECTION AND SKIN BREAKDOWN.] Future Scheduled Test FALL REDUC TION MANAGEMENT; RN TO ASSESS AND OBSERVE, JOINER HELPER/MEDICAL RECORDS ADMINISTRATOR TO OBSERVE FALL RISK FACTORS AND EDUCATE PATIENT/CAREGIVER ON STRATEGIES TO MINIMIZE THE RISK OF FALLING. [code = FALL REDUCTION MANAGEMENT; RN TO ASSESS AND OBSERVE, JOINER HELPER/MEDICAL RECORDS ADMINISTRATOR TO OBSERVE FALL RISK FACTORS AND EDUCATE PATIENT/CAREGIVER ON STRATEGIES TO MINIMIZE THE RISK OF FALLING.] Future Scheduled Test OCCUPATION AL THERAPIST TO EVALUATE FOR SHOWER HELP [code = OCCUPATIONAL THERAPIST TO EVALUATE FOR SHOWER HELP] Future Scheduled Test PRN VISITS ; NUMBER OF RN/JOINER HELPER/MEDICAL RECORDS ADMINISTRATOR VISITS: 2 RN/JOINER HELPER/MEDICAL RECORDS ADMINISTRATOR TO PERFORM: CATHETER FOR THE FOLLOWING REASONS: CATHETER [code = PRN VISITS; NUMBER OF RN/JOINER HELPER/MEDICAL RECORDS ADMINISTRATOR VISITS: 2 RN/JOINER HELPER/MEDICAL RECORDS ADMINISTRATOR TO PERFORM: CATHETER FOR THE FOLLOWING REASONS: CATHETER] Goal Patient Goal - NOT GO TO THE HOSPITAL Goal Provider Goal - A PLAN OF CARE WILL BE ESTABLISHED THAT MEETS THE PATIENT S NEEDS. PATIENT WILL DEMONSTRATE OXYGEN SATURATION WITHIN NORMAL LIMITS OR PATIENT S OPTIMAL LEVEL ESTABLISHED BY THE PHYSICIAN THROUGHOUT CARE. CHANGES TO CO-MORBID CONDITIONS AND ANY NEW CONDITIONS WILL BE IDENTIFIED AND REPORTED TO THE PHYSICIAN. Goal Provider Goal - PATIENT/CAREGIVER TO VERBALIZE, AND CONSISTENTLY DEMONSTRATE EFFECTIVE, SAFE MANAGEMENT OF MEDICATION INCLUDING KNOWLEDGE OF EFFECTIVENESS, POTENTIAL SIDE EFFECTS AND DRUG REACTIONS AND WHEN TO CONTACT THE APPROPRIATE CARE PROVIDER. PATIENT/CAREGIVER WILL BE ABLE TO VERBALIZE UNDERSTANDING OF MEDICATION REGIMEN AND ACCURATELY TAKE MEDICATIONS PRESCRIBED WITHOUT ADVERSE EFFECTS BY EOE Goal Provider Goal - PATIENT/CAREGIVER WILL VERBALIZE UNDERSTANDING OF SIGNS AND SYMPTOMS THAT PUT THE PATIENT AT RISK FOR HOSPITALIZATION /EMERGENCY ROOM VISITS, WHEN TO NOTIFY NURSE/PHYSICIAN OF COMPLICATIONS/DECLINE AND WHEN TO CALL 911. Goal Provider Goal - PATIENT / CAREGIVER WILL VERBALIZE/DEMONSTRATE UNDERSTANDING OF MEASURES TO MANAGE ALTERED CARDIOVASCULAR STATUS BY EOE. Goal Provider Goal - PATIENT / CAREGIVER WILL VERBALIZE/DEMONSTRATE AN ABILITY TO ADHERE TO SELF-MANAGEMENT OF HTN TO MINIMIZE COMPLICATIONS AND AVOID HOSPITALIZATION BY END OF EPISODE. Goal Provider Goal - PATIENT / CAREGIVER WILL VERBALIZE/DEMONSTRATE UNDERSTANDING OF MEASURES TO MANAGE ALTERED RESPIRATORY STATUS BY END OF EPISODE. Goal Provider Goal - PATIENT / CAREGIVER WILL VERBALIZE/DEMONSTRATE AN ABILITY TO ADHERE TO SELF-MANAGEMENT OF COPD TO MINIMIZE COMPLICATIONS AND AVOID HOSPITALIZATION BY END OF EPISODE. Goal Provider Goal - PATIENT/CAREGIVER WILL VERBALIZE/DEMONSTRATE UNDERSTANDING OF CARE AND MANAGEMENT OF OXYGEN THERAPY BY END OF EPISODE Goal Provider Goal - PATIENT / CAREGIVER WILL VERBALIZE / DEMONSTRATE UNDERSTANDING OF PAIN CONTROL MEASURES BY EOE Goal Provider Goal - PATIENT / CAREGIVER WILL VERBALIZE/DEMONSTRATE UNDERSTANDING OF MEASURES TO MANAGE ALTERED GENITOURINARY STATUS BY END OF EPISODE. Goal Provider Goal - PATIENT/CAREGIVER WILL VERBALIZE/DEMONSTRATE UNDERSTANDING OF CARE AND MANAGEMENT OF INDWELLING CATHETER BY EOE. Goal Provider Goal - PATIENT/CAREGIVER WILL VERBALIZE/DEMONSTRATE UNDERSTANDING OF FALL RISK FACTORS AND IMPLEMENT STRATEGIES TO MINIMIZE FALL RISK. PATIENT/CAREGIVER WILL VERBALIZE/DEMONSTRATE AN ABILITY TO ADHERE TO FALL REDUCTION SELF-MANAGEMENT AND LIFE-STYLE CHANGES BY EOE Goal Provider Goal - Goal Provider Goal - Progress Notes Progress Notes <paragraph>[Visit Date: 2024 by AKIKO FARIAS RN]:</paragraph><paragraph>SNV FOR START OF CARE</paragraph><paragraph></paragraph><paragraph>PATIENT IS A 79-YEAR-OLD MALE, FULL CODE, WHO WENT TO THE HOSPITAL DUE TO BEING SHORT OF BREATH AND UNABLE TO VOID. PATIENT HAD A RODRIGUEZ CATHETER TRIAL AND DID NOT PASS URINE. PATIENT ALSO IS OXYGEN DEPENDENT, 4L VIA NASAL CANNULA, WITH COPD. PATIENT IS EXTREMELY WEAK AND REQUIRES A WALKER FOR AMBULATION WITH ASSISTANCE FOR BALANCE. PATIENT REQUIRES ASSISTANCE FOR ALL ADLS WHEN HE WAS INDEPENDENT PREVIOUSLY. PATIENT LIVES WITH ANOTHER MAN, YOUNGER, WHO HELPS HIM AND HAS MANUGRAPHER CARE 5 HOURS A DAY, 6 DAYS A WEEK. 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 PATIENT HAS DENTURES AND DOES HAVE ISSUES WITH CHEWING AND SWALLOWING. HE WAS DISCHARGED ON MARCI, MECHANICAL SOFT DIET, AND HE REPORTS MEAT NEEDS TO BE CUT UP OR GROUND UP SMALL WITH GRAVY TO SWALLOW IT. 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 PATIENT S SKIN IS INTACT, BUT HAS A FUNGAL RASH TO HIS POSTERIOR SCROTUM AND LOWER BUTTOCKS. PATIENT HAS BRUISING, POOR TURGOR, AND XEROSIS. PATIENT HAS SCABBED AREA TO RIGHT LOWER ALBERTS FROM SCRATCHING DRY SKIN. PATIENT HAS A RODRIGUEZ CATHETER (16 FR 30 CC [place]), GENERAL CARE AND SIGNS OF INFECTION REVIEWED. PATIENT TO HAVE ANOTHER VOIDING TRIAL AT UROLOGY Saturday AT 8 AM. PATIENT REPORTS CHRONIC KNEE PAIN AND NEUROPATHY TO FEET AND HANDS. REVIEWED MEDICATIONS, PATIENT NEEDS FURTHER EDUCATION ON NEBULIZERS AND WHEN TO TAKE THEM. PATIENT WAS UNABLE TO VERBALIZE BACK WHEN EXPLAINED. EDUCATION PROVIDED ON DIET, NOT SMOKING ON OXYGEN, NOT TAKING OTHER BLOOD THINNERS LIKE ADVIL OR NAPROXEN.</paragraph><paragraph></paragraph><paragraph>REVIEWED ADMISSION FOLDER AND CONTENTS, MAGNET, WHEN TO CALL [facility], AND WHEN TO CALL 911. PATIENT IS NOT APPROPRIATE FOR TOUCH CALLS. REVIEWED BLEEDING PRECAUTIONS, FALL PRECAUTIONS, AND OXYGEN PRECAUTIONS. PATIENT CONTINUES TO BE HOMEBOUND DUE TO WEAKNESS, SHORTNESS OF BREATH ON 4L OXYGEN VIA NASAL CANNULA, AND NEEDING ASSISTANCE TO LEAVE HOME.</paragraph> Encounters Start Date/Time End Date/Time Encounter Type Admission Type Attending [facility] Care Department Encounter ID Discharge Date Discharge Status Discharge Condition Discharge Reason Percent Goals Met 2025-09-02 00:00:00 2025-10-31 00:00:00 Outpatient NEW ADMISSION AKIKO FARIAS [facility] [id number]
== END 2025-09-03 15:44 | disposition home or self-care (01) ==
LOC: HO.HMCC 15:16
PROVIDERS: PCP Internal Medicine; Visit Provider Internal Medicine
DX: J43.1 Panlobular emphysema (principal); E11.40 Type 2 diabetes mellitus with diabetic neuropathy, unspecified; I25.2 Old myocardial infarction; Z09 Encounter for follow-up examination after completed treatment for conditions other than malignant neoplasm; Z99.81 Dependence on supplemental oxygen; N28.9 Disorder of kidney and ureter, unspecified; N40.1 Benign prostatic hyperplasia with lower urinary tract symptoms; R35.1 Nocturia; N39.490 Overflow incontinence; F41.1 Generalized anxiety disorder; I10 Essential (primary) hypertension

== ENCOUNTER → 2025-09-03 15:16 | Outpatient (BNVA) | payer MEDICARE, MEDICAID, SELFPAY | PROVIDERS: PCP Internal Medicine; Visit Provider Internal Medicine | DX: Z09 Encounter for follow-up examination after completed treatment for conditions other than malignant neoplasm (principal); I21.4 Non-ST elevation (NSTEMI) myocardial infarction; J43.1 Panlobular emphysema; E11.9 Type 2 diabetes mellitus without complications; N28.9 Disorder of kidney and ureter, unspecified; N40.1 Benign prostatic hyperplasia with lower urinary tract symptoms; R35.1 Nocturia; N39.490 Overflow incontinence; F41.1 Generalized anxiety disorder; I10 Essential (primary) hypertension; Z99.81 Dependence on supplemental oxygen | CPT/HCPCS: 99212 ==

== ENCOUNTER 2025-09-07 09:32 | Outpatient (REF) | payer MEDICARE, SELFPAY ==
--- OUTSIDE RECORDS SUMMARY | 2025-09-07 11:03 | XMS_ITS | Clinical Summary ---
Author Organization [facility] Address [address] [place] [address] Phone Care Team Providers Care Preprint Analyst Name Role Phone Unavailable Primary Care Provider Unavailabl e Social History Tobacco Use Types Packs/Day Years Used Date Smoking Tobacco: Never Assessed Sex and Gender Information Value Date Recorded Sex Assigned at Not on file Legal Sex Male 4:43 PM EDT Gender Identity Not on file Sexual Orientation Not on file Plan of Treatment Not on file Medical Devices Not on file Insurance [facility] MEDIC[facility] [employer] PPO MEDICARE REPLACEMENT [employer] PPO MEDICARE REPLACEMENT [employer] PPO MEDICARE REPLACEMENT [employer] PPO MEDICARE REPLACEMENT Additional Source Comments The information contained in this document represents components of the legal health record. It is not the complete legal health record.[facility]
--- OUTSIDE RECORDS SUMMARY | 2025-09-07 11:03 | XMS_ITS | Clinical Summary ---
Author Organization [facility] Address [address] [place] [address] Phone Care Team Providers Care Cad Draftsman Name Role Phone Chema Seals MD Primary Care Provider [phone] Encounters Date Type Department Care Team Description 08/25/2025 Lab Requisition [facility] Lab [address] [place] [phone] Chema Seals MD Anemia, unspecified 08/18/2025 Lab Requisition [facility] Lab [address] [place] [phone] Chema Seals MD Anemia, unspecified 08/17/2025 Lab Requisition [facility] Lab [address] [place] [phone] Chema Seals MD Type 2 diabetes mellitus without complications (CMS/HCC V24, CMS/HCC V28) 08/11/2025 Lab Requisition [facility] Lab [address] [place] [phone] Chema Seals MD Anemia, unspecified 08/05/2025 Lab Requisition [facility] Lab [address] [place] [phone] Chema Seals MD Anemia, unspecified from Last [...] EST Type 2 diabetes mellitus without complications ([facility] V24, [facility] V28) BASIC METABOLIC PANEL Routine 08/12/2025 8:06 [...] of4 resultswithin the time period is included. [facility] Signature WBC 6.5 4.8 - 10.8 K/mcL LAB HEMETOLOGY METHOD 08/26/2025 11:33 AM EST [facility] LAB RBC 3.70(L) 4.50 - 5.50 M/[facility] LAB HEMETOLOGY METHOD 08/26/2025 11:33 AM EST [facility] LAB Hemoglobin 11.0(L) 13.5 - 17.5 g/dL LAB HEMETOLOGY METHOD 08/26/2025 11:33 AM EST [facility] LAB Hematocrit 35.6(L) 42.0 - 54.0 % LAB HEMETOLOGY METHOD 08/26/2025 11:33 AM EST [facility] LAB MCV 97.5 79.0 - 98.0 FL LAB HEMETOLOGY METHOD 08/26/2025 11:33 AM EST [facility] LAB MCH 30.1 27.0 - 32.0 pcg LAB HEMETOLOGY METHOD 08/26/2025 11:33 AM EST [facility] LAB MCHC 30.9(L) 32.0 - 37.0 g/dL LAB HEMETOLOGY METHOD 08/26/2025 11:33 AM EST [facility] LAB RDW 13.6 11.0 - 15.0 % LAB HEMETOLOGY METHOD 08/26/2025 11:33 AM EST [facility] LAB Platelets 187 130 - 400 K/mcL LAB HEMETOLOGY METHOD 08/26/2025 11:33 AM EST [facility] LAB MPV 11.5(H) 7.0 - 11.0 FL LAB HEMETOLOGY METHOD 08/26/2025 11:33 AM EST [facility] LAB NRBC 0.0 <1.0 % LAB HEMETOLOGY METHOD 08/26/2025 11:33 AM EST [facility] LAB NRBC Absolute 0.00 <0.10 K/mcL LAB HEMETOLOGY METHOD 08/26/2025 11:33 AM [facility] Blood Venous blood specimen / Unknown Venipuncture / Unknown 08/26/2025 8:55 AM EST 08/26/2025 11:18 AM EST us Chema Seals MD LAB BLOOD ORDERABLES Final Result [facility] LAB [address] [place] [address], * (ABNORMAL) Basic metabolic panel (08/26/2025 8:55 AM EST) Only the most recent of3 resultswithin the time period is included. [facility] Signature Sodium 138 133 - 145 mmol/L LAB CHEMISTRY METHOD 08/26/2025 12:14 PM [facility] Potassium 4.4 3.5 - 5.5 mmol/L LAB CHEMISTRY METHOD 08/26/2025 12:14 PM [facility] LAB Chloride 102 96 - 110 mmol/L LAB CHEMISTRY METHOD 08/26/2025 12:14 PM [facility] LAB CO2 33(H) 21 - 32 mmol/L LAB CHEMISTRY METHOD 08/26/2025 12:14 PM [facility] LAB Anion Gap 3 3 - 11 LAB CHEMISTRY METHOD 08/26/2025 12:14 PM [facility] LAB Glucose 137(H) 70 - 100 mg/dL LAB CHEMISTRY METHOD 08/26/2025 12:14 PM [facility] BUN 23 5 - 25 mg/dL LAB CHEMISTRY METHOD 08/26/2025 12:14 PM [facility] Creatinine 1.38(H) 0.70 - 1.30 mg/dL LAB CHEMISTRY METHOD 08/26/2025 12:14 PM [facility] LAB eGFR 52(L) >=60 mL/min/1. 73m2 LAB CHEMISTRY METHOD 08/26/2025 12:14 PM [facility] LAB Comment:Calculation based on the Chronic Kidney Disease Epidemiology Collaboration (CKD-EPI) equation refit without adjustment for race. BUN/Creatinine Ratio 16.7 LAB CHEMISTRY METHOD 08/26/2025 12:14 PM [facility] Calcium 8.6 8.5 - 10.5 mg/dL LAB CHEMISTRY METHOD 08/26/2025 12:14 PM [facility] LAB Blood Venous blood specimen / Unknown Venipuncture / Unknown 08/26/2025 8:55 AM EST 08/26/2025 11:20 AM EST Chema Seals MD LAB BLOOD ORDERABLES Final Result [facility] LAB [address] [place] [address], * (ABNORMAL) Hemoglobin A1c (08/17/2025 9:08 AM EST) Pathologist [facility] Hemoglobin A1C 6.8(H) <6.5 % LAB CHEMISTRY METHOD 08/17/2025 2:10 PM EST [facility] Mean Bld Glu Estim. 148 mg/dL LAB CHEMISTRY METHOD 08/17/2025 2:10 PM EST [facility] LAB Blood Venous blood specimen / Unknown Venipuncture / Unknown 08/17/2025 9:08 AM EST 08/17/2025 11:30 AM EST Chema Seals MD LAB BLOOD ORDERABLES Final Result Performing Organization Address [facility]/ZIP Co de Phone Number [facility] LAB [address] [place] [address], * (ABNORMAL) Comprehensive metabolic panel (08/05/2025 10:20 AM EDT) [facility] Sodium 135 133 - 145 mmol/L LAB CHEMISTRY METHOD 08/05/2025 1:08 PM [facility] Potassium 4.2 3.5 - 5.5 mmol/L LAB CHEMISTRY METHOD 08/05/2025 1:[facility] PM [facility] Chloride 97 96 - 110 mmol/L LAB CHEMISTRY METHOD 08/05/2025 1:08 PM [facility] CO2 30 21 - 32 mmol/L LAB CHEMISTRY METHOD 08/05/2025 1:08 PM [facility] Anion Gap 8 3 - 11 LAB CHEMISTRY METHOD 08/05/2025 1:08 PM [facility] LAB Glucose 179(H) 70 - 100 mg/dL LAB CHEMISTRY METHOD 08/05/2025 1:08 PM [facility] BUN 40(H) 5 - 25 mg/dL LAB CHEMISTRY METHOD 08/05/2025 1:08 PM [facility] LAB Creatinine 1.84(H) 0.70 - 1.30 mg/dL LAB CHEMISTRY METHOD 08/05/2025 1:08 PM [facility] LAB eGFR 37(L) >=60 mL/min/1. 73m2 LAB CHEMISTRY METHOD 08/05/2025 1:08 PM [facility] LAB Comment:Calculation based on the Chronic Kidney Disease Epidemiology Collaboration (CKD-EPI) equation refit without adjustment for race. BUN/Creatinine Ratio 21.7 LAB CHEMISTRY METHOD 08/05/2025 1:08 PM [facility] Calcium 8.8 8.5 - 10.5 mg/dL LAB CHEMISTRY METHOD 08/05/2025 1:08 PM [facility] AST (SGOT) 25 10 - 42 unit/L LAB CHEMISTRY METHOD 08/05/2025 1:08 PM [facility] ALT (SGPT) 34 10 - 60 unit/L LAB CHEMISTRY METHOD 08/05/2025 1:08 PM [facility] Alkaline Phosphatase 69 42 - 121 unit/L LAB CHEMISTRY METHOD 08/05/2025 1:08 PM [facility] Total Protein 5.7(L) 6.0 - 8.0 g/dL LAB CHEMISTRY METHOD 08/05/2025 1:08 PM [facility] Albumin 3.1(L) 3.2 - 5.0 g/dL LAB CHEMISTRY METHOD 08/05/2025 1:08 PM [facility] Total Bilirubin 0.7 0.0 - 1.4 mg/dL LAB CHEMISTRY METHOD 08/05/2025 1:08 PM [facility] LAB Blood Venous blood specimen / Unknown Venipuncture / Unknown 08/05/2025 10:20 AM EDT 08/05/2025 11:03 AM EDT us Chema Seals MD LAB BLOOD ORDERABLES Final Result [facility] [address] [place] [address], [place] [phone] from Last 3 Months Insurance [employer] MEDICARE [employer]VANTAGE Care Teams Cad Draftsman Relationship Specialty Start Date End Date Chema Seals MD [address] [place] [address] [facility] [place], [place] PCP - General Internal Medicine 08/05/25
--- OUTSIDE RECORDS SUMMARY | 2025-09-07 11:03 | XMS_ITS | Encounter Summary ---
Author Organization [facility] Address [address] [place] [address] Care Team Providers Care Sports Fitness And Wellness Director Name Role Phone Chema Seals MD Primary Care Provider +1- [phone] Encounter Details Date Type Department Care Team (Late st Contact Info) Description 08/18/2025 Lab Requisition [facility] - Main Lab [address] [place] [address] Chema Seals MD [address] [place] [id number] Anemia, unspecified Social History Tobacco Use Types [...] LAB CHEMISTRY METHOD 08/19/2025 12:22 PM EST [facility] Potassium 4.3 3.5 - 5.5 mmol/L LAB CHEMISTRY METHOD 08/19/2025 12:22 PM EST [facility] Chloride 103 96 - 110 mmol/L LAB CHEMISTRY METHOD 08/19/2025 12:22 PM [facility] CO2 31 21 - 32 mmol/L LAB CHEMISTRY METHOD 08/19/2025 12:22 PM [facility] Anion Gap 5 3 - 11 LAB CHEMISTRY METHOD 08/19/2025 12:22 PM [facility] Glucose 92 70 - 100 mg/dL LAB CHEMISTRY METHOD 08/19/2025 12:22 PM [facility] BUN 14 5 - 25 mg/dL LAB CHEMISTRY METHOD 08/19/2025 12:22 PM [facility] Creatinine 1.32(H) 0.70 - 1.30 mg/dL LAB CHEMISTRY METHOD 08/19/2025 12:22 PM [facility] eGFR 55(L) >=60 mL/min/1. 73m2 LAB CHEMISTRY METHOD 08/19/2025 12:22 PM [facility] Comment:Calculation based on the Chronic Kidney Disease Epidemiology Collaboration (CKD-EPI) equation refit without adjustment for race. BUN/Creatinine Ratio 10.6 LAB CHEMISTRY METHOD 08/19/2025 12:22 PM [facility] Calcium 8.7 8.5 - 10.5 mg/dL LAB CHEMISTRY METHOD 08/19/2025 12:22 PM [facility] Blood Venous blood specimen / Unknown Venipuncture / Unknown 08/19/2025 8:29 AM EST 08/19/2025 10:12 AM EST us Chema Seals MD LAB BLOOD ORDERABLES Final Result [facility] [address] [place] [address], * (ABNORMAL) Complete blood count (08/19/2025 8:29 AM EST) WBC 7.4 4.8 - 10.8 K/mcL LAB HEMETOLOGY METHOD 08/19/2025 11:21 AM [facility] RBC 3.70(L) 4.50 - 5.50 M/mcL LAB HEMETOLOGY METHOD 08/19/2025 11:21 AM [facility] Hemoglobin 11.2(L) 13.5 - 17.5 g/dL LAB HEMETOLOGY METHOD 08/19/2025 11:21 AM [facility] Hematocrit 36.7(L) 42.0 - 54.0 % LAB HEMETOLOGY METHOD 08/19/2025 11:21 AM [facility] MCV 98.7(H) 79.0 - 98.0 FL LAB HEMETOLOGY METHOD 08/19/2025 11:21 AM [facility] MCH 30.1 27.0 - 32.0 pcg LAB HEMETOLOGY METHOD 08/19/2025 11:21 AM [facility] MCHC 30.5(L) 32.0 - 37.0 g/dL LAB HEMETOLOGY METHOD 08/19/2025 11:21 AM [facility] RDW 13.4 11.0 - 15.0 % LAB HEMETOLOGY METHOD 08/19/2025 11:21 AM [facility] Platelets 160 130 - 400 K/mcL LAB HEMETOLOGY METHOD 08/19/2025 11:21 AM [facility] MPV 11.7(H) 7.0 - 11.0 FL LAB HEMETOLOGY METHOD 08/19/2025 11:21 AM [facility] NRBC 0.0 <1.0 % LAB HEMETOLOGY METHOD 08/19/2025 11:21 AM [facility] NRBC Absolute 0.00 <0.10 K/mcL LAB HEMETOLOGY METHOD 08/19/2025 11:21 AM [facility] Blood Venous blood specimen / Unknown Venipuncture / Unknown 08/19/2025 8:29 AM EST 08/19/2025 10:12 AM EST us Chema Seals MD LAB BLOOD ORDERABLES Final Result [facility] ([facility]) [facility] [address] [place] [address], documented in this encounter Visit Diagnoses Diagnosis Anemia, unspecified documented in this encounter Care Teams Sports Fitness And Wellness Director Relationship Specialty Start Date End Date Chema Seals MD [address] [place] [address] [facility] [place], [place] PCP - General Internal Medicine 08/05/25 documented as of this encounter
--- OUTSIDE RECORDS SUMMARY | 2025-09-07 11:03 | XMS_ITS | Encounter Summary ---
Author Organization [facility] Address [address] [place] [address] Care Team Providers Care Fish Cleaner Machine Tender Name Role Phone Chema Seals MD Primary Care Provider +1- [phone] Encounter Details Date Type Department Care Team (Late st Contact Info) Description 08/25/2025 Lab Requisition [facility] - Main Lab [address] [facility] [place] [address] Chema Seals MD [address] [place] [id number] Anemia, unspecified Social History Tobacco Use Types [...] LAB CHEMISTRY METHOD 08/26/2025 12:[address] [facility] Potassium 4.4 3.5 - 5.5 mmol/L LAB CHEMISTRY METHOD 08/26/2025 12:[address] [facility] Chloride 102 96 - 110 mmol/L LAB CHEMISTRY METHOD 08/26/2025 12:14 PM [facility] CO2 33(H) 21 - 32 mmol/L LAB CHEMISTRY METHOD 08/26/2025 12:14 PM [facility] Anion Gap 3 3 - 11 LAB CHEMISTRY METHOD 08/26/2025 12:14 PM [facility] Glucose 137(H) 70 - 100 mg/dL LAB CHEMISTRY METHOD 08/26/2025 12:14 PM [facility] BUN 23 5 - 25 mg/dL LAB CHEMISTRY METHOD 08/26/2025 12:14 PM [facility] Creatinine 1.38(H) 0.70 - 1.30 mg/dL LAB CHEMISTRY METHOD 08/26/2025 12:14 PM [facility] eGFR 52(L) >=60 mL/min/1. 73m2 LAB CHEMISTRY METHOD 08/26/2025 12:14 PM [facility] Comment:Calculation based on the Chronic Kidney Disease Epidemiology Collaboration (CKD-EPI) equation refit without adjustment for race. BUN/Creatinine Ratio 16.7 LAB CHEMISTRY METHOD 08/26/2025 12:14 PM [facility] Calcium 8.6 8.5 - 10.5 mg/dL LAB CHEMISTRY METHOD 08/26/2025 12:14 PM [facility] Blood Venous blood specimen / Unknown Venipuncture / Unknown 08/26/2025 8:55 AM EST 08/26/2025 11:20 AM EST us Chema Seals MD LAB BLOOD ORDERABLES Final Result [facility] [address] [place] [address], * (ABNORMAL) Complete blood count (08/26/2025 8:55 AM EST) WBC 6.5 4.8 - 10.8 K/mcL LAB HEMETOLOGY METHOD 08/26/2025 11:33 AM [facility] RBC 3.70(L) 4.50 - 5.50 M/mcL LAB HEMETOLOGY METHOD 08/26/2025 11:33 AM [facility] Hemoglobin 11.0(L) 13.5 - 17.5 g/dL LAB HEMETOLOGY METHOD 08/26/2025 11:33 AM [facility] Hematocrit 35.6(L) 42.0 - 54.0 % LAB HEMETOLOGY METHOD 08/26/2025 11:33 AM [facility] MCV 97.5 79.0 - 98.0 FL LAB HEMETOLOGY METHOD 08/26/2025 11:33 AM [facility] MCH 30.1 27.0 - 32.0 pcg LAB HEMETOLOGY METHOD 08/26/2025 11:33 AM [facility] MCHC 30.9(L) 32.0 - 37.0 g/dL LAB HEMETOLOGY METHOD 08/26/2025 11:33 AM [facility] RDW 13.6 11.0 - 15.0 % LAB HEMETOLOGY METHOD 08/26/2025 11:33 AM [facility] Platelets 187 130 - 400 K/mcL LAB HEMETOLOGY METHOD 08/26/2025 11:33 AM [facility] MPV 11.5(H) 7.0 - 11.0 FL LAB HEMETOLOGY METHOD 08/26/2025 11:33 AM [facility] NRBC 0.0 <1.0 % LAB HEMETOLOGY METHOD 08/26/2025 11:33 AM [facility] NRBC Absolute 0.00 <0.10 K/mcL LAB HEMETOLOGY METHOD 08/26/2025 11:33 AM [facility] Blood Venous blood specimen / Unknown Venipuncture / Unknown 08/26/2025 8:55 AM EST 08/26/2025 11:18 AM EST us Chema Seals MD LAB BLOOD ORDERABLES Final Result [facility] ([facility]) [facility] [address] [place] [address], documented in this encounter Visit Diagnoses Diagnosis Anemia, unspecified documented in this encounter Care Teams Fish Cleaner Machine Tender Relationship Specialty Start Date End Date Chema Seals MD [address] [place] [address] [facility] [place], [place] PCP - General Internal Medicine 08/05/25 documented as of this encounter
--- OUTSIDE RECORDS SUMMARY | 2025-09-07 11:03 | XMS_ITS | Encounter Summary ---
Author Organization [facility] Address [address] [place] [address] Care Team Providers Care Clinical Academic Allergist Name Role Phone Chema Seals MD Primary Care Provider +1- [phone] Encounter Details Date Type Department Care Team (Late st Contact Info) Description 08/17/2025 Lab Requisition [facility] - Main Lab 299 [facility] [place] [address] Chema Seals MD [address] [place] [phone] Type 2 diabetes mellitus without complications (CMS/HCC [...] LAB CHEMISTRY METHOD 08/17/2025 2:10 PM EST [facility] Mean Bld Glu Estim. 148 mg/dL LAB CHEMISTRY METHOD 08/17/2025 2:[address] [facility] Blood Venous blood specimen / Unknown Venipuncture / Unknown 08/17/2025 9:08 AM EST 08/17/2025 11:30 AM EST Chema Seals MD LAB BLOOD ORDERABLES Final Result [facility] [address] [place] [address], documented in this encounter Visit Diagnoses Diagnosis Type 2 diabetes mellitus without complications (CMS/HCC V24, CMS/HCC V28) documented in this encounter Care Teams Clinical Academic Allergist Relationship Specialty Start Date End Date Chema Seals MD [address] [place] [address] [facility] [place], [place] PCP - General Internal Medicine 08/05/25 documented as of this encounter
--- OUTSIDE RECORDS SUMMARY | 2025-09-07 11:03 | XMS_ITS | Encounter Summary ---
Author Organization [facility] Address [address] [place] [address] Care Team Providers Care Oysterman Name Role Phone Chema Seals MD Primary Care Provider +1- [phone] Encounter Details Date Type Department Care Team (Late st Contact Info) Description 08/11/2025 Lab Requisition [facility] - Main Lab [address] [place] [address] Chema Seals MD [address] [place] [phone] Anemia, unspecified Social History Tobacco Use Types [...] LAB CHEMISTRY METHOD 08/12/2025 12:50 PM EDT [facility] Potassium 4.5 3.5 - 5.5 mmol/L LAB CHEMISTRY METHOD 08/12/2025 12:50 PM EDT [facility] Chloride 103 96 - 110 mmol/L LAB CHEMISTRY METHOD 08/12/2025 12:50 PM EDT [facility] CO2 32 21 - 32 mmol/L LAB CHEMISTRY METHOD 08/12/2025 12:[address] [facility] Anion Gap 4 3 - 11 LAB CHEMISTRY METHOD 08/12/2025 12:[address] [facility] Glucose 102(H) 70 - 100 mg/dL LAB CHEMISTRY METHOD 08/12/2025 12:[address] [facility] BUN 19 5 - 25 mg/dL LAB CHEMISTRY METHOD 08/12/2025 12:[address] [facility] Comment:Results verified by repeat testing Creatinine 1.50(H) 0.70 - 1.30 mg/dL LAB CHEMISTRY METHOD 08/12/2025 12:[address] [facility] eGFR 47(L) >=60 mL/min/1. 73m2 LAB CHEMISTRY METHOD 08/12/2025 12:[address] [facility] Comment:Calculation based on the Chronic Kidney Disease Epidemiology Collaboration (CKD-EPI) equation refit without adjustment for race. BUN/Creatinine Ratio 12.7 LAB CHEMISTRY METHOD 08/12/2025 12:[address] [facility] Calcium 8.7 8.5 - 10.5 mg/dL LAB CHEMISTRY METHOD 08/12/2025 12:[address] [facility] Blood Venous blood specimen / Unknown Venipuncture / Unknown 08/12/2025 8:06 AM EDT 08/12/2025 12:25 PM EDT us Chema Seals MD LAB BLOOD ORDERABLES Final Result [facility] [address] [place] [address], * (ABNORMAL) Complete blood count (08/12/2025 8:06 AM EDT) WBC 8.4 4.8 - 10.8 K/mcL LAB HEMETOLOGY METHOD 08/12/2025 11:[address] [facility] RBC 3.90(L) 4.50 - 5.50 M/mcL LAB HEMETOLOGY METHOD 08/12/2025 11:[address] [facility] Hemoglobin 11.8(L) 13.5 - 17.5 g/dL LAB HEMETOLOGY METHOD 08/12/2025 11:[address] [facility] Hematocrit 38.4(L) 42.0 - 54.0 % LAB HEMETOLOGY METHOD 08/12/2025 11:[address] [facility] MCV 97.7 79.0 - 98.0 FL LAB HEMETOLOGY METHOD 08/12/2025 11:[address] [facility] MCH 30.0 27.0 - 32.0 pcg LAB HEMETOLOGY METHOD 08/12/2025 11:[address] [facility] MCHC 30.7(L) 32.0 - 37.0 g/dL LAB HEMETOLOGY METHOD 08/12/2025 11:[address] [facility] RDW 13.7 11.0 - 15.0 % LAB HEMETOLOGY METHOD 08/12/2025 11:[address] [facility] Platelets 173 130 - 400 K/mcL LAB HEMETOLOGY METHOD 08/12/2025 11:[address] [facility] MPV 11.8(H) 7.0 - 11.0 FL LAB HEMETOLOGY METHOD 08/12/2025 11:[address] [facility] NRBC 0.0 <1.0 % LAB HEMETOLOGY METHOD 08/12/2025 11:[address] [facility] NRBC Absolute 0.00 <0.10 K/mcL LAB HEMETOLOGY METHOD 08/12/2025 11:08 AM EDT [facility] Blood Venous blood specimen / Unknown Venipuncture / Unknown 08/12/2025 8:06 AM EDT 08/12/2025 10:11 AM EDT us Chema Seals MD LAB BLOOD ORDERABLES Final Result [facility] [address] [place] [address], documented in this encounter Visit Diagnoses Diagnosis Anemia, unspecified documented in this encounter Care Teams Oysterman Relationship Specialty Start Date End Date Chema Seals MD [address] [place] [address] [facility] [place], [place] PCP - General Internal Medicine 08/05/25 documented as of this encounter
--- OUTSIDE RECORDS SUMMARY | 2025-09-07 11:03 | XMS_ITS | Encounter Summary ---
Author Organization [facility] Address [address] [place] [address] Care Team Providers Care Geophysical Laboratory Supervisor Name Role Phone Chema Seals MD Primary Care Provider +1- [phone] Encounter Details Date Type Department Care Team (Late st Contact Info) Description 08/05/2025 Lab Requisition [facility] - Main Lab [address] [place] [address] Chema Seals MD [address] [place] [id number] Anemia, unspecified Social History Tobacco Use Types [...] LAB CHEMISTRY METHOD 08/05/2025 1:08 PM EDT [facility] Potassium 4.2 3.5 - 5.5 mmol/L LAB CHEMISTRY METHOD 08/05/2025 1:08 PM EDT [facility] Chloride 97 96 - 110 mmol/L LAB CHEMISTRY METHOD 08/05/2025 1:08 PM [facility] CO2 30 21 - 32 mmol/L LAB CHEMISTRY METHOD 08/05/2025 1:08 PM [facility] Anion Gap 8 3 - 11 LAB CHEMISTRY METHOD 08/05/2025 1:08 PM [facility] Glucose 179(H) 70 - 100 mg/dL LAB CHEMISTRY METHOD 08/05/2025 1:08 PM [facility] BUN 40(H) 5 - 25 mg/dL LAB CHEMISTRY METHOD 08/05/2025 1:08 PM [facility] Creatinine 1.84(H) 0.70 - 1.30 mg/dL LAB CHEMISTRY METHOD 08/05/2025 1:08 PM [facility] eGFR 37(L) >=60 mL/min/1. 73m2 LAB CHEMISTRY METHOD 08/05/2025 1:08 PM [facility] Comment:Calculation based on the Chronic Kidney Disease Epidemiology Collaboration (CKD-EPI) equation refit without adjustment for race. BUN/Creatinine Ratio 21.7 LAB CHEMISTRY METHOD 08/05/2025 1:08 PM [facility] Calcium 8.8 8.5 - 10.5 mg/dL LAB CHEMISTRY METHOD 08/05/2025 1:08 PM [facility] AST (SGOT) 25 10 - 42 unit/L LAB CHEMISTRY METHOD 08/05/2025 1:08 PM [facility] ALT (SGPT) 34 10 - 60 unit/L LAB CHEMISTRY METHOD 08/05/2025 1:08 PM [facility] Alkaline Phosphatase 69 42 - 121 unit/L LAB CHEMISTRY METHOD 08/05/2025 1:08 PM [facility] Total Protein 5.7(L) 6.0 - 8.0 g/dL LAB CHEMISTRY METHOD 08/05/2025 1:08 PM [facility] Albumin 3.1(L) 3.2 - 5.0 g/dL LAB CHEMISTRY METHOD 08/05/2025 1:08 PM EDT [facility] Total Bilirubin 0.7 0.0 - 1.4 mg/dL LAB CHEMISTRY METHOD 08/05/2025 1:08 PM T [facility] Blood Venous blood specimen / Unknown Venipuncture / Unknown 08/05/2025 10:20 AM EDT 08/05/2025 11:03 AM EDT us Chema Seals MD LAB BLOOD ORDERABLES Final Result [facility] [address] [place] [address], * (ABNORMAL) Complete blood count (08/05/2025 10:20 AM EDT) WBC 17.0(H) 4.8 - 10.8 K/mcL LAB HEMETOLOGY METHOD 08/05/2025 11:32 AM [facility] RBC 4.00(L) 4.50 - 5.50 M/mcL LAB HEMETOLOGY METHOD 08/05/2025 11:32 AM [facility] Hemoglobin 12.0(L) 13.5 - 17.5 g/dL LAB HEMETOLOGY METHOD 08/05/2025 11:32 AM [facility] Hematocrit 37.8(L) 42.0 - 54.0 % LAB HEMETOLOGY METHOD 08/05/2025 11:32 AM [facility] MCV 93.8 79.0 - 98.0 FL LAB HEMETOLOGY METHOD 08/05/2025 11:32 AM [facility] MCH 29.8 27.0 - 32.0 pcg LAB HEMETOLOGY METHOD 08/05/2025 11:32 AM [facility] MCHC 31.7(L) 32.0 - 37.0 g/dL LAB HEMETOLOGY METHOD 08/05/2025 11:32 AM EDT [facility] RDW 13.6 11.0 - 15.0 % LAB HEMETOLOGY METHOD 08/05/2025 11:32 AM EDT [facility] Platelets 180 130 - 400 K/mcL LAB HEMETOLOGY METHOD 08/05/2025 11:32 AM EDT [facility] MPV 12.2(H) 7.0 - 11.0 FL LAB HEMETOLOGY METHOD 08/05/2025 11:32 AM EDT [facility] NRBC 0.0 <1.0 % LAB HEMETOLOGY METHOD 08/05/2025 11:32 AM EDT [facility] NRBC Absolute 0.00 <0.10 K/mcL LAB HEMETOLOGY METHOD 08/05/2025 11:32 AM EDT [facility] Blood Venous blood specimen / Unknown Venipuncture / Unknown 08/05/2025 10:20 AM EDT 08/05/2025 11:03 AM EDT Chema Seals MD LAB BLOOD ORDERABLES Final Result [facility] [address] [place] [address], documented in this encounter Visit Diagnoses Diagnosis Anemia, unspecified documented in this encounter Care Teams Geophysical Laboratory Supervisor Relationship Specialty Start Date End Date Chema Seals MD [address] [place] [address] [facility] [place], [place] PCP - General Internal Medicine 08/05/25 documented as of this encounter
[2025-09-07 14:51] LABS: Anion Gap 12 (12-20); Blood Urea Nitrogen 16 mg/dL (9-16); Calcium 9.1 mg/dL (8.4-10.2); Carbon Dioxide 29 mmol/L (22-29); Chloride 105 mmol/L (96-108); Estimated Glomerular Filt Rate 52; Potassium 4.3 mmol/L (3.3-5.1); Sodium 142 mmol/L (135-145)
[2025-09-07 14:57] LABS: Parathyroid Hormone Intact 140.6 pg/mL (8.7-77.1)
== END 2025-09-07 09:33 | disposition home or self-care (01) ==
LOC: HO.HMGCLDS 09:32
PROVIDERS: PCP Internal Medicine; Visit Provider Internal Medicine Nephrology
DX: N18.30 Chronic kidney disease, stage 3 unspecified (principal)
CPT/HCPCS: 36415; 80051; 82306; 82310; 82565; 83970; 84520

== ENCOUNTER 2025-10-12 15:04 | Outpatient (AMB) | payer MEDICARE, SELFPAY ==
--- NOTE | 2025-10-12 15:10 | A.OFFVIS_ITS ---
Vital Signs 10/12/25 15:11 Height 5 ft 3 in BMI Reason not done Patient refused/unable BP 122/66 Blood Pressure Location Rt brachial Position Sitting Pulse 68 Pulse Source Pulse Oximeter Intake Visit Reasons: [id number]-KH-Ertwle up- Mild Heart Attack Passenger Rate Clerk Required: No Accompanied by: Other Relationship Allergies No Known Allergies (No Known Allergies*) Allergy (Verified 10/12/25 15:18) Medication List - Last Reconciled 10/12/25 by SHIMA Dangelo acetaminophen 325 mg PO Q6H PRN albuterol sulfate 90 mcg/actuation (Ventolin HFA) 2 puffs PO Q4-6H PRN albuterol sulfate 1.25 mg (3 mL) inhalation Q4-6H PRN amlodipine 5 mg PO DAILY apixaban (Eliquis) 5 mg PO BID 30 days aspirin 81 mg PO DAILY atorvastatin 40 mg PO BEDTIME budesonide (Pulmicort) 0.5 mg (2 mL) inhalation RBID 30 days calcium carbonate 500 mg PO DAILY cholecalciferol (vitamin D3) 25 mcg PO DAILY 90 days inhalational spacing device As directed pantoprazole 40 mg PO DAILY sertraline 100 mg PO DAILY tamsulosin 0.4 mg PO DAILY tiotropium bromide 2.5 mcg/actuation (Spiriva Respimat) 2 puffs PO QAM trazodone 25 mg (1/2 x 50 mg) PO BEDTIME PRN HPI Comments Details: History of Present Illness The patient is a 80 year old male presenting for cardiology follow-up for a recent NSTEMI. He was recently admitted to [facility] with increased shortness of breath, where he was treated for a COPD exacerbation with a high likelihood of pulmonary embolism and elevated troponins. He was subsequently transferred to [facility] for further evaluation. A cardiac catheterization on 07/27/2025 revealed mild diffuse left main disease, moderate diffuse disease in the LAD and left circumflex arteries, a 60% stenosis in the proximal first diagonal artery, and mild diffuse disease in the RCA. His NSTEMI was determined to be a type 2 injury secondary to the strain on his heart from his respiratory illness. An EKG showed septal and inferior Q-waves, and an echocardiogram demonstrated a wall motion abnormality with septal and basal inferior wall akinesis. A CTA of the chest at [facility] confirmed filling defect compatible with pulmonary embolism in the right lower lobe. He has put on Eliquis for anticoagulation. His past medical history is significant for hypertension, hyperlipidemia, COPD, diabetes and anxiety. Since discharge, he reports feeling well and denies chest pain, rapid heartbeats, dizziness, or syncope. His breathing has returned to baseline, and he denies orthopnea or lower extremity edema. He uses oxygen continuously and sleeps with two pillows. His activity is limited to walking short distances with a walker. His cardiac medications include amlodipine, Eliquis, aspirin, and atorvastatin. He denies any bleeding issues, though he had an episode of hematuria after a bowen catheter change before which has since resolved. [facility] Medical History COPD (chronic obstructive pulmonary disease) Bladder polyps Pulmonary nodule 1 cm or greater in diameter HTN (hypertension) COPD exacerbation Hypoxemia Supplemental oxygen dependent Nephropathy Anxiety, generalized COPD (chronic obstructive pulmonary disease) Surgical History Hx of cardiac cath History of esophagogastroduodenoscopy (EGD) Bladder tumor History of colonoscopy History of cystoscopy History of surgery Avulsion of finger tip History of neck surgery Arm fracture, left History of knee surgery H/O colonoscopy Family History Father HTN (hypertension) Diabetes mellitus Mother Cancer Brother Melanoma Sister Breast cancer Son No problems noted. Daughter No problems noted. Social History Household Members: Friend(s) Housing: House Do you presently have visiting nurse or other home services: No Alcohol intake: former Patient Tobacco Use Status: Former Tobacco user e-Cigarette/Vaping Use: Former Use Second Hand Smoke Exposure: No service: No Cognitive needs: No Hearing needs: No Vision needs: Yes Review of Systems Const All systems reviewed & are unremarkable except as noted in HPI and below Card Denies chest pain, Denies chest pain at rest, Denies chest pain with activity, Denies rapid heart rate, Denies palpitations, Reports dyspnea, Reports dyspnea on exertion and Denies orthopnea Resp Reports dyspnea and Reports dyspnea on exertion GI Denies no additional complaints Details: has bowen cath Musc Details: ambulates with walker Denies no additional complaints Endo Denies palpitations Physical Exam Const Other: Somewhat frail elderly male sitting in wheelchair General: cooperative and no acute distress Orientation/consciousness: patient oriented x3 Neck Neck: Yes normal visual inspection Resp Other: Wearing oxygen 2 L with nasal cannula Effort & Inspection: normal respiratory effort Auscultation: clear to auscultation bilaterally, no rales, no rhonchi and no wheezes Cardio Rate: regular rate Rhythm: regular rhythm Heart sounds: S1 normal heart sound present, S2 normal heart sound present, no murmurs and no rubs Other: Has Bowen catheter, clear yellow urine Neuro General: patient oriented x3 Extrem General: Yes normal to inspection, No no pedal edema and No calf tenderness Psych Appearance: grossly normal Mental Status: mental status grossly normal Speech and movement: Normal speech and movement present Assessment & Plan Assessment & Plan (1) NSTEMI (non-ST elevated myocardial infarction): Code(s): I21.4 - Non-ST elevation (NSTEMI) myocardial infarction Category: Medical Plan: Recent admission for COPD exacerbation, pulmonary embolism with elevated troponins. Cardiac catheterization confirming nonobstructive coronary disease. NSTEMI likely type 2 event related to respiratory causes. Diagnosis of nonobstructive coronary disease reviewed with him in detail. Has no anginal symptoms. Will have him stop aspirin to limit his chance of bleeding issues. Continue Eliquis. Continue amlodipine for good blood pressure control. Continue atorvastatin with ideal LDL goal less than 70. Signs and symptoms of angina reviewed. Cardiology follow-up for re-evaluation in 4 months, sooner if needed. (2) S/P cardiac cath: Comment: 07/27/2025 left main mild diffuse disease, lad moderate diffuse disease, 1st diagonal 60% stenosis, left circumflex moderate diffuse disease, RCA mild diffuse disease Code(s): Z98.890 - Other specified postprocedural states Category: Surgical (3) Hypertension, essential: Code(s): I10 - Essential (primary) hypertension Category: Medical Plan: Blood pressure goal less than 130/80. Well controlled at present. Continue amlodipine. (4) COPD exacerbation: Comment: He has advanced chronic obstructive pulmonary disease. Code(s): J44.1 - Chronic obstructive pulmonary disease with (acute) exacerbation Category: Medical Plan: Breathing reported to be at baseline. Continues to wear oxygen 2 L continually. Continue to follow with pulmonology. (5) Pulmonary embolism: Code(s): I26.99 - Other pulmonary embolism without acute cor pulmonale Category: Medical Plan: Recent finding of pulmonary embolism right lower lobe. He is on Eliquis for anticoagulation. Plan Discussion Notes I explained to the patient and his daughter in law that his recent heart attack was a result of the strain placed on his heart by his severe breathing problems from COPD and blood clots in his lungs, rather than a primary blockage in his heart arteries. We reviewed the results of his heart catheterization, which showed some cholesterol buildup but nothing that required a stent or bypass surgery. I clarified that the Eliquis he is taking is a blood thinner for the clots in his lungs. I recommended stopping his aspirin, as it is not necessary and increases his risk of bleeding while on Eliquis. I advised him to continue his other heart medications, including amlodipine and atorvastatin, and encouraged him to stay as active as his back pain and weakness allow, using his walker. I instructed him to let us know if he develops any chest pain. We will plan for a routine follow-up visit in four months, but he should contact us sooner if any cardiac concerns arise. Patient Instructions - Stop taking aspirin. - Continue taking your other medications as prescribed, including Eliquis (a blood thinner for lung clots), amlodipine, and atorvastatin. - Watch for any signs of bleeding, like blood in your urine or bowel movements, or severe nosebleeds, and let us know if this happens. - Your recent heart problem was caused by strain from your breathing issues and lung clots, not a blocked artery that needs a stent. - Stay as active as you can, using your walker to move around. - Call our office if you begin to experience chest pain or any other new heart symptoms. - Continue to see your lung doctor, Dr. Jean, for your COPD. - We will schedule a follow-up appointment for you in about 4 months. Patient was informed and verbally consented to the use of an ambient scribe for clinic note documentation during this visit. Visit time spent on chart review, interview, assessment, orders, documentation. Coding Level of Care Code Est Pt Level 4 (60097) Add On Problem Visit Only Diagnoses NSTEMI (non-ST elevated myocardial infarction) I21.4 S/P cardiac cath Z98.890 Hypertension, essential I10 COPD exacerbation J44.1 Pulmonary embolism I26.99 Time Spent (min) 32
[2025-10-12 15:11] VITALS: BP 122/66; PULSE 68
--- OUTSIDE RECORDS SUMMARY | 2025-10-12 18:34 | XMS_ITS | Clinical Summary ---
Author Organization LL [facility] Address [address] [place] [address] Phone Care Team Providers Care Ice Seller Name Role Phone Chema Seals MD Primary Care Provider [phone] Medications Ventolin HFA 90 mcg/actuation inhaler Inhale 2 puffs by mouth every 4 (four) hours if needed for wheezing or shortness of breath. Active amLODIPine (NORVASC) 5 mg tablet Take 1 tablet (5 mg total) by mouth 1 (one) time each day. Active Eliquis 5 mg tablet Take 1 tablet (5 mg total) by mouth 2 (two) times a day. 09/03/20 25 Active atorvastatin (LIPITOR) 40 mg tablet Take 1 tablet (40 mg total) by mouth at bedtime. at bedtime 07/29/20 25 Active sertraline (ZOLOFT) 100 mg tablet Take 1 tablet (100 mg total) by mouth 1 (one) time each day. Active tamsulosin (FLOMAX) 0.4 mg 24 hr capsule Take 1 capsule (0.4 mg total) by mouth at bedtime. 09/07/20 25 Active Spiriva Respimat 2.5 mcg/actuation inhalation spray Inhale 2 puffs by mouth 1 (one) time each day. Active traZODone (DESYREL) 50 mg tablet Take 0.5 tablets (25 mg total) by mouth at bedtime as needed for sleep. Active oxyCODONE (ROXICODONE) 5 mg immediate release tablet Take 1 tablet (5 mg total) by mouth every 6 (six) hours if needed for severe pain. May break tablets in half Max Daily Amount: 20 mg 15 tablet 09/20/20 Active lidocaine (LIDODERM) 5 % patch Apply 1 patch topically 1 (one) time each day. Apply to painful area 12 hours per day, remove for 12 hours. 30 each 09/20/20 25 026 Active cefpodoxime (VANTIN) 200 mg tablet Take 1 tablet (200 mg total) by mouth 2 (two) times a day for 6 days. 12 each 09/20/20 25 025 Discontinued(St op Taking at Discharge) doxycycline (VIBRAMYCIN) 100 mg capsule Take 1 capsule (100 mg total) by mouth 2 (two) times a day for 6 days. Take with at least 8 ounces (large glass) of water, do not lie down for 30 minutes after. Administer 2 hours before or after multivitamins , antacids, or other products containing polyvalent cations (i.e., calcium, iron, magnesium, selenium, zinc). 12 each 09/20/20 25 025 acetaminophen (TYLENOL) 500 mg tablet Take 2 tablets (1,000 mg total) by mouth every 8 (eight) hours for 5 days. 30 tablet 09/20/20 25 025 levoFLOXacin (LEVAQUIN) 750 mg tablet Take 1 tablet (750 mg total) by mouth 1 (one) time each day for 5 days. 5 each 09/22/20 25 025 Discontinued levoFLOXacin (LEVAQUIN) 750 mg tablet Take 1 tablet (750 mg total) by mouth every other day for 6 days. 3 each 09/22/20 25 025 Active Problems Problem Noted Date Diagnosed Date Severe low back pain 09/19/2025 Encounters Date Type Department Care Team Description 09/19/2025 1:45 PM EST - 09/20/2025 2:36 PM EST Hospital Encounter [facility] [address] [place] [id number] Dai Kearney MD Touriel, Ross, MD Bukalo, Nermina, MD Jones, Christopher, MD Alam, Aroosa, MD Pneumonia of left lung due to infectious organism, unspecified part of lung (Primary Dx); Acute cystitis without hematuria; Chronic low back pain, unspecified back pain laterality, unspecified whether sciatica present; Compression fracture of thoracic vertebra, unspecified thoracic vertebral level, initial encounter ([facility] V24, [facility] V28); Abdominal aortic aneurysm (AAA) without rupture, unspecified part ([facility] V24); Chronic obstructive pulmonary disease, unspecified COPD type ([facility] V24, [facility] V28) [place] Dis[place]: [place] [facility] [place] [facility] [address] [place] [phone] Chema Seals MD Anemia, unspecified 08/18/[address] [facility] [address] [place] [phone] Chema Seals MD Anemia, unspecified 08/17/[address] [facility] [address] [place] [phone] Chmea Seals MD Type 2 diabetes mellitus without complications ([facility] V24, [facility] V28) 08/11/[address] [facility] [address] [place] [phone] Chema Seals MD Anemia, unspecified 08/05/[address] [facility] [address] [place] [phone] Chema Seals MD Anemia, unspecified from Last 3 Months Surgical History Surgery Date Site/Laterality Comments KNEE ARTHROPLASTY CARDIAC CATH Medical History Medical History Date Comments Hypertension CAD (coronary artery disease) CKD (chronic kidney disease) BPH (benign prostatic hyperplasia) Pulmonary embolism ([facility] V24, [facility] V28) Heart attack ([facility] V24, [facility] V28) Depression Anxiety COPD (chronic obstructive pulmonary disease) ([facility] V24, [facility] V28) Social History Tobacco Use Types Packs/Day Years Used Date Smoking Tobacco: Former Cigarettes Tobacco Cessation:Counseling Given: Not Answered Alcohol Use Standard Drinks/Week Comments Not Currently 0 (1 standard drink = 0.6 oz pur e alcohol) Housing Instability Answer Date Recorde d Are you worried that in the next 2 months you may not have stable housing? No 09/20/2025 Food Access & Nutrition Answer Date Rec orded Do you have access to a vari ety of food including fruits and vegetables? No 09/20/2025 Health Literacy Answer Date Recorded How often do you need to hav e someone help you when you read instructions, pamphlets, or other written material from your doctor or pharmacy? Never 09/20/2025 Caregiver: How often do you need to have someone help you when you read instructions, pamphlets, or other written material from your doctor or pharmacy? Not on file 09/20/2025 Financial Risk Answer Date Recorded How hard is it for you to pa y for the very basics like food, housing, medical care, and air conditioning / heating? Not very hard 09/20/2025 Transportation Answer Date Recorded Has the lack of transportati on kept you from meetings, work, or from getting things needed for daily living? No Has the lack of transportati on kept you from medical appointments or from getting medications? No 09/20/2025 Social Isolation Answer Date Recorded How often do you feel lonely or isolated from th ose around you? Rarely 09/20/2025 Food Risk Answer Date Recorded Within the past 12 months we worried whether our food would run out before we got money to buy more. Sometimes true 025 Within the past 12 months th e food we bought just didn't last and we didn't have money to get more. Sometimes true 09/20/2025 Dependent Care Answer Date Recorded Do you need help finding or paying for care for your loved ones. For example, child care director or elderly care for an older adult? No 09/20/2025 Education Answer Date Recorded Do you think completing more education or training, like finishing a GED, going to college, or learning a trade, would be helpful for you? N/A 09/20/2025 Employment and Income Answer Date Recor ded During the last four weeks, have you been actively looking for work? No 09/20/2025 Living Situation Answer Date Recorded What is your living situation? Unrecognized valu e 09/20/2025 Interpersonal Safety Answer Date Record ed Physical Abuse Unrecognized value 09/19/2025 Verbal Abuse Unrecognized value 09/19/2025 Sex and Gender Information Value Date Recorded Sex Assigned at Not on file Legal Sex Male 3:42 PM EDT Gender Identity Not on file Sexual Orientation Not on file Last Filed Vital Signs Vital Sign Reading Time Taken Comments Blood Pressure 141/82 09/20/2025 7:23 AM EST Pulse 87 09/20/2025 7:23 AM EST Temperature 36.7 C (98.1 F) 09/20/2025 7:23 AM EST Respiratory Rate 18 09/20/2025 7:23 AM EST Oxygen Saturation 97% 09/20/2025 9:00 AM EST Inhaled Oxygen Concentration - - Weight 74.8 kg (165 lb) 09/19/2025 1:54 PM EST Height 172.7 cm (5' 8 ) 09/19/2025 1:54 PM EST Body Mass Index 25.09 09/19/2025 1:54 PM EST Plan of Treatment Health Maintenance Due Date Last Done Comments Diabetes: Annual Foot Exam 1955 Diabetes: Annual Retina Eye Exam 1955 Zoster Vaccines (1 of 2) 1996 RSV Immunization Adult Patients (1 - 1-dose 75+ series) 2021 DTaP,Tdap,and Td Vaccines (2 - Td or Tdap) 08/19/2022 08/19/2012 Cholesterol Screening (Lipid Panel) 08/05/2024 Hepatitis C Screening 08/05/2024 Medicare Annual Wellness Visit 08/05/2024 Depression Screening 10/14/2024 COVID-19 Vaccine ( season) 2025 Diabetes: Annual Urine Albumin-Creatinine Ratio (uACR) 08/17/2025 Diabetes: Blood Sugar Control Test (HGBA1C) 02/14/2026 08/17/2025 Diabetes: Annual GFR (Glomerular Filtration Rate) 09/20/2026 09/20/2025, 09/19/2025, 08/26/2025, Additional history exists Falls Risk Assessment 09/20/2026 09/20/2025 Hypertension/CHF/CAD Annual BMP Blood Test 09/20/2026 09/20/2025, 09/19/2025, 08/26/2025, Additional history exists Social Influencers of Health Screening 09/20/2026 09/20/2025 Pneumococcal Vaccine: 50+ Years Completed 01/09/2018, 11/04/2014 Influenza Vaccine Completed 08/02/2025, , 06/27/2018, Additional history exists HIB Vaccines Aged Out [...] Procedure Name Priority Date/Time Associated Diagnosis Comments HOME O2 EVAL (DESATURATION SCREEN) Routine 09/20/2025 12:48 PM EST COMPLETE BLOOD COUNT Routine 09/20/2025 5:45 AM EST BASIC METABOLIC PANEL Routine 09/20/2025 5:[address] ABDOMEN PELVIS WO CONTRAST STAT 09/19/2025 4:[address] THORACIC SPINE WO CONTRAST STAT 09/19/2025 4:03 PM EST ROSEN URINE CULTURE TUBE STAT 09/19/2025 2:58 PM EST URINALYSIS WITH REFLEX MICROSCOPIC AND CULTURE STAT 09/19/2025 2:58 PM EST URINALYSIS WITH REFLEX MICROSCOPIC AND CULTURE STAT 09/19/2025 2:58 PM EST CULTURE URINE STAT 09/19/2025 2:58 PM EST XR CHEST 1 VIEW STAT 09/19/2025 2:21 PM EST VITAMIN B12 AND FOLATE STAT Add-on 09/19/2025 2:09 PM EST IRON AND TIBC Add-On 09/19/2025 2:09 PM EST HEPATIC FUNCTION PANEL Add-On 09/19/2025 2:09 PM EST CBC WITH AUTO DIFFERENTIAL STAT 09/19/2025 2:09 PM EST ACTIVATED PARTIAL THROMBOPLASTIN TIME STAT 09/19/2025 2:09 PM EST PROTHROMBIN TIME WITH INR STAT 09/19/2025 2:09 PM EST CBC AND DIFFERENTIAL STAT 09/19/2025 2:09 PM EST BASIC METABOLIC PANEL STAT 09/19/2025 2:09 PM EST BASIC METABOLIC PANEL Routine 08/26/2025 8:55 AM EST Anemia, unspecified COMPLETE BLOOD COUNT Routine 08/26/2025 8:55 AM EST Anemia, unspecified BASIC METABOLIC PANEL Routine 08/19/2025 8:29 AM EST Anemia, unspecified COMPLETE BLOOD COUNT Routine 08/19/2025 8:29 AM EST Anemia, unspecified HEMOGLOBIN A1C Routine 08/17/2025 9:08 AM EST Type 2 diabetes mellitus without complications (CMS/HCC V24, CMS/HCC V28) BASIC METABOLIC PANEL Routine 08/12/2025 8:06 AM EDT Anemia, unspecified COMPLETE BLOOD COUNT Routine 08/12/2025 8:06 AM EDT Anemia, unspecified COMPREHENSIVE METABOLIC PANEL Routine 08/05/2025 10:20 AM EDT Anemia, unspecified COMPLETE BLOOD COUNT Routine 08/05/2025 10:20 AM EDT Anemia, unspecified from Last 3 Months Results * (ABNORMAL) Complete blood count (09/20/2025 5:45 AM EST) Only the most recent of5 resultswithin the time period is included. WBC 6.7 4.8 - 10.8 K/mcL LAB HEMETOLOGY METHOD 09/20/2025 6:53 AM [facility] RBC 3.90(L) 4.50 - 5.50 M/mcL LAB HEMETOLOGY METHOD 09/20/2025 6:53 AM [facility] Hemoglobin 11.5(L) 13.5 - 17.5 g/dL LAB HEMETOLOGY METHOD 09/20/2025 6:53 AM [facility] Hematocrit 37.8(L) 42.0 - 54.0 % LAB HEMETOLOGY METHOD 09/20/2025 6:53 AM [facility] MCV 97.7 79.0 - 98.0 FL LAB HEMETOLOGY METHOD 09/20/2025 6:53 AM [facility] MCH 29.7 27.0 - 32.0 pcg LAB HEMETOLOGY METHOD 09/20/2025 6:53 AM [facility] MCHC 30.4(L) 32.0 - 37.0 g/dL LAB HEMETOLOGY METHOD 09/20/2025 6:53 AM [facility] RDW 13.5 11.0 - 15.0 % LAB HEMETOLOGY METHOD 09/20/2025 6:53 AM [facility] Platelets 237 130 - 400 K/mcL LAB HEMETOLOGY METHOD 09/20/2025 6:53 AM [facility] MPV 11.1(H) 7.0 - 11.0 FL LAB HEMETOLOGY METHOD 09/20/2025 6:53 AM [facility] NRBC 0.0 <1.0 % LAB HEMETOLOGY METHOD 09/20/2025 6:53 AM [facility] NRBC Absolute 0.00 <0.10 K/mcL LAB HEMETOLOGY METHOD 09/20/2025 6:53 AM [facility] Blood Venous blood specimen / Unknown Venipuncture / Unknown 09/20/2025 5:45 AM EST 09/20/2025 6:39 AM EST us Cami Concepcion MD LAB BLOOD ORDERABLES Final Res ult [facility] [address] [place] [address], * (ABNORMAL) Basic metabolic panel (09/20/2025 5:45 AM EST) Only the most recent of5 resultswithin the time period is included. Sodium 137 133 - 145 mmol/L 09/20/2025 7:57 AM [facility] Potassium 4.7 3.5 - 5.5 mmol/L 09/20/2025 7:57 AM [facility] Chloride 97 96 - 110 mmol/L 09/20/2025 7:57 AM [facility] CO2 32 21 - 32 mmol/L 09/20/2025 7:57 AM [facility] Anion Gap 8 3 - 11 09/20/2025 7:57 AM [facility] Glucose 206(H) 70 - 100 mg/dL 09/20/2025 7:57 AM [facility] BUN 24 5 - 25 mg/dL 09/20/2025 7:57 AM EST [facility] Creatinine 1.33(H) 0.70 - 1.30 mg/dL 09/20/2025 7:57 AM EST [facility] eGFR 54(L) >=60 mL/min/1. 73m2 09/20/2025 7:57 AM EST [facility] Comment:Calculation based on the Chronic Kidney Disease Epidemiology Collaboration (CKD-EPI) equation refit without adjustment for race. BUN/Creatinine Ratio 18.0 09/20/2025 7:57 AM EST [facility] Calcium 7.9(L) 8.5 - 10.5 mg/dL 09/20/2025 7:57 AM EST [facility] Blood Venous blood specimen / Unknown Venipuncture / Unknown 09/20/2025 5:45 AM EST 09/20/2025 6:39 AM EST us Cami Concepcion MD LAB BLOOD ORDERABLES Final Res ult [facility] [address] [place] [address], [place] [phone] * CT Thoracic Spine wo Contrast (09/19/2025 4:03 PM EST) Anatomical Region Laterality Modality Spine, T-spine Computed Tomogra phy 09/19/2025 4:43 PM EST Impressions 09/19/2025 4:43 PM EST 1. Age-indeterminate compression deformity at T11 which may be subacute with moderate anterior height loss. 2. Chronic compression deformities at T1, T2, T3, T12 and L1. This document has been electronically signed by: Wan Hernandez MD on 09/19/2025 16:43:31 Narrative 09/19/2025 4:43 PM EST INDICATION: pain CT thoracic spine without contrast Comparison: None provided Findings: Normal vertebral body alignment. There are chronic appearing compression deformities of T1, T2, T3, T12 and L1. There is a age-indeterminate compression deformity at T11 with 40% anterior height loss suspected to be subacute given that there is still some visualization of fracture margins of the superior endplate. No lytic or blastic bone lesions. No central canal narrowing. Centrilobular emphysema with paraseptal emphysema present in the lungs. Extensive punctate calcifications within the pancreas. The spleen is diminutive and there are multiple rim calcified low-attenuation structures within the spleen. Multiple renal cysts are present. Procedure Note Wan Hernandez MD - 09/19/2025 INDICATION: pain CT thoracic spine without contrast Comparison: None provided Findings: Normal vertebral body alignment. There are chronic appearing compression deformities of T1, T2, T3, T12and L1. There is a age-indeterminate compression deformity at T11 with 40% anterior height loss suspected to be subacute given that there is still some visualization of fracture margins of the superior endplate. No lytic or blastic bone lesions. No central canal narrowing. Centrilobular emphysema with paraseptal emphysema present in the lungs. Extensive punctate calcifications within the pancreas. The spleen is diminutive and there are multiple rim calcified low-attenuation structures within the spleen. Multiple renal cysts are present. IMPRESSION: 1. Age-indeterminate compression deformity at T11 which may be subacute with moderate anterior height loss. 2. Chronic compression deformities at T1, T2, T3, T12 and L1. This document has been electronically signed by: Wan Hernandez MD on 09/19/2025 16:43:31 Keaton Alaniz MD IMG CT PROCEDURES Final Result * CT Abdomen Pelvis wo Contrast (09/19/2025 4:03 PM EST) Anatomical Region Laterality Modality Body Computed Tomogra phy 09/19/2025 4:54 PM EST Impressions 09/19/2025 4:54 PM EST 1. Cholelithiasis. 2. Infrarenal abdominal aortic aneurysm measuring 4.0 x 4.1 cm. 3. Multilevel degenerative change in the lumbar spine, most severe at L3-4. Chronic appearing compression deformities at L1, L2 and L4. This document has been electronically signed by: Wan Hernandez MD on 09/19/2025 16:54:33 Narrative 09/19/2025 4:54 PM EST INDICATION: pain, please comment on L spine CT abdomen and pelvis without contrast Comparison: None provided Findings: Moderately severe centrilobular emphysema. Numerous stones are present in the gallbladder. Diffuse punctate calcifications within the atrophied pancreas. Multiple rim calcified low-attenuation lesions within the diminutive spleen, which may be old calcified splenic hematoma. Bilateral renal cysts are present. No hydronephrosis. Liver and adrenal glands are normal. No bowel obstruction, pneumoperitoneum, or pneumatosis. Moderate amount of fecal loading throughout the colon. There are scattered colonic diverticula, however no evidence of diverticulitis. There is an abdominal aortic aneurysm inferior to the renal arteries measuring 4.0 x 4.1 cm. Small fat containing umbilical hernia. Pelvic contents unremarkable. Normal appendix. There is a Ngo catheter within the decompressed urinary bladder. Prostate gland is mildly enlarged. Please see same-day thoracic spine report for discussion of thoracic spine findings. No evidence of acute fracture. At L1, L2 and L4 there are chronic appearing superior endplate compression deformities. Moderate height loss at L1 and L2 and minimal height loss at L4. Multilevel degenerative change of the lumbar spine. There is mild retrolisthesis of L2 on L3 which results in moderately severe bilateral foraminal narrowing. At L3-4 there is a posterior disc osteophyte complex which in conjunction with mild facet arthrosis results in moderately severe canal stenosis with an AP diameter of 6 mm. There is severe bilateral foraminal narrowing. At L4-5 there is a circumferential disc bulge and ligamentum flavum hypertrophy, however no canal stenosis. There is severe bilateral foraminal stenosis. At L5-S1 there is a circumferential disc bulge and facet arthrosis which results in severe bilateral foraminal narrowing. No central canal narrowing. No lytic or blastic bone lesions in the spine or pelvis identified. Procedure Note Wan Hernandez MD - 09/19/2025 INDICATION: pain, please comment on L spine CT abdomen and pelvis without contrast Comparison: None provided Findings: Moderately severe centrilobular emphysema. Numerous stones are present in the gallbladder. Diffuse punctate calcifications within the atrophied pancreas. Multiple rim calcified low-attenuation lesions within the diminutive spleen, which may be old calcified splenic hematoma. Bilateral renal cysts are present. No hydronephrosis. Liver and adrenal glands are normal. No bowel obstruction, pneumoperitoneum, or pneumatosis. Moderate amountof fecal loading throughout the colon. There are scattered colonic diverticula, however no evidence of diverticulitis. There is an abdominal aortic aneurysm inferior to the renal arteries measuring 4.0 x 4.1 cm. Small fat containing umbilical hernia. Pelvic contents unremarkable. Normal appendix. There is a Ngo catheter within the decompressed urinary bladder. Prostate gland is mildly enlarged. Please see same-day thoracic spine report for discussion of thoracicspine findings. No evidence of acute fracture. At L1, L2 and L4 there are chronic appearing superior endplatecompression deformities. Moderate height loss at L1 and L2 and minimal height lossat L4. Multilevel degenerative change of the lumbar spine. There is mild retrolisthesis of L2 on L3 which results in moderately severe bilateral foraminal narrowing. At L3-4 there is a posterior disc osteophyte complex which inconjunction with mild facet arthrosis results in moderately severe canal stenosiswith an AP diameter of 6 mm. There is severe bilateral foraminal narrowing. At L4-5 there is a circumferential disc bulge and ligamentum flavum hypertrophy, however no canal stenosis. There is severe bilateral foraminal stenosis. At L5-S1 there is a circumferential disc bulge and facet arthrosis which results in severe bilateral foraminal narrowing. No central canal narrowing. No lytic or blastic bone lesions in the spine or pelvis identified. IMPRESSION: 1. Cholelithiasis. 2. Infrarenal abdominal aortic aneurysm measuring 4.0 x 4.1 cm. 3. Multilevel degenerative change in the lumbar spine, most severe at L3-4. Chronic appearing compression deformities at L1, L2 and L4. This document has been electronically signed by: Wan Hernandez MD on 09/19/2025 16:54:33 Keaton Alaniz MD IM CT PROCEDURES Final Result * (ABNORMAL) Urinalysis with reflex microscopic and culture (09/19/2025 2:58 PM EST) Specific [place] Urine 1.032(H) 1.003 - 1.030 LAB URINALYSIS - AUTOMATED METHOD 09/19/2025 3:57 PM EST [facility] pH, Urine 5.5 5.0 - 8.0 pH LAB URINALYSIS - AUTOMATED METHOD 09/19/2025 3:57 PM EST [facility] Leukocytes, Urine Moderate(A) Negative LAB URINALYSIS - AUTOMATED METHOD 09/19/2025 3:57 PM [facility] Nitrite, Urine Positive(A) Negative LAB URINALYSIS - AUTOMATED METHOD 09/19/2025 3:57 PM [facility] Protein, Urine 100(A) <=Trace mg/dL LAB URINALYSIS - AUTOMATED METHOD 09/19/2025 3:57 PM [facility] Glucose, Urine Negative Negative mg/dL LAB URINALYSIS - AUTOMATED METHOD 09/19/2025 3:57 PM [facility] Ketones, Urine Trace(A) Negative mg/dL LAB URINALYSIS - AUTOMATED METHOD 09/19/2025 3:57 PM [facility] Urobilinogen , Urine 1.0 0.2 - 1.0 mg/dL LAB URINALYSIS - AUTOMATED METHOD 09/19/2025 3:57 PM [facility] Bilirubin, Urine Negative Negative LAB URINALYSIS - AUTOMATED METHOD 09/19/2025 3:57 PM [facility] Blood, Urine Trace(A) Negative LAB URINALYSIS - AUTOMATED METHOD 09/19/2025 3:57 PM [facility] RBC, Urine 4 0 - 4 /HPF 09/19/2025 3:57 PM [facility] WBC, Urine >100(H) 0 - 4 /HPF 09/19/2025 3:57 PM [facility] Squamous Epithelial, Urine 10 0 - 60 /LPF 09/19/2025 3:57 PM [facility] Crystals, Urine Light Amorphous Urate crystals. /LPF 09/19/2025 3:57 PM [facility] Bacteria, Urine Many(A) Negative /HPF 09/19/2025 3:57 PM [facility] Hyaline Casts, Urine 0 0 - 3 /LPF 09/19/2025 3:57 PM EST [facility] Urine Urine specimen obtained by clean catch procedure / Unknown Non-blood Collection / Unknown 09/19/2025 2:58 PM EST 09/19/2025 3:04 PM EST us Keaton Alaniz MD LAB URINE ORDERABLES Final Resul t Performing Organization Address City/[facility]/ZIP Co de Phone Number [facility] [address] [place] [address], [place] [phone] * Rosen urine culture tube (09/19/2025 2:58 PM EST) Extra Tube Hold for add-ons. 09/19/2025 5:01 PM EST [facility] Comment:Auto resulted. Urine Urine specimen obtained by clean catch procedure / Unknown Non-blood Collection / Unknown 09/19/2025 2:58 PM EST 09/19/2025 3:04 PM EST us Keaton Alaniz MD LAB URINE ORDERABLES Final Resul t Performing Organization Address City/[facility]/ZIP Co de Phone Number [facility] [facility] [address] [place] [address], [place] [phone] * (ABNORMAL) Culture urine (09/19/2025 2:58 PM EST) Culture, Urine >=100,000 CFU/mL Pseudomonas aeruginosa(A) SHAYNE 09/22/2025 8:02 AM EST [facility] Comment: The organism value for this result has been updated. These results have been appended to the previously preliminary verified report. Culture, Urine 10,000-49,000 CFU/mL Methicillin-Sensi tive Staphylococcus aureus(A) SHAYNE 09/22/2025 8:02 AM EST [facility] Comment: The organism value for this result has been updated. These results have been appended to the previously preliminary verified report. Edited result: Previously reported as Staphylococcus aureus on 09/21/2025 at 1038 EST. Culture, Urine 10,000-49,000 CFU/mL Enterococcus faecalis(A) SHAYNE 09/22/2025 8:02 AM EST [facility] ([facility] Comment: The organism value for this result has been updated. These results have been appended to the previously preliminary verified report. This is an edited result. Previous organism was Enterococcus species on 09/21/2025 at 1038 EST. Urine Urine specimen obtained by clean catch procedure / Unknown Non-blood Collection / Unknown 09/19/2025 2:58 PM EST 09/19/2025 3:57 PM EST Narrative Organism Antibiotic Method Susceptibility Pseudomonas aeruginosa Piperacillin/Tazobactam SHAYNE <=4 ug/ml: Susceptible Pseudomonas aeruginosa Ceftazidime SHAYNE 2 ug/ml: Susceptible Pseudomonas aeruginosa Cefepime SHAYNE 2 ug/ml: Susceptible Pseudomonas aeruginosa Meropenem SHAYNE <=0.25 ug/ml: Susceptible Pseudomonas aeruginosa Amikacin SHAYNE 4 ug/ml: Susceptible Pseudomonas aeruginosa Ciprofloxacin SHAYNE 0.25 ug/ml: Susceptible Pseudomonas aeruginosa Levofloxacin SHAYNE 0.5 ug/ml: Susceptible Methicillin-Sensitive Staphylococcus aureus Benzylpenicillin SHAYNE >=0.5 ug/ml: Resistant Methicillin-Sensitive Staphylococcus aureus Oxacillin SHAYNE 0.5 ug/ml: Susceptible Methicillin-Sensitive Staphylococcus aureus Gentamicin SHAYNE <=0.5 ug/ml: Susceptible Methicillin-Sensitive Staphylococcus aureus Ciprofloxacin SHAYNE >=8 ug/ml: Resistant Methicillin-Sensitive Staphylococcus aureus Levofloxacin SHAYNE 4 ug/ml: Resistant Methicillin-Sensitive Staphylococcus aureus Moxifloxacin SHAYNE 2 ug/ml: Resistant Methicillin-Sensitive Staphylococcus aureus Quinupristin/Dalfopristin SHAYNE 0.5 ug/ml: Susceptible Methicillin-Sensitive Staphylococcus aureus Linezolid SHAYNE 2 ug/ml: Susceptible Methicillin-Sensitive Staphylococcus aureus Vancomycin SHAYNE <=0.5 ug/ml: Susceptible Methicillin-Sensitive Staphylococcus aureus Tetracycline SHAYNE <=1 ug/ml: Susceptible Methicillin-Sensitive Staphylococcus aureus Nitrofurantoin SHAYNE <=16 ug/ml: Susceptible Methicillin-Sensitive Staphylococcus aureus Rifampin SHAYNE <=0.5 ug/ml: Susceptible Methicillin-Sensitive Staphylococcus aureus Trimethoprim/Sulfamethoxazo le SHAYNE <=10 ug/ml: Susceptible Enterococcus faecalis Benzylpenicillin SHAYNE 8 ug/ml: Susceptible Enterococcus faecalis Ampicillin SHAYNE <=2 ug/ml: Susceptible Enterococcus faecalis Ciprofloxacin SHAYNE >=8 ug/ml: Resistant Enterococcus faecalis Levofloxacin SHAYNE >=8 ug/ml: Resistant Enterococcus faecalis Linezolid SHAYNE 2 ug/ml: Susceptible Enterococcus faecalis Vancomycin SHAYNE 1 ug/ml: Susceptible Enterococcus faecalis Tetracycline SHAYNE >=16 ug/ml: Resistant Enterococcus faecalis Nitrofurantoin SHAYNE <=16 ug/ml: Susceptible us Keaton Alaniz MD LAB MICROBIOLOGY - GENERAL ORDER GAVIN Final Result [facility] ([facility]) [facility] [address] [place] [address], * XR Chest 1 View (09/19/2025 2:21 PM EST) Anatomical Region Laterality Modality Body Radiographic Keyla ging 09/19/2025 2:27 PM EST Impressions 09/19/2025 2:38 PM EST FINDINGS/IMPRESSION: Stable findings of emphysema with hyperinflation suggesting chronic obstructive pulmonary disease. Patchy opacity at the left lung base suspicious for superimposed pneumonia. No pleural effusion or pneumothorax. Cardiac silhouette is normal in size. Degenerative changes seen throughout the bones. Multiple old healed rib fracture deformities bilaterally. -------- FINAL REPORT -------- Dictated By: CASEY KUHN Dictated Date: 09/19/2025 14:27 ET Assigned Physician: CASEY KUHN Reviewed and Electronically Signed By: CASEY KUHN Signed Date: 09/19/2025 14:38 ET Workstation ID: [id number] Transcribed By: Self Edit Transcribed Date: 09/19/2025 14:27 ET Narrative 09/19/2025 2:38 PM EST XR CHEST 1 VIEW INDICATION: Pain TECHNIQUE: XR CHEST 1 VIEW COMPARISON: 05/09/2024 Procedure Note Casey Kuhn MD - 09/19/2025 XR CHEST 1 VIEW INDICATION: Pain TECHNIQUE: XR CHEST 1 VIEW COMPARISON: 05/09/2024 IMPRESSION: FINDINGS/IMPRESSION: Stable findings of emphysema with hyperinflationsuggesting chronic obstructive pulmonary disease. Patchy opacity at theleft lung base suspicious for superimposed pneumonia. No pleural effusionor pneumothorax. Cardiac silhouette is normal in size. Degenerativechanges seen throughout the bones. Multiple old healed rib fracturedeformities bilaterally. -------- FINAL REPORT -------- Dictated By: CASEY KUHN Dictated Date: 09/19/2025 14:27 ET Assigned Physician: CASEY KUHN Reviewed and Electronically Signed By: CASEY KUHN Signed Date: 09/19/2025 14:38 ET Workstation ID: [id number] Transcribed By: Self Edit Transcribed Date: 09/19/2025 14:27 ET Keaton Alaniz MD IMG XR PROCEDURES Final Result * Vitamin B12 and folate (09/19/2025 2:09 PM EST) Vitamin B-12 507 211 - 911 pcg/mL 09/19/2025 9:05 PM EST [facility] Folate 11.7 >=5.4 ng/ml 09/19/2025 9:05 PM EST [facility] Comment:Over the counter sup plements containing high doses of biotin may interfere with this assay. If interference is suspected, patients shoud be retested after refraining from biotin supplements for 72 hours. Blood Venous blood specimen / Unknown Venipuncture / Unknown 09/19/2025 2:09 PM EST 09/19/2025 2:14 PM EST Vanessa STILES LAB BLOOD ORDERABLES Final R esult [facility] [address] [place] [address], * (ABNORMAL) CBC auto differential (09/19/2025 2:09 PM EST) WBC 7.8 4.8 - 10.8 K/mcL LAB HEMETOLOGY METHOD 09/19/2025 2:21 PM EST [facility] RBC 3.80(L) 4.50 - 5.50 M/mcL LAB HEMETOLOGY METHOD 09/19/2025 2:21 PM EST [facility] Hemoglobin 11.4(L) 13.5 - 17.5 g/dL LAB HEMETOLOGY METHOD 09/19/2025 2:21 PM [facility] Hematocrit 37.1(L) 42.0 - 54.0 % LAB HEMETOLOGY METHOD 09/19/2025 2:21 PM [facility] MCV 98.7(H) 79.0 - 98.0 FL LAB HEMETOLOGY METHOD 09/19/2025 2:21 PM [facility] MCH 30.3 27.0 - 32.0 pcg LAB HEMETOLOGY METHOD 09/19/2025 2:21 PM [facility] MCHC 30.7(L) 32.0 - 37.0 g/dL LAB HEMETOLOGY METHOD 09/19/2025 2:21 PM [facility] RDW 13.5 11.0 - 15.0 % LAB HEMETOLOGY METHOD 09/19/2025 2:21 PM [facility] Platelets 237 130 - 400 K/mcL LAB HEMETOLOGY METHOD 09/19/2025 2:21 PM [facility] MPV 10.8 7.0 - 11.0 FL LAB HEMETOLOGY METHOD 09/19/2025 2:21 PM [facility] NRBC 0.0 <1.0 % LAB HEMETOLOGY METHOD 09/19/2025 2:21 PM [facility] NRBC Absolute 0.00 <0.10 K/mcL LAB HEMETOLOGY METHOD 09/19/2025 2:21 PM [facility] Neutrophils Relative 78.8 % LAB HEMETOLOGY METHOD 09/19/2025 2:21 PM [facility] Lymphocytes Relative 10.9 % LAB HEMETOLOGY METHOD 09/19/2025 2:21 PM [facility] Monocytes Relative 5.6 % LAB HEMETOLOGY METHOD 09/19/2025 2:21 PM [facility] Eosinophils Relative 3.6 % LAB HEMETOLOGY METHOD 09/19/2025 2:21 PM [facility] Basophils Relative 0.6 % LAB HEMETOLOGY METHOD 09/19/2025 2:21 PM [facility] Immature Granulocytes Relative 0.5 % LAB HEMETOLOGY METHOD 09/19/2025 2:21 PM [facility] Neutrophils Absolute 6.15 1.50 - 7.00 K/mcL LAB HEMETOLOGY METHOD 09/19/2025 2:21 PM [facility] Lymphocytes Absolute 0.85(L) 1.00 - 5.00 K/mcL LAB HEMETOLOGY METHOD 09/19/2025 2:21 PM [facility] Monocytes Absolute 0.44 0.20 - 1.00 K/mcL LAB HEMETOLOGY METHOD 09/19/2025 2:21 PM [facility] Eosinophils Absolute 0.28 0.00 - 0.50 K/mcL LAB HEMETOLOGY METHOD 09/19/2025 2:21 PM [facility] Basophils Absolute 0.05 0.00 - 0.20 K/mcL LAB HEMETOLOGY METHOD 09/19/2025 2:21 PM [facility] Immature Granulocytes Absolute 0.04(H) 0.00 - 0.03 K/mcL LAB HEMETOLOGY METHOD 09/19/2025 2:21 PM [facility] Blood Venous blood specimen / Unknown Venipuncture / Unknown 09/19/2025 2:09 PM EST 09/19/2025 2:14 PM EST us Keaton Alaniz MD LAB BLOOD ORDERABLES Final Resul t [facility] [address] [place] [address], * Iron and TIBC (09/19/2025 2:09 PM EST) Iron 57 50 - 160 mcg/dL 09/19/2025 9:02 PM EST [facility] TIBC 255 250 - 450 mcg/dL 09/19/2025 9:02 PM EST [facility] Iron Saturation 22 20 - 50 % 9:02 PM EST [facility] Blood Venous blood specimen / Unknown Venipuncture / Unknown 09/19/2025 2:09 PM EST 09/19/2025 2:14 PM EST Vanessa STILES LAB BLOOD ORDERABLES Final R esult Performing Organization Address City/[facility]/ZIP Co de Phone Number [facility] [address] [place] [address], [place] [phone] * (ABNORMAL) APTT (09/19/2025 2:09 PM EST) aPTT 39.6(H) 24.1 - 39.3 sec LAB COAGULATION METHOD 09/19/2025 2:28 PM EST [facility] Blood Venous blood specimen / Unknown Venipuncture / Unknown 09/19/2025 2:09 PM EST 09/19/2025 2:14 PM EST Keaton Alaniz MD LAB BLOOD ORDERABLES Final Resul t [facility] [address] [place] [address], [place] [phone] * (ABNORMAL) Protime-INR (09/19/2025 2:09 PM EST) Protime 15.7(H) 10.6 - 13.9 sec LAB COAGULATION METHOD 09/19/2025 2:28 PM EST [facility] INR 1.3 LAB COAGULATION METHOD 09/19/2025 2:28 PM [facility] Blood Venous blood specimen / Unknown Venipuncture / Unknown 09/19/2025 2:09 PM EST 09/19/2025 2:14 PM EST us Keaton Alaniz MD LAB BLOOD ORDERABLES Final Resul t [facility] [address] [place] [address], * (ABNORMAL) Hepatic function panel (09/19/2025 2:09 PM EST) Total Protein 6.7 6.0 - 8.0 g/dL 09/19/2025 8:52 PM [facility] Albumin 3.8 3.2 - 5.0 g/dL 09/19/2025 8:52 PM [facility] Total Bilirubin 0.3 0.0 - 1.4 mg/dL 09/19/2025 8:52 PM [facility] Bilirubin, Direct 0.1 0.0 - 0.3 mg/dL 09/19/2025 8:52 PM [facility] Bilirubin, Indirect 0.2 0.0 - 1.1 mg/dL 09/19/2025 8:52 PM [facility] ALT (SGPT) 15 10 - 60 unit/L 09/19/2025 8:52 PM [facility] AST (SGOT) 16 10 - 42 unit/L 09/19/2025 8:52 PM [facility] Alkaline Phosphatase 139(H) 42 - 121 unit/L 09/19/2025 8:52 PM [facility] Blood Venous blood specimen / Unknown Venipuncture / Unknown 09/19/2025 2:09 PM EST 09/19/2025 2:14 PM EST Martin Jordan MD LAB BLOOD ORDERABLES Final Result [facility] [address] [place] [address], [place] [phone] * (ABNORMAL) Hemoglobin A1c (08/17/2025 9:08 AM EST) Hemoglobin A1C 6.8(H) <6.5 % LAB CHEMISTRY METHOD 08/17/2025 2:10 PM EST [facility] Mean Bld Glu Estim. 148 mg/dL LAB CHEMISTRY METHOD 08/17/2025 2:10 PM EST [facility] Blood Venous blood specimen / Unknown Venipuncture / Unknown 08/17/2025 9:08 AM EST 08/17/2025 11:30 AM EST Chema Seals MD LAB BLOOD ORDERABLES Final Result Performing Organization Address City/[facility]/ZIP Co de Phone Number [facility] [address] [place] [address], [place] [phone] * (ABNORMAL) Comprehensive metabolic panel (08/05/2025 10:20 AM EDT) [facility] Sodium 135 133 - 145 mmol/L LAB CHEMISTRY METHOD 08/05/2025 1:08 PM [facility] Potassium 4.2 3.5 - 5.5 mmol/L LAB CHEMISTRY METHOD 08/05/2025 1:08 PM EDT [facility] Chloride 97 96 - 110 mmol/L LAB CHEMISTRY METHOD [facility]25 [facility] CO2 30 21 - 32 mmol/L LAB CHEMISTRY METHOD 08/05/2025 1:08 PM [facility] Anion Gap 8 3 - 11 LAB CHEMISTRY METHOD 08/05/2025 1:[facility] Glucose 179(H) 70 - 100 mg/dL LAB CHEMISTRY METHOD 08/05/2025 1:08 PM [facility] BUN 40(H) 5 - 25 mg/dL LAB CHEMISTRY METHOD 08/05/2025 1:08 PM [facility] Creatinine 1.84(H) 0.70 - 1.30 mg/dL LAB CHEMISTRY METHOD 08/05/2025 1:08 PM [facility] eGFR 37(L) >=60 mL/min/1. 73m2 LAB CHEMISTRY METHOD 08/05/2025 1:08 PM [facility] Comment:Calculation based on the Chronic Kidney Disease Epidemiology Collaboration (CKD-EPI) equation refit without adjustment for race. BUN/Creatinine Ratio 21.7 LAB CHEMISTRY METHOD 08/05/2025 1:08 PM [facility] Calcium 8.8 8.5 - 10.5 mg/dL LAB CHEMISTRY METHOD 08/05/2025 1:08 PM [facility] AST (SGOT) 25 10 - 42 unit/L LAB CHEMISTRY METHOD 08/05/2025 1:08 PM [facility] ALT (SGPT) 34 10 - 60 unit/L LAB CHEMISTRY METHOD 08/05/2025 1:08 PM [facility] Alkaline Phosphatase 69 42 - 121 unit/L LAB CHEMISTRY METHOD 08/05/2025 1:08 PM [facility] Total Protein 5.7(L) 6.0 - 8.0 g/dL LAB CHEMISTRY METHOD 08/05/2025 1:08 PM [facility] Albumin 3.1(L) 3.2 - 5.0 g/dL LAB CHEMISTRY METHOD 08/05/2025 1:08 PM [facility] Total Bilirubin 0.7 0.0 - 1.4 mg/dL LAB CHEMISTRY METHOD 08/05/2025 1:08 PM [facility] Blood Venous blood specimen / Unknown Venipuncture / Unknown 08/05/2025 10:20 AM EDT 08/05/2025 11:03 AM EDT Chema Seals MD LAB BLOOD ORDERABLES Final Result [facility] [address] [place] [address], [place] [phone] from Last 3 Months Insurance [address] [id number] [employer] MEDICARE ADVANTAGE Advance Directives * No CPR/Do Not Intubate (Latest Code Status on File) Date Activated Date Inactivated Comments 09/19/2025 8:41 PM 09/20/2025 7:[address] atus was ascertained in the following way: Code status discussion: discussion with patient To update the patient's code status, place a code status order. Do not modify or discontinue any currently active code status orders. * Full Code - Default Date Activated Date Inactivated Comments 09/19/2025 6:15 PM 09/19/2025 8:41 PM This is orde r is used when code status has not been discussed with the patient, or code status is otherwise unknown/unconfirmed To update the patient's code status, place a code status order. Do not modify or discontinue any currently active code status orders. Care Teams Ice Seller Relationship Specialty Start Date End Date [facility]ma Seals [facility] [address] [facility] [place], [place] PCP - General Internal Medicine 08/05/25
--- OUTSIDE RECORDS SUMMARY | 2025-10-12 18:34 | XMS_ITS | Encounter Summary ---
Author Organization [facility] [place] [address] Care Team Providers Care Elementary Tutor Name Role Phone Chema Seals MD Primary Care Provider [phone] Encounter Details Date Type Department Care Team (Late st Contact Info) Description 08/18/2025 Lab Requisition [facility] [address] [place] [address] Chema Seals MD [address] [place] [id number] Anemia, unspecified Social History Tobacco Use Types [...] LAB CHEMISTRY METHOD 08/19/2025 12:22 PM EST [facility] ([facility] Potassium 4.3 3.5 - 5.5 mmol/L LAB CHEMISTRY METHOD 08/19/2025 12:22 PM [facility] Chloride 103 96 - 110 mmol/L LAB CHEMISTRY METHOD 08/19/2025 12:22 PM [facility] CO2 31 21 - 32 mmol/L LAB CHEMISTRY METHOD 08/19/2025 12:22 PM [facility] Anion Gap 5 3 - 11 LAB CHEMISTRY METHOD 08/19/2025 12:22 PM [facility] Glucose 92 70 - 100 mg/dL LAB CHEMISTRY METHOD 08/19/2025 12:22 PM [facility] BUN 14 5 - 25 mg/dL LAB CHEMISTRY METHOD 08/19/2025 12:22 PM [facility] Creatinine 1.32(H) 0.70 - 1.30 mg/dL LAB CHEMISTRY METHOD 08/19/2025 12:22 PM [facility] eGFR 55(L) >=60 mL/min/1. 73m2 LAB CHEMISTRY METHOD 08/19/2025 12:22 PM [facility] Comment:Calculation based on the Chronic Kidney Disease Epidemiology Collaboration (CKD-EPI) equation refit without adjustment for race. BUN/Creatinine Ratio 10.6 LAB CHEMISTRY METHOD 08/19/2025 12:22 PM [facility] Calcium 8.7 8.5 - 10.5 mg/dL LAB CHEMISTRY METHOD 08/19/2025 12:22 PM [facility] Blood Venous blood specimen / Unknown Venipuncture / Unknown 08/19/2025 8:29 AM EST 08/19/2025 10:12 AM EST us Chema Seals MD LAB BLOOD ORDERABLES Final Result [facility] [address] [place] [address], * (ABNORMAL) Complete blood count (08/19/2025 8:29 AM EST) [facility] WBC 7.4 4.8 - 10.8 K/mcL LAB HEMETOLOGY METHOD 08/19/2025 11:21 AM [facility] RBC 3.70(L) 4.50 - 5.50 M/mcL LAB HEMETOLOGY METHOD 08/19/2025 11:21 AM [facility] Hemoglobin 11.2(L) 13.5 - 17.5 g/dL LAB HEMETOLOGY METHOD 08/19/2025 11:21 AM [facility] Hematocrit 36.7(L) 42.0 - 54.0 % LAB HEMETOLOGY METHOD 08/19/2025 11:21 AM [facility] MCV 98.7(H) 79.0 - 98.0 FL LAB HEMETOLOGY METHOD 08/19/2025 11:21 AM [facility] MCH 30.1 27.0 - 32.0 pcg LAB HEMETOLOGY METHOD 08/19/2025 11:21 AM [facility] MCHC 30.5(L) 32.0 - 37.0 g/dL LAB HEMETOLOGY METHOD 08/19/2025 11:21 AM [facility] RDW 13.4 11.0 - 15.0 % LAB HEMETOLOGY METHOD 08/19/2025 11:21 AM [facility] Platelets 160 130 - 400 K/mcL LAB HEMETOLOGY METHOD 08/19/2025 11:21 AM [facility] MPV 11.7(H) 7.0 - 11.0 FL LAB HEMETOLOGY METHOD 08/19/2025 11:21 AM [facility] NRBC 0.0 <1.0 % LAB HEMETOLOGY METHOD 08/19/2025 11:21 AM [facility] NRBC Absolute 0.00 <0.10 K/[facility] LAB HEMETOLOGY METHOD 08/19/2025 11:21 AM EST [facility] Blood Venous blood specimen / Unknown Venipuncture / Unknown 08/19/2025 8:29 AM EST 08/19/2025 10:12 AM EST Chema Seals MD LAB BLOOD ORDERABLES Final Result [facility] [address] [place] [address], documented in this encounter Visit Diagnoses Diagnosis Anemia, unspecified documented in this encounter Care Teams Elementary Tutor Relationship Specialty Start Date End Date Chema Seals MD [address] [place] [address] [facility] [place], [place] PCP - General Internal Medicine 08/05/25 documented as of this encounter
--- OUTSIDE RECORDS SUMMARY | 2025-10-12 18:34 | XMS_ITS | Patient Health Record ---
Author Organization [facility] Address [address] [place] [address] Care Team Providers Care Brand Executive Name Role Phone Jean Carlos CHAIREZ, Asma Primary Care Provider Jimy Kohli Unavailable [phone] Reason For Referral No Information Problems Problem Type SNOMED Code ICD Code Onset Dates Problem Status W/U Status Risk Notes Problem Hallux valgus (513864140) Hallux Valgus (735.0) Active confirmed Plan Of Treatment Pending Test Test Name Order Date , -08/06/2011 Insurance Providers Payer Name Payer Address Payer Phone Subscriber Number Group Number Insured Name Patient Relationship to Insured Coverage Start Date Coverage End Date Medicare National [employer] [address] [place] [address] [id number] Montrell Vera Self - patient is the insured 9 Medical (General) History Medical History History ICD Code nerve disease chicken pox measles Surgical History Surgery Date(Month/Year) neck surgery(removed calcium build-up) 2 010
--- OUTSIDE RECORDS SUMMARY | 2025-10-12 18:34 | XMS_ITS | Encounter Summary ---
Author Organization [facility] Address [address] [facility] [address] [place] [address] Phone Care Team Providers Care Body Technician/Painter Name Role Phone Tanisha Evangelista MD Primary Care Provider [phone] Reason for Visit * Reason Comments Med Refill Encounter Details Date Type Department Care Team (Late st Contact Info) Description 04/21/2022 Refill [facility] [address] [facility] [address] [place] [phone] Carter Colorado MD [address] [facility] [address] [place] [phone] Social History Tobacco Use Types Packs/Day Years [...] on file documented as of this encounter Visit Diagnoses Not on filedocumented in this encounter Care Teams Body Technician/Painter Relationship Specialty Start Date End Date Tanisha Evangelista MD [address] [place] [address] PCP - General 10/24/20 documented as of this encounter
--- OUTSIDE RECORDS SUMMARY | 2025-10-12 18:34 | XMS_ITS | Encounter Summary ---
Author Organization [facility] [place] [address] Care Team Providers Care Novelty Twister Tender Name Role Phone Chema Seals MD Primary Care Provider [phone]- [phone] Encounter Details Date Type Department Care Team (Late st Contact Info) Description 08/25/2025 Lab Requisition [facility] - Main Lab [address] [place] [address] Chema Seals MD [address] [place] [id number] Anemia, unspecified Social History Tobacco Use Types [...] LAB CHEMISTRY METHOD 08/26/2025 12:14 PM EST [facility] ([email or web address] Potassium 4.4 3.5 - 5.5 mmol/L [...] Seals MD LAB BLOOD ORDERABLES Final Result [facility] [address] [place] [address], * (ABNORMAL) Complete blood count (08/26/2025 8:55 AM EST) [facility] WBC 6.5 4.8 - 10.8 K/mcL LAB HEMETOLOGY METHOD 08/26/2025 11:33 AM [facility] RBC 3.70(L) 4.50 - 5.50 M/mcL LAB HEMETOLOGY METHOD 08/26/2025 11:33 AM [facility] Hemoglobin 11.0(L) 13.5 - 17.5 g/dL LAB HEMETOLOGY METHOD 08/26/2025 11:33 AM [facility] Hematocrit 35.6(L) 42.0 - 54.0 % LAB HEMETOLOGY METHOD 08/26/2025 11:33 AM [facility] MCV 97.5 79.0 - 98.0 FL LAB HEMETOLOGY METHOD 08/26/2025 11:33 AM [facility] MCH 30.1 27.0 - 32.0 pcg LAB HEMETOLOGY METHOD 08/26/2025 11:33 AM [facility] MCHC 30.9(L) 32.0 - 37.0 g/dL LAB HEMETOLOGY METHOD 08/26/2025 11:33 AM [facility] RDW 13.6 11.0 - 15.0 % LAB HEMETOLOGY METHOD 08/26/2025 11:33 AM [facility] Platelets 187 130 - 400 K/mcL LAB HEMETOLOGY METHOD 08/26/2025 11:33 AM [facility] MPV 11.5(H) 7.0 - 11.0 FL LAB HEMETOLOGY METHOD 08/26/2025 11:33 AM [facility] NRBC 0.0 <1.0 % LAB HEMETOLOGY METHOD 08/26/2025 11:33 AM [facility] NRBC Absolute 0.00 <0.10 K/mcL LAB HEMETOLOGY METHOD 08/26/2025 11:33 AM EST [facility] Blood Venous blood specimen / Unknown Venipuncture / Unknown 08/26/2025 8:55 AM EST 08/26/2025 11:18 AM EST us Chema Seals MD LAB BLOOD ORDERABLES Final Result [facility] [address] [place] [address], documented in this encounter Visit Diagnoses Diagnosis Anemia, unspecified documented in this encounter Care Teams Novelty Twister Tender Relationship Specialty Start Date End Date Chema Seals MD [address] [place] [address] [facility] [place], [place] PCP - General Internal Medicine 08/05/25 documented as of this encounter
--- OUTSIDE RECORDS SUMMARY | 2025-10-12 18:34 | XMS_ITS | Encounter Summary ---
Author Organization [facility] [place] [address] Care Team Providers Care Printed Circuit Boards Laminator Name Role Phone Chema Seals MD Primary Care Provider [phone]- [phone] Encounter Details Date Type Department Care Team (Late st Contact Info) Description 08/11/2025 Lab Requisition [facility] - Main Lab [address] [place] [address] Chema Seals MD [address] [place] [address] Anemia, unspecified Social History Tobacco Use Types [...] LAB CHEMISTRY METHOD 08/12/2025 12:50 PM EDT [facility] ([facility] Potassium 4.5 3.5 - 5.5 mmol/L LAB CHEMISTRY METHOD 08/12/2025 12:50 PM [facility] Chloride 103 96 - 110 mmol/L LAB CHEMISTRY METHOD 08/12/2025 12:50 PM [facility] CO2 32 21 - 32 mmol/L LAB CHEMISTRY METHOD 08/12/2025 12:50 PM [facility] Anion Gap 4 3 - 11 LAB CHEMISTRY METHOD 08/12/2025 12:50 PM [facility] Glucose 102(H) 70 - 100 mg/dL LAB CHEMISTRY METHOD 08/12/2025 12:50 PM [facility] BUN 19 5 - 25 mg/dL LAB CHEMISTRY METHOD 08/12/2025 12:50 PM [facility] Comment:Results verified by repeat testing Creatinine 1.50(H) 0.70 - 1.30 mg/dL LAB CHEMISTRY METHOD 08/12/2025 12:50 PM [facility] eGFR 47(L) >=60 mL/min/1. 73m2 LAB CHEMISTRY METHOD 08/12/2025 12:50 PM [facility] Comment:Calculation based on the Chronic Kidney Disease Epidemiology Collaboration (CKD-EPI) equation refit without adjustment for race. BUN/Creatinine Ratio 12.7 LAB CHEMISTRY METHOD 08/12/2025 12:50 PM [facility] Calcium 8.7 8.5 - 10.5 mg/dL LAB CHEMISTRY METHOD 08/12/2025 12:50 PM [facility] Blood Venous blood specimen / Unknown Venipuncture / Unknown 08/12/2025 8:06 AM EDT 08/12/2025 12:25 PM EDT us Chema Seals MD LAB BLOOD ORDERABLES Final Result [facility] [address] [place] [address], [place] [phone] * (ABNORMAL) Complete blood count (08/12/2025 8:06 AM EDT) [facility] WBC 8.4 4.8 - 10.8 K/mcL LAB HEMETOLOGY METHOD 08/12/2025 11:08 AM [facility] RBC 3.90(L) 4.50 - 5.50 M/mcL LAB HEMETOLOGY METHOD 08/12/2025 11:08 AM [facility] Hemoglobin 11.8(L) 13.5 - 17.5 g/dL LAB HEMETOLOGY METHOD 08/12/2025 11:08 AM [facility] Hematocrit 38.4(L) 42.0 - 54.0 % LAB HEMETOLOGY METHOD 08/12/2025 11:08 AM [facility] MCV 97.7 79.0 - 98.0 FL LAB HEMETOLOGY METHOD 08/12/2025 11:08 AM [facility] MCH 30.0 27.0 - 32.0 pcg LAB HEMETOLOGY METHOD 08/12/2025 11:08 AM [facility] MCHC 30.7(L) 32.0 - 37.0 g/dL LAB HEMETOLOGY METHOD 08/12/2025 11:08 AM [facility] RDW 13.7 11.0 - 15.0 % LAB HEMETOLOGY METHOD 08/12/2025 11:08 AM [facility] Platelets 173 130 - 400 K/mcL LAB HEMETOLOGY METHOD 08/12/2025 11:08 AM [facility] MPV 11.8(H) 7.0 - 11.0 FL LAB HEMETOLOGY METHOD 08/12/2025 11:08 AM [facility] NRBC 0.0 <1.0 % LAB HEMETOLOGY METHOD 08/12/2025 11:[address] [facility] NRBC Absolute 0.00 <0.10 K/mcL LAB HEMETOLOGY METHOD 08/12/2025 11:[address] [facility] Blood Venous blood specimen / Unknown Venipuncture / Unknown 08/12/2025 8:06 AM EDT 08/12/2025 10:11 AM EDT us Chema Seals MD LAB BLOOD ORDERABLES Final Result [facility] [address] [place] [address], documented in this encounter Visit Diagnoses Diagnosis Anemia, unspecified documented in this encounter Care Teams Printed Circuit Boards Laminator Relationship Specialty Start Date End Date Chema Seals MD [address] [place] [address] [facility] [place], [place] PCP - General Internal Medicine 08/05/25 documented as of this encounter
--- OUTSIDE RECORDS SUMMARY | 2025-10-12 18:34 | XMS_ITS | Encounter Summary ---
Author Organization [facility] [place] [address] Care Team Providers Care Card Processing Clerk Name Role Phone Chema Seals MD Primary Care Provider +1- [phone] Encounter Details Date Type Department Care Team (Late st Contact Info) Description 08/05/2025 Lab Requisition [facility] - Main Lab [address] [place] [address] Chema Seals MD [address] [place] [address] Anemia, unspecified Social History Tobacco Use Types [...] LAB CHEMISTRY METHOD 08/05/2025 1:08 PM EDT [facility] Potassium 4.2 3.5 - 5.5 mmol/L LAB CHEMISTRY METHOD 08/05/2025 1:08 PM [facility] Chloride 97 96 - 110 mmol/L LAB CHEMISTRY METHOD 08/05/2025 1:08 PM [facility] CO2 30 21 - 32 mmol/L LAB CHEMISTRY METHOD 08/05/2025 1:08 PM [facility] Anion Gap 8 3 - 11 LAB CHEMISTRY METHOD 08/05/2025 1:08 PM [facility] Glucose 179(H) 70 - 100 mg/dL LAB CHEMISTRY METHOD 08/05/2025 1:08 PM [facility] BUN 40(H) 5 - 25 mg/dL LAB CHEMISTRY METHOD 08/05/2025 1:08 PM [facility] Creatinine 1.84(H) 0.70 - 1.30 mg/dL LAB CHEMISTRY METHOD 08/05/2025 1:08 PM [facility] eGFR 37(L) >=60 mL/min/1. 73m2 LAB CHEMISTRY METHOD 08/05/2025 1:08 PM [facility] Comment:Calculation based on the Chronic Kidney Disease Epidemiology Collaboration (CKD-EPI) equation refit without adjustment for race. BUN/Creatinine Ratio 21.7 LAB CHEMISTRY METHOD 08/05/2025 1:08 PM [facility] Calcium 8.8 8.5 - 10.5 mg/dL LAB CHEMISTRY METHOD 08/05/2025 1:08 PM [facility] AST (SGOT) 25 10 - 42 unit/L LAB CHEMISTRY METHOD 08/05/2025 1:08 PM [facility] ALT (SGPT) 34 10 - 60 unit/L LAB CHEMISTRY METHOD 08/05/2025 1:08 PM [facility] Alkaline Phosphatase 69 42 - 121 unit/L LAB CHEMISTRY METHOD 08/05/2025 1:08 PM [facility] Total Protein 5.7(L) 6.0 - 8.0 g/dL LAB CHEMISTRY METHOD 08/05/2025 1:08 PM EDT [facility] Albumin 3.1(L) 3.2 - 5.0 g/dL LAB CHEMISTRY METHOD 08/05/2025 1:08 PM EDT [facility] Total Bilirubin 0.7 0.0 - 1.4 mg/dL LAB CHEMISTRY METHOD 08/05/2025 1:08 PM EDT [facility] Blood Venous blood specimen / Unknown Venipuncture / Unknown 08/05/2025 10:20 AM EDT 08/05/2025 11:03 AM EDT Chema Seals MD LAB BLOOD ORDERABLES Final Result [facility] [address] [place] [address], * (ABNORMAL) Complete blood count (08/05/2025 10:20 AM EDT) WBC 17.0(H) 4.8 - 10.8 K/mcL LAB HEMETOLOGY METHOD 08/05/2025 11:32 AM [facility] RBC 4.00(L) 4.50 - 5.50 M/mcL LAB HEMETOLOGY METHOD 08/05/2025 11:32 AM [facility] Hemoglobin 12.0(L) 13.5 - 17.5 g/dL LAB HEMETOLOGY METHOD 08/05/2025 11:32 AM [facility] Hematocrit 37.8(L) 42.0 - 54.0 % LAB HEMETOLOGY METHOD 08/05/2025 11:32 AM [facility] MCV 93.8 79.0 - 98.0 FL LAB HEMETOLOGY METHOD 08/05/2025 11:32 AM [facility] MCH 29.8 27.0 - 32.0 pcg LAB HEMETOLOGY METHOD 08/05/2025 11:32 AM EDT [facility] MCHC 31.7(L) 32.0 - 37.0 g/dL LAB HEMETOLOGY METHOD 08/05/2025 11:32 AM EDT [facility] RDW 13.6 11.0 - 15.0 % LAB HEMETOLOGY METHOD 08/05/2025 11:32 AM EDT [facility] Platelets 180 130 - 400 K/mcL LAB HEMETOLOGY METHOD 08/05/2025 11:32 AM EDT [facility] MPV 12.2(H) 7.0 - 11.0 FL LAB HEMETOLOGY METHOD 08/05/2025 11:32 AM EDT [facility] NRBC 0.0 <1.0 % LAB HEMETOLOGY METHOD 08/05/2025 11:32 AM EDT [facility] NRBC Absolute 0.00 <0.10 K/mcL LAB HEMETOLOGY METHOD 08/05/2025 11:32 AM T [facility] Blood Venous blood specimen / Unknown Venipuncture / Unknown 08/05/2025 10:20 AM EDT 08/05/2025 11:03 AM EDT us Chema Seals MD LAB BLOOD ORDERABLES Final Result [facility] [address] [place] [address], documented in this encounter Visit Diagnoses Diagnosis Anemia, unspecified documented in this encounter Care Teams Card Processing Clerk Relationship Specialty Start Date End Date Chema Seals MD [address] [place], [place] [address] [place], [place] PCP - General Internal Medicine 08/05/25 documented as of this encounter
--- OUTSIDE RECORDS SUMMARY | 2025-10-12 18:34 | XMS_ITS | Clinical Summary ---
Author Organization [facility] Address [address] [place] [address] Phone Care Team Providers Care Crane Ladle Person Name Role Phone Unavailable Primary Care Provider [...] [facility] RE[facility] [employer] P[employer] MEDICARE REPLACEMENT [employer] PPO MEDICARE REPLACEMENT [employer] PPO MEDICARE REPLACEMENT [employer] PPO MEDICARE REPLACEMENT Additional Source Comments The information contained in this document represents components of the legal health record. It is not the complete legal health record.[facility]
--- OUTSIDE RECORDS SUMMARY | 2025-10-12 18:34 | XMS_ITS | Encounter Summary ---
Author Organization [facility] Address [address] [place] [address] Care Team Providers Care Professional Development Instructor Name Role Phone Chema Seals MD Primary Care Provider [phone]- [phone] Encounter Details Date Type Department Care Team (Late st Contact Info) Description 08/17/2025 Lab Requisition [facility] - Main Lab [address] [place] [address] Chema Seals MD [address] [place] [address] Type 2 diabetes mellitus without complications (CMS/HCC [...] LAB CHEMISTRY METHOD 08/17/2025 2:10 PM EST [facility] Mean Bld Glu Estim. 148 mg/dL LAB CHEMISTRY METHOD 08/17/2025 2:10 PM EST [facility] Blood Venous blood specimen / Unknown Venipuncture / Unknown 08/17/2025 9:08 AM EST 08/17/2025 11:30 AM EST us Chema Seals MD LAB BLOOD ORDERABLES Final Result [facility] [address] [place] [address], documented in this encounter Visit Diagnoses Diagnosis Type 2 diabetes mellitus without complications (CMS/HCC V24, CMS/HCC V28) documented in this encounter Care Teams Professional Development Instructor Relationship Specialty Start Date End Date Chema Seals MD [address] [place] [address] [facility] [place], [place] PCP - General Internal Medicine 08/05/25 documented as of this encounter
--- OUTSIDE RECORDS SUMMARY | 2025-10-12 18:34 | XMS_ITS | Encounter Summary ---
Author Organization [facility] Address [address] [facility] [address] [place] [address] Phone Care Team Providers Care Coping Machine Assembler Name Role Phone Tanisha Evangelista MD Primary Care Provider [phone] Reason for Visit * Reason Comments Med Refill Encounter Details Date Type Department Care Team (Late st Contact Info) Description 11/14/2022 Refill [facility] [address] [facility] [address] [place] [phone] Eliu Estrella MD [address] [facility] [address] [place] [phone] Social History Tobacco Use Types Packs/Day Years [...] on filedocumented in this encounter Care Teams Coping Machine Assembler Relationship Specialty Start Date End Date Tanisha Evangelista MD [address] [place] [address] PCP - General 10/24/20 documented as of this encounter
--- OUTSIDE RECORDS SUMMARY | 2025-10-12 18:34 | XMS_ITS | Clinical Summary ---
Author Organization [facility] Address [address] [address] Phone Care Team Providers Care Public Transit Specialist Name Role Phone Tanisha Evangelista MD Primary Care Provider [phone] Allergies No known active allergies Medications albuterol [...] EVERY MORNING. 1 Active Vitamin D, Ergocalciferol, 16707 units capsuleIndicati ons:Iron deficiency anemia, not otherwise [...] Encounters Date Type Department Care Team Description 09/07/2025 Orders Only [facility] [address] [address] Carter [place] MD from Last 3 Months Family History Medical [...] 09/26/2020 12:00 PM EST Plan of Treatment Health Maintenance Due Date Last Done Comments Influenza Vaccine (#1) 2025 , 06/27/2018, 08/21/2017, Additional history exists Diabetes: Ophthalmology Exam 09/02/2025 Diabetes: Pedal Pulse Checked 09/02/2025 Diabetes: Sensory Foot Exam 09/02/2025 Diabetes: Visual Foot Exam 09/02/2025 Diabetes: Hemoglobin A1C 11/17/2025 08/17/2025, 01/2025 Pneumococcal Vaccine: 50+ Years Completed 01/09/2018, 11/04/2014 Pneumococcal Vaccine: Peds (0 to 5 Years) and At-Risk Patients (6 to 49 Years) Discontinued 01/09/2018, 11/04/2014 Hepatitis B Vaccine Aged Out No longe r eligible based on patient's age to complete this topic Procedures Procedure Name Priority Date/Time Associated Diagnosis Comments VITAMIN D 25 HYDROXY Routine 09/07/2025 2:10 PM EST CALCIUM Routine 09/07/2025 2:10 PM EST CREATININE, BLOOD Routine 09/07/2025 2:1 0 PM EST BUN Routine 09/07/2025 2:10 PM EST ELECTROLYTE PANEL Routine 09/07/2025 2:1 0 PM EST PTH, INTACT (HC) Routine 09/07/2025 2:05 PM EST from Last 3 Months Results * Creatinine (09/07/2025 2:10 PM EST) Creatinine Serum 1.33 0.5 - 1.4 mg/dL See order comments eGFR (Calc) 52 See jose r comments Comment: Chronic Kidney Disease: Estimated GFR < 60 mL/min/1.73m2 Severe Kidney Disease: Estimated GFR < 15 mL/min/1.73m2 09/07/2025 2:10 PM EST 09/07/2025 2:10 PM EST Carter [place] MD LAB BLOOD ORDERABLES Final Resul t [place] See order comments [place] [address] * (ABNORMAL) Vitamin D 25 Hydroxy (09/07/2025 2:10 PM EST) Vitamin D, 25-Hydroxy 17.0(L) >30 ng/mL See order comments Comment: Health Based Reference Values* < 20 ng/mL Deficient 20-30 ng/mL Insufficient > 30 ng/mL Sufficient *Anil NUNO. N Engl J Med. 2007;357:266-280 There is no well-established upper level of normal vitamin D levels. Some laboratories use 50 ng/mL as an upper limit of normal. However, toxicity is patient-dependent and may occur at any level. Careful correlation with the patient's presentation is necessary and, if there is concern for vitamin D toxicity, treatment should be considered irrespective of the serum level. Care must be taken in interpreting Vitamin D results from different laboratories and methodologies. Published data demonstrated that results from patients undergoing hemodialysis may show a negative bias when tested with various automated 25-OH vitamin D assays when compared to LC-MS/MS. When testing samples from patients whose predominant form of Vitamin D is Vitamin D2, such as patients receiving Vitamin D2 supplementation, results that are subtherapeutic should be confirmed with another method such as LC-MS/MS. 09/07/2025 2:10 PM EST 09/07/2025 2:10 PM EST us Carter Colorado MD LAB BLOOD ORDERABLES Final Resul t Performing Organization Address [facility] de Phone Number [place] See order comments [place] [address] * BUN (09/07/2025 2:10 PM EST) BUN 16 9 - 16 mg/dL See order comments 09/07/2025 2:10 PM EST 09/07/2025 2:10 PM EST us Carter Colorado MD LAB BLOOD ORDERABLES Final Resul t Performing Organization Address [facility] de Phone Number [place] See order comments [place] [address] * Calcium (09/07/2025 2:10 PM EST) Calcium 9.1 8.4 - 10.2 mg/dL See order comments 09/07/2025 2:10 PM EST 09/07/2025 2:10 PM EST us Carter Colorado MD LAB BLOOD ORDERABLES Final Resul t Performing Organization Address [facility] de Phone Number [place] See order comments [place] [address] * Electrolyte panel (09/07/2025 2:10 PM EST) Sodium 142 135 - 145 mmol/L See order comments Potassium 4.3 3.3 - 5.1 mmol/L See order comments Chloride 105 96 - 108 mmol/L See order comments Bicarbonate (CO2) 29 22 - 29 mmol/L See order comments Anion Gap 12 12 - 20 See order comments 09/07/2025 2:10 PM EST 09/07/2025 2:10 PM EST us Carter Colorado MD LAB BLOOD ORDERABLES Final Resul t [place] See order comments [place] [address] * (ABNORMAL) PTH, Intact (09/07/2025 2:05 PM EST) Parathyroid Hormone, Intact 140.6(H) 8.7 - 77.1 pg/mL See order comments 09/07/2025 2:05 PM EST 09/07/2025 2:05 PM EST us Carter [place] MD LAB BLOOD ORDERABLES Final Resul t Performing Organization Address [facility] Co de Phone Number [place] See order comments [place] [address] from Last [address] [place] [address] Medicare Medicaid [place] Care Teams Public Transit Specialist Relationship Specialty Start Date End Date Tanisha Evangelista MD [facility] [place] [address] PCP - General 10/24/20
--- OUTSIDE RECORDS SUMMARY | 2025-10-30 19:00 | XMS_ITS | Clinical Summary ---
Author Organization Unknown Care Team Providers Care Tobacco Sampler Name Role Phone WILLIAM CHAIREZ, ANGE Unavailable Unavailable DINORA RN, AKIKO Unavailable Unavailab felipe SAEED LPN, FREDDIE Unavailable Unavailable DANGELO PT, DEJON Unavailable Unavailable [employer]IA PIZZ[employer] DELIVERY DRIVER, MIKAELA Unavailable Unavailable CONDINO WHEEL FILLER/DUMONT, TIMOTEO Unavailable Unav ailable Payers Payer Name Policy Type Policy Number Effective Date Expira tion Date [facility] [id number] Problems Condition Name Condition Details Condition Category Status Onset Date Resolution Date Last Treatment Date Treating Clinician Comments 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 Active 2024-10 00:00: 00 CHRONIC RESPIRATORY FAILURE WITH HYPOXIA Active 2024-10 00:00: 00 BENIGN PROSTATIC HYPERPLASIA WITH LOWER URINARY TRACT SYMP Active 2024-10 00:00: 00 OTHER RETENTION OF URINE Active 2024-10 00:00: 00 ENCOUNTER FOR FITTING AND ADJUSTMENT OF URINARY DEVICE Active 2024-10 00:00: 00 OTHER PULMONARY EMBOLISM WITHOUT ACUTE COR PULMONALE Active 2024-10 00:00: 00 OTHER COMPLICATION OF KIDNEY TRANSPLANT Active 2024-10 00:00: 00 HYPERTENSIVE 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 Active 10-14 00:00: 00 CHRONIC KIDNEY DISEASE, UNSPECIFIED Active 10-14 00:00: 00 NEUROMUSCULA R DYSFUNCTION OF BLADDER, UNSPECIFIED Active 10-14 00:00: 00 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 Active 2024-10 00:00: 00 HYPERGLYCEMI A, UNSPECIFIED Active 10-14 00:00: 00 GENERALIZED ANXIETY DISORDER Active 10-14 00:00: 00 UNSPECIFIED PROTEIN-ANA ROSA DONTE MALNUTRITION Active 10-14 00:00: 00 OTHER SPECIFIED DEPRESSIVE EPISODES Active 10-14 00:00: 00 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 10-14 00:00: 00 OLD MYOCARDIAL INFARCTION Active 2024-10 00:00: 00 INSOMNIA, UNSPECIFIED Active 10-14 00:00: 00 GASTRO-ESOPH AGEAL REFLUX DISEASE WITHOUT ESOPHAGITIS Active 10-14 00:00: 00 DEPENDENCE ON SUPPLEMENTAL OXYGEN Active 10-14 00:00: 00 CHIP SILO TENDER (CURRENT) USE OF ANTICOAGULAN TS Active 10-14 00:00: 00 FDC (CURRENT) USE OF ASPIRIN Active 10-14 00:00: 00 NEED FOR ASSISTANCE WITH PERSONAL CARE Active 10-14 00:00: 00 Allergies, Adverse Reactions, Alerts Allergy Name Allergy Type Status Severity Reaction(s) Onset Date Inactive Date Treating Clinician Comments NO KNOWN ALLERGIES Propensity to adverse reactions Active 2024-10 11:49: 53 Medications Ordered Medication Name Filled Medication Name Start Date Stop Date Current Medication? Ordering Clinician Indication Dosage Frequency Signature (SIG) Comments Components doxycycline hyclate 100 mg capsule 2024-10 00:00: 00 09-02 00:00 :00 No [id number] Per instruc tions TWO TIMES A DAY Per instructio ns TWO TIMES A DAY (route: oral) Med Classific ation: Anti-Infe ctive Agents Eliquis 5 mg tablet 2024-10 00:00: 00 09-02 00:00 :00 No [id number] Per instruc tions TWO TIMES A DAY TWICE DAILY Per instructio ns TWO TIMES A DAY TWICE DAILY (route: oral) Med Classific ation: Hematolog ical Agents acetaminoph en 500 mg tablet 2024-10 00:00: 00 Yes [id number] PAIN 2 tablet EVERY 8 HOURS 2 tablet EVERY 8 HOURS (route: oral) Med Classific ation: Analgesic , Anti-infl ammatory or Antipyret ic albuterol sulfate HFA 90 mcg/actuati on aerosol inhaler 2024-10 00:00: 00 Yes [id number] SHORTNESS OF BREATH 1 puff EVERY 6 HOURS 1 puff EVERY 6 HOURS (route: inhalation ) Med Classific ation: Respirato ry Therapy Agents amlodipine 5 mg tablet 2024-10 00:00: 00 Yes [id number] HIGH BLOOD PRESSURE 1 tablet DAILY 1 tablet DAILY (route: oral) Med Classific ation: Cardiovas cular Therapy Agents Antacid 200 mg (as calcium carbonate 500 mg) chewable tablet 2024-10 00:00: 00 Yes [id number] GERD 1 tablet BEFORE MEALS 1 tablet BEFORE MEALS (route: oral) Med Classific ation: Gastroint estinal Therapy Agents aspirin 81 mg tablet,alison yed release 2024-10 00:00: 00 Yes [id number] BLOOD THINNER 1 tablet DAILY 1 tablet DAILY (route: oral) Med Classific ation: Hematolog ical Agents atorvastati n 40 mg tablet 2024-10 00:00: 00 Yes [id number] HIGH LIPIDS 1 tablet BEDTIME 1 tablet BEDTIME (route: oral) Med Classific ation: Cardiovas cular Therapy Agents budesonide 0.5 mg/2 mL suspension for nebulizatio n 2024-10 00:00: 00 Yes [id number] COPD 2 mL EVERY AM 2 mL EVER Y AM (route: inhalation ) Med Classific ation: Respirato ry Therapy Agents budesonide- formoterol HFA 80 mcg-4.5 mcg/actuati on aerosol inhaler 2024-10 00:00: 00 Yes [id number] COPD 2 puff 2 TIMES DAILY 2 puff 2 TIMES DAILY (route: inhalation ) Med Classific ation: Respirato ry Therapy Agents Colace 100 mg capsule 2024-10 00:00: 00 Yes [id number] CONSTIPATIO N 1 capsule 2 TIMES DAILY 1 capsule 2 TIMES DAILY (route: oral) Med Classific ation: Gastroint estinal Therapy Agents Eliquis 5 mg tablet 2024-10 00:00: 00 Yes [id number] BLOOD THINNER 1 tablet 2 TIMES DAILY 1 tablet 2 TIMES DAILY (route: oral) Med Classific ation: Hematolog ical Agents ipratropium 0.5 mg-albutero l 3 mg (2.5 mg base)/3 mL nebulizatio n soln 2024-10 00:00: 00 Yes [id number] SHORTNESS OF BREATH 3 mL EVERY 6 HOURS 3 mL EVERY 6 HOURS (route: inhalation ) Med Classific ation: Respirato ry Therapy Agents ipratropium 0.5 mg-albutero l 3 mg (2.5 mg base)/3 mL nebulizatio n soln 2024-10 00:00: 00 Yes [id number] SHORTNESS OF BREATH 3 mL DAILY 3 mL DAILY (route: inhalation ) Med Classific ation: Respirato ry Therapy Agents Nitrostat 0.4 mg sublingual tablet 2024-10 00:00: 00 Yes [id number] CHEST PAIN Per instruc tions DAILY Per instructio ns DAILY (route: sublingual ) Med Classific ation: Cardiovas cular Therapy Agents pantoprazol e 40 mg tablet,alison yed release 2024-10 00:00: 00 Yes [id number] GERD 1 tablet DAILY 1 tablet DAILY (route: oral) Med Classific ation: Gastroint estinal Therapy Agents polyethylen e glycol 3350 17 gram/dose oral powder 2024-10 00:00: 00 Yes [id number] CONSTIPATIO N 17 gram DAILY 17 gram DAILY (route: oral) Med Classific ation: Gastroint estinal Therapy Agents Senna Lax 8.6 mg tablet 2024-10 00:00: 00 Yes [id number] CONSTIPATIO N 1 tablet DAILY 1 tablet DAILY (route: oral) Med Classific ation: Gastroint estinal Therapy Agents sertraline 100 mg tablet 2024-10 00:00: 00 Yes [id number] DEPRESSION 1 tablet DAILY 1 tablet DAILY (route: oral) Med Classific ation: Central Nervous System Agents sertraline 50 mg tablet 2024-10 00:00: 00 Yes [id number] DEPRESSION 0.5 tablet DAILY 0.5 tablet DAILY (route: oral) Med Classific ation: Central Nervous System Agents Spiriva Respimat 2.5 mcg/actuati on solution for inhalation 2024-10 00:00: 00 Yes [id number] COPD 2 puff DAILY 2 puff DAILY (route: inhalation ) Med Classific ation: Respirato ry Therapy Agents tamsulosin 0.4 mg capsule 2024-10 00:00: 00 Yes [id number] BPH ENLARGED PROSTATE 1 capsule BEDTIME 1 capsule BEDTIME (route: oral) Med Classific ation: Genitouri nary Therapy trazodone 50 mg tablet 2024-10 00:00: 00 Yes [id number] INSOMNIA 1 tablet BEDTIME 1 tablet BEDTIME (route: oral) Med Classific ation: Central Nervous System Agents cefpodoxime 200 mg tablet 2024-10 00:00: 00 09-27 23:59 :00 No [id number] UTI 1 tablet 2 TIMES DAILY 1 tablet 2 TIMES DAILY (route: oral) Med Classific ation: Anti-Infe ctive Agents doxycycline hyclate 100 mg tablet 2024-10 00:00: 00 09-27 23:59 :00 No [id number] PNEUMONIA 1 tablet 2 TIMES DAILY 1 tablet 2 TIMES DAILY (route: oral) Med Classific ation: Anti-Infe ctive Agents Vital Signs Vital Name Observation Time Observation Value Commen ts Temperature 2025-10-12 11:18:00.000 98.3 [degF] Temperature 2025-10-12 08:42:00.000 98.3 [degF] Temperature 2025-10-05 09:45:00.000 97.7 [degF] Temperature 2025-10-04 13:51:00.000 99.1 [degF] Temperature 2025-10-01 14:11:00.000 98.2 [degF] Temperature 2025-09-28 09:29:00.000 98.9 [degF] Temperature 2025-09-23 13:15:00.000 97.7 [degF] Temperature 2025-09-23 11:10:00.000 97 [degF] Temperature 2025-09-22 09:42:00.000 97.7 [degF] Temperature 2025-09-14 14:09:00.000 97 [degF] Temperature 2025-09-13 14:26:00.000 97.9 [degF] Temperature 2025-09-13 09:39:00.000 97.4 [degF] Temperature 2025-09-08 13:25:00.000 98.6 [degF] Temperature 2025-09-08 07:15:00.000 97.3 [degF] Temperature 2025-09-02 11:39:00.000 97.8 [degF] BMI (%) 2025-09-02 10:51:16.000 26 kg/m2 Height 2025-09-02 10:50:24.000 66 [in_us] Pulse 2025-10-12 11:18:00.000 68 /min Pulse 2025-10-12 08:42:00.000 100 /min Pulse 2025-10-05 09:45:00.000 78 /min Pulse 2025-10-04 13:51:00.000 62 /min Pulse 2025-10-01 14:11:00.000 92 /min Pulse 2025-09-28 09:29:00.000 76 /min Pulse 2025-09-23 13:15:00.000 90 /min Pulse 2025-09-23 11:10:00.000 70 /min Pulse 2025-09-22 09:42:00.000 87 /min Pulse 2025-09-14 14:09:00.000 80 /min Pulse 2025-09-13 14:26:00.000 73 /min Pulse 2025-09-13 09:39:00.000 82 /min Pulse 2025-09-08 13:25:00.000 74 /min Pulse 2025-09-08 07:15:00.000 72 /min Pulse 2025-09-02 11:39:00.000 75 /min O2 Saturation (%) 2025-10-12 11:18:00.000 98 % O2 Saturation (%) 2025-10-12 08:42:00.000 95 % O2 Saturation (%) 2025-10-05 09:45:00.000 97 % O2 Saturation (%) 2025-10-04 13:51:00.000 96 % O2 Saturation (%) 2025-10-01 14:14:00.000 96 % O2 Saturation (%) 2025-09-28 09:29:00.000 97 % O2 Saturation (%) 2025-09-23 13:15:00.000 95 % O2 Saturation (%) 2025-09-22 09:42:00.000 97 % O2 Saturation (%) 2025-09-14 14:09:00.000 97 % O2 Saturation (%) 2025-09-13 14:26:00.000 96 % O2 Saturation (%) 2025-09-13 09:39:00.000 95 % O2 Saturation (%) 2025-09-08 13:25:00.000 96 % O2 Saturation (%) 2025-09-08 07:16:00.000 95 % O2 Saturation (%) 2025-09-02 11:39:00.000 96 % Respirations 2025-10-12 11:18:00.000 18 /min Respirations 2025-10-12 08:42:00.000 18 /min Respirations 2025-10-05 09:45:00.000 18 /min Respirations 2025-10-04 13:51:00.000 18 /min Respirations 2025-10-01 14:11:00.000 20 /min Respirations 2025-09-28 09:29:00.000 18 /min Respirations 2025-09-23 13:15:00.000 18 /min Respirations 2025-09-23 11:10:00.000 18 /min Respirations 2025-09-22 09:54:00.000 20 /min Respirations 2025-09-14 14:09:00.000 18 /min Respirations 2025-09-13 14:26:00.000 18 /min Respirations 2025-09-13 09:39:00.000 19 /min Respirations 2025-09-08 13:25:00.000 20 /min Respirations 2025-09-08 07:15:00.000 18 /min Respirations 2025-09-02 11:39:00.000 18 /min Weight (lbs) 2025-09-02 10:51:16.000 165 [lb_av] Systolic Blood Pressure 2025-10-12 11:18:00.000 112 mm [Hg] Systolic Blood Pressure 2025-10-12 08:42:00.000 116 mm [Hg] Systolic Blood Pressure 2025-10-05 09:45:00.000 122 mm [Hg] Systolic Blood Pressure 2025-10-04 13:51:00.000 110 mm [Hg] Systolic Blood Pressure 2025-10-01 14:11:00.000 104 mm [Hg] Systolic Blood Pressure 2025-09-28 09:29:00.000 132 mm [Hg] Systolic Blood Pressure 2025-09-23 13:15:00.000 124 mm [Hg] Systolic Blood Pressure 2025-09-23 11:10:00.000 110 mm [Hg] Systolic Blood Pressure 2025-09-22 09:42:00.000 98 mm[ Hg] Systolic Blood Pressure 2025-09-14 14:09:00.000 110 mm [Hg] Systolic Blood Pressure 2025-09-13 14:26:00.000 132 mm [Hg] Systolic Blood Pressure 2025-09-13 09:39:00.000 136 mm [Hg] Systolic Blood Pressure 2025-09-08 13:25:00.000 150 mm [Hg] Systolic Blood Pressure 2025-09-08 07:15:00.000 120 mm [Hg] Systolic Blood Pressure 2025-09-02 11:39:00.000 120 mm [Hg] Diastolic Blood Pressure 2025-10-12 11:18:00.000 60 mm [Hg] Diastolic Blood Pressure 2025-10-12 08:42:00.000 64 mm [Hg] Diastolic Blood Pressure 2025-10-05 09:45:00.000 70 mm [Hg] Diastolic Blood Pressure 2025-10-04 13:51:00.000 50 mm [Hg] Diastolic Blood Pressure 2025-10-01 14:11:00.000 70 mm [Hg] Diastolic Blood Pressure 2025-09-28 09:29:00.000 78 mm [Hg] Diastolic Blood Pressure 2025-09-23 13:15:00.000 82 mm [Hg] Diastolic Blood Pressure 2025-09-23 11:10:00.000 62 mm [Hg] Diastolic Blood Pressure 2025-09-22 09:42:00.000 50 mm [Hg] Diastolic Blood Pressure 2025-09-14 14:09:00.000 62 mm [Hg] Diastolic Blood Pressure 2025-09-13 14:26:00.000 68 mm [Hg] Diastolic Blood Pressure 2025-09-13 09:39:00.000 78 mm [Hg] Diastolic Blood Pressure 2025-09-08 13:25:00.000 80 mm [Hg] Diastolic Blood Pressure 2025-09-08 07:15:00.000 78 mm [Hg] Diastolic Blood Pressure 2025-09-02 11:39:00.000 70 mm [Hg] Plan of Treatment Planned Activity Planned Date Details Comments Future Scheduled Test RN TO OBSE RVE, ASSESS, EVALUATE, AND DEVELOP AN INDIVIDUALIZED PLAN OF CARE. AGENCY MAY ACCEPT ORDERS FROM CONSULTING PHYSICIANS . RN TO OBSERVE AND ASSESS, LEVERS LACE MACHINE OPERATOR/PLANISHER TO OBSERVE FOR RISK FOR FALLS AND INSTRUCT IN FALL PREVENTION, HOME SAFETY, MEDICATION MANAGEMENT, INFECTION PREVENTION, AND NUTRITION MANAGEMENT. RN/LEVERS LACE MACHINE OPERATOR/PLANISHER NURSE MAY PERFORM O2 SATURATION LEVEL ON ADMISSION AND PRN FOR RN TO ASSESS/LEVERS LACE MACHINE OPERATOR TO OBSERVE PATIENT, WITH NOTIFICATION TO THE PHYSICIAN IF SATURATION IS 90% IN THE ABSENCE OF MORE SPECIFIC PARAMETERS FROM THE PHYSICIAN. AGENCY MAY PERFORM A RESUMPTION OF CARE VISIT FOLLOWING ANY HOSPITAL ADMISSION. RN/LEVERS LACE MACHINE OPERATOR/PLANISHER TO MONITOR CO-MORBID CONDITIONS LISTED ON THE PLAN OF CARE AND ANY NEW CONDITIONS THAT PRESENT THEMSELVES DURING THIS EPISODE TO IDENTIFY CHANGES AND INTERVENE TO MINIMIZE COMPLICATIONS. [code = RN TO OBSERVE, ASSESS, EVALUATE, AND DEVELOP AN INDIVIDUALIZED PLAN OF CARE. AGENCY MAY ACCEPT ORDERS FROM CONSULTING PHYSICIANS . RN TO OBSERVE AND ASSESS, LEVERS LACE MACHINE OPERATOR/PLANISHER TO OBSERVE FOR RISK FOR FALLS AND INSTRUCT IN FALL PREVENTION, HOME SAFETY, MEDICATION MANAGEMENT, INFECTION PREVENTION, AND NUTRITION MANAGEMENT. RN/LEVERS LACE MACHINE OPERATOR/PLANISHER NURSE MAY PERFORM O2 SATURATION LEVEL ON ADMISSION AND PRN FOR RN TO ASSESS/LEVERS LACE MACHINE OPERATOR TO OBSERVE PATIENT, WITH NOTIFICATION TO THE PHYSICIAN IF SATURATION IS 90% IN THE ABSENCE OF MORE SPECIFIC PARAMETERS FROM THE PHYSICIAN. AGENCY MAY PERFORM A RESUMPTION OF CARE VISIT FOLLOWING ANY HOSPITAL ADMISSION. RN/LEVERS LACE MACHINE OPERATOR/PLANISHER TO MONITOR CO-MORBID CONDITIONS LISTED ON THE PLAN OF CARE AND ANY NEW CONDITIONS THAT PRESENT THEMSELVES DURING THIS EPISODE TO IDENTIFY CHANGES AND INTERVENE TO MINIMIZE COMPLICATIONS.] Future Scheduled Test MEDICATION MANAGEMENT; RN/LEVERS LACE MACHINE OPERATOR/PLANISHER TO REVIEW MEDICATIONS FOR INTERACTIONS, EFFECTIVENESS OF DRUG THERAPY, AND SIGNS/SYMPTOMS OF ADVERSE REACTIONS. MAY INSTRUCT AND REINFORCE MEDICATION TEACHING RELATED TO THE USE OF MEDICATIONS, DOSAGE, FREQUENCY, PURPOSE, SIDE EFFECTS, AND TO REPORT COMPLICATIONS. [code = MEDICATION MANAGEMENT; RN/LEVERS LACE MACHINE OPERATOR/PLANISHER TO REVIEW MEDICATIONS FOR INTERACTIONS, EFFECTIVENESS OF DRUG THERAPY, AND SIGNS/SYMPTOMS OF ADVERSE REACTIONS. MAY INSTRUCT AND REINFORCE MEDICATION TEACHING RELATED TO THE USE OF MEDICATIONS, DOSAGE, FREQUENCY, PURPOSE, SIDE EFFECTS, AND TO REPORT COMPLICATIONS.] Future Scheduled Test RISK FOR H OSPITALIZATION; RN TO ASSESS/TEACH, PLANISHER/LEVERS LACE MACHINE OPERATOR TO OBSERVE/TEACH PATIENT/CAREGIVER ON RISK FOR HOSPITALIZATION/EMERGENCY ROOM VISITS, TEACH SIGNS AND SYMPTOMS THAT PUT PATIENT AT RISK, WHEN TO NOTIFY NURSE/PHYSICIAN OF COMPLICATIONS/DECLINE, AND WHEN TO CALL 911. [code = RISK FOR HOSPITALIZATION; RN TO ASSESS/TEACH, PLANISHER/LEVERS LACE MACHINE OPERATOR TO OBSERVE/TEACH PATIENT/CAREGIVER ON RISK FOR HOSPITALIZATION/EMERGENCY ROOM VISITS, TEACH SIGNS AND SYMPTOMS THAT PUT PATIENT AT RISK, WHEN TO NOTIFY NURSE/PHYSICIAN OF COMPLICATIONS/DECLINE, AND WHEN TO CALL 911.] Future Scheduled Test CARDIOVASC ULAR SYSTEM; RN TO ASSESS/TEACH, LEVERS LACE MACHINE OPERATOR/PLANISHER TO OBSERVE/TEACH RELATED TO ALTERED CARDIOVASCULAR STATUS TO MINIMIZE COMPLICATIONS AND REDUCE HOSPITALIZATION. [code = CARDIOVASCULAR SYSTEM; RN TO ASSESS/TEACH, LEVERS LACE MACHINE OPERATOR/PLANISHER TO OBSERVE/TEACH RELATED TO ALTERED CARDIOVASCULAR STATUS TO MINIMIZE COMPLICATIONS AND REDUCE HOSPITALIZATION.] Future Scheduled Test HYPERTENSI ON MANAGEMENT; RN TO ASSESS AND TEACH, LEVERS LACE MACHINE OPERATOR/PLANISHER TO OBSERVE AND TEACH WARNING SIGNS AND SYMPTOMS TO AVOID HOSPITALIZATION. [code = HYPERTENSION MANAGEMENT; RN TO ASSESS AND TEACH, LEVERS LACE MACHINE OPERATOR/PLANISHER TO OBSERVE AND TEACH WARNING SIGNS AND SYMPTOMS TO AVOID HOSPITALIZATION.] Future Scheduled Test RESPIRATOR Y SYSTEM MANAGEMENT; RN TO ASSESS AND TEACH, LEVERS LACE MACHINE OPERATOR/PLANISHER TO OBSERVE AND TEACH RELATED TO ALTERED RESPIRATORY STATUS TO MINIMIZE COMPLICATIONS AND REDUCE HOSPITALIZATION. [code = RESPIRATORY SYSTEM MANAGEMENT; RN TO ASSESS AND TEACH, LEVERS LACE MACHINE OPERATOR/PLANISHER TO OBSERVE AND TEACH RELATED TO ALTERED RESPIRATORY STATUS TO MINIMIZE COMPLICATIONS AND REDUCE HOSPITALIZATION.] Future Scheduled Test COPD MANAG EMENT; RN TO ASSESS AND TEACH, LEVERS LACE MACHINE OPERATOR/PLANISHER TO OBSERVE AND TEACH SIGNS/SYMPTOMS OF COPD EXACERBATION AND PROVIDE EARLY INTERVENTIONS TO MINIMIZE RISK OF HOSPITALIZATION. RN/LEVERS LACE MACHINE OPERATOR/PLANISHER TO INSTRUCT ON SELF-CARE MANAGEMENT INCLUDING BREATHING TECHNIQUES, AIRWAY CLEARANCE, AND PROPER USE OF COPD MEDICATIONS. RN TO ASSESS AND TEACH, LEVERS LACE MACHINE OPERATOR/PLANISHER TO OBSERVE AND TEACH PATIENT/CAREGIVER ABILITY TO MONITOR AND RECORD VITAL SIGNS INCLUDING PULSE OXIMETRY AND BLOOD PRESSURE [code = COPD MANAGEMENT; RN TO ASSESS AND TEACH, LEVERS LACE MACHINE OPERATOR/PLANISHER TO OBSERVE AND TEACH SIGNS/SYMPTOMS OF COPD EXACERBATION AND PROVIDE EARLY INTERVENTIONS TO MINIMIZE RISK OF HOSPITALIZATION. RN/LEVERS LACE MACHINE OPERATOR/PLANISHER TO INSTRUCT ON SELF-CARE MANAGEMENT INCLUDING BREATHING TECHNIQUES, AIRWAY CLEARANCE, AND PROPER USE OF COPD MEDICATIONS. RN TO ASSESS AND TEACH, LEVERS LACE MACHINE OPERATOR/PLANISHER TO OBSERVE AND TEACH PATIENT/CAREGIVER ABILITY TO MONITOR AND RECORD VITAL SIGNS INCLUDING PULSE OXIMETRY AND BLOOD PRESSURE] Future Scheduled Test OXYGEN THE RAPY; RN/LEVERS LACE MACHINE OPERATOR/PLANISHER TO INSTRUCT ON OXYGEN MANAGEMENT INCLUDING: ADMINISTRATION AT 4 L/MIN VIA NASAL CANNULA CONTINUOUS FOR COPD, CARE OF EQUIPMENT AND SAFETY. [code = OXYGEN THERAPY; RN/LEVERS LACE MACHINE OPERATOR/PLANISHER TO INSTRUCT ON OXYGEN MANAGEMENT INCLUDING: ADMINISTRATION AT 4 L/MIN VIA NASAL CANNULA CONTINUOUS FOR COPD, CARE OF EQUIPMENT AND SAFETY.] Future Scheduled Test PAIN MANAG EMENT; RN TO ASSESS AND TEACH, PLANISHER/LEVERS LACE MACHINE OPERATOR TO OBSERVE AND TEACH AND PROVIDE EDUCATION ON PAIN MANAGEMENT TECHNIQUES. [code = PAIN MANAGEMENT; RN TO ASSESS AND TEACH, PLANISHER/LEVERS LACE MACHINE OPERATOR TO OBSERVE AND TEACH AND PROVIDE EDUCATION ON PAIN MANAGEMENT TECHNIQUES.] Future Scheduled Test GENITOURIN AAMIR MANAGEMENT; RN TO ASSESS AND TEACH, LEVERS LACE MACHINE OPERATOR/PLANISHER TO OBSERVE AND TEACH RELATED TO ALTERED GENITOURINARY STATUS TO MINIMIZE COMPLICATIONS AND REDUCE HOSPITALIZATION. [code = GENITOURINARY MANAGEMENT; RN TO ASSESS AND TEACH, LEVERS LACE MACHINE OPERATOR/PLANISHER TO OBSERVE AND TEACH RELATED TO ALTERED GENITOURINARY STATUS TO MINIMIZE COMPLICATIONS AND REDUCE HOSPITALIZATION.] Future Scheduled Test INDWELLING URINARY CATHETER MANAGEMENT; RN/LEVERS LACE MACHINE OPERATOR/PLANISHER TO INSTRUCT PATIENT / CAREGIVER ON INDWELLING URINARY CATHETER MANAGEMENT INCLUDING CARE OF CATHETER, SIGN AND SYMPTOMS OF COMPLICATIONS, PERINEAL CARE, TUBE AND BAG PLACEMENT, PREVENTION OF INFECTION AND SKIN BREAKDOWN. [code = INDWELLING URINARY CATHETER MANAGEMENT; RN/LEVERS LACE MACHINE OPERATOR/PLANISHER TO INSTRUCT PATIENT / CAREGIVER ON INDWELLING URINARY CATHETER MANAGEMENT INCLUDING CARE OF CATHETER, SIGN AND SYMPTOMS OF COMPLICATIONS, PERINEAL CARE, TUBE AND BAG PLACEMENT, PREVENTION OF INFECTION AND SKIN BREAKDOWN.] Future Scheduled Test FALL REDUC TION MANAGEMENT; RN TO ASSESS AND OBSERVE, LEVERS LACE MACHINE OPERATOR/PLANISHER TO OBSERVE FALL RISK FACTORS AND EDUCATE PATIENT/CAREGIVER ON STRATEGIES TO MINIMIZE THE RISK OF FALLING. [code = FALL REDUCTION MANAGEMENT; RN TO ASSESS AND OBSERVE, LEVERS LACE MACHINE OPERATOR/PLANISHER TO OBSERVE FALL RISK FACTORS AND EDUCATE PATIENT/CAREGIVER ON STRATEGIES TO MINIMIZE THE RISK OF FALLING.] Future Scheduled Test OCCUPATION AL THERAPIST TO EVALUATE FOR SHOWER HELP [code = OCCUPATIONAL THERAPIST TO EVALUATE FOR SHOWER HELP] Future Scheduled Test PRN VISITS ; NUMBER OF RN/LEVERS LACE MACHINE OPERATOR/PLANISHER VISITS: 2 RN/LEVERS LACE MACHINE OPERATOR/PLANISHER TO PERFORM: /RODRIGUEZ ASSESSMENT FOR THE FOLLOWING REASONS: STATUS CHANGES,/RODRIGUEZ COMPLICATIONS [code = PRN VISITS; NUMBER OF RN/LEVERS LACE MACHINE OPERATOR/PLANISHER VISITS: 2 RN/LEVERS LACE MACHINE OPERATOR/PLANISHER TO PERFORM: /RODRIGUEZ ASSESSMENT FOR THE FOLLOWING REASONS: STATUS CHANGES,/RODRIGUEZ COMPLICATIONS] Goal Patient Goal - NOT GO TO [...] Notes Progress Notes <paragraph>[Visit Date: 2024 by FREDDIE SAEED LPN]:</paragraph><paragraph>PATIENT BEING SEEN FOR AND RESPIRATORY. </paragraph><paragraph></paragraph><paragraph>PATIENT ALERT AND ORIENTED X3 WITH FORGETFULNESS AT TIMES. PATIENTS LS DIMMINISHED THROUGHOUT AND ON OXYGEN THERAPY 2L AT 98%. NO EDEMA TO LOWER EXTREMITIES. SN OBSERVED RODRIGUEZ CATH AND DARK YELLOW URINE IN RODRIGUEZ BAG. SN EDUCATED PATIENT ON CLEANING RODRIGUEZ INSERTION SITE DAILY AND INCREASING FLUIDS THROUGHOUT THE DAY TO HELP PREVENT UTI AND DEHYDRATION AND CONSTIPATION. SN EDUCATED PATIENT ON USING INHALERS DAILY AND NEBULIZER TREATMENTS AND TO RINSE MOUTH OUT AFTER USE. PATIENT IS HOMEBOUND RELATED TO DECREASE STRENGHT AND POOR ENDURANCE WITH THE NEED FOR A ASSISTED DEVICE TO AMBULATE FOR BALANCE DUE TO PAIN AND WEAKNESS. MAKING IT A TAXING EFFORT TO LEAVE THE HOME WITHOUT THE ASSISTANCE OF ANOTHER PERSON.</paragraph> Encounters Start Date/Time End Date/Time Encounter Type Admission Type Attending [facility] Facility Care Department Encounter ID Discharge Date Discharge Status Discharge Condition Discharge Reason Percent Goals Met 2025-09-02 00:00:00 2025-10-31 00:00:00 Outpatient NEW ADMISSION AKIKO FARIAS [facility] [id number] 13.64
== END 2025-10-12 15:42 | disposition home or self-care (01) ==
LOC: HO.HCS 15:04
PROVIDERS: PCP Internal Medicine; Visit Provider Nurse Practitioner Family
DX: I21.4 Non-ST elevation (NSTEMI) myocardial infarction (principal); Z98.890 Other specified postprocedural states; I10 Essential (primary) hypertension; J44.1 Chronic obstructive pulmonary disease with (acute) exacerbation; I26.99 Other pulmonary embolism without acute cor pulmonale
CPT/HCPCS: 99214; G2211

== ENCOUNTER → 2025-10-12 15:04 | Outpatient (BNVA) | payer MEDICARE, SELFPAY | PROVIDERS: PCP Internal Medicine; Visit Provider Nurse Practitioner Family | DX: I21.4 Non-ST elevation (NSTEMI) myocardial infarction (principal); I10 Essential (primary) hypertension; J44.1 Chronic obstructive pulmonary disease with (acute) exacerbation; I26.99 Other pulmonary embolism without acute cor pulmonale; Z99.81 Dependence on supplemental oxygen; Z79.899 Other long term (current) drug therapy; Z79.01 Long term (current) use of anticoagulants; Z98.890 Other specified postprocedural states; Z87.891 Personal history of nicotine dependence | CPT/HCPCS: 99212 ==